=== PATIENT | male | born 2000 | race Caucasian/White ===

== ENCOUNTER 2021-09-01 04:56 | Emergency (ER) | payer MEDICAID, SELFPAY ==
[2021-09-01 04:59] VITALS: BP 125/90; PULSE 86; RESP 18; TEMP 36.7; O2SAT 97; BMI 30.3
--- NOTE | 2021-09-01 05:22 | ED.DENTAL ---
HPI - Dental/Oral General Chief complaint: Dental/Oral Stated complaint: dental pain Time Seen by Provider: 09/01/21 05:22 Source: patient Mode of arrival: ambulatory Limitations: no limitations History of Present Illness MD Complaint: tooth pain Teeth map: 1. Impacted right lower 3rd molar no cavity seen no significant gum swelling no signs of infection Related Data Previous Rx's Medication Instructions Recorded tramadol 50 mg tablet 50 mg PO Q6H PRN #20 tab 09/01/21 Allergies Allergy/AdvReac Type Severity Reaction Status Date / Time No Known Allergies Allergy Verified 09/01/21 05:07 [No Known Allergies*] Review of Systems Review of Systems: Yes all other systems are reviewed and are negative [facility] Social History Social History Alcohol intake: never Patient Tobacco Use Status: Never used Tobacco Use of substances other than those prescribed or required for medical reasons: No Advance Directives: No Advance Directives Information Provided: Yes Physical Exam Vital Signs: Vital Signs: Last Vital Signs Temp 98.1 F 09/01/21 04:59 Pulse 86 09/01/21 04:59 Resp 18 09/01/21 04:59 BP 125/90 H 09/01/21 04:59 Pulse Ox 97 09/01/21 04:59 Body Mass Index 30.3 HENMT: Teeth image: 1. Impacted 32 tooth With no cavity no gum swelling no signs of infection Discharge Plan Discharge Clinical Impression: Toothache Patient Disposition: Home, Self-Care Instructions: Toothache (ED) Additional Instructions: Your pain in the right lower molar secondary to impacted wisdom tooth as diagnosed by Dentist please follow-up with maxillofacial Surgeon as advised by your dentist pain medication as advised Prescriptions: New tramadol 50 mg tablet 50 mg PO Q6H PRN (Reason: pain) Qty: 20 RF: 0 Interventions: ED Discharge Assessment Last Done: 09/01/21 05:46 Discharge Date/Time: 09/01/21 05:40
== END 2021-09-01 05:40 | disposition home or self-care (01) ==
PROVIDERS: Emergency Provider Internal Medicine; PCP Family Medicine
DX: K08.89 Other specified disorders of teeth and supporting structures (principal); Z79.899 Other long term (current) drug therapy
CPT/HCPCS: 99283; 99284

== ENCOUNTER 2023-06-06 11:57 | Outpatient (REF) | payer MEDICAID, SELFPAY ==
[2023-06-06 13:39] LABS: MANUAL DIFF FLAG NO
[2023-06-06 13:54] LABS: Basophils Percent Auto 0.4 % (0-2); Eosinophils Absolute Auto 0.2 X10*3/uL (0.0-0.4); Eosinophils Percent Auto 2.3 % (0-4); Hematocrit 48.1 % (42.0-52.0); Hemoglobin 16.5 g/dl (14.0-18.0); Imm Gran Abs Auto 0.03 X10*3/uL (0.00-0.03); Imm Gran Pct Auto 0.4 % (0.0-0.4); Lymphocytes Absolute Auto 1.5 X10*3/uL (1.2-4.9); Lymphocytes Percent Auto 20.7 % (20-40); Mean Corpuscular HGB Conc 34.3 g/dl (31.0-36.0); Mean Corpuscular Hemoglobin 30.6 pg (27.0-33.0); Mean Corpuscular Volume 89.1 fL (80.0-98.0); Mean Platelet Volume 9.9 fL (9.4-12.4); Monocytes Absolute Auto 0.5 X10*3/uL (0.1-1.2); Monocytes Percent Auto 6.2 % (2-11); Neutrophils Absolute Auto 5.1 x10*3/uL (2.0-8.3); Platelet Count 266 X10*3/uL (160-400); White Blood Count 7.3 X10*3/uL (4.8-10.8)
[2023-06-06 14:02] LABS: Estimated Average Glucose 91 mg/dL; Hemoglobin A1c % 4.8 % (<6.0)
[2023-06-06 14:28] LABS: Alanine Aminotransferase 86 U/L (0-40); Alkaline Phosphatase 90 U/L (39-117); Anion Gap 13 (12-20); Aspartate Amino Transferase 38 U/L (5-37); Bilirubin Direct 0.1 mg/dL (0.0-0.5); Bilirubin Total 0.5 mg/dL (0.0-1.0); Blood Urea Nitrogen 14 mg/dL (9-16); Calcium 10.3 mg/dL (8.4-10.2); Carbon Dioxide 25 mmol/L (22-29); Chloride 105 mmol/L (96-108); Cholesterol 224 mg/dL (<200); Estimated Glomerular Filt Rate > 60; Glucose Random 92 mg/dL (60-115); HDL Cholesterol 39 mg/dL (>40); LDL Cholesterol Calculated 149 mg/dL (<100); Sodium 139 mmol/L (135-145); Total Protein 8.2 g/dL (6.5-8.0); Triglycerides 182 mg/dL (<150)
[2023-06-06 14:47] LABS: HCG Quantitative < 2 mIU/mL; TSH reflex Free T4 6.31 uIU/mL (0.32-4.0)
[2023-06-06 15:34] LABS: Free T4 (Free Thyroxine) 0.88 ng/dL (0.71-1.85)
[2023-06-06 17:53] LABS: CT PCR NOT DETECTED (Not Detect.); NG PCR NOT DETECTED (Not Detect.)
[2023-06-07 08:10] LABS: HIV AB/AG Nonreactive (Nonreactive); HIV Num 1 0.05 S/CO (0.00-0.99)
[2023-06-08 10:53] LABS: RPR Rapid Plasma Reagin NON-REACTIVE (NON-REACTIVE)
[2023-06-10 19:59] LABS: VITAMIN D (1,25 OH) D3 48 pg/mL; Vit D (1,25-Dihydroxy) Total 48 pg/mL (18-72); Vitamin D (1,25 OH) D2 <8 pg/mL
== END 2023-06-06 11:58 | disposition home or self-care (01) ==
LOC: HO.HHCL 11:57
PROVIDERS: Visit Provider Family Medicine
DX: R74.01 Elevation of levels of liver transaminase levels (principal); E78.5 Hyperlipidemia, unspecified; E88.81 Metabolic syndrome and other insulin resistance; F64.9 Gender identity disorder, unspecified; Z30.09 Encounter for other general counseling and advice on contraception; Z20.2 Contact with and (suspected) exposure to infections with a predominantly sexual mode of transmission
CPT/HCPCS: 0353U; 80048; 80061; 80076; 82652; 83036; 84439; 84443; 84702; 85025; 86592; 87389

== ENCOUNTER 2023-08-03 13:23 | Outpatient (REF) | payer MEDICAID, SELFPAY ==
[2023-08-03 15:59] LABS: MANUAL DIFF FLAG NO
[2023-08-03 16:18] LABS: Basophils Percent Auto 0.2 % (0-2); Eosinophils Absolute Auto 0.2 X10*3/uL (0.0-0.4); Hematocrit 46.1 % (42.0-52.0); Hemoglobin 16.1 g/dl (14.0-18.0); Imm Gran Abs Auto 0.03 X10*3/uL (0.00-0.03); Imm Gran Pct Auto 0.3 % (0.0-0.4); Lymphocytes Absolute Auto 1.8 X10*3/uL (1.2-4.9); Lymphocytes Percent Auto 21.2 % (20-40); Mean Corpuscular HGB Conc 34.9 g/dl (31.0-36.0); Mean Corpuscular Hemoglobin 30.1 pg (27.0-33.0); Mean Corpuscular Volume 86.2 fL (80.0-98.0); Mean Platelet Volume 9.7 fL (9.4-12.4); Monocytes Absolute Auto 0.6 X10*3/uL (0.1-1.2); Monocytes Percent Auto 6.6 % (2-11); Neutrophils Percent Auto 69.7 % (45-73); Platelet Count 320 X10*3/uL (160-400); Red Blood Count 5.35 X10*6/uL (4.60-5.80); Red Cell Distribution Width 12.1 % (11.0-16.0); White Blood Count 8.7 X10*3/uL (4.8-10.8)
[2023-08-03 16:21] LABS: Alanine Aminotransferase 81 U/L (0-40); Albumin Level 4.8 g/dL (3.5-5.0); Alkaline Phosphatase 91 U/L (39-117); Anion Gap 15 (12-20); Aspartate Amino Transferase 37 U/L (5-37); Bilirubin Total 0.5 mg/dL (0.0-1.0); Blood Urea Nitrogen 16 mg/dL (9-16); Calcium 10.4 mg/dL (8.4-10.2); Carbon Dioxide 24 mmol/L (22-29); Chloride 104 mmol/L (96-108); Estimated Glomerular Filt Rate > 60; Glucose Random 90 mg/dL (60-115); Potassium 3.5 mmol/L (3.3-5.1); Sodium 139 mmol/L (135-145); Total Protein 8.1 g/dL (6.5-8.0)
== END 2023-08-03 13:24 | disposition home or self-care (01) ==
LOC: HO.HHCL 13:23
PROVIDERS: Visit Provider Registered Nurse
DX: R39.9 Unspecified symptoms and signs involving the genitourinary system (principal); R74.8 Abnormal levels of other serum enzymes
CPT/HCPCS: 36415; 80053; 85025; 87086

== ENCOUNTER 2023-08-16 14:36 | Outpatient (AMB) | payer MEDICAID, SELFPAY ==
--- NOTE | 2023-08-16 14:58 | A.OFFVIS_ITS ---
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 Pt reports loud snoring, gasping arousals with palpitation. Pt also having noncturia, non refreshing sleep and daytime sleepiness. He gained about 50 lb over the last couple of years and his symptoms has been progressed. Sleep questionnaire: Have you ever been diagnosed with a sleep disorder? No. Have you ever had a sleep study in the past? No. Have you ever been treated for a sleep disorder? No. Do you take medications for a sleep disorder? hydroxyzine 25 mg as needed. Do you snore? Yes, loudly. Do you wake up gasping at night? Yes. Do you have episodes of apneas? No. If yes, are they witnessed? No. Do you have episodes of nocturnal chest pain or dyspnea? Yes. Do you have difficulty initiating sleep? Yes. Do you have difficulty maintaining sleep? Yes. Do you wake up tired? Yes. Do you have headaches upon awakening? Yes, sometimes. Do you wake up with dry mouth or throat? No. Do you have GERD? Yes. Do you have nocturia? Yes. Do you have nocturnal leg cramps? No. Do you have symptoms of restless legs? No. Do you act out your dreams? Yes, sometimes, he screams. Sleep hygiene questionnaire: What is your usual sleep routine? Usual bedtime is at 11 pm to 12 am; Usual wake up time is at 6-7 am. Do you take naps? Yes, almost everyday, 4-6 hrs. Is your sleep environment cool, dark, and quiet? Yes. Do you exercise? Yes, sometimes. walking for 30 min. Do you take caffeine or other stimulants? No. Do you use electronics in bed? Yes. What is your work schedule? N/A. Hypersomnolence questionnaire: Do you have daytime tiredness or fatigue? Yes. Do you easily fall asleep when inactive? Yes. Have you ever had episodes of sudden weakness? No. Have you ever had episodes of sudden weakness associated with strong emotions? No. PFSH Social History (Updated 08/16/23 @ 15:04 by Kitty Buckley) Alcohol intake: never Patient Tobacco Use Status: Never used Tobacco Review of Systems Const All systems reviewed & are unremarkable except as noted in HPI and below ENT Reports Normal hearing present Neuro Reports Normal hearing present Physical Exam Vital Signs: Last Vital Signs Pulse 104 H 08/16/23 14:59 BP 130/66 08/16/23 14:59 Pulse Ox 99 08/16/23 14:59 Oxygen Delivery Method Room Air 08/16/23 14:59 BMI result Body Mass Index 35.1 Const General: cooperative Nutritional Appearance: obese Orientation/consciousness: patient oriented x3 HEENT Throat: Yes other (mallampati grade 4) Neck Neck: Yes full ROM and Yes supple Resp Effort & Inspection: normal respiratory effort and able to speak in complete sentences Neuro General: patient oriented x3 and gait normal Cranial nerves: Yes Bilaterally intact EOM present, Yes Normal facial strength present, Yes Midline tongue present, Yes Symmetric palate elevation present, Yes Normal hearing present, Yes Ability to bilaterally rotate head present and Yes Ability to bilaterally elevate shoulders present Cognition (Neuro): normal cognition Gait exam (Neuro): Normal gait present Motor exam (neuro): 5/5 motor strength present throughout, Pronator motor funct ion not present and no tremor noted Psych Appearance: grossly normal Mental Status: mental status grossly normal Speech and movement: Normal speech and movement present Affect: normal affect Attitude: cooperative Assessment & Plan Assessment & Plan (1) Loud snoring: Code(s): R06.83 - Snoring (2) Excessive daytime sleepiness: Code(s): G47.19 - Other hypersomnia (3) Obese: Code(s): E66.9 - Obesity, unspecified Plan Pt is advised to undergo home sleep study to assess for sleep apnea. Will f/u with pt after study to discuss results and appropriate treatment options. Pt to call with any worsening concerns or questions. Coding Level of Care Code New Pt Level 3 (58000) Diagnoses Loud snoring R06.83 Excessive daytime sleepiness G47.19 Obese E66.9
[2023-08-16 14:59] VITALS: BP 130/66; PULSE 104; O2SAT 99; BMI 35.1
== END 2023-08-16 15:25 | disposition home or self-care (01) ==
PROVIDERS: PCP Family Medicine; Visit Provider Nurse Practitioner Family
DX: R06.83 Snoring (principal); G47.19 Other hypersomnia; E66.9 Obesity, unspecified
CPT/HCPCS: 99203

== ENCOUNTER → 2023-08-16 14:36 | Outpatient (BNVA) | payer MEDICAID, SELFPAY | PROVIDERS: PCP Family Medicine; Visit Provider Nurse Practitioner Family | DX: G47.19 Other hypersomnia (principal); R06.83 Snoring; E66.9 Obesity, unspecified; Z68.35 Body mass index [BMI] 35.0-35.9, adult | CPT/HCPCS: 99212 ==

== ENCOUNTER 2023-10-24 16:11 | Outpatient (REF) | payer MEDICAID, SELFPAY ==
[2023-10-25 04:28] LABS: ~HepC Num1 0.27 S/CO (0.00-0.79); ~Hepatitis C Antibody Nonreactive (Nonreactive)
== END 2023-10-24 16:12 | disposition home or self-care (01) ==
LOC: HO.HHCL 16:11
PROVIDERS: Visit Provider Family Medicine
DX: F64.9 Gender identity disorder, unspecified (principal); Z11.59 Encounter for screening for other viral diseases
CPT/HCPCS: 36415; 84403; 86803

== ENCOUNTER → 2023-10-31 08:32 | Outpatient (REF) | payer MEDICAID, SELFPAY | LOC: HO.SL 08:32 | PROVIDERS: PCP Family Medicine; Visit Provider Nurse Practitioner Family | DX: G47.33 Obstructive sleep apnea (adult) (pediatric) (principal); E66.9 Obesity, unspecified; G47.19 Other hypersomnia; R06.83 Snoring | CPT/HCPCS: 95806; 95811 ==

== ENCOUNTER → 2023-10-31 08:49 | Outpatient (BNV) | payer MEDICAID, SELFPAY | PROVIDERS: PCP Family Medicine; Visit Provider Psychiatry & Neurology Neurology | DX: G47.33 Obstructive sleep apnea (adult) (pediatric) (principal) | CPT/HCPCS: 95806 ==

== ENCOUNTER 2023-11-02 17:06 | Outpatient (REF) | payer MEDICAID, SELFPAY ==
[2023-11-10 19:14] LABS: HPV mRNA E6/E7 rflx Not Detected (Not Detected)
== END 2023-11-02 17:07 | disposition home or self-care (01) ==
LOC: HO.HHCLNP 17:06
PROVIDERS: Visit Provider Family Medicine
DX: Z12.4 Encounter for screening for malignant neoplasm of cervix (principal); Z11.51 Encounter for screening for human papillomavirus (HPV)
CPT/HCPCS: 87624; 88142

== ENCOUNTER → 2023-11-28 20:30 | Outpatient (REF) | payer MEDICAID, SELFPAY | LOC: HO.SL 20:30 | PROVIDERS: PCP Family Medicine; Visit Provider Nurse Practitioner Family | DX: Z13.89 Encounter for screening for other disorder (principal) ==

== ENCOUNTER → 2023-11-28 22:56 | Outpatient (BNV) | payer MEDICAID, SELFPAY | PROVIDERS: PCP Family Medicine; Visit Provider Psychiatry & Neurology Neurology | DX: G47.33 Obstructive sleep apnea (adult) (pediatric) (principal) | CPT/HCPCS: 95811 ==

== ENCOUNTER 2023-12-10 14:36 | Outpatient (AMB) | payer MEDICAID, SELFPAY ==
--- NOTE | 2023-12-10 14:41 | MHC.OFFVIS ---
Intake Vital Signs 12/10/23 14:48 Height 4 ft 10 in Weight 177 lb 8 oz BMI 37.1 BP 132/70 Blood Pressure Location Lt brachial Position Sitting Pulse 77 Pulse Source Pulse Oximeter Pulse Oximetry (%) 100 Oxygen Delivery Method Room Air Intake Visit Reasons: 4 mnts f/u for SONU - CONF w/address Intake Note: Patient presents for 4 month f/u. Allergies No Known Allergies [No Known Allergies*] Allergy (Verified 12/10/23 14:44) HPI HPI Comments History of Present Illness Details 23 y/o male patient presents for follow up of sleep study. The home sleep study result was significant for a severe degree of sleep apnea. The AHI was 28/hr and oxygen david was 71%. The duration of O2 sat below 88% for 12 min. Pt underwent CPAP titration study and the result is pending. Pt states that he slept well during the titration study. PFSH Family History (Updated 12/10/23 @ 14:47 by Barbara Roca CMA) Mother Hypertension Social History Household Members: Family Alcohol intake: never Patient Tobacco Use Status: Never used Tobacco Review of Systems Const All systems reviewed & are unremarkable except as noted in HPI and below ENT Reports Normal hearing present Neuro Reports Normal hearing present Physical Exam Vital Signs: Last Vital Signs Pulse 77 12/10/23 14:48 BP 132/70 12/10/23 14:48 Pulse Ox 100 12/10/23 14:48 Oxygen Delivery Method Room Air 12/10/23 14:48 BMI result Body Mass Index 37.1 Const General: cooperative Nutritional Appearance: obese Orientation/consciousness: patient oriented x3 HEENT Throat: Yes other (mallampati grade 4) Neck Neck: Yes full ROM and Yes supple Resp Effort & Inspection: normal respiratory effort and able to speak in complete sentences Neuro General: patient oriented x3 and gait normal Cranial nerves: Yes Bilaterally intact EOM present, Yes Normal facial strength present, Yes Midline tongue present, Yes Symmetric palate elevation present, Yes Normal hearing present, Yes Ability to bilaterally rotate head present and Yes Ability to bilaterally elevate shoulders present Cognition (Neuro): normal cognition Gait exam (Neuro): Normal gait present Motor exam (neuro): 5/5 motor strength present throughout, Pronator motor function not present and no tremor noted Psych Appearance: grossly normal Mental Status: mental status grossly normal Speech and movement: Normal speech and movement present Affect: normal affect Attitude: cooperative Assessment & Plan Assessment & Plan (1) Sleep apnea: Comment: Severe degree of sleep apnea. The AHI was 28/hr, oxygen david was 71% Code(s): G47.30 - Sleep apnea, unspecified Plan Will order CPAP when the titration study result available. Advised patient to use CPAP nightly and more than 4 hrs when he get his CPAP. Continue to practice good sleep hygiene, and wt reduction advised. Coding Level of Care Code Est Pt Level 3 (43994) Diagnoses Sleep apnea G47.30
[2023-12-10 14:48] VITALS: BP 132/70; PULSE 77; O2SAT 100; BMI 37.1
== END 2023-12-10 15:00 | disposition home or self-care (01) ==
PROVIDERS: PCP Family Medicine; Visit Provider Nurse Practitioner Family
DX: G47.30 Sleep apnea, unspecified (principal)
CPT/HCPCS: 99213

== ENCOUNTER → 2023-12-10 14:36 | Outpatient (BNVA) | payer MEDICAID, SELFPAY | PROVIDERS: PCP Family Medicine; Visit Provider Nurse Practitioner Family | DX: G47.30 Sleep apnea, unspecified (principal) | CPT/HCPCS: 99212 ==

== ENCOUNTER 2024-04-08 13:57 | Outpatient (AMB) | payer MEDICAID, SELFPAY ==
[2024-04-08 14:16] VITALS: BMI 37.2
--- NOTE | 2024-04-08 14:16 | A.OFFVIS_ITS ---
Vital Signs 04/08/24 14:16 Height 4 ft 10 in Weight 178 lb BMI 37.2 Intake Visit Reasons: 4 mo f/u-lvm Intake Note: Patient presents for 4 month follow up. Patient wants to discuss usage of machine. Allergies No Known Allergies [No Known Allergies*] Allergy (Verified 04/08/24 14:30) Medication List - Last Reconciled 04/08/24 by GINNY Wesley hydroxyzine HCl 25 mg PO BEDTIME sertraline (Zoloft) 25 mg PO DAILY testosterone mg transdermal tramadol 50 mg PO Q6H PRN HPI Comments Details: 23-yr-old male presents for f/u visit. Pt denies any significant interval medical changes. Since last visist, pt underwent in-lab PSG PAP titration study- showed best response of severe SONU to CPAP set to [id number]. Pt was started on CPAP 10 cmH2O. He reports he is using his CPAP machine. However, he is struggling w/ insomnia so has difficulty sleeping > 4 hours per night. He does have hydroxyzine 25mg prn- which does not always help. He has trouble initiating sleep, and some difficulty maintaining sleep. Can still fall asleep during the day. PAP compliance report does show fragmented use during the night. Compliance Report Usage 03/09/2024 - 04/07/2024 Usage days 28/30 days (93%) Usage days >= 4 hours 14 days (47%) Usage days < 4 hours 14 days (47%) AirSense 10 AutoSet Serial number [id number] Mode CPAP Set pressure 10 cmH2O EPR Fulltime EPR level 2 Residual AHI: 4.9/hr States he has always not slept well Usual bedtime varies- 11pm-1am Usual wake-up time- 9am No caffeine use. No alcohol use. Walks on a treadmill 30-60 minutes at times. Uses phone in bed- relaxing. Does have restless at rest- whole body restlessness when he is falling asleep. Occasional creepy crawling sensation. No usual leg cramps. Denies h/o anemia. TSH H (05/2023), h/o + NATHAN Endorses bilateral knee pain PFSH Family History Mother Hypertension Social History Household Members: Family Alcohol intake: never Patient Tobacco Use Status: Never used Tobacco Physical Exam Vital Signs: BMI result Body Mass Index 37.2 Const General: cooperative and no acute distress Orientation/consciousness: patient oriented x3 Resp Effort & Inspection: normal respiratory effort and able to speak in complete sentences Neuro General: patient oriented x3 Cranial nerves: Yes CN's II-XII intact bilaterally Cognition (Neuro): normal cognition Psych Appearance: grossly normal Mental Status: mental status grossly normal Speech and movement: Normal speech and movement present Affect: normal affect Attitude: cooperative Assessment & Plan Assessment & Plan (1) Sleep apnea: Comment: Severe degree of sleep apnea. The AHI was 28/hr, oxygen david was 71% Code(s): G47.30 - Sleep apnea, unspecified Category: Medical (2) Obese: Code(s): E66.9 - Obesity, unspecified Category: Medical (3) Fatigue: Code(s): R53.83 - Other fatigue Category: Medical (4) Paresthesia: Code(s): R20.2 - Paresthesia of skin Category: Medical (5) Elevated TSH: Code(s): R79.89 - Other specified abnormal findings of blood chemistry Category: Medical (6) Bilateral knee pain: Code(s): M25.561 - Pain in right knee; M25.562 - Pain in left knee Category: Medical (7) Positive NATHAN (antinuclear antibody): Code(s): R76.8 - Other specified abnormal immunological findings in serum Category: Medical Plan Discussed strategies to optimize sleep hygiene, in hopes this increases pt's ability to increase CPAP 10 cmH2O nightly > 4 hrs. Will check labs for common etiologies of RLS s/s, including f/u h/o elevated TSH and positive NATHAN- as these may be interfering w/ sleep quality. Reviewed Inspire work-up, procedure, MOA, indications and contraindications- pt will consider. Orders: Orders TSH reflex Free T4 Today E66.9 - Obesity, unspecified, G47.30 - Sleep apnea, unspecified, M25.561 - Pain in right knee, M25.562 - Pain in left knee, R20.2 - Paresthesia of skin, R53.83 - Other fatigue, R76.8 - Other specified abnormal immunological findings in serum, R79.89 - Other specified abnormal findings of blood chemistry Triiodothyronine T3 Free Today E66.9 - Obesity, unspecified, G47.30 - Sleep apnea, unspecified, M25.561 - Pain in right knee, M25.562 - Pain in left knee, R20.2 - Paresthesia of skin, R53.83 - Other fatigue, R76.8 - Other specified abnormal immunological findings in serum, R79.89 - Other specified abnormal findings of blood chemistry NATHAN Reflex Titer and Pattern Today E66.9 - Obesity, unspecified, G47.30 - Sleep apnea, unspecified, M25.561 - Pain in right knee, M25.562 - Pain in left knee, R20.2 - Paresthesia of skin, R53.83 - Other fatigue, R76.8 - Other specified abnormal immunological findings in serum, R79.89 - Other specified abnormal findings of blood chemistry Ferritin Today E66.9 - Obesity, unspecified, G47.30 - Sleep apnea, unspecified, M25.561 - Pain in right knee, M25.562 - Pain in left knee, R20.2 - Paresthesia of skin, R53.83 - Other fatigue, R76.8 - Other specified abnormal immunological findings in serum, R79.89 - Other specified abnormal findings of blood chemistry IRON PROFILE Today E66.9 - Obesity, unspecified, G47.30 - Sleep apnea, un specified, M25.561 - Pain in right knee, M25.562 - Pain in left knee, R20.2 - Paresthesia of skin, R53.83 - Other fatigue, R76.8 - Other specified abnormal immunological findings in serum, R79.89 - Other specified abnormal findings of blood chemistry Complete Blood Count Auto Diff Today E66.9 - Obesity, unspecified, G47.30 - Sleep apnea, unspecified, M25.561 - Pain in right knee, M25.562 - Pain in left knee, R20.2 - Paresthesia of skin, R53.83 - Other fatigue, R76.8 - Other specified abnormal immunological findings in serum, R79.89 - Other specified abnormal findings of blood chemistry Comprehensive Met. Panel Today E66.9 - Obesity, unspecified, G47.30 - Sleep apnea, unspecified, M25.561 - Pain in right knee, M25.562 - Pain in left knee, R20.2 - Paresthesia of skin, R53.83 - Other fatigue, R76.8 - Other specified abnormal immunological findings in serum, R79.89 - Other specified abnormal findings of blood chemistry Rheumatoid Factor Today E66.9 - Obesity, unspecified, G47.30 - Sleep apnea, unspecified, M25.561 - Pain in right knee, M25.562 - Pain in left knee, R20.2 - Paresthesia of skin, R53.83 - Other fatigue, R76.8 - Other specified abnormal immunological findings in serum, R79.89 - Other specified abnormal findings of blood chemistry Vitamin B12 and Folate Today E66.9 - Obesity, unspecified, G47.30 - Sleep apnea, unspecified, M25.561 - Pain in right knee, M25.562 - Pain in left knee, R20.2 - Paresthesia of skin, R53.83 - Other fatigue, R76.8 - Other specified abnormal immunological findings in serum, R79.89 - Other specified abnormal findings of blood chemistry Vitamin D 25-OH (D2 and D3) Today E66.9 - Obesity, unspecified, G47.30 - Sleep apnea, unspecified, M25.561 - Pain in right knee, M25.562 - Pain in left knee, R20.2 - Paresthesia of skin, R53.83 - Other fatigue, R76.8 - Other specified abnormal immunological findings in serum, R79.89 - Other specified abnormal findings of blood chemistry Coding Level of Care Code Est Pt Level 4 (65685) Diagnoses Sleep apnea G47.30 Obese E66.9 Fatigue R53.83 Paresthesia R20.2 Elevated TSH R79.89 Bilateral knee pain M25.561; M25.562 Positive NATHAN (antinuclear antibody) R76.8
== END 2024-04-08 15:15 | disposition home or self-care (01) ==
PROVIDERS: PCP Family Medicine; Visit Provider Nurse Practitioner Family
DX: G47.30 Sleep apnea, unspecified (principal); E66.9 Obesity, unspecified; R53.83 Other fatigue; R20.2 Paresthesia of skin; R79.89 Other specified abnormal findings of blood chemistry; M25.561 Pain in right knee; M25.562 Pain in left knee; R76.8 Other specified abnormal immunological findings in serum
CPT/HCPCS: 99214

== ENCOUNTER → 2024-04-08 13:57 | Outpatient (BNVA) | payer MEDICAID, SELFPAY | PROVIDERS: PCP Family Medicine; Visit Provider Nurse Practitioner Family | DX: G47.30 Sleep apnea, unspecified (principal); E66.9 Obesity, unspecified; R53.83 Other fatigue; R20.2 Paresthesia of skin; R79.89 Other specified abnormal findings of blood chemistry; R76.8 Other specified abnormal immunological findings in serum; M25.561 Pain in right knee; M25.562 Pain in left knee; Z68.37 Body mass index [BMI] 37.0-37.9, adult | CPT/HCPCS: 99212 ==

== ENCOUNTER 2024-04-08 15:19 | Outpatient (REF) | payer MEDICAID, SELFPAY ==
[2024-04-08 18:11] LABS: MANUAL DIFF FLAG NO
[2024-04-08 18:29] LABS: Rheumatoid Factor < 13.0 IU/mL (<15.0)
[2024-04-08 18:30] LABS: Basophils Percent Auto 0.5 % (0-2); Eosinophils Absolute Auto 0.2 X10*3/uL (0.0-0.4); Hematocrit 47.3 % (37.0-47.0); Hemoglobin 16.2 g/dl (12.0-16.0); Imm Gran Abs Auto 0.02 X10*3/uL (0.00-0.03); Imm Gran Pct Auto 0.3 % (0.0-0.4); Lymphocytes Absolute Auto 1.2 X10*3/uL (1.2-4.9); Lymphocytes Percent Auto 19.6 % (20-40); Mean Corpuscular HGB Conc 34.2 g/dl (31.0-35.0); Mean Corpuscular Hemoglobin 30.6 pg (27.0-33.0); Mean Corpuscular Volume 89.4 fL (80.0-98.0); Mean Platelet Volume 9.8 fL (9.4-12.3); Monocytes Absolute Auto 0.5 X10*3/uL (0.1-1.2); Monocytes Percent Auto 7.2 % (2-11); Neutrophils Absolute Auto 4.3 x10*3/uL (2.0-8.3); Neutrophils Percent Auto 69.4 % (45-73); Platelet Count 294 X10*3/uL (160-400); Red Blood Count 5.29 X10*6/uL (4.20-5.50); Red Cell Distribution Width 12.4 % (11.0-16.0); White Blood Count 6.2 X10*3/uL (4.8-10.8)
[2024-04-08 18:31] LABS: Alanine Aminotransferase 172 U/L (0-31); Albumin Level 5.1 g/dL (3.5-5.0); Alkaline Phosphatase 93 U/L (39-117); Anion Gap 14 (12-20); Aspartate Amino Transferase 92 U/L (5-31); Bilirubin Total 0.6 mg/dL (0.0-1.0); Blood Urea Nitrogen 13 mg/dL (9-16); Carbon Dioxide 26 mmol/L (22-29); Chloride 105 mmol/L (96-108); Estimated Glomerular Filt Rate > 60; Glucose Random 86 mg/dL (60-115); Iron 115 mcg/dL (30-160); Percent Iron Saturation 41 % (15-50); Potassium 4.5 mmol/L (3.3-5.1); Sodium 140 mmol/L (135-145); Total Iron Binding Capacity 281 mcg/dL (228-428); Total Protein 8.3 g/dL (6.5-8.0); Unsaturated Iron Binding 166 ug/dL
[2024-04-08 18:49] LABS: Ferritin 499 ng/mL (10-122); TSH reflex Free T4 4.42 uIU/mL (0.32-4.0)
[2024-04-08 19:02] LABS: Folate 8.5 ng/mL (> or = 4.0); Vitamin B12 429 pg/mL (200-900)
[2024-04-09 05:53] LABS: Triiodothyronine T3 Free 3.6 pg/mL (2.3-4.2)
[2024-04-12 11:58] LABS: Vitamin D 25-OH, D2 <4 ng/mL; Vitamin D 25-OH, D3 13 ng/mL; Vitamin D 25-OH, Total 13 ng/mL (30-100)
[2024-04-18 15:28] LABS: Anti Nuclear Antibody Screen POSITIVE (NEGATIVE)
== END 2024-04-08 15:20 | disposition home or self-care (01) ==
LOC: HO.HKASLDS 15:19
PROVIDERS: PCP Family Medicine; Visit Provider Nurse Practitioner Family
DX: E66.9 Obesity, unspecified (principal); R53.83 Other fatigue; R20.2 Paresthesia of skin; R79.89 Other specified abnormal findings of blood chemistry; G47.30 Sleep apnea, unspecified; M25.561 Pain in right knee; M25.562 Pain in left knee; R76.8 Other specified abnormal immunological findings in serum
CPT/HCPCS: 36415; 80053; 82306; 82607; 82728; 82746; 83540; 84439; 84443; 84481; 85025; 86038; 86039; 86431; 99212

== ENCOUNTER 2024-04-24 08:21 | Outpatient (REF) | payer MEDICAID, SELFPAY ==
--- NOTE | ~2024-04-24 | US_ITS ---
EXAMINATION: US ABDOMEN COMPLETE CLINICAL INFORMATION: Transaminitis. COMPARISON: CT abdomen and pelvis 05/19/2018. X-ray KUB 02/28/2017. TECHNIQUE: Real-time imaging of the abdominal viscera. FINDINGS: PANCREAS: Visualized portions of the pancreas are unremarkable however portions are obscured by bowel gas limiting evaluation. ABDOMINAL AORTA: The proximal, mid, and distal segments are nonaneurysmal in caliber. INFERIOR VENA CAVA: Visualized portions are normal. LIVER: The liver is normal in size. The liver contour is normal. Markedly increased hepatic echogenicity which can be seen in the setting of hepatic steatosis in the presence of focal fatty sparing. No definite focal lesion is seen, but evaluation is limited due to poor sound beam penetration through the coarse echogenic liver parenchyma. There is no intrahepatic biliary duct dilatation seen. GALLBLADDER: Negative sonographic Bingham sign. The gallbladder is physiologically distended. Multiple mobile gallstones are present. No evidence of gallbladder wall thickening or pericholecystic fluid. COMMON BILE DUCT: Normal in caliber measuring 0.4 cm in diameter. There is a question of a possible 4 mm echogenic stone within the lumen of the common bile duct versus technical artifact, if any clinical concern for choledocholithiasis. MRCP could be obtained. RIGHT KIDNEY: Echogenic foci without twinkle artifact or shadowing may reflect vascular reflectors. No definite nephrolithiasis. No hydronephrosis. No renal calculi or focal parenchymal lesions. The kidney measures 10.2 cm in maximum dimension. LEFT KIDNEY: Echogenic focus without twinkle artifact or shadowing may reflect a vascular reflector. No definite nephrolithiasis. No hydronephrosis. No renal calculi or focal parenchymal lesions. The kidney measures 10.3 cm in maximum dimension. SPLEEN: Normal. The spleen measures 11.2 cm in maximum dimension. FREE FLUID: None. US/US abdomen complete IMPRESSION: 1. Cholelithiasis without evidence of acute cholecystitis. 2. There is a question of a possible 4 mm echogenic stone within the lumen of the common bile duct versus technical artifact, if any clinical concern for choledocholithiasis. MRCP could be obtained. There is no associated intra or extrahepatic biliary duct dilatation. 3. Markedly increased hepatic echogenicity which can be seen in the setting of hepatic steatosis in the presence of focal fatty sparing.
== END 2024-04-24 08:22 | disposition home or self-care (01) ==
LOC: HO.US 08:21
PROVIDERS: PCP Family Medicine; Visit Provider Family Medicine
DX: R74.01 Elevation of levels of liver transaminase levels (principal)
CPT/HCPCS: 76700

== ENCOUNTER 2024-04-25 10:30 | Outpatient (REF) | payer MEDICAID, SELFPAY ==
[2024-04-25 20:42] LABS: Alanine Aminotransferase 141 U/L (0-31); Albumin Level 4.7 g/dL (3.5-5.0); Alkaline Phosphatase 78 U/L (39-117); Aspartate Amino Transferase 63 U/L (5-31); Bilirubin Direct 0.1 mg/dL (0.0-0.5); Bilirubin Total 0.4 mg/dL (0.0-1.0); Cholesterol 184 mg/dL (<200); Ferritin 361 ng/mL (10-122); HDL Cholesterol 27 mg/dL (>40); Iron 79 mcg/dL (30-160); LDL Cholesterol Calculated 122 mg/dL (<100); Percent Iron Saturation 33 % (15-50); TSH reflex Free T4 2.83 uIU/mL (0.32-4.0); Total Iron Binding Capacity 240 mcg/dL (228-428); Total Protein 7.3 g/dL (6.5-8.0); Triglycerides 177 mg/dL (<150); Unsaturated Iron Binding 161 ug/dL
[2024-04-26 04:02] LABS: HBS Num1 5.57 mIU/mL (0-7.99); HBc Num1 0.12 S/CO (0.00-0.79); HBsAGNum1 0.55 S/CO (0.00-0.99); Hepatitis A Antibody IgM 0.17 Index (0-0.79); Hepatitis B Core Antibody Nonreactive (Nonreactive); Hepatitis B Surface Antigen Negative (Negative); ~HepC Num1 0.21 S/CO (0.00-0.79); ~Hepatitis A Antibody IgM Nonreactive (Nonreactive); ~Hepatitis B Surface Antibody NONREACTIVE (Nonreactive); ~Hepatitis C Antibody Nonreactive (Nonreactive)
[2024-04-28 10:23] LABS: Ceruloplasmin 29 mg/dL (14-48)
[2024-04-29 12:47] LABS: Alpha Fetoprotein 4.4 ng/mL
[2024-04-29 15:59] LABS: Mitochondrial Antibodies NEGATIVE (NEGATIVE)
[2024-05-02 10:12] LABS: Testosterone, Total 420 ng/dL (2-45)
[2024-05-05 02:58] LABS: Smooth Muscle Antibody <20 U (<20)
== END 2024-04-25 10:31 | disposition home or self-care (01) ==
LOC: HO.HMGCLDS 10:30
PROVIDERS: Visit Provider Family Medicine
DX: F64.9 Gender identity disorder, unspecified (principal); R79.89 Other specified abnormal findings of blood chemistry; R74.01 Elevation of levels of liver transaminase levels; E78.5 Hyperlipidemia, unspecified
CPT/HCPCS: 36415; 80061; 80076; 82105; 82390; 82728; 83540; 84403; 84443; 86015; 86381; 86704; 86706; 86709; 86803; 87340

== ENCOUNTER 2024-05-29 11:58 | Outpatient (REF) | payer MEDICAID, SELFPAY ==
[2024-05-29 13:49] LABS: Alanine Aminotransferase 118 U/L (0-31); Albumin Level 4.8 g/dL (3.5-5.0); Alkaline Phosphatase 88 U/L (39-117); Aspartate Amino Transferase 51 U/L (5-31); Bilirubin Direct 0.2 mg/dL (0.0-0.5); Bilirubin Total 0.7 mg/dL (0.0-1.0); Cholesterol 201 mg/dL (<200); HDL Cholesterol 30 mg/dL (>40); LDL Cholesterol Calculated 112 mg/dL (<100); Total Protein 7.7 g/dL (6.5-8.0); Triglycerides 295 mg/dL (<150)
[2024-05-29 14:03] LABS: ~HepC Num1 0.18 S/CO (0.00-0.79); ~Hepatitis C Antibody Nonreactive (Nonreactive)
[2024-05-29 16:30] LABS: CT PCR NOT DETECTED (Not Detect.); NG PCR NOT DETECTED (Not Detect.)
[2024-06-03 13:13] LABS: Testosterone, Total 239 ng/dL (2-45)
== END 2024-05-29 11:59 | disposition home or self-care (01) ==
LOC: HO.HHCL 11:58
PROVIDERS: Visit Provider Family Medicine
DX: R74.01 Elevation of levels of liver transaminase levels (principal); E78.5 Hyperlipidemia, unspecified; F64.9 Gender identity disorder, unspecified; Z11.3 Encounter for screening for infections with a predominantly sexual mode of transmission; Z11.59 Encounter for screening for other viral diseases
CPT/HCPCS: 36415; 80061; 80076; 84403; 86803; 87491; 87591

== ENCOUNTER 2024-10-13 11:52 | Outpatient (REF) | payer MEDICAID, SELFPAY ==
[2024-10-13 13:30] LABS: Hematocrit 46.4 % (37.0-47.0); Hemoglobin 15.9 g/dl (12.0-16.0); Mean Corpuscular HGB Conc 34.3 g/dl (31.0-35.0); Mean Corpuscular Hemoglobin 30.5 pg (27.0-33.0); Mean Corpuscular Volume 88.9 fL (80.0-98.0); Mean Platelet Volume 9.7 fL (9.4-12.3); Platelet Count 266 X10*3/uL (160-400); Red Blood Count 5.22 X10*6/uL (4.20-5.50); Red Cell Distribution Width 12.4 % (11.0-16.0); White Blood Count 6.3 X10*3/uL (4.8-10.8)
[2024-10-13 14:03] LABS: Alanine Aminotransferase 40 U/L (0-31); Albumin Level 4.6 g/dL (3.5-5.0); Alkaline Phosphatase 86 U/L (39-117); Aspartate Amino Transferase 26 U/L (5-31); Bilirubin Direct 0.3 mg/dL (0.0-0.5); Bilirubin Total 0.8 mg/dL (0.0-1.0); Cholesterol 171 mg/dL (<200); HDL Cholesterol 30 mg/dL (>40); Iron 100 mcg/dL (30-160); LDL Cholesterol Calculated 114 mg/dL (<100); Percent Iron Saturation 40 % (15-50); Total Iron Binding Capacity 250 mcg/dL (228-428); Total Protein 7.5 g/dL (6.5-8.0); Triglycerides 138 mg/dL (<150); Unsaturated Iron Binding 150 ug/dL
[2024-10-13 14:09] LABS: Ferritin 202 ng/mL (10-122)
== END 2024-10-13 11:53 | disposition home or self-care (01) ==
LOC: HO.HHCL 11:52
PROVIDERS: Visit Provider Family Medicine
DX: R74.01 Elevation of levels of liver transaminase levels (principal); F64.9 Gender identity disorder, unspecified; E78.5 Hyperlipidemia, unspecified
CPT/HCPCS: 36415; 80061; 80076; 82728; 83540; 85027

== ENCOUNTER 2024-11-04 10:56 | Outpatient (AMB) | payer MEDICAID, SELFPAY ==
[2024-11-04 10:59] VITALS: BP 134/90; PULSE 80; O2SAT 99; BMI 27.7
--- NOTE | 2024-11-04 10:59 | A.OFFVIS_ITS ---
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 Labs done via [facility]. Denies any GI concerns at this time. Administrative Aide Required: No Accompanied by: Self / Same As Patient Allergies No Known Allergies [No Known Allergies*] Allergy (Verified 11/04/24 10:59) HPI HPI Transaminitis - R/S from : Details: 24 years old male with past medical history of sleep apnea, obesity, transaminitis is here today for initial consultation. Patient was sent by his PCP. Back in May of 2024 patient had elevated liver enzymes. Patient started exercising and eating better and lost over 40 lb. When he was diagnosed with transaminitis he reports that he was 176 lb. Today he is 132 lb. Patient had repeated blood work and his liver enzymes have improved. Normal AST and minimally elevated ALT. Patient also had high cholesterol, now normal. PCP send patient for blood work and ultrasound. Mildly elevated ferritin, negative for autoimmune hepatitis and PBC. Ultrasound showed increased echogenicity of the liver. Patient denies any GI concerning symptoms. [facility] Medical History (Updated 11/04/24 @ 11:17 by Josi Bojorquez [facility]) Transaminitis Surgical History (Updated 11/04/24 @ 11:09 by DEISY Blackwell) History of esophagogastroduodenoscopy (EGD) (~2015) Family History (Updated 11/04/24 @ 11:08 by DEISY Blackwell) Mother Hypertension Paternal Grandfather Colon cancer Social History (Updated 11/04/24 @ 11:09 by DEISY Blackwell) Household Members: Family Alcohol intake: never Patient Tobacco Use Status: Never used Tobacco Review of Systems Const Denies weight gain and Denies weight loss ENT Reports no additional complaints, Denies dysphagia and Denies odynophagia Card Reports no additional complaints Resp Reports no additional complaints GI Denies abdominal pain, Denies belching, Denies melena, Denies bloating, Denies change in bowel habits, Denies dysphagia, Denies excessive flatus, Denies dyspepsia, Denies heartburn, Denies diarrhea, Denies loose stools, Denies nausea, Denies odynophagia and Denies vomiting Reports no additional complaints Musc Reports no additional complaints Neuro Reports no additional complaints Psych Reports no additional complaints Endo Reports no additional complaints Physical Exam Vital Signs: Last Vital Signs Pulse 80 11/04/24 10:59 BP 134/90 H 11/04/24 10:59 Pulse Ox 99 11/04/24 10:59 Oxygen Delivery Method Room Air 11/04/24 10:59 BMI result Body Mass Index 27.7 Const General: healthy appearing, no acute distress and well developed Nutritional Appearance: well nourished Orientation/consciousness: patient oriented x3 Resp Effort & Inspection: normal respiratory effort, able to speak in complete sentences, no tracheal deviation and symmetric chest movement Auscultation: clear to auscultation bilaterally Cardio Rate: regular rate GI Inspection: Yes normal to inspection and No distended Palpation (GI): Soft to palpation, not firm, nontender and No hepatosplenomegaly present Auscultation: normal bowel sounds General: Yes no CVA tenderness Back/Spine/Pelvis Back: no CVA tenderness Skin General skin exam: elasticity normal, turgor normal and dry skin Neuro General: patient oriented x3 Psych Appearance: grossly normal Mental Status: mental status grossly normal Results Reviewed Results Reviewed: Laboratory Tests 04/25/24 05/29/24 10/13/24 10:40 12:00 11:54 Direct Bilirubin 0.2 0.3 AST 51 H 26 ALT 118 H 40 H Alkaline Phosphatase 88 86 Triglycerides 295 H 138 Cholesterol 201 H 171 LDL Cholesterol, Calc 112 H 114 H Anti-Mitochondrial Ab NEGATIVE Anti-Smooth Muscle Ab <20 Hepatitis A IgM Ab Nonreactive Hep Bs Antigen Negative Hep Bs Antibody NONREACTIVE Hep B Core Total Ab Nonreactive Hepatitis C Ab (EIA) Nonreactive ABDOMINAL ULTRASOUND IMPRESSION: 1. Cholelithiasis without evidence of acute cholecystitis. 2. There is a question of a possible 4 mm echogenic stone within the lumen of the common bile duct versus technical artifact, if any clinical concern for choledocholithiasis. MRCP could be obtained. There is no associated intra or extrahepatic biliary duct dilatation. 3. Markedly increased hepatic echogenicity which can be seen in the setting of hepatic steatosis in the presence of focal fatty sparing. Assessment & Plan Assessment & Plan (1) Transaminitis: Code(s): R74.01 - Elevation of levels of liver transaminase levels Category: Medical (2) Nonalcoholic fatty liver: Code(s): K76.0 - Fatty (change of) liver, not elsewhere classified Plan Patient will continue low-fat, low-salt, low carb and high-protein diet. Continue to exercise. Most likely transaminitis related to fatty liver. Will check ultrasound with elastography to stage it. Will repeat liver panel, iron profile, ferritin and lipid panel before his next appointment. Patient will be seen in 4-6 months, sooner on as needed basis. Patient currently has no GI symptoms. Patient reports that his mom is diabetic and he is trying to eat healthier. He is agreeable to this plan and verbalizes understanding of instructions. He was given the opportunity to ask questions and all questions answered. Thank you for allowing me to participate in his care Orders: Orders IRON PROFILE Today D64.9 - Anemia, unspecified Liver Panel Today R74.01 - Elevation of levels of liver transaminase levels Ferritin Today R74.8 - Abnormal levels of other serum enzymes Liver Fibrosis Pnl Today K76.0 - Fatty (change of) liver, not elsewhere classified US abdomen norman w elastography Today K76.0 - Fatty (change of) liver, not elsewhere classified Lipid Panel Today I25.10 - Atherosclerotic heart disease of [place] coronary artery without angina pectoris Coding Level of Care Code New Pt Level 3 (32528) Diagnoses Transaminitis R74.01 Nonalcoholic fatty liver K76.0 Time Spent (min) 40 Comment 30 minutes spent with patient and additional 10 minutes spent reviewing his records
== END 2024-11-04 11:52 | disposition home or self-care (01) ==
PROVIDERS: PCP Family Medicine; Visit Provider Nurse Practitioner Family
DX: R74.01 Elevation of levels of liver transaminase levels (principal); K76.0 Fatty (change of) liver, not elsewhere classified
CPT/HCPCS: 99203

== ENCOUNTER → 2024-11-04 10:56 | Outpatient (BNVA) | payer MEDICAID, SELFPAY | PROVIDERS: PCP Family Medicine; Visit Provider Nurse Practitioner Family | DX: R74.01 Elevation of levels of liver transaminase levels (principal); K76.0 Fatty (change of) liver, not elsewhere classified; D64.9 Anemia, unspecified; I25.10 Atherosclerotic heart disease of native coronary artery without angina pectoris | CPT/HCPCS: 99212 ==

== ENCOUNTER 2024-12-03 09:36 | Outpatient (REF) | payer MEDICAID, SELFPAY ==
--- NOTE | ~2024-12-03 | US_ITS ---
EXAMINATION: US ABDOMEN LIMITED WITH LIVER ELASTOGRAPHY HISTORY: K76.0 - Fatty (change of) liver, not elsewhere classified TECHNIQUE: Real-time grayscale ultrasound imaging of the right upper quadrant was performed and images were reviewed. COMPARISON: Comparison is made with the prior examination dated 04/24/2024. FINDINGS: Liver: The right lobe of the liver measures 12.4 cm in size. The left lobe of the liver measures 11.3 cm in size. The liver demonstrates mildly increased echotexture, consistent with steatosis. No focal mass or intrahepatic biliary ductal dilatation is identified. There is normal hepatopedal flow in the portal vein. Ultrasound elastography of the liver was performed with 10 separate measurements of the liver parenchyma with the patient in the supine position. Measurements were obtained approximately 2 cm below Mario's capsule and perpendicular to the capsule. Images are of satisfactory quality. The median shear wave velocity is 1.84 m/s. The interquartile range/median (IQR/median) is 0.19. Gallbladder and biliary tree: There is cholelithiasis. There is no wall thickening or pericholecystic fluid. There is no sonographic Bingham sign. The common bile duct is normal in caliber measuring 4 mm. Right Kidney: The right kidney measures 9.7 cm in length. The right kidney is unremarkable, without evidence of masses, hydronephrosis, or calculi. Pancreas: Pancreas is not well visualized. Abdominal aorta and inferior vena cava: The visualized portions of the abdominal aorta and inferior vena cava are normal in caliber. There is no free fluid in the right upper quadrant. US/US abdomen norman w elastography IMPRESSION: Mild hepatic steatosis. Cholelithiasis without evidence of acute cholecystitis. The median shear wave velocity is 1.84 m/s, corresponding to a median liver stiffness of 10.35 kPa. The IQR/median value is 0.19. This is indicative of a poor quality data set, and the estimated liver stiffness may be unreliable. Findings are indicative of a high elastography value suggestive of advanced chronic liver disease. REFERENCE: Society of Radiologists in Ultrasound Liver Stiffness Thresholds (2019): LIVER STIFFNESS THRESHOLDS: *Shear wave velocity less than 1.3 m/s (Liver Stiffness equal or less than 5 kPa): High probability of being normal. *Shear wave velocity less than 1.7 m/s (Liver Stiffness less than 9 kPa): In the absence of other known clinical signs, rules out compensated advanced chronic liver disease. *Shear wave velocity between 1.7-2.1 m/s (Liver Stiffness 9-13 kPa): Suggestive of compensated advanced chronic liver disease but need further test for confirmation. *Shear wave velocity between 2.1-2.4 m/s (Liver Stiffness 13-17 kPa): Rules in compensated advanced chronic liver disease. *Shear wave velocity greater than 2.4 m/s (Liver Stiffness over 17 kPa): Suggestive of clinically significant portal hypertension. QUALITY OF DATA SET: *IQR/Median value equal or less than 0.15 implies a quality data set. *IQR/Median value over 0.15 implies a poor quality data set. SIGNIFICANT CHANGE FROM PRIOR EXAM: Significant change if liver stiffness measurement is 10% or greater from prior exam. OTHER CONSIDERATIONS: The stage of liver fibrosis may be overestimated in the setting of acute hepatitis, liver inflammation, elevated liver function tests, hepatic vascular congestion, obstructive cholestasis, non-fasting state, and infiltrative diseases such as amyloidosis and lymphoma. In some patients with NAFLD, the liver stiffness thresholds for compensated advanced chronic liver disease may be lower. In causes other than viral hepatitis and NAFLD, liver stiffness thresholds are not well established. Electronically signed by: Pradip Lewis MD 12/03/2024 10:29 AM [facility]
--- OUTSIDE RECORDS SUMMARY | 2024-12-03 10:59 | XMS_ITS | Encounter Summary ---
Author Organization [employer] Address [address] 7 [place] [address] Care Team Providers Care Machine Applicator Cementer Name Role Phone Petra Rico MD Primary Care Provider + [phone] Brianne Ivory PharmD Unavailable Tamera Cummings OD Unavailable [phone] Dana Angel Unavailable [phone] Josi Bojorquez Unavailable Encounter Details Date Type Department Care Team (Late st Contact Info) Description 12/03/2024 Orders Only [facility] External Provider, [facility] Social History Tobacco Use Types Packs/Day Years Used Date Smoking Tobacco: Never Passive Smoke Exposure: Never Smokeless Tobacco: Never Alcohol Use Standard Drinks/Week Comments Never 0 (1 standard drink = 0.6 oz pur e alcohol) Alcohol Answer Date Recorded Frequency of Alcohol Consumption Not on file 10/24/2023 Average Number of Drinks Not on file 024 Frequency of Binge Drinking Not on file 10/08 Score 0 10/24/2023 Depression Answer Date Recorded Patient Health Questionnaire-9 Score 0 10/24/2023 Patient Health Questionnaire-9 Score 0 10/24/2023 Last PHQ-9: Questionnaire Data Not on file 0 10/24/2023 Housing Stability Answer Date Recorded What is your housing situation today? I have alfreda white 10/24/[address] you li ve. Do you have problems with any of the following? None of the above 10/24/2023 Food Insecurity Answer Date Recorded Within the past 12 months, y ou worried that your food would run out before you got money to buy more: Never True 07/23/2023 Within the past 12 months,th e food you bought just didn't last and you didn't have enough money to get more: Never True Transportation Answer Date Recorded In the past 12 months, has l ack of transportation kept you from medical appts, meetings, work or from getting things needed for daily living? Yes, it has kept me from medical appointments or getting medications. 10/24/2023 Utilities Answer Date Recorded In the past 12 months, has t he [employer], gas, oil or water [employer] threatened to shut off services in your home? No 07/23/2023 Depression Answer Date Recorded Patient Health Questionnaire-2 Score 0 10/24/2023 Internet Access Answer Date Recorded Internet Access Q1 Yes 10/02/2024 Internet Access Q2 Not on file 10/02/2024 Comments Unknown Sex and Gender Information Value Date Recorded Sex Assigned at Female 08/07/2022 10:15 AM EDT Legal Sex Male 10:15 AM EDT Gender Identity Transgender Male 06/05/2023 7:07 PM EDT Sexual Orientation Choose not to disclose 2021 10:15 AM EDT documented as of this encounter Plan of Treatment Not on file documented as of this encounter Goals Goal Patient Goal Type Associated Problems Recent Progress Patient-Stated? Author Blood Pressure < 140/90 Blood Pressure 148/94( 025 11:25 AM EST) No Brianne Katz, PharmD documented as of this encounter Procedures Procedure Name Priority Date/Time Associated Diagnosis Comments US ABDOMEN ROCKWELL W ELASTOGRAPHY Routine 12/03/2024 10:04 AM EST documented in this encounter Results * US ABDOMEN ROCKWELL W ELASTOGRAPHY (12/03/2024 10:04 AM EST) Anatomical Region Laterality Modality Abdomen Ultrasound 12/03/2024 10:0 4 AM EST Narrative 12/03/2024 10:32 AM EST ? [place] [facility] ?[address] ?[place] [address] ? Ultrasound Report ? Signed ? Patient: Kuhn,Ahsan J ?MR#: [id number] ?? [id number] ? : 2000 ?Acct:[id number] ? Age/Sex: 24 / F ?ADM Date: 12/03/24 ? Loc: HO.US ? Attending Dr: Josi RODRIGUEZ ? Ordering Physician: Josi Bojorquez ?? Date of Service: 12/03/24 ?? Procedure(s): US abdomen rockwell w elastography ?? Accession Number(s): [id number] ? cc: Petra Rico MD; Josi Bojorquez ? EXAMINATION: ??US ABDOMEN LIMITED WITH LIVER ELASTOGRAPHY ? HISTORY: K76.0 - Fatty (change of) liver, not elsewhere classified ? TECHNIQUE: Real-time grayscale ultrasound imaging of the right upper ?? quadrant was performed and images were reviewed. ? COMPARISON: Comparison is made with the prior examination dated ?? 04/24/2024. ? FINDINGS: ?? Liver: ?? The right lobe of the liver measures 12.4 cm in size. The left ?? lobe of the liver measures 11.3 cm in size. The liver demonstrates ?? mildly increased echotexture, consistent with steatosis. ??No focal mass ?? or intrahepatic biliary ductal dilatation is identified. ??There is ?? normal hepatopedal flow in the portal vein. ? Ultrasound elastography of the liver was performed with 10 separate ?? measurements of the liver parenchyma with the patient in the supine ?? position. ??Measurements were obtained approximately 2 cm below ?? Mario's capsule and perpendicular to the capsule. ??Images are of ?? satisfactory quality. ? The median shear wave velocity is 1.84 m/s. ?? The interquartile range/median (IQR/median) is 0.19. ? Gallbladder and biliary tree: There is cholelithiasis. There is no wall ?? thickening or pericholecystic fluid. ??There is no sonographic Bingham ?? sign. ??The common bile duct is normal in caliber measuring 4 mm. ? Right Kidney: ??The right kidney measures 9.7 cm in length. ??The right ?? kidney is unremarkable, without evidence of masses, hydronephrosis, or ?? calculi. ? Pancreas: Pancreas is not well visualized. ? Abdominal aorta and inferior vena cava: The visualized portions of the ?? abdominal aorta and inferior vena cava are normal in caliber. ? There is no free fluid in the right upper quadrant. ? US/US abdomen rockwell w elastography ?? IMPRESSION: ? Mild hepatic steatosis. Cholelithiasis without evidence of acute ?? cholecystitis. ? The median shear wave velocity is 1.84 m/s, corresponding to a median ?? liver stiffness of 10.35 kPa. ??The IQR/median value is 0.19. ??This is ?? indicative of a poor quality data set, and the estimated liver ?? stiffness may be unreliable. ?? Findings are indicative of a high elastography value suggestive of ?? advanced chronic liver disease. ? REFERENCE: ?? Society of Radiologists in Ultrasound Liver Stiffness Thresholds (2019): ? LIVER STIFFNESS THRESHOLDS: ?? *Shear wave velocity less than 1.3 m/s (Liver Stiffness equal or less ?? than 5 kPa): ??High probability of being normal. ?? *Shear wave velocity less than 1.7 m/s (Liver Stiffness less than 9 ?? kPa): ??In the absence of other known clinical signs, rules out ?? compensated advanced chronic liver disease. ?? *Shear wave velocity between 1.7-2.1 m/s (Liver Stiffness 9-13 kPa): ? Suggestive of compensated advanced chronic liver disease but need ?? further test for confirmation. ?? *Shear wave velocity between 2.1-2.4 m/s (Liver Stiffness 13-17 kPa): ? Rules in compensated advanced chronic liver disease. ?? *Shear wave velocity ??greater than 2.4 m/s (Liver Stiffness over 17 ?? kPa): ??Suggestive of clinically significant portal hypertension. ? QUALITY OF DATA SET: ?? *IQR/Median value equal or less than 0.15 implies a quality data set. ?? *IQR/Median value over 0.15 implies a poor quality data set. ? SIGNIFICANT CHANGE FROM PRIOR EXAM: ?? Significant change if liver stiffness measurement is 10% or greater ?? from prior exam. ? OTHER CONSIDERATIONS: ?? The stage of liver fibrosis may be overestimated in the setting of ?? acute hepatitis, liver inflammation, elevated liver function tests, ?? hepatic vascular congestion, obstructive cholestasis, non-fasting ?? state, and infiltrative diseases such as amyloidosis and lymphoma. ??In ?? some patients with NAFLD, the liver stiffness thresholds for ?? compensated advanced chronic liver disease may be lower. ??In causes ?? other than viral hepatitis and NAFLD, liver stiffness thresholds are ?? not well established. ? Electronically signed by: ??Pradip Lewis MD ??12/03/2024 10:29 AM EST ?? RP ? Dictated By: ?Pradip Lewis MD ? Signed By: ?<Electronically signed by Pradip Lewis MD in OV> ?12/03/24 1029 ? DD/ 1004 ? TD/TT: 12/03/24 1015 ? Production Or Plant Engineer: ? Procedure Note Donmatthieuter, Image - 12/03/2024 [place] [id number] Ultrasound Report Signed Patient: Ahsan Kuhn JMR#: [id number] : 2000Acct:[id number] Age/Sex: M Date: 12/03/24 Loc: HO.US Attending Dr: Josi RODRIGUEZ Ordering Physician: Josi Bojorquez Date of Service: 12/03/24 Procedure(s): US abdomen rockwell w elastography Accession Number(s): [id number] cc: Petra Rico MD; Josi Bojorquez EXAMINATION: US ABDOMEN LIMITED WITH LIVER ELASTOGRAPHY HISTORY: K76.0 - Fatty (change of) liver, not elsewhere classified TECHNIQUE: Real-time grayscale ultrasound imaging of the right upper quadrant was performed and images were reviewed. COMPARISON: Comparison is made with the prior examination dated 04/24/2024. FINDINGS: Liver: The right lobe of the liver measures 12.4 cm in size. The left lobe of the liver measures 11.3 cm in size. The liver demonstrates mildly increased echotexture, consistent with steatosis. No focal mass or intrahepatic biliary ductal dilatation is identified. There is normal hepatopedal flow in the portal vein. Ultrasound elastography of the liver was performed with 10 separate measurements of the liver parenchyma with the patient in the supine position. Measurements were obtained approximately 2 cm below Mario's capsule and perpendicular to the capsule. Images are of satisfactory quality. The median shear wave velocity is 1.84 m/s. The interquartile range/median (IQR/median) is 0.19. Gallbladder and biliary tree: There is cholelithiasis. There is no wall thickening or pericholecystic fluid. There is no sonographic Bingham sign. The common bile duct is normal in caliber measuring 4 mm. Right Kidney: The right kidney measures 9.7 cm in length. The right kidney is unremarkable, without evidence of masses, hydronephrosis, or calculi. Pancreas: Pancreas is not well visualized. Abdominal aorta and inferior vena cava: The visualized portions of the abdominal aorta and inferior vena cava are normal in caliber. There is no free fluid in the right upper quadrant. US/US abdomen rockwell w elastography IMPRESSION: Mild hepatic steatosis. Cholelithiasis without evidence of acute cholecystitis. The median shear wave velocity is 1.84 m/s, corresponding to a median liver stiffness of 10.35 kPa. The IQR/median value is 0.19. This is indicative of a poor quality data set, and the estimated liver stiffness may be unreliable. Findings are indicative of a high elastography value suggestive of advanced chronic liver disease. REFERENCE: Society of Radiologists in Ultrasound Liver Stiffness Thresholds (2020): LIVER STIFFNESS THRESHOLDS: *Shear wave velocity less than 1.3 m/s (Liver Stiffness equal or less than 5 kPa): High probability of being normal. *Shear wave velocity less than 1.7 m/s (Liver Stiffness less than 9 kPa): In the absence of other known clinical signs, rules out compensated advanced chronic liver disease. *Shear wave velocity between 1.7-2.1 m/s (Liver Stiffness 9-13 kPa): Suggestive of compensated advanced chronic liver disease but need further test for confirmation. *Shear wave velocity between 2.1-2.4 m/s (Liver Stiffness 13-17 kPa): Rules in compensated advanced chronic liver disease. *Shear wave velocity greater than 2.4 m/s (Liver Stiffness over 17 kPa): Suggestive of clinically significant portal hypertension. QUALITY OF DATA SET: *IQR/Median value equal or less than 0.15 implies a quality data set. *IQR/Median value over 0.15 implies a poor quality data set. SIGNIFICANT CHANGE FROM PRIOR EXAM: Significant change if liver stiffness measurement is 10% or greater from prior exam. OTHER CONSIDERATIONS: The stage of liver fibrosis may be overestimated in the setting of acute hepatitis, liver inflammation, elevated liver function tests, hepatic vascular congestion, obstructive cholestasis, non-fasting state, and infiltrative diseases such as amyloidosis and lymphoma. In some patients with NAFLD, the liver stiffness thresholds for compensated advanced chronic liver disease may be lower. In causes other than viral hepatitis and NAFLD, liver stiffness thresholds are not well established. Electronically signed by: Pradip Lewis MD 12/03/2024 10:29 AM EST RP Dictated By: Pradip Lewis MD Signed By: <Electronically signed by Pradip Lewis MD in OV> 12/03/24 1029 DD/ 1004 TD/TT: 12/03/24 1015 Production Or Plant Engineer: [facility] External Provider IMG US PROCEDURES Final Result documented in this encounter Visit Diagnoses Not on filedocumented in this encounter Additional Health Concerns Assessment Noted Time PHQ-9 Depression Total Score: 0 10/24/19 24 3:14 PM EST documented as of this encounter Care Teams Machine Applicator Cementer Relationship Specialty Start Date End Date Petra Rico MD [address] [place] [address] PCP - General Family Medicine 08/12/15 Brianne Ivory PharmD [address] [place] [address] Pharmacist Internal Medicine 08/13/23 Tamera Cummings OD [address] [place] [phone] Optometry 09/30/24 Dana Angel [address]rd [place] [address] Sleep Medicine 10/13/24 Josi Bojorquez [address]rd [place] [address] Gastroenterology 11/04/24 documented as of this encounter
--- OUTSIDE RECORDS SUMMARY | 2024-12-03 10:59 | XMS_ITS | Encounter Summary ---
Author Organization [employer] Address [address] [place] [address] 7 [place] [address] Care Team Providers Care Dog Groomer Name Role Phone Petra Rico MD Primary Care Provider [phone] Brianne Ivory PharmD Unavailable Tamera Cummings OD Unavailable Dana Angel Unavailable RenoJosi Unavailable Reason for Visit * Reason Comments Med Refill Encounter Details Date Type Department Care Team (Late st Contact Info) Description 08/07/2024 Refill [facility] MEDICINE [address] [place], [place] [phone] Petra Rico MD [address] [place], [place] [phone] Mixed anxiety and depressive disorder Social History Tobacco Use Types Packs/Day Years [...] the past 12 months, has t he electric, gas, oil or water company threatened to shut off services in your home? No 07/23/2023 Depression Answer Date Recorded Patient Health Questionnaire-2 Score 0 10/24/2023 Comments Unknown Sex and Gender Information Value [...] Katz, PharmD documented as of this encounter Visit Diagnoses Diagnosis Mixed anxiety and depressive disorder Dysthymic disorder documented in this encounter Additional Health Concerns Assessment Noted Time PHQ-9 Depression Total Score: 0 10/24/19 24 3:14 PM EST documented as of this encounter Care Teams Dog Groomer Relationship Specialty Start Date End Date Petra Rico MD [address] [place] [phone] PCP - General Family Medicine 08/12/15 Brianne Ivory, PharmD [address] [place] [address] Pharmacist Internal Medicine 08/13/23 Tamera Cummings OD [address] [place] [phone] Optometry 09/30/[address] Dana Angel [address] [place] [phone] Sleep Medicine 10/13/24 Josi Bojorquez [address] [address] Gastroenterology 11/04/24 documented as of this encounter
--- OUTSIDE RECORDS SUMMARY | 2024-12-03 10:59 | XMS_ITS | Encounter Summary ---
Author Organization [employer] Address [address] [facility] 7 [place] [address] Care Team Providers Care Drywall Finishing Foreman Name Role Phone Petra Rico MD Primary Care Provider [phone] Brianne Ivory PharmD Unavailable EmilianoTamera fairchild OD Unavailable [phone] Dana Angel Unavailable RenoJosi gooden Unavailable Encounter Details Date Type Department Care Team (Late st Contact Info) Description 11/01/2023 Telephone [facility] MEDICINE [address] [place], [place] [phone] Petra Rico MD [address] [place], [place] [phone] Social History Tobacco Use Types Packs/Day Years [...] your housing situation today? I have alfreda sing 10/24/[address] you li [...] AM EDT documented as of this encounter Miscellaneous Notes * Telephone Encounter - Macarena De Santiago LPN - 11/01/2023 11:38 AM EST Critical result line received at this time. Patient test not completed as lab never received order. Please update PCP and send new order and update Patient please. documented in this encounter Plan of Treatment Not on file documented as of this encounter Goals Goal Patient Goal Type Associated Problems Recent Progress Patient-Stated? Author Blood Pressure < 140/90 Blood Pressure 148/94( 025 11:25 AM EST) No Brianne Katz, PharmD documented as of this encounter Visit Diagnoses Not on filedocumented in this encounter Additional Health Concerns Assessment Noted Time PHQ-9 Depression Total Score: 0 10/24/19 24 3:14 PM EST documented as of this encounter Care Teams Drywall Finishing Foreman Relationship Specialty Start Date End Date Petra Rico MD [address] [place] [address] PCP - General Family Medicine 08/12/15 Brianne Ivory PharmD [address] [place] [address] Pharmacist Internal Medicine 08/13/23 Tamera Cummings OD [address] [place] [phone] Optometry 09/30/24 Dana Angel [address] [place] [address] Sleep Medicine 10/13/24 Josi Bojorquez [address] [place] [phone] Gastroenterology 11/04/24 documented as of this encounter
--- OUTSIDE RECORDS SUMMARY | 2024-12-03 10:59 | XMS_ITS | Encounter Summary ---
Author Organization [employer] Address [address] [place] [address] [address] [place] [address] Care Team Providers Care Mold Loft Worker Name Role Phone Petra Rico MD Primary Care Provider [phone]- [phone] Brianne Ivory PharmD Unavailable Tamera Cummings OD Unavailable [phone] Dana Angel Unavailable RenoJosi Unavailable Reason for Visit * Reason Onset Date Comments Med Refill 10/29/2024 Encounter Details Date Type Department Care Team (Late st Contact Info) Description 10/29/2024 Refill [facility] MEDICINE 230 [place], [place] [phone] Petra Rico MD 230 [place], [place] [phone] Gender dysphoria Social History Tobacco Use Types Packs/Day Years [...] as of this encounter Visit Diagnoses Diagnosis Gender dysphoria documented in this encounter Additional Health Concerns Assessment Noted Time PHQ-9 Depression Total Score: 0 10/24/19 24 3:14 PM EST documented as of this encounter Care Teams Mold Loft Worker Relationship Specialty Start Date End Date Petra Rico MD [address] [place] [address] PCP - General Family Medicine 08/12/15 Brianne Ivory, Balaji [address] [place] [address] Pharmacist Internal Medicine 08/13/23 Tamera Cummings OD [address] [place] [address] Optometry 09/30/24 Dana Angel [address] [place] [address] Sleep Medicine 10/13/24 Josi Bojorquez [address] [place] [phone] Gastroenterology 11/04/24 documented as of this encounter
--- OUTSIDE RECORDS SUMMARY | 2024-12-03 10:59 | XMS_ITS | Encounter Summary ---
Author Organization [employer] Address [address] [facility] 7t [place] [address] Care Team Providers Care Flare Worker Name Role Phone Petra Rico MD Primary Care Provider [phone]- [phone] Brianne Ivory PharmD Unavailable [phone] Tamera Cummings OD Unavailable [phone] Dana Angel Unavailable RenoJosi gooden Unavailable Encounter Details Date Type Department Care Team (Late st Contact Info) Description 04/23/2024 Orders Only [facility] 230 [place], [place] [phone] Petra Rico MD 230 [place], [place] [phone] Social History Tobacco Use Types Packs/Day Years [...] 148/94( 025 11:25 AM EST) No Brianne Katz PharmD documented as of this encounter Visit Diagnoses Not on filedocumented in this encounter Additional Health Concerns Assessment Noted Time PHQ-9 Depression Total Score: 0 10/24/19 24 3:14 PM EST documented as of this encounter Care Teams Flare Worker Relationship Specialty Start Date End Date Petra Rico MD 230 [place] [address] PCP - General Family Medicine 08/12/15 Brianne Ivory, PharmD 230 [place] [address] Pharmacist Internal Medicine 08/13/23 Tamera Cummings OD [address] [place] [address] Optometry 09/30/24 Dana Angel [address] [place] [address] Sleep Medicine 10/13/24 Josi Bojorquez [address] [place] [address] Gastroenterology 11/04/24 documented as of this encounter
--- OUTSIDE RECORDS SUMMARY | 2024-12-03 10:59 | XMS_ITS | Encounter Summary ---
Author Organization [employer] Address [address] [place] [address] 7 [place] [address] Care Team Providers Care Sign Painter Name Role Phone Petra Rico MD Primary Care Provider Brianne Ivory PharmD Unavailable Tamera Cummings OD Unavailable [phone] Dana Angel Unavailable RenoJosi Unavailable Reason for Visit * Reason Comments Med Refill Encounter Details Date Type Department Care Team (Late st Contact Info) Description 11/10/2024 Refill [facility] MED[facility]INE 230 [place], [place] [phone] Petra Rico MD 230 [place], [place] [phone] Gender dysphoria Social History Tobacco Use Types [...] Pressure 148/94( 025 11:25 AM EST) No Larrys-Brianne Carter, PharmD documented as of this encounter Visit Diagnoses Diagnosis Gender dysphoria documented in this encounter Additional Health Concerns Assessment Noted Time PHQ-9 Depression Total Score: 0 10/24/19 24 3:14 PM EST documented as of this encounter Care Teams Sign Painter Relationship Specialty Start Date End Date Petra Rico MD [address] [place] [address] PCP - General Family Medicine 08/12/15 Brianne Ivory, Balaji 230 [place] [address] Pharmacist Internal Medicine 08/13/23 Tamera Cummings OD [address] [place] [address] Optometry 09/30/24 Dana Angel [address] [place] [address] Sleep Medicine 10/13/24 Josi Bojorquez [address] [place] [address] Gastroenterology 11/04/24 documented as of this encounter
--- OUTSIDE RECORDS SUMMARY | 2024-12-03 10:59 | XMS_ITS | Encounter Summary ---
Author Organization [employer] Address [address] [facility] 7 [place] [address] Care Team Providers Care Commercial Loan Underwriter Name Role Phone Petra Rico MD Primary Care Provider [phone]- [phone] Brianne Ivory PharmD Unavailable [phone] Tamera Cummings OD Unavailable Dana Angel Unavailable Josi Bojorquez Unavailable Encounter Details Date Type Department Care Team (Late st Contact Info) Description 09/17/2024 Orders Only [facility] MEDICINE 230 [place], [place] [phone] Petra Rico MD 230 [place], [place] [phone] Social History Tobacco Use Types Packs/Day Years [...] documented as of this encounter Care Teams Commercial Loan Underwriter Relationship Specialty Start Date End Date Petra Rico MD 230 [place] [address] PCP - General Family Medicine 08/12/15 Brianne Ivory PharmD 230 [place] [address] Pharmacist Internal Medicine 08/13/23 Tamera Cummings OD [address] [place] [address] Optometry 09/30/24 Dana Angel [address] [place] [address] Sleep Medicine 10/13/24 Josi Bojorquez [address] [place] [address] Gastroenterology 11/04/24 documented as of this encounter
--- OUTSIDE RECORDS SUMMARY | 2024-12-03 10:59 | XMS_ITS | Encounter Summary ---
Author Organization [employer] Address [address] [place] [address] [address] [address] Care Team Providers Care Dairy Products Maker Name Role Phone Petra Rico MD Primary Care Provider [phone]- [phone] Brianne Ivory PharmD Unavailable [phone] EmilianoTamera fairchild OD Unavailable [phone] Dana Angel Unavailable RenoJosi Unavailable Encounter Details Date Type Department Care Team (Late st Contact Info) Description 06/05/2023 Abstract [facility] MEDICINE 230 [place], [place] [phone] Petra Rico MD 230 [place], [place] [phone] Social History Tobacco Use Types Packs/Day Years Used Date Smoking Tobacco: Never Passive Smoke Exposure: Never Smokeless Tobacco: Never Depression Answer Date Recorded Patient Health Questionnaire-9 Score 0 06/06/2023 Depression Answer Date Recorded Patient Health Questionnaire-2 Score 0 06/06/2023 Comments Unknown Sex and Gender Information Value Date Recorded Sex Assigned at Female 08/07/2022 10:15 AM EDT Legal Sex Male 10:15 AM EDT Gender Identity Transgender Male 06/05/2023 7:07 PM EDT Sexual Orientation Choose not to disclose 2021 10:15 AM EDT documented as of this encounter Plan of Treatment Not on file documented as of this encounter Visit Diagnoses Not on filedocumented in this encounter Care Teams Dairy Products Maker Relationship Specialty Start Date End Date Petra Rico MD 230 [place] [address] PCP - General Family Medicine 08/12/15 Brianne Ivory PharmD 230 [place] [address] Pharmacist Internal Medicine 08/13/23 Tamera Cummings OD [address] [place] [address] Optometry 09/30/24 Dana Angel [address] [facility] [address] [facility] [address] [place] [address] Sleep Medicine 10/13/24 Josi Bojorquez [address] [place] [phone] Gastroenterology 11/04/24 documented as of this encounter
--- OUTSIDE RECORDS SUMMARY | 2024-12-03 10:59 | XMS_ITS | Encounter Summary ---
Author Organization [employer] Address [address] [place] [address] [place] [address] Care Team Providers Care Telephone Services Sales Representative Name Role Phone Petra Rico MD Primary Care Provider [phone]- [phone] Brianne Ivory PharmD Unavailable EmilianoTamera fairchild OD Unavailable Dana Angel Unavailable RenoMichaela Unavailable Encounter Details Date Type Department Care Team (Late st Contact Info) Description 10/19/2022 Telephone [facility] MEDICINE 230 [place], [place] [phone] Petra Rico MD [address] [place] [address] [phone] Social History Tobacco Use Types Packs/Day Years Used Date Smoking Tobacco: Never Assessed Comments Unknown Sex and Gender Information Value Date Recorded Sex Assigned at Female 08/07/2022 10:15 AM EDT Legal Sex Male 10:15 AM EDT Gender Identity Transgender Male 06/05/2023 7:07 PM EDT Sexual Orientation Choose not to disclose 2021 10:15 AM EDT documented as of this encounter Plan of Treatment Not on file documented as of this encounter Visit Diagnoses Diagnosis Gender dysphoria- Primary documented in this encounter Care Teams Telephone Services Sales Representative Relationship Specialty Start Date End Date Petra Rico MD [address] [place] [address] [phone] PCP - General Family Medicine 08/12/15 Brianne Ivory, Balaji [address] [place] [phone] Pharmacist Internal Medicine 08/13/23 Tamera Cummings OD [address] [place] [address] Optometry 09/30/24 Dana Angel [address] [place] [address] Sleep Medicine 10/13/24 Josi Bojorquez [address] [place] [address] Gastroenterology 11/04/24 documented as of this encounter
--- OUTSIDE RECORDS SUMMARY | 2024-12-03 10:59 | XMS_ITS | Clinical Summary ---
Author Organization [employer] Address [address] [place] [address] [address] [place] [address] Care Team Providers Care Community Resource Consultant Name Role Phone Petra Rico MD Primary Care Provider [phone] Brianne Ivory PharmD Unavailable [phone] Tamera Cummings OD Unavailable Dana Angel Unavailable [phone] RenoJosi Unavailable Allergies No known active allergies Medications Alcohol Swabs (B-D SINGLE USE SWABS REGULAR) padsIndicatio ns:Gender dysphoria USE BEFORE INJECTION 100 each 11 024 Active hydrOXYzine pamoate (Vistaril) 25 MG capsuleIndica tions:Mixed anxiety and depressive disorder TAKE 1 CAPSULE BY MOUTH AT BEDTIME NEEDED FOR INSOMNIA 30 capsule 2 024 Active hydrOXYzine HCl (Atarax) 25 MG tabletIndicat ions:Mixed anxiety and depressive disorder TAKE ONE TABLET BY MOUTH daily 90 tablet 1 024 Active naproxen (Naprosyn) 500 MG tabletIndicat ions:Pain TAKE 1 TABLET BY MOUTH TWICE A DAY 60 tablet 024 Active B-D HYPODERMIC NEEDLE 22GX1 22G X 1 miscIndicatio ns:Gender dysphoria USE FOR TESTOSTERONE INJECTION 10 each 5 024 Active sertraline (Zoloft) 25 MG tabletIndicat ions:Mixed anxiety and depressive disorder Take 1 tablet (25 mg) by mouth Once per day. 30 tablet 3 024 2024 Active Semaglutide-W eight Management (Wegovy) 0.25 MG/0.5ML solution auto-injector Indications:O besity (BMI 30.0-34.9) Inject 0.25 mg subcutaneously once a week for weeks 1-4 2 mL 3 024 Active fish oil-omega-3 fatty acids 1000 MG capsuleIndica tions:Dyslipi demia Take 2 capsules (2 g) by mouth 2 times daily. 180 capsule 3 Active Syringe, Disposable, (BD Plastipak Syringe) 3 ML miscIndicatio ns:Gender dysphoria USE EVERY 2 WEEKS 24 each 1 Active testosterone cypionate (Depo-Testost erone) 200 MG/ML injectionIndi cations:Gende r dysphoria INJECT 0.5ML INTRAMUSCULARLY EVERY 2 WEEKS, SINGLE USE VIAL 2 mL Active BD Hypodermic Needle 16G X 1 miscIndicatio ns:Gender dysphoria USE TO DRAW UP MEDICINE 20 each 1 Active Needle, Disp, (BD Hypodermic Needle) 16G X 1 miscIndicatio ns:Gender dysphoria use to DRAW UP medicine 20 each 1 024 2024 Discontinued Active Problems Patient Care Coordination No te Formatting of this note migh t be different from the original. Enrolled in [facility] HTN clinic with Brianne Ivory PharmD Problem Noted Date Diagnosed Date Obesity (BMI 30.0-34.9) 05/29/2024 Overview (10/13/2024): Baseline weight 168 05/2024 Weight 137 at home 10/13/24 Assessment & Plan (07/24/2024 11:21 AM EDT): -given BMI >30kg/m2 with one or more weight related comorbidities (SONU, transaminitis, hypertension) pt is a candidate for glucagon-like peptide-1s (GLP-1) to assist with weight loss -to be used in combination with reduced calorie diet and increased physical activity -Start Wegovy (semaglutide) Start 0.25mg subcutaneously qweek 1-4 weeks, increase to 0.5mg 05/29/24 subcutaneously qweek -for weeks 5-8, increase to 1mg subcutaneously qweek for weeks 9-1, Increase to 1.7 mg subcutaneously q week weeks 13-16, increase tp 2.4mg subcutaneously q week I-f dose is not tolerated consider delaying dose increase for 4 weeks. Treatment doses considered to be 1.7 or 2.4 mg correction. -follow up 6 weeks -07/24/24 has not started Ozempic, just got approved. Pt denies wanting to continue Ozempic. He wants to try dietary changes. -Pt denies eating any added-sugar regularly. Discussed and recommended to stay away ad reading labels to assess for sugar intake. Assessment & Plan (05/29/2024 11:37 AM EDT): -given BMI >30kg/m2 with one or more weight related comorbidities (SONU, transaminitis, hypertension) pt is a candidate for glucagon-like peptide-1s (GLP-1) to assist with weight loss -to be used in combination with reduced calorie diet and increased physical activity -Start Wegovy (semaglutide) Start 0.25mg subcutaneously qweek 1-4 weeks, increase to 0.5mg 05/29/24 subcutaneously qweek -for weeks 5-8, increase to 1mg subcutaneously qweek for weeks 9-1, Increase to 1.7 mg subcutaneously q week weeks 13-16, increase tp 2.4mg subcutaneously q week I-f dose is not tolerated consider delaying dose increase for 4 weeks. Treatment doses considered to be 1.7 or 2.4 mg correction. -follow up 6 weeks SONU (obstructive sleep apnea) 12/11/2023 Overview (12/11/2023): -Followed at [facility] with Candida Burns CNP . Seen 12/10/23 and CPAP will be ordered by them when the titration study result available. -Advised patient to use CPAP nightly and more than 4 hrs when he get his CPAP. -Continue to practice good sleep hygiene, and wt reduction advised. Primary hypertension 06/06/2023 Overview (05/29/2024): -controlled off meds Assessment & Plan (05/29/2024 11:22 AM EDT): -controlled off meds Assessment & Plan (04/28/2024 9:43 AM EDT): -continue amlodipine 2.5mg started 06/06/2023 Assessment & Plan (10/24/2023 2:10 PM EST): Amlodipine 2.5mg started 06/06/2023. Assessment & Plan (07/13/2023 6:23 AM EDT): BP recehcked 157/93, pt is off Amlodipine due to SE. Referred for SONU eliezer has apt in 08/2023 Pt not checking BP at home, and states he gets anxious at doctor apts. -Advised pt to bring home BP readings. If elevated at home will need to start new BP med. -Pt has apt scheduled for next week w med management at pharmacy. -Advise to f up w PCP in 6 wk. Assessment & Plan (06/06/2023 11:46 AM EDT): Amlodipine 2.5mg started 06/06/2023. Family planning 06/06/2023 Overview (09/30/2024): -referred to [facility] 05/29/24 Assessment & Plan (05/29/2024 11:45 AM EDT): -given BMI >30kg/m2 with one or more weight related comorbidities (SONU, transaminitis, hypertension) pt is a candidate for glucagon-like peptide-1s (GLP-1) to assist with weight loss -to be used in combination with reduced calorie diet and increased physical activity -Start Wegovy (semaglutide) Start 0.25mg subcutaneously qweek 1-4 weeks, increase to 0.5mg 05/29/24 subcutaneously qweek -for weeks 5-8, increase to 1mg subcutaneously qweek for weeks 9-1, Increase to 1.7 mg subcutaneously q week weeks 13-16, increase tp 2.4mg subcutaneously q week I-f dose is not tolerated consider delaying dose increase for 4 weeks. Treatment doses considered to be 1.7 or 2.4 mg correction. -follow up 6 weeks Assessment & Plan (10/24/2023 2:10 PM EST): We discussed the risk of getting on testosterone. Condoms given Desires tubal ligation Does not want a hysterectomy or oophorectomy Referral placed 06/06/2023. Assessment & Plan (06/06/2023 11:46 AM EDT): We discussed the risk of getting on testosterone. Condoms given Desires tubal ligation Does not want a hysterectomy or oophorectomy Referral placed 06/06/2023. Transaminitis 06/04/2023 Overview (11/04/2024): Lab Results Component Value Date TOTALBILIRUB 0.8 10/13/2024 AST 26 10/13/2024 ALT 40 (H) 10/13/2024 ALT 42 (H) 08/17/2022 ALP 86 10/13/2024 HEPCAB Nonreactive 05/29/2024 HEPAIGM Nonreactive 04/25/2024 HEPBSURFAB NONREACTIVE 04/25/2024 HEPBCOREAB Nonreactive 04/25/2024 HEPBSURFACAG Negative 04/25/2024 ANASCRE POSITIVE (A) 04/08/2024 ANATITER 1:80 (A) 04/08/2024 MITOCHAB NEGATIVE 04/25/2024 SMAB <20 04/25/2024 CERULOPLASMI 29 04/25/2024 FERRITIN 202 (H) 10/13/2024 AFP 4.4 04/25/2024 Labs done with neurology 04/08/24 AST 92, ALT 172, plt 294, rheumatoid factor < 13, ferritin 499 Hx NATHAN positive. Differential includes metabolic dysfunction-associated steatotic liver disease, auto immune hepatitis given elevated NATHAN in past, hematochromatosis given elevated ferritin, drug induced given testosterone, vs other. -US/US abdomen complete 05/08/24 IMPRESSION: cholelithiasis without evidence of acute cholecystitis. There is a question of a possible 4 mm echogenic stone within the lumen of the common bile duct versus technical artifact, if any clinical concern for choledocholithiasis. MRCP could be obtained. There is no associated intra or extrahepatic biliary duct dilatation. Markedly increased hepatic echogenicity which can be seen in the setting of hepatic steatosis in the presence of focal fatty sparing. -Seen by Dr. Bojorquez 11/04/24 Patient will continue low-fat, low-salt, low carb and high-protein diet. Continue to exercise. Most likely transaminitis related to fatty liver. Will check ultrasound with elastography to stage it. Will repeat liver panel, iron profile, ferritin and lipid panel before his next appointment. Patient will be seen in 4-6 months, sooner on as needed basis. Assessment & Plan (10/13/2024 11:59 AM EST): Lab Results Component Value Date AST 51 (H) 05/29/2024 ALT 118 (H) 05/29/2024 ALT 42 (H) 08/17/2022 ALP 88 05/29/2024 DIRECTBILIRU 0.2 05/29/2024 Lab Results Component Value Date TOTALBILIRUB 0.7 05/29/2024 AST 51 (H) 05/29/2024 ALT 118 (H) 05/29/2024 ALT 42 (H) 08/17/2022 ALP 88 05/29/2024 HEPCAB Nonreactive 05/29/2024 HEPAIGM Nonreactive 04/25/2024 HEPBSURFAB NONREACTIVE 04/25/2024 HEPBCOREAB Nonreactive 04/25/2024 HEPBSURFACAG Negative 04/25/2024 ANASCRE POSITIVE (A) 04/08/2024 ANATITER 1:80 (A) 04/08/2024 MITOCHAB NEGATIVE 04/25/2024 SMAB <20 04/25/2024 CERULOPLASMI 29 04/25/2024 FERRITIN 361 (H) 04/25/2024 AFP 4.4 04/25/2024 Labs done with neurology 04/08/24 AST 92, ALT 172, plt 294, rheumatoid factor < 13, ferritin 499 Hx NATHAN positive. Differential includes metabolic dysfunction-associated steatotic liver disease, auto immune hepatitis given elevated NATHAN in past, hematochromatosis given elevated ferritin, drug induced given testosterone, vs other. -US/US abdomen complete 05/08/24 IMPRESSION: cholelithiasis without evidence of acute cholecystitis. There is a question of a possible 4 mm echogenic stone within the lumen of the common bile duct versus technical artifact, if any clinical concern for choledocholithiasis. MRCP could be obtained. There is no associated intra or extrahepatic biliary duct dilatation. Markedly increased hepatic echogenicity which can be seen in the setting of hepatic steatosis in the presence of focal fatty sparing. -referral to GI done 04/28/24 -has appt. with GI 08/2024 -reordered labs for f/u end of October 2024 - Ordered Lipid Panel, Standard 10/13/24 - Ordered Hepatic Function Panel 10/13/24 - Ordered Ferritin 10/13/24 - Ordered Iron And Total Iron Binding Capacity 10/13/24 Assessment & Plan (07/24/2024 11:24 AM EDT): Lab Results Component Value Date AST 51 (H) 05/29/2024 ALT 118 (H) 05/29/2024 ALT 42 (H) 08/17/2022 ALP 88 05/29/2024 DIRECTBILIRU 0.2 05/29/2024 Lab Results Component Value Date TOTALBILIRUB 0.7 05/29/2024 AST 51 (H) 05/29/2024 ALT 118 (H) 05/29/2024 ALT 42 (H) 08/17/2022 ALP 88 05/29/2024 HEPCAB Nonreactive 05/29/2024 HEPAIGM Nonreactive 04/25/2024 HEPBSURFAB NONREACTIVE 04/25/2024 HEPBCOREAB Nonreactive 04/25/2024 HEPBSURFACAG Negative 04/25/2024 ANASCRE POSITIVE (A) 04/08/2024 ANATITER 1:80 (A) 04/08/2024 MITOCHAB NEGATIVE 04/25/2024 SMAB <20 04/25/2024 CERULOPLASMI 29 04/25/2024 FERRITIN 361 (H) 04/25/2024 AFP 4.4 04/25/2024 Labs done with neurology 04/08/24 AST 92, ALT 172, plt 294, rheumatoid factor < 13, ferritin 499 Hx NATHAN positive. Differential includes metabolic dysfunction-associated steatotic liver disease, auto immune hepatitis given elevated NATHAN in past, hematochromatosis given elevated ferritin, drug induced given testosterone, vs other. -US/US abdomen complete 05/08/24 IMPRESSION: cholelithiasis without evidence of acute cholecystitis. There is a question of a possible 4 mm echogenic stone within the lumen of the common bile duct versus technical artifact, if any clinical concern for choledocholithiasis. MRCP could be obtained. There is no associated intra or extrahepatic biliary duct dilatation. Markedly increased hepatic echogenicity which can be seen in the setting of hepatic steatosis in the presence of focal fatty sparing. -referral to GI done 04/28/24 -has appt. with GI 08/2024 -reordered labs for f/u end of October 2024 Assessment & Plan (05/29/2024 9:13 AM EDT): Lab Results Component Value Date AST 63 (H) 04/25/2024 ALT 141 (H) 04/25/2024 ALT 42 (H) 08/17/2022 ALP 78 04/25/2024 DIRECTBILIRU 0.1 04/25/2024 Lab Results Component Value Date TOTALBILIRUB 0.4 04/25/2024 AST 63 (H) 04/25/2024 ALT 141 (H) 04/25/2024 ALT 42 (H) 08/17/2022 ALP 78 04/25/2024 HEPCAB Nonreactive 04/25/2024 HEPAIGM Nonreactive 04/25/2024 HEPBSURFAB NONREACTIVE 04/25/2024 HEPBCOREAB Nonreactive 04/25/2024 HEPBSURFACAG Negative 04/25/2024 ANASCRE POSITIVE (A) 04/08/2024 ANATITER 1:80 (A) 04/08/2024 MITOCHAB NEGATIVE 04/25/2024 SMAB <20 04/25/2024 CERULOPLASMI 29 04/25/2024 FERRITIN 361 (H) 04/25/2024 AFP 4.4 04/25/2024 Labs done with neurology 04/08/24 AST 92, ALT 172, plt 294, rheumatoid factor < 13, ferritin 499 Hx NATHAN positive. Differential includes metabolic dysfunction-associated steatotic liver disease, auto immune hepatitis given elevated NATHAN in past, hematochromatosis given elevated ferritin, drug induced given testosterone, vs other. -US/US abdomen complete 05/08/24 IMPRESSION: cholelithiasis without evidence of acute cholecystitis. There is a question of a possible 4 mm echogenic stone within the lumen of the common bile duct versus technical artifact, if any clinical concern for choledocholithiasis. MRCP could be obtained. There is no associated intra or extrahepatic biliary duct dilatation. Markedly increased hepatic echogenicity which can be seen in the setting of hepatic steatosis in the presence of focal fatty sparing. -referral to GI done 04/28/24 Assessment & Plan (04/28/2024 9:44 AM EDT): Lab Results Component Value Date AST 63 (H) 04/25/2024 ALT 141 (H) 04/25/2024 ALT 42 (H) 08/17/2022 ALP 78 04/25/2024 DIRECTBILIRU 0.1 04/25/2024 Labs done with neurology 04/08/24 AST 92, ALT 172, plt 294, rheumatoid factor < 13, ferritin 499 Hx NATHAN positive. Differential includes metabolic dysfunction-associated steatotic liver disease, auto immune hepatitis given elevated NATHAN in past, hematochromatosis given elevated ferritin, drug induced given testosterone, vs other. -US ordered 04/15/24 -referral to GI Assessment & Plan (10/24/2023 2:09 PM EST): AST and ALT were 45 and 23. ALT goal between 6 and 29. Will check hepatitis panel. Denies hepatic agents. Will try lifestyle modification. Will check in 3 months Assessment & Plan (06/04/2023 10:56 AM EDT): AST and ALT were 45 and 23. ALT goal between 6 and 29. Will check hepatitis panel. Denies hepatic agents. Will try lifestyle modification. Will check in 3 months Other specified health status 06/04/2023 Overview (05/29/2024): -next physical exam due after 10/24/2024 -eye care facilitated by [facility] in [place] -dental home is [facility] in [place]. -healthcare proxy paperwork filed 10/29/23 Assessment & Plan (04/25/2024 9:31 AM EDT): -next physical exam due after 10/24/2024 -eye care facilitated by [facility] in [place] -dental home is [facility] in [place]. -healthcare proxy paperwork given 10/24/2023 Assessment & Plan (10/24/2023 3:28 PM EST): -next physical exam due after 10/24/2024 -eye care facilitated by -dental home is -healthcare proxy paperwork given 10/24/2023 Assessment & Plan (06/04/2023 11:03 AM EDT): -next physical exam due after -eye care facilitated by -dental home is Dyslipidemia 10/19/2022 Overview (10/13/2024): Lab Results Component Value Date CHOL 201 (H) 05/29/2024 CHOL 184 04/25/2024 CHOL 224 (H) 06/06/2023 TRIG 295 (H) 05/29/2024 TRIG 177 (H) 04/25/2024 TRIG 182 (H) 06/06/2023 HDL 30 (L) 05/29/2024 HDL 27 (L) 04/25/2024 HDL 39 (L) 06/06/2023 LDLCHOLCAL 112 (H) 05/29/2024 LDLCHOLCAL 122 (H) 04/25/2024 LDLCHOLCAL 149 (H) 06/06/2023 -continue lifestyle modification -prescribed [place]-3 500 mg, discussed to continue 07/24/24 and take 2 tabs daily. -taking a vitamin called cholestrof -recommended fiber supplements 07/24/24 -reordered labs for f/u end of October 2024 Assessment & Plan (07/24/2024 11:24 AM EDT): Lab Results Component Value Date CHOL 201 (H) 05/29/2024 CHOL 184 04/25/2024 CHOL 224 (H) 06/06/2023 TRIG 295 (H) 05/29/2024 TRIG 177 (H) 04/25/2024 TRIG 182 (H) 06/06/2023 HDL 30 (L) 05/29/2024 HDL 27 (L) 04/25/2024 HDL 39 (L) 06/06/2023 LDLCHOLCAL 112 (H) 05/29/2024 LDLCHOLCAL 122 (H) 04/25/2024 LDLCHOLCAL 149 (H) 06/06/2023 -continue lifestyle modification -prescribed [place]-3 500 mg, discussed to continue 07/24/24 and take 2 tabs daily. -taking a vitamin called cholestrof -recommended fiber supplements 07/24/24 -reordered labs for f/u end of October 2024 Assessment & Plan (05/29/2024 9:13 AM EDT): Lab Results Component Value Date CHOL 184 04/25/2024 CHOL 224 (H) 06/06/2023 TRIG 177 (H) 04/25/2024 TRIG 182 (H) 06/06/2023 HDL 27 (L) 04/25/2024 HDL 39 (L) 06/06/2023 LDLCHOLCAL 122 (H) 04/25/2024 LDLCHOLCAL 149 (H) 06/06/2023 -continue lifestyle modification Assessment & Plan (04/28/2024 9:43 AM EDT): Lab Results Component Value Date CHOL 184 04/25/2024 CHOL 224 (H) 06/06/2023 TRIG 177 (H) 04/25/2024 TRIG 182 (H) 06/06/2023 HDL 27 (L) 04/25/2024 HDL 39 (L) 06/06/2023 LDLCHOLCAL 122 (H) 04/25/2024 LDLCHOLCAL 149 (H) 06/06/2023 -continue lifestyle modification Assessment & Plan (10/24/2023 2:09 PM EST): Lab Results Component Value Date CHOLESTEROL 207 (H) 06/21/2022 HDLCHOL 37 (L) 06/21/2022 TRIG 182 (H) 06/06/2023 LDLCHOL 143 (H) 06/21/2022 CHOLHDLRAT 5.6 (H) 06/21/2022 NONHDLCHOL 170 (H) 06/21/2022 -continue lifestyle modifications Assessment & Plan (06/04/2023 10:54 AM EDT): No results found for: CHOLESTEROL, LDLCHOL, TRIG, HDLCHOL, CHOLHDLRAT -continue lifestyle modifications Gender dysphoria 05/19/2022 Overview (10/13/2024): He reports he is now on 0.5ml q 2 weeks without bleeding or concerns. Gender affirming hormone therapy started 12/16/15 - Continue testosterone cypionate 0.5 IM q 2 weeks - estradiol on 10/26/20 was 59 pg/mL - s/p chest reconstruction surgery - No longer in therapy and declines referral - Pt is interested in the next step for genital surgery. Options discussed. Referral Dr. Lyric Rios in 2019 but put on hold due to Covid. Lab Results Component Value Date TESTTOTAL 239 (A) 05/29/2024 TESTTOTAL 420 (A) 04/25/2024 HGB 16.1 08/03/2023 HGB 16.9 (H) 01/13/2022 HCT 46.1 08/03/2023 -Goal testosterone levels 350-700ng/dl. - Ordered CBC 10/13/24 Assessment & Plan (10/13/2024 12:00 PM EST): He reports he is now on 0.5ml q 2 weeks without bleeding or concerns. Gender affirming hormone therapy started 12/16/15 - Continue testosterone cypionate 0.5 IM q 2 weeks - estradiol on 10/26/20 was 59 pg/mL - s/p chest reconstruction surgery - No longer in therapy and declines referral - Pt is interested in the next step for genital surgery. Options discussed. Referral Dr. Lyric Rios in 2019 but put on hold due to Covid. Lab Results Component Value Date TESTTOTAL 239 (A) 05/29/2024 TESTTOTAL 420 (A) 04/25/2024 HGB 16.1 08/03/2023 HGB 16.9 (H) 01/13/2022 HCT 46.1 08/03/2023 -Goal testosterone levels 350-700ng/dl. - Ordered CBC 10/13/24 Assessment & Plan (05/29/2024 11:09 AM EDT): He reports he is now on 0.5ml q 2 weeks without bleeding or concerns. Gender affirming hormone therapy started 12/16/15 - Continue testosterone cypionate 0.5 IM q 2 weeks - estradiol on 10/26/20 was 59 pg/mL - s/p chest reconstruction surgery - No longer in therapy and declines referral - Pt is interested in the next step for genital surgery. Options discussed. Referral Dr. Lyric Rios in 2019 but put on hold due to Covid. Lab Results Component Value Date TESTTOTAL 420 (A) 04/25/2024 HGB 16.1 08/03/2023 HGB 16.9 (H) 01/13/2022 HCT 46.1 08/03/2023 -Goal testosterone levels 350-700ng/dl. Assessment & Plan (04/25/2024 9:34 AM EDT): He reports he is now on 0.5ml q 2 weeks without bleeding or concerns. Gender affirming hormone therapy started 12/16/15 - Continue testosterone cypionate 0.5 IM q 2 weeks - Testosterone on 11/05/20 was 307 ng/dL ( goal 300 to 100 ng/dL) - estradiol on 10/26/20 was 59 pg/mL - Hgb was 16.8 on 10/26/2020, 47.7% hematocrit - s/p chest reconstruction surgery - No longer in therapy and declines referral - Pt is interested in the next step for genital surgery. Options discussed. Referral Dr. Lyric Rios in 2019 but put on hold due to Covid. FU in 6 months for Pap and 3 months for labs or prn earlier if needed Assessment & Plan (10/24/2023 2:09 PM EST): He reports he is now on 0.5ml q 2 weeks without bleeding or concerns. Gender affirming hormone therapy started 12/16/15 - Continue testosterone cypionate 0.5 IM q 2 weeks - Testosterone on 11/05/20 was 307 ng/dL ( goal 300 to 100 ng/dL) - estradiol on 10/26/20 was 59 pg/mL - Hgb was 16.8 on 10/26/2020, 47.7% hematocrit - s/p chest reconstruction surgery - No longer in therapy and declines referral - Pt is interested in the next step for genital surgery. Options discussed. Referral Dr. Lyric Rios in 2019 but put on hold due to Covid. FU in 6 months for Pap and 3 months for labs or prn earlier if needed Assessment & Plan (06/04/2023 10:54 AM EDT): He reports he is now on 0.5ml q 2 weeks without bleeding or concerns. Gender affirming hormone therapy started 12/16/15 - Continue testosterone cypionate 0.5 IM q 2 weeks - Testosterone on 11/05/20 was 307 ng/dL ( goal 300 to 100 ng/dL) - estradiol on 10/26/20 was 59 pg/mL - Hgb was 16.8 on 10/26/2020, 47.7% hematocrit - s/p chest reconstruction surgery - No longer in therapy and declines referral - Pt is interested in the next step for genital surgery. Options discussed. Referral Dr. Lyric Rios in 2019 but put on hold due to Covid. FU in 6 months for Pap and 3 months for labs or prn earlier if needed Male pattern alopecia 05/19/2022 Mixed anxiety and depressive disorder 05/19/2022 Overview (05/29/2024): No longer with therapist. He reports its well controlled and is on Cymbalta 20mg daily. He has pericarditis happened around the time he started Wellbutrin. It is not a known side effected but pt feels it may be connected. Avoid Wellbutrin. Assessment & Plan (05/29/2024 11:10 AM EDT): No longer with therapist. He reports its well controlled and is on Cymbalta 20mg daily. He has pericarditis happened around the time he started Wellbutrin. It is not a known side effected but pt feels it may be connected. Avoid Wellbutrin. Assessment & Plan (10/24/2023 2:09 PM EST): No longer with therapist. He reports its well controlled and is on Cymbalta 20mg daily. He has pericarditis happened around the time he started Wellbutrin. It is not a known side effected but pt feels it may be connected. So avoid Wellbutrin Assessment & Plan (06/04/2023 10:56 AM EDT): No longer with therapist. He reports its well controlled and is on Cymbalta 20mg daily. He has pericarditis happened around the time he started Wellbutrin. It is not a known side effected but pt feels it may be connected. So avoid Wellbutrin. Positive antinuclear antibody 05/19/2022 Overview (06/04/2023): hx pericarditis, workup was significant for NATHAN positive but the ultimate etiology was not found. His repeat NATHAN on 01/2019 was 1-160 positive but he never followed up with rheumatology. His highest was 100-640 in 11/2018. The rest of his inflammatory markers were unremarkable. His last rheumatology visit 09/2019 and recommended yearly screening or if pt becomes symptomatic. NATHAN on 10/26/20 was 1 to 160. Asymptomatic. Assessment & Plan (10/24/2023 2:09 PM EST): hx pericarditis, workup was significant for NATHAN positive but the ultimate etiology was not found. His repeat NATHAN on 01/2019 was 1-160 positive but he never followed up with rheumatology. His highest was 100-640 in 11/2018. The rest of his inflammatory markers were unremarkable. His last rheumatology visit 09/2019 and recommended yearly screening or if pt becomes symptomatic. NATHAN on 10/26/20 was 1 to 160. Asymptomatic. Assessment & Plan (06/04/2023 10:55 AM EDT): hx pericarditis, workup was significant for NATHAN positive but the ultimate etiology was not found. His repeat NATHAN on 01/2019 was 1-160 positive but he never followed up with rheumatology. His highest was 100-640 in 11/2018. The rest of his inflammatory markers were unremarkable. His last rheumatology visit 09/2019 and recommended yearly screening or if pt becomes symptomatic. NATHAN on 10/26/20 was 1 to 160. Asymptomatic. Seasonal allergies 05/19/2022 Hypertrophic scar of skin 10/15/2019 Resolved Problems Problem Noted Date Diagnosed Date Resolved Date Physical exam 10/24/2023 09/30/2024 Overview (10/24/2023): -Normal growth and development. -Anticipatory guidance discussed. -Preventative care / harm reduction discussed. Assessment & Plan (10/24/2023 3:29 PM EST): -Normal growth and development. -Anticipatory guidance discussed. -Preventative care / harm reduction discussed. Oral lesion 07/13/2023 10/24/2023 Assessment & Plan (07/13/2023 6:25 AM EDT): -labs 05/2023 noted HIV, RPR, CH/GN neg, LFTs elevated w ALT 86, AST 38 TSH 6.31, elevated lipids. Slight mucosal erosion in right side of cheek. No ulcers, no indurations. Seems to be most likely associated w recent cough drop use on that side of his cheek - now improving. -Advise to monitor and come back to [facility] if worsening or new lesion shows up. Elevated liver enzymes 05/19/202205/29 Encounters Date Type Department Care Team Description 12/03/2024 Orders Only [facility] External Provider, [facility] 11/10/2024 Refill [facility] [address] [place] [address] Petra Rico MD Gender dysphoria 10/29/2024 Refill [facility] [address] [place] [address] Petra Rico MD Gender dysphoria 10/29/2024 Refill [facility] [address] [place] [address] Evelia Kang NP Gender dysphoria 10/13/2024 11:15 AM EST Office Visit [facility] [address] [place] [address] Petra Rico MD Family planning (Primary Dx); Other specified health status; Dyslipidemia; Obesity (BMI 30.0-34.9); Dietary counseling; Exercise counseling; Overweight; Transaminitis; Gender dysphoria 10/13/2024 Travel 10/07/2024 Travel 10/03/[address] [address] Petra Rico MD Gender dysphoria 10/02/2024 Patient Outreach [address] [address] Petra Rico MD Pre-visit Planning ([facility] screening was completed on 10/24/2023) 09/17/2024 Orders Only [address] [address] Petra Rico MD 09/12/[address] [address] Bertha Cobian RN Med Refill ([place] notification) 09/08/[address] [address] Tyler Rico 09/08/[address] [address] Neris Pimentel [place] October Recall 09/08/[address] [address] Neris Pimentel [place] October Recall from Last 3 Months Immunizations Name Administration Dates Next Due DTaP 10/27/2005, 0,03/03/1999,01/06,1998 HPV, Quadrivalent 09/27/2011,07/14/2010,06/28/20 09 Hep A, ped/adol, 2 dose 01/08/2015,03/12/2013 Hep B, Adolescent or Pediatric 03/03/1999,1997,1998 Hib (HbOC) 12/15/1999, 9,01/06/1999,11/11 IPV 10/27/2005, 0,01/06/1999,11/11 Influenza Injectable Quadriv alant Preservative Free IIV4 MDCK 08/04/2022,08/25/2020 Influenza injectable quadriv alent IIV4 with preservative 07/01/2018,07/04/2017 Influenza injectable quadriv alent preservative free 08/17/2023,07/28/2021,06/29/2016,06/25 Influenza live intranasal qu adrivalent LIAV4 07/16/2014 MMR 10/27/2005,08/24/1999 Meningococcal MCV4P ACYW-135 10/18/2015,07/14/20 10 Moderna Covid-19 Vaccine 12+ 04/08/2021,03/11/20 21 Pneumococcal Conjugate PCV 7 07/05/2000 Tdap 06/06/2023,07/14/2010 Varicella 06/28/2009,08/24/1999 Family History Medical History Relation Name Comments prediabetes Father Hypertension Mother prediabetes Mother Relation Name Status Comments Father Mother Social History Tobacco Use Types Packs/Day Years Used Date Smoking Tobacco: Never Passive Smoke Exposure: Never Smokeless Tobacco: Never Tobacco Cessation:Counseling Given: Not Answered Alcohol Use Standard Drinks/Week Comments Never 0 [...] the past 12 months, has t he [employer], [employer], oil or water company threatened to shut [...] not to disclose 2021 10:15 AM EDT Last Filed Vital Signs Vital Sign Reading Time Taken Comments Blood Pressure 148/94 10/13/2024 11:25 AM EST Pulse 74 10/13/2024 11:25 AM EST Temperature 36.7 ??C (98 ??F) 10/13/2024 11:25 AM EST Respiratory Rate 19 10/13/2024 11:25 AM EST Oxygen Saturation 98% 10/13/2024 11:25 AM EST Inhaled Oxygen Concentration - - Weight 63 kg (139 lb) 10/13/2024 11:25 AM EST Height 149.9 cm (4' 11 ) 10/13/2024 11:25 AM EST Body Mass Index 28.07 10/13/2024 11:25 AM EST Plan of Treatment Health Maintenance Due Date Last Done Comments Alcohol/Substance Use Screening 2010 Depression Screening 10/24/2024 10/24/2023, 10/24/19 24 SDOH Screening 10/24/2024 10/24/2023 Family Planning (PISQ) 07/24/2025 07/24/2024 COVID-19 Vaccine ( season) 2025 08/18/2022, 10/17/2021, 04/08/2021, Additional history exists Postponed from 06/08/2024 (Patient Refused) Tobacco Screening 10/13/2025 10/13/2024 Pap Smear 11/02/2026 11/02/2023 Lipid Panel 10/13/2029 10/13/2024, 08/2 11/2023, 04/25/2024, Additional history exists DTaP/Tdap/Td Vaccines (8 - Td or Tdap) 06/06/2033 06/06/2023, 07/14/2010, 10/27/2005, Additional history exists Zoster Vaccines (1 of 2) 2048 RSV Patients and Patients Aged 60 years or older (1 - 1-dose 75+ series) 2073 Hepatitis B Vaccines Completed 03/03/1999, 1998, 1998 HIB Vaccines Completed 12/15/1999, 02/06, 01/06/1999, Additional history exists Pneumococcal Vaccine: Pediatrics (0 to 5 Years) and At-Risk Patients (6 to 49) Years) Aged Out 07/05/2000 No longer eligible based on patient's age to complete this topic IPV Vaccines Completed 10/27/2005, 06/2000, 01/06/1999, Additional history exists HPV Vaccines Completed 09/27/2011, 04/2010, 06/28/2009 Hepatitis A Vaccines Completed 01/08/2015, 03/12/20 13 Meningococcal Vaccine Completed 10/18/2015, 010 HIV Screening Completed 06/06/2023 Hepatitis C Screening Completed 05/29/2024 , 04/25/2024, 10/24/2023 Influenza Vaccine Completed 06/01/2024, , 08/04/2022, Additional history exists RSV under 20 months Aged Out No longe r eligible based on patient's age to complete this topic Rotavirus Vaccines Aged Out No longer eligible based on patient's age to complete this topic Goals Goal Patient Goal Type Associated Problems Recent Progress Patient-Stated? Author Blood Pressure < 140/90 Blood Pressure 148/94( 025 11:25 AM EST) No Brianne Katz PharmD Procedures Procedure Name Priority Date/Time Associated Diagnosis Comments US ABDOMEN ROCKWELL W ELASTOGRAPHY Routine 12/03/2024 10:04 AM EST CBC Routine 10/13/2024 11:54 AM EST Gender dysphoria IRON AND TOTAL IRON BINDING CAPACITY Routine 10/13/2024 11:54 AM EST Transaminitis FERRITIN Routine 10/13/2024 11:54 AM EST Transaminitis HEPATIC FUNCTION PANEL Routine 10/13/2024 11:54 AM EST Transaminitis LIPID PANEL, STANDARD Routine 10/13/2024 11:54 AM EST Dyslipidemia HEPATITIS C AB W/REFL TO HCV RNA, QN, PCR Routine 05/29/2024 12:00 PM EDT PAP SMEAR Routine 11/02/2023 11:41 AM EST HIV ANTIBODY/ANTIGEN ([place] DPH) Routine 06/06/2023 12:05 PM EDT from Last 3 Months or Most Recently Relevant to Health Maintenance Results * US ABDOMEN ROCKWELL W ELASTOGRAPHY (12/03/2024 10:04 AM EST) Anatomical Region Laterality Modality Abdomen Ultrasound 12/03/2024 10:0 4 AM EST Narrative 12/03/2024 10:32 AM EST ? [facility] ?[address] ?[place] [address] ? Ultrasound Report ? Signed ? Patient: Ahsan Kuhn ?MR#: [id number] ?? [id number] ? : 2000 ?Acct:[id number] ? Age/Sex: 24 / F ?ADM Date: 12/03/24 ? Loc: HO.US ? Attending Dr: Josi Bojorquez ELECTRONIC DEVICE REPAIRER-BC ? Ordering Physician: Josi Bojorquez ELECTRONIC DEVICE REPAIRER-BC ?? Date of Service: 12/03/24 ?? Procedure(s): US abdomen rockwell w elastography ?? Accession Number(s): [id number] ? cc: Petra Rico MD; Josi Bojorquez ELECTRONIC DEVICE REPAIRER-BC ? EXAMINATION: ??US ABDOMEN LIMITED WITH LIVER [...] DD/ 1004 ? TD/TT: 12/03/24 1015 ? Finger Buffs Assembler: ? Procedure Note Michael, [place] - 12/03/[address] [facility] [address] Ultrasound Report Signed Patient: Ahsan Kuhn JMR#: [id number] : 2000Acct:[id number] Age/Sex: 24 / FADM Date: 12/03/24 Loc: HO.US Attending Dr: Josi GROSS- Ordering Physician: Josi Bojorquez Date of Service: 12/03/24 Procedure(s): US abdomen rockwell w elastography Accession Number(s): [id number] cc: Petra Rico MD; Josi Bojorquez [facility] EXAMINATION: US ABDOMEN LIMITED WITH LIVER ELASTOGRAPHY [...] Pradip Lewis MD 12/03/2024 10:29 AM EST Dictated By: Pradip Lewis MD Signed By: <Electronically signed by Pradip Lewis MD in OV> 12/03/24 1029 DD/ 1004 TD/TT: 12/03/24 1015 Finger Buffs Assembler: us [facility] External Provider IMG US PROCEDURES Final Result * Iron And Total Iron Binding Capacity (10/13/2024 11:54 AM EST) Pathologist [facility] Iron 100 30 - 160 mcg/dL [facility] Total Iron Binding Capacity 250 228 - 428 mcg/dL [facility] Percent Iron Saturation 40 15 - 50 % [facility] Unsaturated Iron Binding 150 ug/dL [facility] Blood Venous blood specimen / Unknown 10/13/2024 11:54 AM EST 10/13/2024 1:25 PM EST Petra Rico MD LAB BLOOD ORDERABLES Final Result [facility] [address] [place] [phone] * CBC (10/13/2024 11:54 AM EST) [facility] White Blood Count 6.3 4.8 - 10.8 X10*3/uL [facility] Red Blood Count 5.22 4.20 - 5.50 X10*6/uL [facility] Hemoglobin 15.9 12.0 - 16.0 g/dl [facility] Hematocrit 46.4 37.0 - 47.0 % [facility] Mean Corpuscular Volume 88.9 80.0 - 98.0 fL [facility] Mean Corpuscular Hemoglobin 30.5 27.0 - 33.0 pg [facility] Mean Corpuscular HGB Conc 34.3 31.0 - 35.0 g/dl [facility] Red Cell Distribution Width 12.4 11.0 - 16.0 % [facility] Platelet Count 266 160 - 400 X10*3/uL [facility] Mean Platelet Volume 9.7 9.4 - 12.3 fL [facility] NRBC Pct Auto 0.0 0.0 - 0.2 /100WBC [facility] NRBC Abs Auto 0.000 0.0 - 0.012 X10*3/uL [facility] Blood Venous blood specimen / Unknown 10/13/2024 11:54 AM EST 10/13/2024 1:25 PM EST Petra Rico MD LAB BLOOD ORDERABLES Final Result Performing Organization Address [facility]/ZIP Co de Phone Number [facility] [address] [place] [phone] * (ABNORMAL) Ferritin (10/13/2024 11:54 AM EST) Ferritin 202(H) 10 - 122 ng/mL [facility] Blood Venous blood specimen / Unknown 10/13/2024 11:54 AM EST 10/13/2024 1:25 PM EST Petra Rico MD LAB BLOOD ORDERABLES Final Result Performing Organization Address [facility] de Phone Number [facility] [address] [place] [phone] * (ABNORMAL) Hepatic Function Panel (10/13/2024 11:54 AM EST) Bilirubin, Total 0.8 0.0 - 1.0 mg/dL [facility] Bilirubin, Direct 0.3 0.0 - 0.5 mg/dL [facility] Aspartate Amino Transferase 26 5 - 31 U/L [facility] Alanine Aminotransferase 40(H) 0 - 31 U/L [facility] Total Protein 7.5 6.5 - 8.0 g/dL [facility] Albumin Level 4.6 3.5 - 5.0 g/dL [facility] Alkaline Phosphatase 86 39 - 117 U/L [facility] Blood Venous blood specimen / Unknown 10/13/2024 11:54 AM EST 10/13/2024 1:25 PM EST Petra Rico MD LAB BLOOD ORDERABLES Final Result Performing Organization Address [facility] Co de Phone Number [facility] [address] [place] [address] [phone] * (ABNORMAL) Lipid Panel, Standard (10/13/2024 11:54 AM EST) Triglycerides 138 <150 mg/dL [facility] Comment:Desirable Triglyceri de: less than 150 mg/dLBorderline High Triglyceride 150-199 mg/dLHigh Triglyceride: 200-499 mg/dLVery High Triglyceride: greater than or equal to 5OO mg/dL Cholesterol 171 <200 mg/dL [facility] Comment:Desirable Cholestero l: less than 200 mg/dLBorderline High Cholesterol: 200-239 mg/dLHigh Cholesterol: greater than 239 mg/dL LDL Cholesterol Calculated 114(H) <100 mg/dL [facility] Comment:Desirable LDL: less than 100 mg/dLNear Optimal/Above Optimal LDL: 110- 129 mg/dLBorderline High LDL: 130-159 mg/dLHigh LDL: 160-189 mg/dLVery High LDL: greater than or equal to 190 mg/dL HDL Cholesterol 30(L) >40 mg/dL [facility] Comment:Desirable HDL: great er than 40 mg/dL Note: This HDL assay may give artificially low results in patients with liver disease. Blood Venous blood specimen / Unknown 10/13/2024 11:54 AM EST 10/13/2024 1:25 PM EST Petra Rico MD LAB BLOOD ORDERABLES Final Result Performing Organization Address [facility] Co de Phone Number [facility] [address] [place] [address] [phone] * Hepatitis C Antibody with Reflex to HCV, RNA, Quantitative, Real-Time PCR (05/29/2024 12:00 PM EDT) Hepatitis C Antibody Nonreactive Nonreactive [facility] Comment:Antibodies to HCV no t detected; does not exclude early acuteHCV infection. 05/29/2024 12:0 0 PM EDT 05/29/2024 1:25 PM EDT us Petra Rico MD LAB BLOOD ORDERABLES Final Result [facility] [address] [place] [phone] * Pap Smear (11/02/2023 11:41 AM EST) 11/02/2023 11:4 1 AM EST 11/06/2023 8:00 AM EST Narrative [facility] - 11/16/2023 3:18 PM EST ----- ------- Name: Ahsan Kuhn ? Age/Sex: 23/M ? : 2000 Unit#: [id number] ?? Attend Dr: Petra Rico MD ?Re11/02/23 ?Status: DEP REF ? Location: HO.HHCLNP ? Disch: ? ----- ------- SPEC : [id number] ? RECD: 11/06/23 ? STATUS: ??SOUT ? REQ NUM: [id number] ? AKANKSHA: 11/02/23 ? SUBM DR: Petra Rico MD ? ENTERED: ??11/06/23 ?SP TYPE: Pap Smr ?OTHR DR: ? ORDERED: ??Pap Smear ? Interpretation ?? Unsatisfactory. ?? Scant cellularity. ?HPV mRNA E6/E7: ?NOT DETECTED ? This assay detects E6/E7 viral messenger RNA (mRNA) from 14 high-risk HPV types (16, 18, ?? 31, 33, 35, 39, 45, 51, 52, 56, 58, 59, 66, 68) ?? HPV testing performed by [facility], [place], [place]. ??See reference laboratory ?? portion of the EMR for entire report. ?Clinical Information LMP: Pt on testosterone Previous PAP test: None Other history: Difficult to see os ? Material Received ?? ThinPrep-Cervical ----- ------- Signed (signature on file) CLAY Chavez ([facility]) 11/16/23 1518 ? ----- ------- ? END OF REPORT ? Petra Rico MD LAB CYTOLOGY ORDERABLES [facility]ly [facility], [facility] Result [facility] [address] [place] [phone] * HIV Ab/Ag ([facility]) (06/06/2023 12:05 PM EDT) [facility] HIV AB/AG Nonreactive Nonreactive [facility] Comment:HIV-1 p24 Ag and/or HIV-1/HIV-2 Ab not detected.A test result that is nonreactive does not exclude thepossibility of exposure to or infection with HIV-1 and/orHIV-2. Nonreactive results in this assay for individualswith prior exposure to HIV-1 and/or HIV-2 may be due toantigen and antibody levels that are below the limit ofdetection of this assay.The Ad[employer]niGazemetrix HIV Ag/Ab Combo assay result andsupplemental assay results should be interpreted inconjunction with the patient's clinical presentation,history and other laboratory results. If the results areinconsistent with clinical evidence, additional testing issuggested to confirm the result. 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 Advance Directives and Livin g Will 10/29/2023 Health Care Proxy Care Teams Community Resource Consultant Relationship Specialty Start Date End Date Petra Rico MD [address] [place] [address] PCP - General Family Medicine 08/12/15 Brianne Ivory, Balaji [address] [place] [address] Pharmacist Internal Medicine 08/13/23 Tamera Cummings OD [address] [place] [phone] Optometry 09/30/24 Dana Angel [address] [place] [address] [address] [place] [address] Sleep Medicine 10/13/24 Josi Bojorquez [address] [place] [address] [place] [phone] Gastroenterology 11/04/24
== END 2024-12-03 09:37 | disposition home or self-care (01) ==
LOC: HO.US 09:36
PROVIDERS: PCP Family Medicine; Visit Provider Nurse Practitioner Family
DX: K76.0 Fatty (change of) liver, not elsewhere classified (principal)
CPT/HCPCS: 76705; 76981

== ENCOUNTER → 2024-12-03 09:37 | Outpatient (BNV) | payer MEDICAID, SELFPAY | PROVIDERS: PCP Family Medicine; Visit Provider Radiology Diagnostic Radiology | DX: K76.0 Fatty (change of) liver, not elsewhere classified (principal) | CPT/HCPCS: 76705; 76981 ==

== ENCOUNTER 2025-02-26 11:24 | Outpatient (REF) | payer MEDICAID, SELFPAY ==
[2025-02-26 13:37] LABS: Alanine Aminotransferase 16 U/L (0-31); Albumin Level 5.1 g/dL (3.5-5.0); Aspartate Amino Transferase 25 U/L (5-31); Bilirubin Direct 0.2 mg/dL (0.0-0.5); Bilirubin Total 0.8 mg/dL (0.0-1.0); Cholesterol 162 mg/dL (<200); HDL Cholesterol 35 mg/dL (>40); Iron 110 mcg/dL (30-160); LDL Cholesterol Calculated 116 mg/dL (<100); Percent Iron Saturation 42 % (15-50); Total Iron Binding Capacity 259 mcg/dL (228-428); Total Protein 7.8 g/dL (6.5-8.0); Triglycerides 59 mg/dL (<150); Unsaturated Iron Binding 149 ug/dL
[2025-02-26 13:44] LABS: Alkaline Phosphatase 76 U/L (39-117)
[2025-02-26 13:48] LABS: Ferritin 167 ng/mL (10-122)
[2025-03-05 17:19] LABS: FIB-ALT 11 U/L (6-29); FIB-Alpha-2-Macroglobulin 118 mg/dL (106-279); FIB-Apolipoprotein A1 103 mg/dL (101-198); FIB-GGT 12 U/L (3-40); FIB-Haptoglobin 147 mg/dL (43-212); FIB-Total Bilirubin 0.7 mg/dL (0.2-1.2); Liver Fibrosis Score 0.05; Liver Fibrosis Stage F0; Nec Inflam Act Grade A0; Nec Inflam Act Score 0.02
== END 2025-02-26 11:25 | disposition home or self-care (01) ==
LOC: HO.HHCL 11:24
PROVIDERS: Visit Provider Nurse Practitioner Family
DX: R74.8 Abnormal levels of other serum enzymes (principal); I25.10 Atherosclerotic heart disease of native coronary artery without angina pectoris; K76.0 Fatty (change of) liver, not elsewhere classified; R74.01 Elevation of levels of liver transaminase levels; D64.9 Anemia, unspecified
CPT/HCPCS: 36415; 80061; 80076; 81596; 82728; 83540

== ENCOUNTER 2025-02-27 12:43 | Outpatient (AMB) | payer MEDICAID, SELFPAY ==
--- OUTSIDE RECORDS SUMMARY | 2025-02-27 12:46 | XMS_ITS | Encounter Summary ---
Author Organization [employer] Address [address] [place] [address] [address] [place] [address] Care Team Providers Care Clarifier Operator Name Role Phone Petra Rico MD Primary Care Provider [phone] Brianne Ivory PharmD Unavailable EmilianoTamera fairchild OD Unavailable Dana Angel Unavailable [phone] Josi Bojorquez Unavailable Encounter Details Date Type Department Care Team (Late st Contact Info) Description 09/17/2024 Orders Only [facility] [address] [place], [place] [phone] Petra Rico MD [address] [place], [place] [phone] Social History Tobacco Use Types Packs/Day Years [...] as of this encounter Plan of Treatment Upcoming Encounters Date Type Department Care Team (Late st Contact Info) Description 04/30/2025 9:30 AM EDT Office Visit [facility] [address] [place] [address] Petra Rico MD [address] [place] [address] documented as of this encounter Goals Goal [...] documented as of this encounter Care Teams Clarifier Operator Relationship Specialty Start Date End Date Petra Rico MD [address] [place] [address] PCP - General Family Medicine 08/12/15 Brianne Ivory, Balaji [address] [place] [address] Pharmacist Internal Medicine 08/13/23 Tamera Cummings OD [address] [place] [phone] Optometry 09/30/24 Dana Angel [address] [address] Sleep Medicine 10/13/24 Josi Bojorquez [address] [address] Gastroenterology 11/04/24 documented as of this encounter
--- NOTE | 2025-02-27 12:53 | A.OFFVIS_ITS ---
Vital Signs 02/27/25 13:00 Height 4 ft 10 in Weight 130 lb BMI 27.2 BP 126/94 H Blood Pressure Location Rt brachial Position Sitting Pulse 76 Pulse Source Pulse Oximeter Pulse Oximetry (%) 99 Oxygen Delivery Method Room Air Intake Visit Reasons: 4 mo Transaminitis Intake Note: ESTABLISHED PATIENT for mgmt of transaminitis. Labs + US done. CC; Pt denies any GI sx or concerns. Reviewing results of lab work and imaging. Credit Charge Authorizer Required: No Accompanied by: Self / Same As Patient Allergies No Known Allergies [No Known Allergies*] Allergy (Verified 02/27/25 12:54) HPI HPI 4 mo Transaminitis: Details: LAST VISIT Transaminitis Nonalcoholic fatty liver Plan Patient will continue low-fat, low-salt, low carb and high-protein diet. Continue to exercise. Most likely transaminitis related to fatty liver. Will check ultrasound with elastography to stage it. Will repeat liver panel, iron profile, ferritin and lipid panel before his next appointment. Patient will be seen in 4-6 months, sooner on as needed basis. Patient currently has no GI symptoms. Patient reports that his mom is diabetic and he is trying to eat healthier. He is agreeable to this plan and verbalizes understanding of instructions. He was given the opportunity to ask questions and all questions answered. ? Thank you for allowing me to participate in his care Orders Orders IRON PROFILE Today D64.9 Liver Panel Today R74.01 Ferritin Today R74.8 Liver Fibrosis Pnl Today K76.0 US abdomen norman w elastography Today K76.0 Lipid Panel Today I25.10 TODAY'S VISIT Patient is here today for follow-up. Patient reports that he changed his diet since last visit. His liver enzymes are normal. Liver fibrosis panel is not back yet. Ultrasound showed advanced chronic liver disease. Patient denies any GI concerning symptoms. Here today to discuss lab results and discuss plan [facility] Medical History Transaminitis Surgical History History of esophagogastroduodenoscopy (EGD) (~2016) Family History Mother Hypertension Paternal Grandfather Colon cancer Social History Household Members: Family Alcohol intake: never Patient Tobacco Use Status: Never used Tobacco Physical Exam Vital Signs: Last Vital Signs Pulse 76 02/27/25 13:00 BP 126/94 H 02/27/25 13:00 Pulse Ox 99 02/27/25 13:00 Oxygen Delivery Method Room Air 02/27/25 13:00 BMI result Body Mass Index 27.2 Results Reviewed Results Reviewed: Laboratory Tests 10/13/24 11:54 Total Bilirubin 0.8 Direct Bilirubin 0.3 AST 26 ALT 40 H Alkaline Phosphatase 86 Laboratory Tests 10/13/24 02/26/25 11:54 11:26 Ferritin 202 H 167 H Direct Bilirubin 0.2 AST 25 ALT 16 Alkaline Phosphatase 76 ABDOMINAL ULTRASOUND WITH ELASTOGRAPHY 12/03/2024 FINDINGS: Liver: The right lobe of the liver measures 12.4 cm in size. The left lobe of the liver measures 11.3 cm in size. The liver demonstrates mildly increased echotexture, consistent with steatosis. No focal mass or intrahepatic biliary ductal dilatation is identified. There is normal hepatopedal flow in the portal vein. Ultrasound elastography of the liver was performed with 10 separate measurements of the liver parenchyma with the patient in the supine position. Measurements were obtained approximately 2 cm below Mario's capsule and perpendicular to the capsule. Images are of satisfactory quality. The median shear wave velocity is 1.84 m/s. The interquartile range/median (IQR/median) is 0.19. Gallbladder and biliary tree: There is cholelithiasis. There is no wall thickening or pericholecystic fluid. There is no sonographic Bingham sign. The common bile duct is normal in caliber measuring 4 mm. Right Kidney: The right kidney measures 9.7 cm in length. The right kidney is unremarkable, without evidence of masses, hydronephrosis, or calculi. Pancreas: Pancreas is not well visualized. Abdominal aorta and inferior vena cava: The visualized portions of the abdominal aorta and inferior vena cava are normal in caliber. There is no free fluid in the right upper quadrant. US/US abdomen norman w elastography IMPRESSION: Mild hepatic steatosis. Cholelithiasis without evidence of acute cholecystitis. The median shear wave velocity is 1.84 m/s, corresponding to a median liver stiffness of 10.35 kPa. The IQR/median value is 0.19. This is indicative of a poor quality data set, and the estimated liver stiffness may be unreliable. Findings are indicative of a high elastography value suggestive of advanced chronic liver disease. Assessment & Plan Assessment & Plan (1) Transaminitis: Code(s): R74.01 - Elevation of levels of liver transaminase levels Category: Medical (2) Nonalcoholic fatty liver: Code(s): K76.0 - Fatty (change of) liver, not elsewhere classified Plan Patient will continue his diet. Liver enzymes normal. Ultrasound with high elastography showing possible advanced chronic liver disease will wait for liver fibrosis panel. Continue low-fat, low-salt, low carb and high protein diet. Patient was encouraged weight loss, increase exercise and activity. Patient will follow-up in 6 months. We will repeat ultrasound with elastography again. Patient is agreeable to current plan of care and verbalizes understanding of instructions. He was given the opportunity to ask questions and all questions answered. Thank you for allowing me to participate in his care Orders: Orders US abdomen norman w elastography 6 Months K76.0 - Fatty (change of) liver, not elsewhere classified Coding Level of Care Code Est Pt Level 3 (05544) Diagnoses Transaminitis R74.01 Nonalcoholic fatty liver K76.0 Time Spent (min) 25 Comment 15 minutes spent with patient and additional 10 minutes spent reviewing his records
[2025-02-27 13:00] VITALS: BP 126/94; PULSE 76; O2SAT 99; BMI 27.2
== END 2025-02-27 13:27 | disposition home or self-care (01) ==
LOC: HO.HGI 12:44
PROVIDERS: PCP Family Medicine; Visit Provider Nurse Practitioner Family
DX: R74.01 Elevation of levels of liver transaminase levels (principal); K76.0 Fatty (change of) liver, not elsewhere classified
CPT/HCPCS: 99213

== ENCOUNTER → 2025-02-27 12:43 | Outpatient (BNVA) | payer MEDICAID, SELFPAY | PROVIDERS: PCP Family Medicine; Visit Provider Nurse Practitioner Family | DX: R74.01 Elevation of levels of liver transaminase levels (principal); K76.0 Fatty (change of) liver, not elsewhere classified | CPT/HCPCS: 99212 ==

== ENCOUNTER 2025-04-01 13:05 | Outpatient (AMB) | payer MEDICAID, SELFPAY ==
--- NOTE | 2025-04-01 13:37 | A.OFFVIS_ITS ---
Vital Signs 04/01/25 13:38 Height 4 ft 10 in Weight 124 lb BMI 25.9 BP 120/74 Blood Pressure Location Rt brachial Position Sitting Pulse 70 Pulse Source Pulse Oximeter Pulse Oximetry (%) 98 Oxygen Delivery Method Room Air Intake Visit Reasons: Follow Up Global Cto Required: No Accompanied by: Self / Same As Patient Allergies No Known Allergies (No Known Allergies*) Allergy (Verified 04/01/25 13:38) Medication List - Last Reconciled 04/01/25 by GINNY Wesley alcohol swabs (Alcohol Prep Pads) pad topical DAILY needle (disp) 16 G (BD Specialty Use [place]) As directed syringe (disposable) As directed testosterone cypionate 100 mg IM Q2W HPI Comments Details: History of Present Illness The patient is a 24-year-old male presenting with a follow-up for obstructive sleep apnea management. He was diagnosed with severe obstructive sleep apnea in October 2023, evidenced by an apnea-hypopnea index (AHI) of 28 per hour and an oxygen saturation david of 71%, with SpO2 falling below 88% for 12 minutes during a polysomnography study. Initially, he was prescribed continuous positive airway pressure (CPAP) therapy at a setting of 10 cm H2O but experienced difficulties with tolerance and adherence, leading to inconsistent usage. however, since the last visit, patient has adjusted to using CPAP therapy and has adapted to using the device during the daytime for at least four hours when struggling to achieve nighttime sleep. His sleep difficulties are compounded by ruminating thoughts, as well as some impaired sleep hygiene practices such as scrolling on his phone to help him fall asleep at night. Additionally, he reports an interval diagnosis of nonalcoholic fatty liver disease and thus actively achieved a noteworthy weight loss from 174 pounds to 124 pounds, attributing success to exercise?specifically treadmill use three times weekly?and dietary modifications. He does note that he uses the treadmill often within a few hours of bedtime. He has a history of a positive antinuclear antibody test but has not maintained recent follow-up with rheumatology; he occasionally experiences joint pain, alth ough he denies any rashes or sensory disruptions like numbness. Social History - Exercise: Engages in regular exercise, using a treadmill at least three times a week. - Employment: Currently unemployed but actively seeking employment. Review of Systems - Neurological: Reports difficulty sleeping at night; uses CPAP during the day. - Psychological: Reports ruminating thoughts, contributing to sleep difficulties. - Musculoskeletal: Reports occasional joint pain. - Dermatological: Denies rashes. - Neurological: Denies numbness or tingling. CPAP compliance review: Does patient have sufficient PAP supplies? Yes Does patient clean PAP supplies on a regular basis? Yes Does the patient use distilled water in their PAP machine water reservoir? Yes PAP compliance report reviewed. AirSense 10 AutoSet Serial number [id number] Compliance report date range: Mar 02 2025 - March 31 2025 Overall usage: 100 percent Usage greater than 4 hours: 87 percent PAP setting: CPAP 10 cmH2O with EPR 2 Average usage on days used: 5 hours and 26 minutes Average mask leakage: 0.1 LPM Residual AHI: 1.2 per hour Results - Laboratory: Positive NATHAN test. vitamin-D deficiency PFSH Medical History Transaminitis Surgical History History of esophagogastroduodenoscopy (EGD) (~2015) Family History Mother Hypertension Paternal Grandfather Colon cancer Social History Household Members: Family Alcohol intake: never Patient Tobacco Use Status: Never used Tobacco Physical Exam Vital Signs: Last Vital Signs Pulse 70 04/01/25 13:38 BP 120/74 04/01/25 13:38 Pulse Ox 98 04/01/25 13:38 Oxygen Delivery Method Room Air 04/01/25 13:38 BMI result Body Mass Index 25.9 Const General: cooperative and no acute distress Orientation/consciousness: patient oriented x3 Resp Effort & Inspection: normal respiratory effort and able to speak in complete sentences Neuro General: patient oriented x3 Cranial nerves: Yes CN's II-XII intact bilaterally Cognition (Neuro): normal cognition Psych Appearance: grossly normal Mental Status: mental status grossly normal Speech and movement: Normal speech and movement present Affect: normal affect Attitude: cooperative Assessment & Plan Assessment & Plan (1) Sleep apnea: Comment: Severe degree of sleep apnea. The AHI was 28/hr, oxygen david was 71% Code(s): G47.30 - Sleep apnea, unspecified Category: Medical (2) Obese: Code(s): E66.9 - Obesity, unspecified Category: Medical (3) Fatigue: Code(s): R53.83 - Other fatigue Category: Medical (4) Vitamin D deficiency: Code(s): E55.9 - Vitamin D deficiency, unspecified Category: Medical Plan Discussion Notes During the visit, I underscored the critical importance of regular CPAP use to manage his obstructive sleep apnea. We addressed his concerns about CPAP supply maintenance, and I suggested the consideration of a repeat sleep study following his significant weight loss, which might alter his sleep apnea dynamics. I provided guidance on sleep hygiene strategies, advising against electronics before bed and evaluating earlier exercise routines, which may enhance sleep quality. We discussed his symptoms of ruminating thoughts at bedtime, emphasizing his current therapeutic engagement and exploring cognitive behavioral therapy for insomnia (CBTI) as an adjunctive approach. I recommended reassessment of his NATHAN and pertinent laboratory markers to monitor any ongoing autoimmune processes and determine if rheumatologic consultation should be pursued. Plan - Continue CPAP 10 cmH2O w/ EPR 2 nightly > 4 hours, as pt continues to have good clinical effect from use. * Clean CPAP machine and supplies routinely. * Change CPAP supplies routinely. * Use distilled water in CPAP water reservoir. * Pt to contact us or respiratory company with any questions or concerns. - Will order a follow-up home sleep study, due to his substantial weight loss, to reevaluate his obstructive sleep apnea status. - Information shared on sleep education resources including the sleep on plug podcast by Dr. Andres Khan, in the CBT I recovery coach sleep [place] offered through the [place]. - Reevaluate NATHAN levels and additional relevant laboratory tests to appraise autoimmune activity and ascertain the necessity of rheumatology follow-up. - Advised the patient to maintain his current exercise regimen, but adjust the timing to earlier in the day to foster improved sleep patterns. - Continue to use PAP nightly with a goal of greater than 4 hours nightly, as patient is experiencing good clinical effect from use. - Clean and change PAP supplies routinely, including filters, masks, tubing, and water reservoir. - Use distilled water in PAP water reservoir. Patient was informed and verbally consented to the use of an ambient scribe for clinic note documentation during this visit. Orders: Orders Vitamin D 25-OH (D2 and D3) Today E55.9 - Vitamin D deficiency, unspecified, R53.83 - Other fatigue, R74.01 - Elevation of levels of liver transaminase levels, R76.8 - Other specified abnormal immunological findings in serum Anti DNA DS Antibody Today E55.9 - Vitamin D deficiency, unspecified, R53.83 - Other fatigue, R74.01 - Elevation of levels of liver transaminase levels, R76.8 - Other specified abnormal immunological findings in serum Complement C3 Today E55.9 - Vitamin D deficiency, unspecified, R53.83 - Other fatigue, R74.01 - Elevation of levels of liver transaminase levels, R76.8 - Other specified abnormal immunological findings in serum Complement C4 Today E55.9 - Vitamin D deficiency, unspecified, R53.83 - Other fatigue, R74.01 - Elevation of levels of liver transaminase levels, R76.8 - Other specified abnormal immunological findings in serum NATHAN Reflex Titer and Pattern Today E55.9 - Vitamin D deficiency, unspecified, R53.83 - Other fatigue, R74.01 - Elevation of levels of liver transaminase levels, R76.8 - Other specified abnormal immunological findings in serum Erythrocyte Sedimentation Rate Today E55.9 - Vitamin D deficiency, unspecified, R53.83 - Other fatigue, R74.01 - Elevation of levels of liver transaminase levels, R76.8 - Other specified abnormal immunological findings in serum C Reactive Protein Today E55.9 - Vitamin D deficiency, unspecified, R53.83 - Other fatigue, R74.01 - Elevation of levels of liver transaminase levels, R76.8 - Other specified abnormal immunological findings in serum RT home sleep study Today G47.30 - Sleep apnea, unspecified, R63.4 - Abnormal weight loss Coding Level of Care Code Est Pt Level 4 (13267) Diagnoses Sleep apnea G47.30 Obese E66.9 Fatigue R53.83 Vitamin D deficiency E55.9
[2025-04-01 13:38] VITALS: BP 120/74; PULSE 70; O2SAT 98; BMI 25.9
--- OUTSIDE RECORDS SUMMARY | 2025-04-01 15:18 | XMS_ITS | Encounter Summary ---
Author Organization [employer] Address [address] [place] [address] [address] [place] [address] Care Team Providers Care Consulting Hr Professional Name Role Phone Petra Rico MD Primary Care Provider [phone] Brianne Ivory PharmD Unavailable [phone] EmilianoTamera fairchild OD Unavailable Dana Angel Unavailable [phone] RenoJosi gooden Unavailable Encounter Details Date Type Department Care Team (Late st Contact Info) Description 09/17/2024 Orders Only [facility] [address] [place], [place] [phone] Petra Rico MD [address] [place], [place] [phone] Social History Tobacco Use Types Packs/Day Years [...] Description 04/30/2025 9:30 AM EDT Office Visit [facility] [address] [place] [address] Petra Rico MD [address] [place] [address] documented as of this encounter Goals Goal [...] documented as of this encounter Care Teams Consulting Hr Professional Relationship Specialty Start Date End Date Petra Rico MD [address] [place] [address] PCP - General Family Medicine 08/12/15 Brianne Ivory, Balaji [address] [place] [address] Pharmacist Internal Medicine 08/13/23 Tamera Cummings OD [address] [place] [id number] Optometry 09/30/24 Dana Angel [address] [address] Sleep Medicine 10/13/24 Josi Bojorquez [address] [address] Gastroenterology 11/04/24 documented as of this encounter
== END 2025-04-01 14:24 | disposition home or self-care (01) ==
LOC: HO.HSMS 13:05
PROVIDERS: PCP Family Medicine; Visit Provider Nurse Practitioner Family
DX: G47.30 Sleep apnea, unspecified (principal); E66.9 Obesity, unspecified; R53.83 Other fatigue; E55.9 Vitamin D deficiency, unspecified
CPT/HCPCS: 99214

== ENCOUNTER → 2025-04-01 13:05 | Outpatient (BNVA) | payer MEDICAID, SELFPAY | PROVIDERS: PCP Family Medicine; Visit Provider Nurse Practitioner Family | DX: G47.33 Obstructive sleep apnea (adult) (pediatric) (principal); E66.9 Obesity, unspecified; R53.83 Other fatigue; E55.9 Vitamin D deficiency, unspecified | CPT/HCPCS: 99212 ==

== ENCOUNTER 2025-04-30 09:59 | Outpatient (REF) | payer MEDICAID, SELFPAY ==
--- OUTSIDE RECORDS SUMMARY | 2025-04-30 10:45 | XMS_ITS | Encounter Summary ---
Author Organization [employer] Address [address] [place] [address] [address] [place] [address] Care Team Providers Care Pension Manager Name Role Phone Petra Rico MD Primary Care Provider [phone] Brianne Ivory PharmD Unavailable EmilianoTamera fairchild OD Unavailable Dana Angel Unavailable RenoJosi gooden Unavailable Encounter Details Date Type Department Care Team (Late st Contact Info) Description 09/17/2024 Orders Only [facility] [address] [place], [place] [phone] Petra Rico MD [address] [place], [place] [phone] Social History Tobacco Use Types Packs/Day Years [...] Author Blood Pressure < 140/90 Blood Pressure 124/88( 025 9:36 AM EDT) No Brianne Katz PharmD documented as of this encounter Visit Diagnoses Not on filedocumented in this encounter Additional Health Concerns Assessment Noted Time PHQ-9 Depression Total Score: 0 10/24/19 24 3:14 PM EST documented as of this encounter Care Teams Pension Manager Relationship Specialty Start Date End Date Petra Rico MD [address] [place] [address] PCP - General Family Medicine 08/12/15 Brianne Ivory PharmD [address] [place] [address] Pharmacist Internal Medicine 08/13/23 Tamera Cummings OD [address] [place] [phone] Optometry 09/30/24 Dana Angel [address] [place] [address] Sleep Medicine 10/13/24 Josi Bojorquez [address] [place] [address] Gastroenterology 11/04/24 documented as of this encounter
--- OUTSIDE RECORDS SUMMARY | 2025-04-30 10:45 | XMS_ITS | Clinical Summary ---
Author Organization [facility] Address [address] [place] [address] [place] [phone] Phone Care Team Providers Care Armature Winder Helper Repair Name Role Phone Petra Rico MD Primary Care Provi ev Allergies No known active allergies Medications dicyclomine (BENTYL) 10 MG capsule 1 capsule Active cyproheptadine (PERIACTIN) 4 mg tablet 1 tablet Active psyllium (METAMUCIL, SUGAR,) 1.7 g Wafr 1 packet with 8 ounces of liquid as needed Active testosterone cypionate (DEPO-TESTOTERONE ) 200 mg/mL IM injection 1 ml Active sertraline (ZOLOFT) 20 mg/mL concentrated solution Active DULoxetine (CYMBALTA) 20 MG capsule Take 20 mg by mouth daily. Active oxyCODONE-acetami nophen (PERCOCET) 5-325 mg per tablet Take 1-2 tablets by mouth every 4 (four) hours as needed for pain (specific location in comments). Partial fill ok 16 tablet 1 Active Active Problems Problem Noted Date Diagnosed Date Hypertrophic scar of skin 10/15/2019 Family History Medical History Relation Comments Cancer Father Hypertension Mother Thyroid disease Mother Relation Status Comments Father Alive Mother Alive Social History Tobacco Use Types Packs/Day Years Used Date Smoking Tobacco: Former Cigarettes 0.5 0.5 0 04/2016 - 2016 Smokeless Tobacco: Never Alcohol Use Standard Drinks/Week Comments Not Currently 0 (1 standard drink = 0.6 oz pur e alcohol) no Education Answer Date Recorded Are you interested in more education? Not on enrique e 02/02/2023 Are you concerned about learning? Not on file 02/02/2023 No 02/02/2023 No 02/02/2023 Digital Access Answer Date Recorded No 03/02/2023 No 03/02/2023 No 03/02/2023 Reliable internet access at home? Not on file 03/02/2023 Device with a working camera? Not on file Sex and Gender Information Value Date Recorded Sex Assigned at Not on file Legal Sex Male 8:48 PM EDT Gender Identity Not on file Sexual Orientation Not on file Last Filed Vital Signs Vital Sign Reading Time Taken Comments Blood Pressure 112/66 10/15/2019 1:58 PM EST Pulse 90 10/15/2019 1:58 PM EST Temperature - - Respiratory Rate - - Oxygen Saturation - - Inhaled Oxygen Concentration - - Weight 71.8 kg (158 lb 6.4 oz) 10/15/2019 1:58 P M EST Height 145.4 cm (4' 9.25 ) 09/11/2016 10:[address] Body Mass Index 33.98 09/11/2016 10:45 AM EST Plan of Treatment Health Maintenance Due Date Last Done Comments Adult Td,Tdap Booster 1998 DEPRESSION SCREENING 2010 SMOKING Hx and SMOKELESS TOBACCO SCREENING 2011 HPV VACCINES (1 - Male 3-dos e series) 2013 HEPATITIS A VACCINES (2 of 2 - 2-dose series) 07/10/2015 01/08/2015 HEPATITIS C SCREENING 2016 HIV ONE-TIME SCREENING (18-6 5 YEARS) 2016 COVID-19 VACCINE (3 - 2023-2 5 season) 2024 04/08/2021, 03/11/2021 MENINGOCOCCAL VACCINES (ACWY) Completed 10/18/2015 HIB VACCINES Aged Out No longer eligi ble based on patient's age to complete this topic MENINGOCOCCAL VACCINES (B) Aged Out N o longer eligible based on patient's age to complete this topic PNEUMOCOCCAL VACCINES (0-49 years) Aged Out No longer eligible b ased on patient's age to complete this topic Medical Devices Not on file Insurance [facility] C[employer] [facility] C[address] [place] [place] [address] [employer] [facility] C3 [employer] [facility] [place] [id number] [facility] C3 ACO Care Teams Armature Winder Helper Repair Relationship Specialty Start Date End Date Green, Petra Del Cid MD [address] [place] [id number] PCP - General 07/26/17 Additional Source Comments The information contained in this document represents components of the legal health record. It is not the complete legal health record.[facility]
[2025-04-30 11:31] LABS: Hematocrit 45.3 % (37.0-47.0); Hemoglobin 15.6 g/dl (12.0-16.0); Mean Corpuscular HGB Conc 34.4 g/dl (31.0-35.0); Mean Corpuscular Hemoglobin 30.5 pg (27.0-33.0); Mean Corpuscular Volume 88.6 fL (80.0-98.0); NRBC Abs Auto 0.000 X10*3/uL (0.0-0.012); NRBC Pct Auto 0.0 /100WBC (0.0-0.2); Platelet Count 270 X10*3/uL (160-400); Red Blood Count 5.11 X10*6/uL (4.20-5.50); White Blood Count 7.7 X10*3/uL (4.8-10.8)
[2025-04-30 11:45] LABS: Hemoglobin A1C 116.6185 umol/L; Total Hemoglobin (HGBA1C) 4065.2071 umol/L
[2025-04-30 11:51] LABS: Alanine Aminotransferase 19 U/L (0-31); Albumin Level 5.1 g/dL (3.5-5.0); Alkaline Phosphatase 75 U/L (39-117); Anion Gap 12 (12-20); Aspartate Amino Transferase 16 U/L (5-31); Blood Urea Nitrogen 11 mg/dL (9-16); Calcium 9.7 mg/dL (8.4-10.2); Carbon Dioxide 29 mmol/L (22-29); Chloride 104 mmol/L (96-108); Cholesterol 145 mg/dL (<200); Estimated Glomerular Filt Rate > 60; HDL Cholesterol 32 mg/dL (>40); Potassium 3.9 mmol/L (3.3-5.1); Sodium 141 mmol/L (135-145); Total Protein 7.5 g/dL (6.5-8.0); Triglycerides 88 mg/dL (<150)
[2025-05-04 16:09] LABS: Vitamin D 25-OH, D2 <4 ng/mL; Vitamin D 25-OH, D3 30 ng/mL; Vitamin D 25-OH, Total 30 ng/mL (30-100)
[2025-05-06 20:23] LABS: Anti Nuclear Antibody Screen POSITIVE (NEGATIVE); Anti Nuclear Antibody Titer 1:80 titer
== END 2025-04-30 10:00 | disposition home or self-care (01) ==
LOC: HO.HHCL 09:59
PROVIDERS: Nurse Practitioner Family; PCP Family Medicine; Visit Provider Family Medicine
DX: Z01.84 Encounter for antibody response examination (principal); R76.8 Other specified abnormal immunological findings in serum; F64.9 Gender identity disorder, unspecified; E55.9 Vitamin D deficiency, unspecified; R74.01 Elevation of levels of liver transaminase levels; E78.5 Hyperlipidemia, unspecified; I10 Essential (primary) hypertension; R53.83 Other fatigue
CPT/HCPCS: 36415; 80048; 80061; 80076; 82306; 83036; 84403; 85027; 85652; 86038; 86039; 86140; 86160; 86225

== ENCOUNTER 2025-06-09 17:21 | Outpatient (REF) | payer MEDICAID, SELFPAY ==
--- OUTSIDE RECORDS SUMMARY | 2025-06-09 17:25 | XMS_ITS | Encounter Summary ---
Author Organization [facility] Address [address] [place] [address] [place] [phone] Phone Care Team Providers Care Legal Specialist Name Role Phone Petra Rico MD Primary Care [facility] Encounter Details Date Type Department Care Team (Late st Contact Info) Description 07/13/2021 Procedure Pass [place] Admitting Dept - Virtual Department [address] [place] [address] Social History Tobacco Use Types Packs/Day Years Used Date Smoking Tobacco: Former Cigarettes 0.5 0.5 0 04/2016 - 2016 Smokeless Tobacco: Never Alcohol Use Standard Drinks/Week Comments Not Currently 0 (1 standard drink = 0.6 oz pur e alcohol) no Sex and Gender Information Value Date Recorded Sex Assigned at Not on file Legal Sex Male 8:48 PM EDT Gender Identity Not on file Sexual Orientation Not on file documented as of this encounter Plan of Treatment Upcoming Encounters Date Type Department Care Team (Latest Contact Info) Description 06/16/2025 1:10 PM EDT Appointment [facility] [place], OB Ultrasound [address] [place] [address] Rose Damon MD [address] [facility], [address] [place] [phone] [email or web address] 07/10/2025 1:50 PM EDT Office Visit [facility] [address] [place] [address] Rose Damon MD [address] [place] [address] [email or web address] 07/23/2025 Procedure Pass [place] Admitting Dept - Virtual Department [address] [place] [address] 07/23/2025 7:30 AM EDT Hospital Encounter [place] Admitting Dept - Virtual Department [address] [place] [address] Rose Damon MD [address] [place] [address] [email or web address] 07/23/2025 7:30 AM EDT - 07/23/2025 9:47 AM EDT Surgery [place] Admitting Dept - Virtual Department [address] [place] [address] Rose Damon MD [address] [place] [address] [email or web address] LAPAROSCOPIC HYSTERECTOMY TOTAL WITH BILATERAL SALPINGECTOMY Scheduled Procedures Name Priority Associated Diagnoses Date/Ti me LAPAROSCOPIC HYSTERECTOMY TO RISHI WITH BILATERAL SALPINGECTOMY Gender dysphoria 07/23/2025 7:30 AM EDT documented as of this encounter Visit Diagnoses Not on filedocumented in this encounter Care Teams Legal Specialist Relationship Specialty Start Date End Date Petra Rico MD [address] [place] [phone] PCP - General 07/26/17 documented as of this encounter Additional Source Comments The information contained in this document represents components of the legal health record. It is not the complete legal health record.[facility]
--- OUTSIDE RECORDS SUMMARY | 2025-06-09 17:25 | XMS_ITS | Clinical Summary ---
Author Organization [facility] Address [address] [place] [phone] Phone Care Team Providers Care User Experience Analyst Name Role Phone Petra Rico MD Primary Care [facility] Allergies No known active allergies Medications testosterone cypionate (DEPO-TESTOTERON E) 200 mg/mL IM injection 1 ml Active syringe, disposable, 3 mL Syrg USE EVERY 2 WEEKS 04/01/20 25 Active EASY TOUCH HYPODERMIC NEEDLE 22 gauge x 1 Ndle USE DIRECTED TO INJECT testosteorne 04/29/20 25 Active cholecalciferol (VITAMIN D3) 50,000 unit capsule TAKE 1 CAPSULE ORALLY EVERY WEEK FOR 12 WEEKS 05/13/20 25 Active ALCOHOL PREP PADS PadM USE BEFORE INJECTION 04/01/20 25 Active empty container Misc 1 each by NOT APPLICABLE route daily as needed. 04/30/20 25 Active estradioL (ESTRACE) 0.01 % (0.1 mg/gram) vaginal creamIndications :Gender dysphoria,Vagini smus Place 1 g vaginally daily for 14 days, THEN 1 g 2 (two) times a week. 42.5 g 1 06/01/20 25 025 Active dicyclomine (BENTYL) 10 MG capsule 1 capsule 025 Discontin ued(No longer taking) cyproheptadine (PERIACTIN) 4 mg tablet 1 tablet 025 Discontin ued(No longer taking) psyllium (METAMUCIL, SUGAR,) 1.7 g Wafr 1 packet with 8 ounces of liquid as needed 08/25/2 025 Discontin ued(No longer taking) sertraline (ZOLOFT) 20 mg/mL concentrated solution Discontin ued(No longer taking) DULoxetine (CYMBALTA) 20 MG capsule Take 20 mg by mouth daily. Discontin ued(No longer taking) oxyCODONE-acetam inophen (PERCOCET) 5-325 mg per tablet Take 1-2 tablets by mouth every 4 (four) hours as needed for pain (specific location in comments). Partial fill ok 16 tablet 07/11/20 21 Discontin ued(No longer taking) Active Problems Problem Noted Date Diagnosed Date Hypertrophic scar of skin 10/15/2019 Encounters Date Type Department Care Team Description 06/01/2025 9:40 AM EDT Office Visit [facility] [address] [place] [address] [place] [address] Rose Damon MD Gender dysphoria (Primary Dx); Vaginismus 05/12/2025 [facility] [address] [place] [address] [place] [address] Petra Rico MD 05/01/2025 Transcribe Orders [facility] [address] [place] [address] Petra Rico MD Encounter for rehabilitation (Primary Dx) from Last 3 Months Family History Medical History Relation Comments Cancer Father Hypertension Mother Thyroid disease Mother Relation Status Comments Father Alive Mother Alive Social History Tobacco Use Types Packs/Day Years Used Date Smoking Tobacco: Former Cigarettes 0.5 0.5 0 04/2016 - 2016 Smokeless Tobacco: Never Tobacco Cessation:Counseling Given: Not Answered Alcohol Use Standard Drinks/Week Comments Not Currently 0 (1 standard drink = 0.6 oz pur e alcohol) no Education Answer Date Recorded Are you interested in more education? Not on enrique e 02/02/2023 Are you concerned about learning? Not on file 02/02/2023 No 02/02/2023 No 02/02/2023 Digital Access Answer Date Recorded No 03/02/2023 No 03/02/2023 Reliable internet access at home? Not on file 03/02/2023 Device with a working camera? Not on file Sex and Gender Information Value Date Recorded Sex Assigned at Not on file Legal Sex Male 8:48 PM EDT Gender Identity Not on file Sexual Orientation Not on file Last Filed Vital Signs Vital Sign Reading Time Taken Comments Blood Pressure 100/60 06/01/2025 9:29 AM EDT Pulse 90 10/15/2019 1:58 PM EST Temperature - - Respiratory Rate - - Oxygen Saturation - - Inhaled Oxygen Concentration - - Weight 56 kg (123 lb 6.4 oz) 06/01/2025 9:29 AM EDT Height 147.3 cm (4' 10 ) 06/01/2025 9:29 AM EDT Body Mass Index 25.79 06/01/2025 9:29 AM EDT Plan of Treatment Upcoming Encounters Date Type Department Care Team (Latest Contact Info) Description 06/16/2025 1:10 PM EDT Appointment [facility] [place], OB Ultrasound [address] [place] [phone] Rose Damon MD [address] [place] [address] [email or web address] 07/10/2025 1:50 PM EDT Office Visit [facility] [address] [place] [address] Rose Damon MD [address] [place] [address] [email or web address] 07/23/2025 Procedure Pass [place] Admitting Dept - Virtual Department [address] [place] [phone] 07/23/2025 7:30 AM EDT Hospital Encounter [place] Admitting Dept - Virtual Department [address] [place] [address] Rose Damon MD [address] [place] [address] [email or web address] 07/23/2025 7:30 AM EDT - 07/23/2025 9:47 AM EDT Surgery [place] Admitting Dept - Virtual Department [address] [place] [address] Rose Damon MD [address] [place] [address], [address] [place] [address] [email or web address] LAPAROSCOPIC HYSTERECTOMY TOTAL WITH BILATERAL SALPINGECTOMY Scheduled Procedures Name Priority Associated Diagnoses Date/Ti me LAPAROSCOPIC HYSTERECTOMY TO RISHI WITH BILATERAL SALPINGECTOMY Gender dysphoria 07/23/2025 7:30 AM EDT Health Maintenance Due Date Last Done Comments DEPRESSION SCREENING 2010 HEPATITIS C SCREENING 2016 HIV ONE-TIME SCREENING (18-65 YEARS) 2016 INFLUENZA VACCINE (#1) 2025 , 08/17/2023, 08/04/2022, Additional history exists SMOKING STATUS SCREENING (Every 5 Years) 06/01/2030 06/01/2025 Adult Td,Tdap Booster 06/06/2033 06/06/2023, 010 HIB VACCINES Completed 12/15/1999, 02/06, 01/06/1999, Additional history exists PNEUMOCOCCAL VACCINES (0-49 years) Aged Out 07/05/2000 No longer eligible based on patient's age to complete this topic HPV VACCINES Completed 09/27/2011, 04/2010, 06/28/2009 HEPATITIS A VACCINES Completed 01/08/2015, 03/12/20 13 MENINGOCOCCAL VACCINES (ACWY) Completed 10/18/2015, 07/14/2010 COVID-19 VACCINE Completed 12/10/2024, 08/2022, 10/17/2021, Additional history exists MENINGOCOCCAL VACCINES (B) Aged Out N o longer eligible based on patient's age to complete this topic Medical Devices Not on file Insurance [facility] [address] [place] [address] C3 ACO [facility] C3 ACO [facility] C3 ACO [facility] C3 ACO [facility] C3 ACO [facility] C3 ACO [facility] C3 ACO [facility] C3 ACO Care Teams User Experience Analyst Relationship Specialty Start Date End Date Trisha, Petra Del Cid MD [address] [place] [address] PCP - General 07/26/17 Additional Source Comments The information contained in this document represents components of the legal health record. It is not the complete legal health record.[facility]
[2025-06-09 19:28] LABS: Appearance Urine Clear; Glucose Urine UA Negative (Negative); PH 6.5 (5.0-9.0); Specific Gravity - Urine 1.020 (1.005-1.025); UMIC TRIGGER UACC YES
[2025-06-09 20:13] LABS: UACC Culture Trigger YES
== END 2025-06-09 17:22 | disposition home or self-care (01) ==
LOC: HO.HHCLNP 17:21
PROVIDERS: Visit Provider Internal Medicine
DX: R35.0 Frequency of micturition (principal)
CPT/HCPCS: 81001; 87086

== ENCOUNTER 2025-06-11 17:42 | Outpatient (REF) | payer MEDICAID, SELFPAY ==
--- OUTSIDE RECORDS SUMMARY | 2025-06-09 14:40 | XMS_ITS | Encounter Summary ---
Author Organization [employer] Address [address] [place] [address] 7 [place] [address] Care Team Providers Care Merchandiser Name Role Phone Petra Rico MD Primary Care Provider [phone] Brianne Ivory PharmD Unavailable [phone] Tamera Cummings OD Unavailable Dana Angel Unavailable Josi Bojorquez Unavailable Rose Damon Unavailable Reason for Visit * Reason Comments Urinary Frequency Encounter Details Date Type Department Care Team (Late st Contact Info) Description 06/09/2025 2:40 PM EDT Office Visit [facility] [address] [place], [place] [phone] Brian Garner MD [address] [place], [place] [phone] Frequent urination Social History Tobacco Use Types Packs/Day Years [...] Answer Date Recorded Patient Health Questionnaire-9 Score 8 04/30/2025 Patient Health Questionnaire-9 Score 8 04/30/2025 Last PHQ-9: Questionnaire Data Not on file 0 04/30/2025 Housing Stability Answer Date Recorded What is your housing situation today? I have alfreda white 04/30/[address] you li ve. Do you have problems with any of the following? None of the above 04/30/2025 Food Insecurity Answer Date Recorded Within the past 12 months, y ou worried that your food would run out before you got money to buy more: Never True 04/30/2025 Within the past 12 months,th e food you bought just didn't last and you didn't have enough money to get more: Never True Transportation Answer Date Recorded In the past 12 months, has l ack of transportation kept you from medical appts, meetings, work or from getting things needed for daily living? No 04/30/2025 Utilities Answer Date Recorded In the past 12 months, has t he electric, gas, oil or water company threatened to shut off services in your home? Yes 04/30/2025 Depression Answer Date Recorded Patient Health Questionnaire-2 Score 2 04/30/2025 Internet Access Answer Date Recorded Internet Access Q1 No 04/30/2025 Internet Access Q2 Not on file 04/30/2025 Comments Unknown Sex and Gender Information Value Date Recorded Sex Assigned at Female 08/07/2022 10:15 AM EDT Legal Sex Male 10:15 AM EDT Gender Identity Transgender Male 06/05/2023 7:07 PM EDT Sexual Orientation Choose not to disclose 2021 10:15 AM EDT documented as of this encounter Last Filed Vital Signs Vital Sign Reading Time Taken Comments Blood Pressure 127/87 06/09/2025 2:33 PM EDT Pulse 70 06/09/2025 2:33 PM EDT Temperature 36.9 C (98.4 F) 06/09/2025 2:33 PM EDT Respiratory Rate 17 06/09/2025 2:33 PM EDT Oxygen Saturation 97% 06/09/2025 2:33 PM EDT Inhaled Oxygen Concentration - - Weight 55.3 kg (122 lb) 06/09/2025 2:33 PM EDT Height - - Body Mass Index 24.64 05/07/2025 11:01 AM EDT documented in this encounter Progress Notes * Brian Tidwell MD - 06/09/2025 2:40 PM EDT SUBJECTIVE Ahsan Kuhn is a 24 y.o. adult who presents for Urinary Frequency. Ahsan Kuhn, 24 years Frequent Urination and Pelvic Bloating - Onset since Sunday, July 06, 2025 - Frequent urination, approximately every hour - Sensation of pelvic bloating - No burning or discomfort with urination - No discharge - Denies sexual activity - Mild nausea, possibly related to bloating - Denies back pain, fever, vomiting, or abdominal pain - History of occasional frequent urination after drinking small amounts of water, previously discussed with another doctor - Used low estrogen cream on July 06, 2025, with immediate onset of cramping; discontinued useafter symptom onset - No known allergies to medications Urinary Frequency This is a new problem. Associated symptoms include frequency. Abdominal Pain This is a new problem. Associated symptoms include frequency. Pertinent negatives include no fever or headaches. Review of Systems Constitutional: Negative for fever. HENT: Negative for sore throat. Respiratory: Negative for cough and shortness of breath. Cardiovascular: Negative for chest pain. Gastrointestinal: Positive for abdominal pain. Genitourinary: Positive for frequency. Neurological: Negative for headaches. Allergies[1] OBJECTIVE Vitals: 06/09/25 1433 BP: 127/87 BP Location: Left arm Patient Position: Sitting BP Cuff Size: Adult Pulse: 70 Resp: 17 Temp: 98.4 ??F (36.9 ??C) TempSrc: Temporal SpO2: 97% Weight: 122 lb (55.3 kg) Physical Exam Vitals reviewed. Constitutional: Appearance: Normal appearance. HENT: Head: Normocephalic and atraumatic. Right Ear: External ear normal. Left Ear: External ear normal. Nose: Nose normal. Mouth/Throat: Mouth: Mucous membranes are moist. Eyes: Conjunctiva/sclera: Conjunctivae normal. Cardiovascular: Rate and Rhythm: Normal rate and regular rhythm. Pulmonary: Effort: Pulmonary effort is normal. Breath sounds: Normal breath sounds. Abdominal: General: Abdomen is flat. Bowel sounds are normal. Palpations: Abdomen is soft. Tenderness: There is no abdominal tenderness. Skin: General: Skin is warm. Neurological: Mental Status: He is alert. Mental status is at baseline. Assessment/Plan Problem List Items Addressed This Visit Frequent urination Patient here with c/o urinary frequency ever since they were started on an estrogen vaginal cream by [employer]. Denies any dysuria, denies any discharge, denies any abdominal, pelvic or flank pain Exam is unremarkable U/A only Small Leuks Plan: Send Urine for Ucx, discussed with patient that if Positive will then treat. IN the meantime I recommended increase po fluids and cranberry juice. Instructed to call or let us know if they start to develop dysuria, abdominal pain, flank pain or any other symptoms. Pt agreeable with plan Relevant Orders Culture, Urine, Routine This note was drafted using Ambient (AI) technology. The patient/patient's guardian has been informed and has consented to the use of this technology: Yes Future Appointments Date Time Provider Department Center 07/24/2025 1:00 PM Tamera Cummings OD [facility] [1] No Known Allergies documented in this encounter Miscellaneous Notes * Assessment & Plan Note - Brian Tidwell MD - 06/09/2025 3:09 PM EDT Associated Problem(s): Frequent urination Patient here with c/o urinary frequency ever since they were started on an estrogen vaginal cream by [employer]. Denies any dysuria, denies any discharge, denies any abdominal, pelvic or flank pain Exam is unremarkable U/A only Small Leuks Plan: Send Urine for Ucx, discussed with patient that if Positive will then treat. IN the meantime I recommended increase po fluids and cranberry juice. Instructed to call or let us know if they start to develop dysuria, abdominal pain, flank pain or any other symptoms. Pt agreeable with plan * Assessment & Plan Note - Brian Tidwell MD - 06/09/2025 2:51 PM EDT Associated Problem(s): Acute cystitis without hematuria Patient here with c/o urinary frequency, discomfort and lower abdominal pain U/A positive for Leuks Plan: Send U?A for Ucx Empiric treatment for early UTI STI testing F/u if worsening or no improvement documented in this encounter Plan of Treatment Upcoming Encounters Date Type Department Care Team (Late st Contact Info) Description 07/24/2025 1:00 PM EDT Office Visit [facility] [address] [place] [address] Emiliano, Tamera, OD [address] [place] [address] documented as of this encounter Goals Goal Patient Goal Type Associated Problems Recent Progress Patient-Stated? Author Blood Pressure < 140/90 Blood Pressure 133/95( 025 3:46 PM EDT) No Brianne Katz, Balaji documented as of this encounter Procedures Procedure Name Priority Date/Time Associated Diagnosis Comments URINALYSIS, COMPLETE, WITH REFLEX TO CULTURE Routine 06/09/2025 3:12 PM EDT Frequent urination CULTURE, URINE, ROUTINE Routine 06/09/2025 3:12 PM EDT Frequent urination POCT URINALYSIS DIPSTICK Routine 06/09/2025 3:11 PM EDT Frequent urination documented in this encounter Results * (ABNORMAL) Urinalysis, Complete, with Reflex to Culture (06/09/2025 3:12 PM EDT) Color Urine Yellow [facility] Appearance Urine Clear [facility] PH 6.5 5.0 - 9.0 [facility] Glucose Urine UA Negative Negative mg/dL [facility] Urine Blood Negative Negative [facility] Specific [address] - Urine 1.020 1.005 - 1.025 [facility] Urine Protein Negative Neg-Trace mg/dL [facility] Urine Ketones Trace Negative mg/dL [facility] Nitrite Urine Negative Negative [facility] Leukocyte Esterase Urine Small (1+)(A) Negative [facility] RBC Urine 0-2 0 - 2 /HPF [facility] Urine WBC 0-5 0 - 5 /HPF [facility] Urine Squamous Epithelial Cell 0-2 0 - 2 /HPF [facility] CALCIUM OXALATE CRYSTAL, UR Present [facility] Urine Bacteria None Seen None Seen [facility] Hyaline Casts, Urine 0-2 0 - 2 /LPF [facility] Urine 06/09/2025 3:12 PM EDT 06/09/2025 5:28 PM EDT Narrative [facility] - 06/09/2025 8:13 PM EDT Urine, Clean Catch Brian Tidwell MD LAB URINE ORDERABLES Final Result Performing Organization Address [facility]/ZIP Co de Phone Number [facility] [address] [place] [phone] * Culture, Urine, Routine (06/09/2025 3:12 PM EDT) Urine Urine specimen obtained by clean catch procedure / Unknown 06/09/2025 3:12 PM EDT 06/09/2025 5:28 PM EDT Comment:UACC Narrative [facility] - 06/11/2025 11:23 AM EDT Urine Culture Report Result Urine Culture 10,000 to 50,000 cfu/ml Urine Culture Mixed bacterial abida characteristic of Urine Culture urogenital contamination. Specimen Source: Urine clean catch Brian Tidwell MD LAB MICROBIOLOGY - GE NERAL ORDERABLES Final Result Performing Organization Address [facility]/ZIP Co de Phone Number [facility] [address] [place] [address] [phone] * (ABNORMAL) POCT urinalysis dipstick manually resulted (06/09/2025 3:11 PM EDT) Color, UA Yellow Clarity, UA Clear Glucose, UA Negative Bilirubin, UA Few 15 Comment:Small Ketones, UA Positive Comment:15 mg/dL Spec Grav, UA 1.020 Blood, UA Negative Negative, None Detected pH, UA 7.0 Protein, UA Negative Urobilinogen, UA 0.2 Leukocytes, UA Few 15(A) Negative, Rare, Trace Comment:Small Nitrite, UA Negative Negative, None Detected Urine 06/09/2025 3:11 PM EDT Brian Tidwell MD POINT OF CARE TEST EN TER/EDIT ORDERABLES Final Result documented in this encounter Visit Diagnoses Diagnosis Frequent urination Urinary frequency documented in this encounter Additional Health Concerns Assessment Noted Time PHQ-9 Depression Total Score: 8 04/30/20 25 9:10 AM EDT documented as of this encounter Care Teams Merchandiser Relationship Specialty Start Date End Date Petra Rico MD [address] [place] [phone] PCP - General Family Medicine 08/12/15 Brianne Ivory, DagoD [address] [place] [phone] Pharmacist Internal Medicine 08/13/23 Tamera Cummings OD [address] [place] [address] Optometry 09/30/24 Dana Angel [address] [place] [address] Sleep Medicine 10/13/24 Josi Bojorquez [address] [place] [address] Gastroenterology 11/04/24 Rose Damon [facility] [address] [place] [phone] Gynecology 06/02/25 documented as of this encounter
--- OUTSIDE RECORDS SUMMARY | 2025-06-11 16:00 | XMS_ITS | Encounter Summary ---
Author Organization [employer] Address [address] [facility] 7[address] [place] [address] Care Team Providers Care Application Integration Specialist Name Role Phone Petra Rico MD Primary Care Provider [phone] Brianne Ivory PharmD Unavailable [phone] Tamera Cummings OD Unavailable [phone] Dana Angel Unavailable Josi Bojorquez Unavailable Rose Damon Unavailable Encounter Details Date Type Department Care Team (Late st Contact Info) Description 06/11/2025 4:00 PM EDT Office Visit [facility] [address], [place] [phone] Fátima Paredes DO [address] [place], [place] [phone] Acute UTI (Primary Dx); Acute constipation Social History Tobacco Use Types Packs/Day Years [...] Sign Reading Time Taken Comments Blood Pressure 133/95 06/11/2025 3:46 PM EDT Pulse 76 06/11/2025 3:46 PM EDT Temperature 36.9 C (98.5 F) 06/11/2025 3:46 PM EDT Respiratory Rate 18 06/11/2025 3:46 PM EDT Oxygen Saturation 98% 06/11/2025 3:46 PM EDT Inhaled Oxygen Concentration - - Weight 55.2 kg (121 lb 12.8 oz) 06/11/2025 3:46 PM EDT Height 147.3 cm (4' 10 ) 06/11/2025 3:46 PM EDT Body Mass Index 25.46 06/11/2025 3:46 PM EDT documented in this encounter Progress Notes * Fátima Paredes, DO - 06/11/2025 4:00 PM EDT SUBJECTIVE Ahsan Kuhn is a 24 y.o. adult who presents for Sick Visit. He presents to [place] today c/o lower abd pain and urinary frequency. He was seen 2 days ago in [place] by Dr Wadsworth c/o urinary frequency and pelvic bloating. Ucx was sent and pt was advised would treat with abx if Ux positive. He comes today c/o persistent sx. He feels a lot of pressure sensation when he urinates for the last week. He has urgency and frequency. He is voiding nml amt. No hematuria or burning with urination.No malodorous urine or incomplete emptying. He says that his sx started after trialing vaginal estradiol cream. He denies any vaginal itching or discharge. He is not sexually active. He has been feeling nausea and not able to eat today. No vomiting. No fevers. He is also feeling trapped gas that is hard to pass since last Sunday. He also feels a little bit constipated as well. He says that he has BM but with a lot of straining. 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 Negative for activity change, fever and unexpected weight change. Respiratory: Negative for cough and chest tightness. Cardiovascular: Negative for chest pain and palpitations. Gastrointestinal: Positive for constipation and nausea. Negative for abdominal pain, diarrhea and vomiting. Genitourinary: Positive for decreased urine volume, difficulty urinating, frequency and pelvic pain. Negative for dysuria, hematuria, menstrual problem, urgency, vaginal discharge and vaginal pain. Skin: Negative for rash. Neurological: Negative for dizziness, weakness and headaches. 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 Smoking Status Never BSA 1.5 m?? Physical Exam Constitutional: General: He is not in acute distress. Appearance: Normal appearance. Cardiovascular: Rate and Rhythm: Normal rate and regular rhythm. Heart sounds: Normal heart sounds. No murmur heard. Pulmonary: Effort: Pulmonary effort is normal. Breath sounds: Normal breath sounds. No wheezing or rhonchi. Abdominal: General: Bowel sounds are normal. Palpations: Abdomen is soft. There is no mass. Tenderness: There is abdominal tenderness in the suprapubic area. There is no right CVA tenderness,left CVA tenderness, guarding or rebound. Neurological: General: No focal deficit present. Mental Status: He is alert and oriented to person, place, and time. Cranial Nerves: No cranial nerve deficit. Motor: No weakness. Gait: Gait normal. Psychiatric: Mood and Affect: Mood normal. Office Visit on 06/11/2025 Component Date Value Ref Range Status Color, UA 06/11/2025 Yellow Final Clarity, UA 06/11/2025 Clear Final Glucose, 06/11/2025 Negative Final Bilirubin, 06/11/2025 Negative Final Ketones, 06/11/2025 Positive Final trace Spec Grav, UA 06/11/2025 1.005 Final Blood, UA 06/11/2025 Negative Negative, None Detected Final pH, UA 06/11/2025 6.0 Final Protein, 06/11/2025 Negative Final Urobilinogen, UA 06/11/2025 0.2 Final Leukocytes, UA 06/11/2025 Negative Negative, Rare, Trace Final Nitrite, UA 06/11/2025 Negative Negative, None Detected Final Appearance, UA 06/11/2025 clear Final QC Media Lot # 06/11/2025 [id number] Final Lot# Expiration Date 06/11/2025 63,026 Final Preg Test, Ur 06/11/2025 Negative Negative, Indeterminate, None Detected, Invalid, Specimen unsatisfactory for evaluation, Weakly Positive, 2+ Final QC Media Lot # 06/11/2025 [id number] Final Lot# Expiration Date 06/11/2025 113,026 Final Assessment/Plan Diagnoses and all orders for this visit: Acute UTI -treat empirically with bactrim BID x 5 days -send Ucx for sensitivities -send urine GC/CT -advised contact [facility] if sx do not resolve Acute constipation -provided reassurance -start colace and fiber supplementation BID -trial miralax prn -advised contact [facility] if no improvement, he agrees with plans --Follow-up with PCP as scheduled or sooner prn-- Current Outpatient Medications: Alcohol Swabs (Alcohol Prep) 70 % pads, USE BEFORE INJECTION, Disp: 100 each, Rfl: 11 BD Hypodermic Needle 16G X 1 misc, USE TO DRAW UP MEDICINE, Disp: 20 each, Rfl: 1 BD Plastipak Syringe 3 ML misc, USE EVERY 2 WEEKS, Disp: 24 each, Rfl: 1 docusate sodium (Colace) 100 MG capsule, Take 1 capsule (100 mg) by mouth 2 times daily., Disp: 180capsule, Rfl: 3 fish oil-omega-3 fatty acids 1000 MG capsule, Take 2 capsules (2 g) by mouth 2 times daily., Disp: 180 capsule, Rfl: 3 naproxen (Naprosyn) 500 MG tablet, TAKE 1 TABLET BY MOUTH TWICE A DAY, Disp: 60 tablet, Rfl: 0 Needle, Disp, (Easy Touch Hypodermic Needle) 22G X 1 misc, USE DIRECTED TO INJECT testerone, Disp: 10 each, Rfl: 5 ondansetron (Zofran) 4 MG tablet, Take 1 tablet (4 mg) by mouth every 8 (eight) hours if needed fornausea or vomiting., Disp: 12 tablet, Rfl: 0 polycarbophil (Fibercon) 625 MG tablet, Take 1 tablet (625 mg) by mouth 2 times daily., Disp: 180 tablet, Rfl: 3 polyethylene glycol, PEG, 3350 (MiraLax) 17 GM/SCOOP powder, Take 17 g by mouth if needed each day (constipation)., Disp: 527 g, Rfl: 1 Sharps Container (Sharps Per Diem Physical Therapist) misc, 1 each if needed each day (for used needles). Dispose used sharps into container., Disp: 1 each, Rfl: 2 sulfamethoxazole-trimethoprim (Bactrim DS) 800-160 MG tablet, Take 1 tablet by mouth 2 times daily for 5 days., Disp: 10 tablet, Rfl: 0 testosterone cypionate (Depo-Testosterone) 200 MG/ML injection, INJECT 0.5ML INTRAMUSCULARLY EVERY 2 WEEKS, SINGLE USE VIAL, Disp: 4 mL, Rfl: 3 Scribe Attestation: Brock Finnegan, am serving as a scribe to document services personally performed by Fátima Tapia, based on the patient's response to questions by provider and provider's statements to me. 06/11/25 5:28 PM Physicians Attestation: Fátima Finnegan DO, have reviewed the information by the scribe, Brock Petersen, for accuracy and agree with its content. documented in this encounter Plan of Treatment Upcoming Encounters Date Type Department Care Team (Late st Contact Info) Description 07/24/2025 1:00 PM EDT Office Visit [facility] [address] [place] [address] Tamera Cummings, OD [address] [place] [address] Scheduled Orders Name Type Priority Associated Diagnoses Orde r Schedule Urinalysis, Complete, with Reflex to Culture Lab Routine Acute UTI Expected: 06/11/2025 (Approximate), Expires: 06/11/2026 Chlamydia/N. Gonorrhoeae, PCR, Urine Lab Routine Acute UTI Ordered: 06/11/2025 documented as of this encounter Goals Goal Patient Goal Type Associated Problems Recent Progress Patient-Stated? Author Blood Pressure < 140/90 Blood Pressure 133/95( 025 3:46 PM EDT) No Brianne Katz, DagoD documented as of this encounter Procedures Procedure Name Priority Date/Time Associated Diagnosis Comments POCT , URINE Routine 06/11/2025 4:02 PM EDT Acute UTI POCT URINALYSIS DIPSTICK Routine 06/11/2025 4:02 PM EDT Acute UTI documented in this encounter Results * POCT Urine (06/11/2025 4:02 PM EDT) Preg Test, Ur Negative Negative, Indeterminate, None Detected, Invalid, Specimen unsatisfactory for evaluation, Weakly Positive, 2+ QC Media Lot # [id number] Lot# Expiration Date 113,026 Urine 06/11/2025 4:02 PM EDT Fátima Reggie ABURTO POINT OF CARE TEST ENTER/KIARA T ORDERABLES Final Result * (ABNORMAL) POCT Urinalysis (06/11/2025 4:02 PM EDT) Color, UA Yellow Clarity, UA Clear Glucose, UA Negative Bilirubin, UA Negative Ketones, UA Positive Comment:trace Spec Grav, UA 1.005 Blood, UA Negative Negative, None Detected pH, UA 6.0 Protein, UA Negative Urobilinogen, UA 0.2 Leukocytes, UA Negative Negative, Rare, Trace Nitrite, UA Negative Negative, None Detected Appearance, UA clear QC Media Lot # [id number] Lot# Expiration Date 63,026 Urine 06/11/2025 4:02 PM EDT Fátima Paredes DO POINT OF CARE TEST ENTER/KIARA T ORDERABLES Final Result documented in this encounter Visit Diagnoses Diagnosis Acute UTI- Primary Urinary tract infection, site not specified Acute constipation Unspecified constipation documented in this encounter Additional Health Concerns Assessment Noted Time PHQ-9 Depression Total Score: 8 04/30/20 25 9:10 AM EDT documented as of this encounter Care Teams Application Integration Specialist Relationship Specialty Start Date End Date Petra Rico MD [address] [place] [address] PCP - General Family Medicine 08/12/15 Brianne Ivory PharmD [address] [place] [address] Pharmacist Internal Medicine 08/13/23 Tamera Cummings OD [address] [place] [address] Optometry 09/30/24 Dana Angel [address] [address] Sleep Medicine 10/13/24 Josi Bojorquez [address] [address] Gastroenterology 11/04/24 [facility] [address] [place] [address] Gynecology 06/02/25 documented as of this encounter
--- OUTSIDE RECORDS SUMMARY | 2025-06-11 17:46 | XMS_ITS | Clinical Summary ---
Author Organization [facility] Address [address] [place] [address] Phone Care Team Providers Care Cloth Tester Name Role Phone Petra Rico MD Primary Care Provi [facility] Allergies No known active allergies Medications [...] Description 06/01/2025 9:40 AM EDT Office Visit [facility] [address] [place] [address] [place] [address] Rose Damon MD Gender dysphoria (Primary Dx); Vaginismus 05/12/2025 Transcribe [facility] [address] [place] [address] [place] [address] Petra Rico MD 05/01/2025 Transcribe Orders [facility] [address] [place] [phone] Petra Rico MD Encounter for rehabilitation (Primary [...] EDT Appointment [facility] [place], OB Ultrasound [address] [place] [address] Rose Damon MD [address] [place] [address] [email or web address] 07/23/2025 Procedure Pass OR Admitting Dept - Virtual Department [address] [place] [address] 07/23/2025 7:30 AM EDT Hospital Encounter OR Admitting Dept - Virtual Department [address] [place] [address] Rose Damon MD [address] [place] [address] [email or web address] 07/23/2025 7:30 AM EDT - 07/23/2025 9:47 AM EDT Surgery OR Admitting Dept - Virtual Department [address] [place] [address] Rose Damon MD [address] [place] [address], [address] [address] @[email or web address] g LAPAROSCOPIC HYSTERECTOMY TOTAL WITH BILATERAL SALPINGECTOMY [...] Medical Devices Not on file Insurance [facility] C[employer] ACO [facility] A[facility] C[employer] ACO Care Teams Cloth Tester Relationship Specialty Start Date End Date Trisha, Petra Del Cid MD [address] [facility] [place] [address] PCP - General 07/26/17 Additional Source Comments The information contained in this document represents components of the legal health record. It is not the complete legal health record.[facility]
--- OUTSIDE RECORDS SUMMARY | 2025-06-11 17:46 | XMS_ITS | Encounter Summary ---
Author Organization [employer] Address [address] [place] [address] 7t [place] [address] Care Team Providers Care Silver Miner Name Role Phone Petra Rico MD Primary Care Provider [phone] Brianne Ivory PharmD Unavailable Tamera Cummings OD Unavailable Dana Angel Unavailable [phone] Josi Bojorquez Unavailable Rose Damon Unavailable Encounter Details Date Type Department Care Team (Late st Contact Info) Description 09/17/2024 Orders Only [facility] [address] [place], [place] [phone] Petra Rico MD [address] [place], [place] [phone] Social History Tobacco Use Types Packs/Day Years [...] Description 07/24/2025 1:00 PM EDT Office Visit [facility] [address] [place] [address] aTmera Cummings, OD [address] [place] [address] documented as of this encounter Goals Goal Patient Goal Type Associated Problems Recent Progress Patient-Stated? Author Blood Pressure < 140/90 Blood Pressure 133/95( 025 3:46 PM EDT) No Brianne Katz, PharmD documented as of this encounter Visit Diagnoses Not on filedocumented in this encounter Additional Health Concerns Assessment Noted Time PHQ-9 Depression Total Score: 0 10/24/19 24 3:14 PM EST documented as of this encounter Care Teams Silver Miner Relationship Specialty Start Date End Date Petra Rico MD [address] [place] [address] PCP - General Family Medicine 08/12/15 Brianne Ivory PharmD [address] [place] [address] Pharmacist Internal Medicine 08/13/23 Tamera Cummings OD [address] [place] [address] Optometry 09/30/24 Dana Angel [address] [address] Sleep Medicine 10/13/24 Josi Bojorquez [address] [address] Gastroenterology 11/04/24 [facility] [address] [place] [address] Gynecology 06/02/25 documented as of this encounter
--- OUTSIDE RECORDS SUMMARY | 2025-06-11 17:46 | XMS_ITS | Encounter Summary ---
Author Organization [employer] Address [address] [place] [address] 7 [place] [address] Care Team Providers Care Case Resource Manager Name Role Phone Petra Rico MD Primary Care Provider [phone] Brianne Ivory PharmD Unavailable Tamera Cummings OD Unavailable Dana Angel Unavailable RenoJosi gooden Unavailable Rose Damon Unavailable Encounter Details Date Type Department Care Team (Late st Contact Info) Description 04/30/2025 Results Follow-Up [facility] [address] [place] [address] Petra Rico MD [address] [place], [place] [phone] CBC, Hepatic Function Panel, Lipid Panel, Standard, Additional followed-up results: 3 Social History Tobacco Use Types Packs/Day Years [...] AM EDT documented as of this encounter Functional Status * Over the past 2 weeks, how often have you been bothered by any of the following problems? Question Answer Date of Assessment Author Patient Health Questionnaire-2 Score 2 04/08 9:10 AM EDT Maria Luz Tidwell MA * Little interest or pleasure in doing things Answer Date of Assessment Author Several days 04/30/2025 9:10 AM EDT Hussein Tidwell MA * Feeling down, depressed, or hopeless Answer Date of Assessment Author Several days 04/30/2025 9:10 AM EDT Hussein Tidwell MA * Trouble falling or staying asleep, or sleeping too much Answer Date of Assessment Author Several days 04/30/2025 9:10 AM Hussein Alejandro MA * Feeling tired or having little energy Answer Date of Assessment Author Several days 04/30/2025 9:10 AM Hussein Alejandro MA * Poor appetite or overeating Answer Date of Assessment Author Several days 04/30/2025 9:10 AM Hussein Alejandro MA * Feeling bad about yourself - or that you are a failure or have let yourself or your family down Answer Date of Assessment Author Several days 04/30/2025 9:10 AM Hussein Alejandro MA * Trouble concentrating on things, such as reading the newspaper or watching television Answer Date of Assessment Author Several days 04/30/2025 9:10 AM Hussein Alejandro MA * Moving or speaking so slowly that other people could have noticed? Or the opposite - being so fidgety or restless that you have been moving around a lot more than usual. Answer Date of Assessment Author Several days 04/30/2025 9:10 AM Hussein Alejandro MA * Thoughts that you would be better off or hurting yourself in some way Answer Date of Assessment Author Not at all 04/30/2025 9:10 AM Hussein Alejandro MA * Patient Health Questionnaire-9 Score Answer Date of Assessment Author 8 04/30/2025 9:10 AM Hussein Alejandro MA * How difficult have these problems made it for you to do your work, take care of things at home, or get along with other people? Answer Date of Assessment Author Not difficult at all 04/30/2025 9:10 AM EDT Maria Luz Constantino MA documented as of this encounter Plan of Treatment Upcoming Encounters Date Type Department Care Team (Late st Contact Info) Description 07/24/2025 1:00 PM EDT Office Visit [facility] [address] [place] [address] Tamera Cummings, OD [address] [place] [address] documented as of this encounter Goals Goal [...] documented as of this encounter Care Teams Case Resource Manager Relationship Specialty Start Date End Date Petra Rico MD [address] [place] [address] PCP - General Family Medicine 08/12/15 Brianne Ivory, PharmD [address] [place] [address] Pharmacist Internal Medicine 08/13/23 Tamera Cummings OD [address] [place] [address] Optometry 09/30/24 Dana Angel [address] [place] [address] Sleep Medicine 10/13/24 Josi Bojorquez [address] [place] [address] Gastroenterology 11/04/24 [facility] [address] [place] [address] Gynecology 06/02/25 documented as of this encounter
--- OUTSIDE RECORDS SUMMARY | 2025-06-11 17:46 | XMS_ITS | Encounter Summary ---
Author Organization [employer] Address [address] [place] [address] 7 [place] [address] Care Team Providers Care Coconut Candy Maker Name Role Phone Petra Rico MD Primary Care Provider [phone] Brianne Ivory PharmD Unavailable [phone] Tamera Cummings OD Unavailable Dana Angel Unavailable [phone] Josi Bojorquez Unavailable Rose Damon Unavailable Reason for Visit * Reason Onset Date Comments Med Refill 10/29/2024 Encounter Details Date Type Department Care Team (Late st Contact Info) Description 10/29/2024 Refill [facility] [address] [place], [place] [phone] Petra Rico MD [address] [place], [place] [phone] Gender dysphoria Social History Tobacco Use Types [...] Description 07/24/2025 1:00 PM EDT Office Visit [facility] [address] [place] [address] Tamera Cummings, OD [address] [place] [address] documented as of this encounter Goals Goal Patient Goal Type Associated Problems Recent Progress Patient-Stated? Author Blood Pressure < 140/90 Blood Pressure 133/95( 025 3:46 PM EDT) No Piers-Gambl e, Brianne, PharmD documented as of this encounter Visit Diagnoses Diagnosis Gender dysphoria documented in this encounter Additional Health Concerns Assessment Noted Time PHQ-9 Depression Total Score: 0 10/24/19 24 3:14 PM EST documented as of this encounter Care Teams Coconut Candy Maker Relationship Specialty Start Date End Date Petra Rico MD [address] [place] [address] PCP - General Family Medicine 08/12/15 Brianne Ivory, PharmD [address] [place] [address] Pharmacist Internal Medicine 08/13/23 Tamera uCmmings OD [address] [place] [address] Optometry 09/30/24 Dana Angel [address] [place] [address] Sleep Medicine 10/13/24 Josi Bojorquez [address] [place] [address] Gastroenterology 11/04/24 [facility] [address] [place] [address] Gynecology 06/02/25 documented as of this encounter
--- OUTSIDE RECORDS SUMMARY | 2025-06-11 17:46 | XMS_ITS | Encounter Summary ---
Author Organization [email or web address] Address [address] [facility] 7t [place] [address] Care Team Providers Care Business Intelligence Reporting Analyst Name Role Phone Petra Rico MD Primary Care Provider + [phone] Brianne Ivory PharmD Unavailable [phone] Tamera Cummings OD Unavailable [phone] Dana Angel Unavailable [phone] Josi Bojorquez Unavailable Rose Damon Unavailable Encounter Details Date Type Department Care Team (Latest Contact Info) Description 06/09/2025 Travel Social History Tobacco Use Types Packs/Day Years [...] Description 07/24/2025 1:00 PM EDT Office Visit [facility] [address] [place] [address] Emiliano, Tamera, OD [address] [place] [address] documented as of this encounter Goals Goal [...] documented as of this encounter Care Teams Business Intelligence Reporting Analyst Relationship Specialty Start Date End Date Petra Rico MD [address] [place] [address] PCP - General Family Medicine 08/12/15 Brianne Ivory, Balaji [address] [place] [address] Pharmacist Internal Medicine 08/13/23 Tamera Cummings OD [address] [place] [address] Optometry 09/30/24 Dana Angel [address] [address] Sleep Medicine 10/13/24 Josi Bojorquez [address] [address] Gastroenterology 11/04/24 [facility] [address] [place] [address] Gynecology 06/02/25 documented as of this encounter
--- OUTSIDE RECORDS SUMMARY | 2025-06-11 17:46 | XMS_ITS | Clinical Summary ---
Author Organization [employer] Address [address] [place] [address] [address] [place] [address] Care Team Providers Care Mass Spectrometry Manager Name Role Phone Petra Rico MD Primary Care Provider [phone] Brianne Ivory PharmD Unavailable [phone] Tamera Cummings OD Unavailable Dana Angel Unavailable Josi Bojorquez Unavailable Rose Damon Unavailable Allergies No known active allergies Medications naproxen (Naprosyn) 500 MG tabletIndicati ons:Pain TAKE 1 TABLET BY MOUTH TWICE A DAY 60 tablet 04/15/20 24 Active fish oil-omega-3 fatty acids 1000 MG capsuleIndicat ions:Dyslipide aparna Take 2 capsules (2 g) by mouth 2 times daily. 180 capsule 3 07/24/20 24 Active BD Hypodermic Needle 16G X 1 miscIndication s:Gender dysphoria USE TO DRAW UP MEDICINE 20 each 1 11/11/19 25 Active Alcohol Swabs (Alcohol Prep) 70 % padsIndication s:Gender dysphoria USE BEFORE INJECTION 100 each 11 04/01/20 25 Active BD Plastipak Syringe 3 ML miscIndication s:Gender dysphoria USE EVERY 2 WEEKS 24 each 1 04/01/20 25 Active Needle, Disp, (Easy Touch Hypodermic Needle) 22G X 1 miscIndication s:Gender dysphoria USE DIRECTED TO INJECT testerone 10 each 5 04/29/20 Active testosterone cypionate (Depo-Testoste paul) 200 MG/ML injectionIndic ations:Gender dysphoria INJECT 0.5ML INTRAMUSCULARLY EVERY 2 WEEKS, SINGLE USE VIAL 4 mL 04/30/20 Active Sharps Container (Sharps Rn Military) miscIndication s:Gender dysphoria 1 each if needed each day (for used needles). Dispose used sharps into container. 1 each 2 04/30/20 Active sulfamethoxazo le-trimethopri m (Bactrim DS) 800-160 MG tablet Take 1 tablet by mouth 2 times daily for 5 days. 10 tablet 06/11/20 25 025 Active docusate sodium (Colace) 100 MG capsule Take 1 capsule (100 mg) by mouth 2 times daily. 180 capsule 3 06/11/20 25 026 Active polycarbophil (Fibercon) 625 MG tablet Take 1 tablet (625 mg) by mouth 2 times daily. 180 tablet 3 06/11/20 25 026 Active polyethylene glycol, PEG, 3350 (MiraLax) 17 GM/SCOOP powder Take 17 g by mouth if needed each day (constipation). 527 g 1 06/11/20 Active ondansetron (Zofran) 4 MG tablet Take 1 tablet (4 mg) by mouth every 8 (eight) hours if needed for nausea or vomiting. 12 tablet 06/11/20 026 Active Active Problems Patient Care Coordination No te Formatting of this note migh t be different from the original. Enrolled in [facility] clinic with Brianne Ivory PharmD Problem Noted Date Diagnosed Date Acute cystitis without hematuria 06/09/2025 Assessment & Plan (06/09/2025 2:51 PM EDT): Patient here with c/o urinary frequency, discomfort and lower abdominal pain U/A positive for Leuks Plan: Send U?A for Ucx Empiric treatment for early UTI STI testing F/u if worsening or no improvement Frequent urination 06/09/2025 Assessment & Plan (06/09/2025 3:09 PM EDT): Patient here with c/o urinary frequency ever since they were started on an estrogen vaginal cream by [employer]. Denies any dysuria, denies any discharge, denies [...] any other symptoms. Pt agreeable with plan Obesity (BMI 30.0-34.9) 05/29/2024 Overview (10/13/2024): Baseline [...] considered to be 1.7 or 2.4 mg fdc. -follow up 6 weeks -07/24/24 has not [...] considered to be 1.7 or 2.4 mg fdc. -follow up 6 weeks SONU (obstructive sleep apnea) 12/11/2023 Overview (04/08/2025): -Followed at [facility] with Candida Burns CNP . Seen 12/10/23 and CPAP will be ordered by them when the titration study result available. -Advised patient to use CPAP nightly and more than 4 hrs when he get his CPAP. -Continue to practice good sleep hygiene, and wt reduction advised. -Note from Dana Angel MD revewed from 04/01/25 - Continue CPAP 10 cmH2O w/ EPR 2 nightly > 4 hours, as pt continues to have good clinical effect from use. Primary hypertension 06/06/2023 Overview (05/07/2025): -controlled off meds -normal BMP 04/30/25 Assessment & Plan (04/30/2025 10:42 AM EDT): -controlled off meds -ordered BMP 04/30/25 Orders: Basic Metabolic Panel; Future Assessment & Plan (05/29/2024 11:22 AM EDT): [...] Family planning 06/06/2023 Overview (09/30/2024): -referred to Administrative Representative 05/29/24 Assessment & Plan (05/29/2024 11:45 AM [...] considered to be 1.7 or 2.4 mg fdc. -follow up 6 weeks Assessment & Plan [...] oophorectomy Referral placed 06/06/2023. Transaminitis 06/04/2023 Overview (05/07/2025): Lab Results Component Value Date TOTALBILIRUB 0.7 04/30/2025 AST 16 04/30/2025 ALT 19 04/30/2025 ALT 42 (H) 08/17/2022 ALP 75 04/30/2025 HEPCAB Nonreactive 05/29/2024 HEPAIGM Nonreactive 04/25/2024 HEPBSURFAB NONREACTIVE 04/25/2024 HEPBCOREAB Nonreactive 04/25/2024 HEPBSURFACAG Negative 04/25/2024 ANASCRE POSITIVE (A) 04/30/2025 ANATITER 1:80 (A) 04/30/2025 MITOCHAB NEGATIVE 04/25/2024 SMAB <20 04/25/2024 CERULOPLASMI [...] 4-6 months, sooner on as needed basis. -US US/US 12/03/24 abdomen norman w elastography IMPRESSION: Mild hepatic steatosis. Cholelithiasis [...] value suggestive of advanced chronic liver disease. -Note from 03/03/[address] Bojorquez Patient will continue his diet. Liver enzymes normal. Ultrasound with high elastography showing possible advanced chronic liver disease will wait for liver fibrosis panel. Continue low-fat, low-salt, low carb and high protein diet. Patient was encouraged weight loss, increase exercise and activity. Patient will follow-up in 6 months. We will repeat ultrasound with elastography again. Patient is agreeable to current plan of care and verbalizes understanding of instructions. He was given the opportunity to ask questions and all questions answered. Assessment & Plan (10/13/2024 11:59 AM EST): [...] months Other specified health status 06/04/2023 Overview (04/30/2025): -next physical exam due after 10/13/25 -eye care facilitated by [facility] in [place] -dental home is [facility] in [place]. -healthcare proxy paperwork filed 10/29/23 Assessment & Plan (04/25/2024 9:31 AM EDT): -next physical exam due after 10/24/2024 -eye care facilitated by [facility] in [place] -dental home is [facility] in [place]. -healthcare proxy paperwork given 10/24/2023 Assessment & Plan (10/24/2023 3:28 PM EST): -next physical exam due after 10/24/2024 -eye care facilitated by -dental home is -healthcare proxy paperwork given 10/24/2023 Assessment & Plan (06/04/2023 11:03 AM EDT): -next physical exam due after -eye care facilitated by -dental home is Dyslipidemia 10/19/2022 Overview (05/07/2025): Lab Results Component Value Date CHOL 145 04/30/2025 CHOL 171 10/13/2024 CHOL 201 (H) 05/29/2024 TRIG 88 04/30/2025 TRIG 138 10/13/2024 TRIG 295 (H) 05/29/2024 HDL 32 (L) 04/30/2025 HDL 30 (L) 10/13/2024 HDL 30 (L) 05/29/2024 LDLCHOLCAL 96 04/30/2025 LDLCHOLCAL 114 (H) 10/13/2024 LDLCHOLCAL 112 (H) 05/29/2024 -continue lifestyle modification -prescribed [place]-3 500 mg, discussed to continue 07/24/24 and take 2 tabs daily. -taking a vitamin called cholestrof -recommended fiber supplements 07/24/24 -reordered labs for f/u end of October 2024, did not get labs done. -re-ordered 04/30/25 Assessment & Plan (04/30/2025 10:42 AM EDT): Lab Results Component Value Date CHOL 171 10/13/2024 CHOL 201 (H) 05/29/2024 CHOL 184 04/25/2024 TRIG 138 10/13/2024 TRIG 295 (H) 05/29/2024 TRIG 177 (H) 04/25/2024 HDL 30 (L) 10/13/2024 HDL 30 (L) 05/29/2024 HDL 27 (L) 04/25/2024 LDLCHOLCAL 114 (H) 10/13/2024 LDLCHOLCAL 112 (H) 05/29/2024 LDLCHOLCAL 122 (H) 04/25/2024 -continue lifestyle modification -prescribed [place]-3 500 mg, discussed to continue 07/24/24 and take 2 tabs daily. -taking a vitamin called cholestrof -recommended fiber supplements 07/24/24 -reordered labs for f/u end of October 2024, did not get labs done. -re-ordered 04/30/25 Orders: Hepatic Function Panel; Future Lipid Panel, Standard; Future Assessment & Plan (07/24/2024 11:24 AM EDT): Lab Results Component Value Date CHOL 201 (H) 05/29/2024 CHOL 184 04/25/2024 CHOL 224 (H) 06/06/2023 TRIG 295 (H) 05/29/2024 TRIG 177 (H) 04/25/2024 TRIG 182 (H) 06/06/2023 HDL 30 (L) 05/29/2024 HDL 27 (L) 04/25/2024 HDL 39 (L) 06/06/2023 LDLCHOLCAL 112 (H) 05/29/2024 LDLCHOLCAL 122 (H) 04/25/2024 LDLCHOLCAL 149 (H) 06/06/2023 -continue lifestyle modification -prescribed [place]-3 500 mg, discussed to continue 07/24/24 and [...] -continue lifestyle modifications Gender dysphoria 05/19/2022 Overview (06/02/2025): Ahsan meets DSM-5 criteria for gender dysphoria. They have expressed a persistent and well-documented experience of incongruence between their gender identity and assigned sex at . Ahsan has demonstrated capacity to make informed decisions regarding hormone therapy. He is are aware of the potential risks, benefits, and irreversible effects of treatment. Ahsan has no contraindications identified for initiating hormone therapy per the Endocrine Society 2017 Guidelines Endocrine Treatment of Gender-Dysphoric/Gender Incongruent Persons . -we reviewed fertility preservation options; patient declined egg banking -discussed impact on fertility as well as need for contraception if with a partner who is capable of producing sperm -taking testosterone since -continue testosterone cypionate 200mg/ml on 0.5ml q 2 weeks without bleeding or concerns. Gender affirming hormone therapy started 12/16/15 - Continue testosterone cypionate 0.5 IM q 2 weeks - s/p chest reconstruction surgery - No longer in therapy and declines referral Lab Results Component Value Date TESTTOTAL 222 (A) 04/30/2025 TESTTOTAL 239 (A) 05/29/2024 TESTTOTAL 420 (A) 04/25/2024 HGB 15.6 04/30/2025 HGB 16.9 (H) 01/13/2022 HCT 45.3 04/30/2025 -suggested goal testosterone levels 350-700ng/dl. -interested in hysterectomy, referred to [facility] 04/29/25, seen 05/2025 We reviewed the surgical procedure for TLH/bilateral salpingectomy and discussed the pros/cons for leaving one or both ovaries in situ. Discussed need for hormonal tx (either testosterone or estradiol) if bilateral oophorectomy is performed for cardiac/bone protection. Reviewed bilateral salpingectomy is risk reduction for ovarian cancer. We discussed that the surgery is commonly done as a day procedure (d/c home same day). We reviewed associated surgical risks. We discussed recovery and post-procedure activity restrictions. Recommend checking with insurance company re: coverage for procedure. All questions answered and case request submitted. He is planning on surgery in early 2025. estradioL (ESTRACE) 0.01 % (0.1 mg/gram) vaginal cream Recommend starting vaginal estradiol in preparation for both surgery and physical therapy. Medication instructions reviewed, no contraindication to concurrent use of both T and estradiol. Assessment & Plan (05/07/2025 11:36 AM EDT): Ahsan meets DSM-5 criteria for gender dysphoria. They have expressed a persistent and well-documented experience of incongruence between their gender identity and assigned sex at . Ahsan has demonstrated capacity to make informed decisions regarding hormone therapy. He is are aware of the potential risks, benefits, and irreversible effects of treatment. Ahsan has no contraindications identified for initiating hormone therapy per the Endocrine Society 2017 Guidelines Endocrine Treatment of Gender-Dysphoric/Gender Incongruent Persons . -we reviewed fertility preservation options; patient declined egg banking -discussed impact on fertility as well as need for contraception if with a partner who is capable of producing sperm -taking testosterone since -continue testosterone cypionate 200mg/ml on 0.5ml q 2 weeks without bleeding or concerns. Gender affirming hormone therapy started 12/16/15 - Continue testosterone cypionate 0.5 IM q 2 weeks - s/p chest reconstruction surgery - No longer in therapy and declines referral Lab Results Component Value Date TESTTOTAL 222 (A) 04/30/2025 TESTTOTAL 239 (A) 05/29/2024 TESTTOTAL 420 (A) 04/25/2024 HGB 15.6 04/30/2025 HGB 16.9 (H) 01/13/2022 HCT 45.3 04/30/2025 -suggested goal testosterone levels 350-700ng/dl. -interested in hysterectomy, referred to [facility] 04/29/25 Assessment & Plan (04/30/2025 10:42 AM EDT): Ahsan meets DSM-5 criteria for gender dysphoria. They have expressed a persistent and well-documented experience of incongruence between their gender identity and assigned sex at . Ahsan has has demonstrated capacity to make informed decisions regarding hormone therapy. He is are aware of the potential risks, benefits, and irreversible effects of treatment. Ahsan has no contraindications identified for initiating hormone therapy per the Endocrine Society 2017 Guidelines Endocrine Treatment of Gender-Dysphoric/Gender Incongruent Persons . -we reviewed fertility preservation options; patient declined egg banking -discussed impact on fertility as well as need for contraception if with a partner who is capable of producing sperm -taking testosterone since -continue testosterone cypionate 200mg/ml on 0.5ml q 2 weeks without bleeding or concerns. Gender affirming hormone therapy started 12/16/15 - Continue testosterone cypionate 0.5 IM q 2 weeks - s/p chest reconstruction surgery - No longer in therapy and declines referral Lab Results Component Value Date TESTTOTAL 239 (A) 05/29/2024 TESTTOTAL 420 (A) 04/25/2024 HGB 15.9 10/13/2024 HGB 16.9 (H) 01/13/2022 HCT 46.4 10/13/2024 -suggested goal testosterone levels 350-700ng/dl. -labs ordered 04/30/25 Reported pelvic floor weakness and pain with intercourse. -interested in hysterectomy, referred to [facility] 04/29/25 Orders: CBC; Future Testosterone, Total, males (Adult), IA; Future Hemoglobin A1c; Future testosterone cypionate (Depo-Testosterone) 200 MG/ML injection; INJECT 0.5ML INTRAMUSCULARLY EVERY 2 WEEKS, SINGLE USE VIAL Sharps Container (Sharps Rn Military) misc; 1 each if needed each day (for used needles). Dispose used sharps into container. Assessment & Plan (10/13/2024 12:00 PM EST): [...] genital surgery. Options discussed. Referral Dr. Lyric Riso in 2019 but put on hold due [...] -Advise to monitor and come back to [facility] if worsening or new lesion shows up. Elevated liver enzymes 05/19/202205/29 Encounters Date Type Department Care Team Description 06/11/2025 4:00 PM EDT Office Visit [facility] [address] [place] [id number] Fátima Paredes DO Acute UTI (Primary Dx); Acute constipation 06/11/2025 Travel 06/11/2025 Orders Only [facility] [address] [place] [phone] Petra Rico MD Dysuria (Primary Dx) 06/11/2025 Telephone [facility] [address] [place] [phone] Petra Rico MD 06/09/2025 2:40 PM EDT Office Visit [facility] [address] [phone] Brian Garner MD Frequent urination 06/09/2025 Travel 06/03/2025 Telephone [facility] [address] [place] [phone] Zulay Cornejo, KAREN 05/07/2025 11:15 AM EDT Office Visit [address] [phone] Petra Rico MD Gender dysphoria (Primary Dx); Phlegm in throat 05/07/2025 Travel 05/06/[address] [address] Petra Rico MD CHART PREP 05/04/2025 Travel 05/04/2025 Telephone [facility] [address] [place] [phone] Petra Rico MD ER Follow-up; Nurse Triage 04/30/2025 9:15 AM EDT Office Visit [facility] [address] [place] [phone] Petra Rico MD Dyslipidemia (Primary Dx); Primary hypertension; Gender dysphoria; Vaginismus; Overweight with body mass index (BMI) of 25 to 25.9 in adult; Dietary counseling; Exercise counseling; Vitamin D deficiency 04/30/2025 Results Follow-Up [facility] [address] [place] [phone] Petra Rico MD CBC, Hepatic Function Panel, Lipid Panel, Standard, Additional followed-up results: 3 04/30/2025 Orders Only GENERIC EXTERNAL DATA DEPARTMENT Provider, Generic External Data 04/30/2025 Travel 04/29/2025 Telephone [facility] [address] [place] [place] [phone] Beena Jimenes [place] 04/29/2025 Travel 04/28/2025 Refill [facility] [address] [place] [phone] Petra Rico MD Gender dysphoria 04/01/2025 Refill [facility] [address] [place] [phone] Petra Rico MD Gender dysphoria from Last 3 Months Immunizations Immunization Administration Dates Next Due DTaP 10/27/2005, 0,03/03/1999,01/06,1998 HPV, Quadrivalent 09/27/2011,07/14/2010,06/28/20 09 Hep A, ped/adol, 2 dose 01/08/2015,03/12/2013 Hep B, Adolescent or Pediatric 03/03/1999,1997,1998 Hib (HbOC) 12/15/1999, 9,01/06/1999,11/11 IPV 10/27/2005, 0,01/06/1999,11/11 Influenza Injectable Quadriv alant Preservative Free IIV4 MDCK 08/04/2022,08/25/2020 Influenza injectable quadriv alent IIV4 with preservative 07/01/2018,07/04/2017 Influenza injectable quadriv alent preservative free 08/17/2023,07/28/2021,06/29/2016,06/25 Influenza live intranasal qu adrivalent LIAV4 07/16/2014 Influenza, Injectable, MDCK, preservative free 06/01/2024 MMR 10/27/2005,08/24/1999 Meningococcal MCV4P ACYW-135 10/18/2015,07/14/20 10 [...] Mass Index 25.46 06/11/2025 3:46 PM EDT Plan of Treatment Upcoming Encounters Date Type Department Care Team (Late st Contact Info) Description 07/24/2025 1:00 PM EDT Office Visit [facility] [address] [place] [address] Emiliano, Tamera, OD [address] [facility] [place] [address] Health Maintenance Due Date Last Done Comments Influenza Vaccine (#1) 2025 4, 08/17/2023, 08/04/2022, Additional history exists Family Planning (PISQ) 07/24/2025 07/24/2024 Alcohol/Substance Use Screening 04/30/2026 04/30/2025 Depression Screening 04/30/2026 04/30/2025, 04/30/20 25 SDOH Screening 04/30/2026 04/30/2025 Disability Screening 05/07/2026 05/07/2025 Tobacco Screening 06/11/2026 06/11/2025 Pap Smear 11/02/2026 11/02/2023 Lipid Panel 04/30/2030 04/30/2025, 03/2025, 05/29/2024, Additional history exists DTaP/Tdap/Td Vaccines (8 - [...] Years) and At-Risk Patients (6 to 49) Years Aged Out 07/05/2000 No longer eligible based on patient's age to complete this topic IPV Vaccines Completed 10/27/2005, 06/2000, 01/06/1999, Additional history exists HPV Vaccines Completed 09/27/2011, 04/2010, 06/28/2009 Hepatitis A Vaccines Completed 01/08/2015, 03/12/20 13 Meningococcal Vaccine Completed 10/18/2015, 010 HIV Screening Completed 06/06/2023 Hepatitis C Screening Completed 05/29/2024 , 04/25/2024, 10/24/2023 COVID-19 Vaccine Completed 12/10/2024, 08/2022, 10/17/2021, Additional history exists Meningococcal B Vaccine Aged Out No l onger eligible based on patient's age to complete this topic RSV under 20 months Aged Out No longe r eligible based on patient's age to complete this topic Rotavirus Vaccines Aged Out No longer eligible based on patient's age to complete this topic Goals Goal Patient Goal Type Associated Problems Recent Progress Patient-Stated? Author Blood Pressure < 140/90 Blood Pressure 133/95( 025 3:46 PM EDT) Brianne Turk PharmD Procedures Procedure Name Priority Date/Time Associated Diagnosis Comments POCT , URINE Routine 06/11/2025 4:02 PM EDT Acute UTI POCT URINALYSIS DIPSTICK Routine 06/11/2025 4:02 PM EDT Acute UTI URINALYSIS, COMPLETE, WITH REFLEX TO CULTURE Routine 06/09/2025 3:12 PM EDT Frequent urination CULTURE, URINE, ROUTINE Routine 06/09/2025 3:12 PM EDT Frequent urination POCT URINALYSIS DIPSTICK Routine 06/09/2025 3:11 PM EDT Frequent urination NATHAN SCREEN, IFA, W/REFL TITER AND PATTERN Routine 04/30/2025 10:06 AM EDT VITAMIN D 25-OH (D2 AND D3) Routine 04/30/2025 10:06 AM EDT DNA (DS) ANTIBODY Routine 04/30/2025 10: 06 AM EDT COMPLEMENT COMPONENT C4C Routine 04/30/2025 10:06 AM EDT COMPLEMENT COMPONENT C3C Routine 04/30/2025 10:06 AM EDT SED RATE BY MODIFIED WESTERGREN Routine 04/30/2025 10:06 AM EDT C-REACTIVE PROTEIN Routine 04/30/2025 10 :06 AM EDT VITAMIN D,25-OH,TOTAL,IA Routine 04/30/2025 10:06 AM EDT Vitamin D deficiency BASIC METABOLIC PANEL Routine 04/30/2025 10:06 AM EDT Primary hypertension HEMOGLOBIN A1C Routine 04/30/2025 10:06 AM EDT Gender dysphoria LIPID PANEL, STANDARD Routine 04/30/2025 10:06 AM EDT Dyslipidemia HEPATIC FUNCTION PANEL Routine 04/30/2025 10:06 AM EDT Dyslipidemia TESTOSTERONE, TOTAL, MALES (ADULT), IA Routine 04/30/2025 10:06 AM EDT Gender dysphoria CBC Routine 04/30/2025 10:06 AM EDT Gender dysphoria HEPATITIS C AB W/REFL TO HCV RNA, QN, PCR Routine 05/29/2024 12:00 PM EDT PAP SMEAR Routine 11/02/2023 11:41 AM EST HIV ANTIBODY/ANTIGEN ([place] DPH) Routine 06/06/2023 12:05 PM EDT from Last 3 Months or Most Recently Relevant to Health Maintenance Results * POCT Urine (06/11/2025 4:02 PM EDT) Preg Test, Ur Negative Negative, Indeterminate, None Detected, Invalid, Specimen unsatisfactory for evaluation, Weakly Positive, 2+ QC Media Lot # [id number] Lot# Expiration Date [id number] Urine 06/11/2025 4:02 PM EDT Fátima Paredes DO POINT OF CARE TEST ENTER/KIARA T ORDERABLES Final Result * (ABNORMAL) POCT Urinalysis (06/11/2025 4:02 PM EDT) Only the most recent of2 resultswithin the time period is included. Color, UA Yellow Clarity, UA Clear Glucose, UA Negative Bilirubin, UA Negative Ketones, UA Positive Comment:trace Spec Grav, UA 1.005 Blood, UA Negative Negative, None Detected pH, UA 6.0 Protein, UA Negative Urobilinogen, UA 0.2 Leukocytes, UA Negative Negative, Rare, Trace Nitrite, UA Negative Negative, None Detected Appearance, UA clear QC Media Lot # [id number] Lot# Expiration Date [id number] Urine 06/11/2025 4:02 PM EDT Fátima Paredes DO POINT OF CARE TEST ENTER/KIARA T ORDERABLES Final Result * (ABNORMAL) Urinalysis, Complete, with Reflex to Culture (06/09/2025 3:12 PM EDT) Color Urine Yellow [facility] Appearance Urine Clear [facility] PH 6.5 5.0 - 9.0 [facility] Glucose Urine UA Negative Negative mg/dL [facility] Urine Blood Negative Negative [facility] Specific [place] - Urine 1.020 1.005 - 1.025 [facility] Urine Protein Negative Neg-Trace mg/dL [facility] Urine Ketones Trace Negative mg/dL [facility] Nitrite Urine Negative Negative [facility] Leukocyte Esterase Urine Small (1+)(A) Negative [facility] RBC Urine 0-2 0 - 2 /HPF [facility] Urine WBC 0-5 0 - 5 /HPF [facility] Urine Squamous Epithelial Cell 0-2 0 - 2 /HPF [facility] CALCIUM OXALATE CRYSTAL, UR Present [facility] Urine Bacteria None Seen None Seen [facility] Hyaline Casts, Urine 0-2 0 - 2 /LPF [facility] Urine 06/09/2025 3:12 PM EDT 06/09/2025 5:28 PM EDT Narrative [facility] - 06/09/2025 8:13 PM EDT Urine, Clean Catch Brian Tidwell MD LAB URINE ORDERABLES Final Result [facility] [address] [place] [address] [phone] * Culture, Urine, Routine (06/09/2025 3:12 PM EDT) Urine Urine specimen obtained by clean catch procedure / Unknown 06/09/2025 3:12 PM EDT 06/09/2025 5:28 PM EDT Comment:UACC Narrative [facility] - 06/11/2025 11:23 AM EDT Urine Culture Report Result Urine Culture 10,000 to 50,000 cfu/ml Urine Culture Mixed bacterial abida characteristic of Urine Culture urogenital contamination. Specimen Source: Urine clean catch Brian Tidwell MD LAB MICROBIOLOGY - [facility] ORDERABLES Final Result Performing Organization Address [facility] Co de Phone Number [facility] [address] [place] [address] [phone] * VITAMIN D 25-OH (D2 AND D3) (04/30/2025 10:06 AM EDT) Vitamin D, 25-OH, D2 <4 ng/mL [facility] Comment:This test was develo ped and its analytical performancecharacteristics have been determined by [place]. It hasnot been cleared or approved by the U.S. Food and DrugAdministration. This assay has been validated pursuantto the CLIA regulations and is used for clinicalpurposes.THIS TEST WAS PERFORMED AT:[facility] [place] [address]UHFGUJTJUANJOSE CORADO MD,PHD Vitamin D, 25-OH, D3 30 ng/mL [facility] Comment:This test was develo ped and its analytical performancecharacteristics have been determined by [place]. It hasnot been cleared or approved by the U.S. Food and DrugAdministration. This assay has been validated pursuantto the CLIA regulations and is used for clinicalpurposes. Vitamin D, 25-OH, Total 30 30 - 100 ng/mL [facility] Comment:Vitamin D, 25-Hydrox y reports concentrations of twocommon forms, 25-OHD2 and 25-OHD3. 25-OHD3 indicatesboth endogenous production and supplementation.25-OHD2 is an indicator of exogenous sources such asdiet or supplementation. Therapy is based onmeasurement of Total 25-OHD, with levels <20 ng/mLindicative of Vitamin D deficiency, while levelsbetween 20 ng/mL and 30 ng/mL suggest insufficiency.Optimal levels are > or = 30 ng/mL.For additional information, please refer tohttp://education.Cytox/faq/NNM642(This link is being provided for informational/educational purposes only.) 04/30/2025 10:0 6 AM EDT 04/30/2025 11:18 AM EDT us Generic External Data Provider LAB BLOOD ORDERAB LES Final Result [facility] [address] [place] [phone] * Vitamin D, 25-Hydroxy, Total, Immunoassay (04/30/2025 10:06 AM EDT) Vitamin D 25-OH Total 32.5 >30 ng/mL [facility] Comment: Health Based Reference Values*< 20 ng/mL Wronqfcre98-18 ng/mL Insufficient> 30 ng/mL Sufficient*Ashlee GREGORIO. N Engl J Med. 2007;357:266-280There is no well-established upper level of normal vitamin Dlevels. Some laboratories use 50 ng/mL as an upper limit ofnormal. However, toxicity is patient-dependent and may occurat any level. Careful correlation with the patient'spresentation is necessary and, if there is concern forvitamin D toxicity, treatment should be consideredirrespective of the serum level.Care must be taken in interpreting Vitamin D results fromdifferent laboratories and methodologies. Published datademonstrated that results from patients undergoinghemodialysis may show a negative bias when tested withvarious automated 25-OH vitamin D assays when compared toLC-MS/MS.When testing samples from patients whose predominant form ofVitamin D is Vitamin D2, such as patients receiving VitaminD2 supplementation, results that are subtherapeutic shouldbe confirmed with another method such as LC-MS/MS. Blood Venous blood specimen / Unknown 04/30/2025 10:06 AM EDT 04/30/2025 11:18 AM EDT Petra Rico MD LAB BLOOD ORDERABLES Final Result Performing Organization Address [facility]/ZIP Co de Phone Number [facility] [address] [place] [phone] * DNA (ds) Antibody (04/30/2025 10:06 AM EDT) Pathologist [facility] Anti DNA DS Antibody 1 IU/mL [facility] Comment:IU/mL Interpretation < or = 4 Negative 5-9 Indeterminate > or = 10 PositiveTHIS TEST WAS PERFORMED AT:[id number] [place] [id number] ROSSI MD 04/30/2025 10:0 6 AM EDT 04/30/2025 11:18 AM EDT Guzu External Data Provider LAB BLOOD ORDERAB LES Final Result Performing Organization Address [facility] Co de Phone Number [facility] [address] [place] [phone] * Sed Rate by Aleta Chowdhury (04/30/2025 10:06 AM EDT) Erythrocyte Sedimentation Rate 7 0 - 20 MM/HR [facility] Comment:Patients with polycy themia and many hemoglobin abnormalitiesmay have depressed sed rates whereas patients with anemiamay have elevated sed rates. 04/30/2025 10:0 6 AM EDT 04/30/2025 11:18 AM EDT Generic External Data Provider LAB BLOOD ORDERAB LES Final Result [facility] [address] [place] [address] [phone] * CBC (04/30/2025 10:06 AM EDT) Pathologist [facility] White Blood Count 7.7 4.8 - 10.8 X10*3/uL [facility] Red Blood Count 5.11 4.20 - 5.50 X10*6/uL [facility] Hemoglobin 15.6 12.0 - 16.0 g/dl [facility] Hematocrit 45.3 37.0 - 47.0 % [facility] Mean Corpuscular Volume 88.6 80.0 - 98.0 fL [facility] Mean Corpuscular Hemoglobin 30.5 27.0 - 33.0 pg [facility] Mean Corpuscular HGB Conc 34.4 31.0 - 35.0 g/dl [facility] Red Cell Distribution Width 11.9 11.0 - 16.0 % [facility] Platelet Count 270 160 - 400 X10*3/uL [facility] Mean Platelet Volume 9.5 9.4 - 12.3 fL [facility] NRBC Pct Auto 0.0 0.0 - 0.2 /100WBC [facility] NRBC Abs Auto 0.000 0.0 - 0.012 X10*3/uL [facility] Blood Venous blood specimen / Unknown 04/30/2025 10:06 AM EDT 04/30/2025 11:18 AM EDT us Petra Rico MD LAB BLOOD ORDERABLES Final Result Performing Organization Address City/[facility]/ZIP Co de Phone Number [facility] [address] [place] [address] [phone] * Complement Component C3c (04/30/2025 10:06 AM EDT) Pathologist [facility] Complement C3 161 83 - 193 mg/dL [facility] Comment:THIS TEST WAS PERFOR MED AT:[id number] [place] [id number] ROSSI MD 04/30/2025 10:0 6 AM EDT 04/30/2025 11:18 AM EDT us Generic External Data Provider LAB BLOOD ORDERAB LES Final Result Performing Organization Address City/[facility]/ZIP Co de Phone Number [facility] [address] [place] [phone] * Complement Component C4c (04/30/2025 10:06 AM EDT) Complement C4 23 15 - 57 mg/dL [facility] Comment:THIS TEST WAS PERFOR MED AT:[facility] [address] [id number] ROSSI MD 04/30/2025 10:0 6 AM EDT 04/30/2025 11:18 AM EDT us Generic External Data Provider LAB BLOOD ORDERAB LES Final Result Performing Organization Address [facility] Co de Phone Number [facility] [address] [place] [phone] * C-reactive Protein (04/30/2025 10:06 AM EDT) C Reactive Protein 0.17 < or = 0.50 mg/dL [facility] 04/30/2025 10:0 6 AM EDT 04/30/2025 11:18 AM EDT us Generic External Data Provider LAB BLOOD ORDERAB LES Final Result Performing Organization Address [facility] Co de Phone Number [facility] [address] [place] [phone] * (ABNORMAL) NATHAN Screen,IFA, with Reflex to Titer and Pattern (04/30/2025 10:06 AM EDT) Anti Nuclear Antibody Screen POSITIVE (A) NEGATIVE [facility] Comment:NATHAN IFA is a first l ine screen for detecting thepresence of up to approximately 150 autoantibodies invarious autoimmune diseases. A positive NATHAN IFA resultis suggestive of autoimmune disease and reflexes totiter and pattern. Further laboratory testing may beconsidered if clinically indicated.For additional information, please refer tohttp://education.Cytox/faq/JFC419(This link is being provided for informational/educational purposes only.) NATHAN Titer 1:80(A) titer [facility] Comment:A low level NATHAN tite r may be present in pre-clinicalautoimmune diseases and normal individuals. Reference Range <1:40 Negative 1:40-1:80 Low Antibody Level >1:80 Elevated Antibody Level NATHAN Pattern (A) [facility] Comment:Nuclear, Dense Fine Speckled Abnormal Flag: ADense fine speckled pattern is seen in normalindividuals and rarely associated with systemic lupuserythematosis (SLE), Sjogren's syndrome and systemicsclerosis.AC-2: Dense Fine SpeckledInternational Consensus on NATHAN Patterns(https://doi.org/10.1515/nxcd-2519-9733)THIS TEST WAS PERFORMED AT:[facility] [place] [id number] ROSSI MD NATHAN TITER 2 (REF LAB) [facility] NATHAN Pattern 2 [facility] NATHAN TITER 3 [facility] NATHAN PATTERN 3 [facility] 04/30/2025 10:0 6 AM EDT 04/30/2025 11:18 AM EDT us Generic External Data Provider LAB BLOOD ORDERAB LES Final Result [facility] [address] [place] [phone] [phone] * (ABNORMAL) Testosterone, Total, males (Adult), IA (04/30/2025 10:06 AM EDT) Testosterone, Total 222(A) 2 - 45 ng/dL [facility] Comment:For additional infor yin, please refer tohttp://education.Gravity R&D.ShopTutors/faq/HmaurZmskkjejvoieIHPYJLJWB326(This link is being provided for informational/educational purposes only.)This test was developed and its analytical performancecharacteristics have been determined by [place]. It hasnot been cleared or approved by the U.S. Food and DrugAdministration. This assay has been validated pursuantto the CLIA regulations and is used for clinicalpurposes.THIS TEST WAS PERFORMED AT:[facility] [place] [address]MXJULPIJUANJOSE CORADO MD,PHD Blood Venous blood specimen / Unknown 04/30/2025 10:06 AM EDT 04/30/2025 11:18 AM EDT Petra Rico MD LAB BLOOD ORDERABLES Final Result [facility] [address] [place] [phone] * Hemoglobin A1c (04/30/2025 10:06 AM EDT) Hemoglobin A1c 4.8 <6.0 % [facility] Comment:Hemoglobin A1C Refer ence Range Adults: 4.8 - 6.0 % Non diabetic: < 6.0 % Goal: < 7.0 %Additional Action Suggested: > 8.0 %Note: Hemoglobin A1c results are invalid for patients with abnormal amounts of HbF. Blood transfusions may impact the HbA1c concentration in the patient sample. Estimated Average Glucose 91 mg/dL [facility] Comment:eAG = Estimated ave rage glucose which is %A1C expressed asaverage glucose, using the formula of the I5X-TsovszuMwcomiy Glucose study (ADAG), Diabetes Care, Vol.31,#8,May. 2007 Blood Venous blood specimen / Unknown 04/30/2025 10:06 AM EDT 04/30/2025 11:18 AM EDT Petra Rico MD LAB BLOOD ORDERABLES Final Result Performing Organization Address [facility]/ZIP Co de Phone Number [facility] [address] [place] [phone] * (ABNORMAL) Hepatic Function Panel (04/30/2025 10:06 AM EDT) Bilirubin, Total 0.7 0.0 - 1.0 mg/dL [facility] Bilirubin, Direct 0.2 0.0 - 0.5 mg/dL [facility] Aspartate Amino Transferase 16 5 - 31 U/L [facility] Alanine Aminotransferase 19 0 - 31 U/L [facility] Total Protein 7.5 6.5 - 8.0 g/dL [facility] Albumin Level 5.1(H) 3.5 - 5.0 g/dL [facility] Alkaline Phosphatase 75 39 - 117 U/L [facility] Blood Venous blood specimen / Unknown 04/30/2025 10:06 AM EDT 04/30/2025 11:18 AM EDT Petra Rico MD LAB BLOOD ORDERABLES Final Result Performing Organization Address [facility] de Phone Number [facility] [address] [place] [phone] * (ABNORMAL) Lipid Panel, Standard (04/30/2025 10:06 AM EDT) Triglycerides 88 <150 mg/dL [facility] Comment:Desirable Triglyceri de: less than 150 mg/dLBorderline High Triglyceride 150-199 mg/dLHigh Triglyceride: 200-499 mg/dLVery High Triglyceride: greater than or equal to 5OO mg/dL Cholesterol 145 <200 mg/dL [facility] Comment:Desirable Cholestero l: less than 200 mg/dLBorderline High Cholesterol: 200-239 mg/dLHigh Cholesterol: greater than 239 mg/dL LDL Cholesterol Calculated 96 <100 mg/dL [facility] Comment:Desirable LDL: less than 100 mg/dLNear Optimal/Above Optimal LDL: 110- 129 mg/dLBorderline High LDL: 130-159 mg/dLHigh LDL: 160-189 mg/dLVery High LDL: greater than or equal to 190 mg/dL HDL Cholesterol 32(L) >40 mg/dL [facility] Comment:Desirable HDL: great er than 40 mg/dL Note: This HDL assay may give artificially low results in patients with liver disease. Blood Venous blood specimen / Unknown 04/30/2025 10:06 AM EDT 04/30/2025 11:18 AM EDT Petra Rico MD LAB BLOOD ORDERABLES Final Result [facility] [address] [place] [phone] * Basic Metabolic Panel (04/30/2025 10:06 AM EDT) Sodium 141 135 - 145 mmol/L [facility] Potassium 3.9 3.3 - 5.1 mmol/L [facility] Chloride 104 96 - 108 mmol/L [facility] Carbon Dioxide 29 22 - 29 mmol/L [facility] Anion Gap 12 12 - 20 [facility] Urea Nitrogen (BUN) 11 9 - 16 mg/dL [facility] Creatinine, Serum 0.81 0.5 - 1.4 mg/dL [facility] Estimated Glomerular Filt Rate >60 [facility] Comment:Chronic Kidney Disea se: Estimated GFR < 60 mL/min/1.74j3Tphrac Kidney Disease: Estimated GFR < 15 mL/min/1.73m2 Glucose 89 60 - 115 mg/dL [facility] Calcium 9.7 8.4 - 10.2 mg/dL [facility] Blood Venous blood specimen / Unknown 04/30/2025 10:06 AM EDT 04/30/2025 11:18 AM EDT Petra Rico MD LAB BLOOD ORDERABLES Final Result Performing Organization Address [facility] Co de Phone Number [facility] [address] [place] [address] [phone] * Hepatitis C Antibody with Reflex to HCV, RNA, Quantitative, Real-Time PCR (05/29/2024 12:00 PM EDT) Hepatitis C Antibody Nonreactive Nonreactive [facility] Comment:Antibodies to HCV no t detected; does not exclude early acuteHCV infection. 05/29/2024 12:0 0 PM EDT 05/29/2024 1:25 PM EDT Petra Rico MD LAB BLOOD ORDERABLES Final Result Performing Organization Address [facility] Co de Phone Number [facility] [address] [place] [phone] [phone] * Pap Smear (11/02/2023 11:41 AM EST) 11/02/2023 11:4 1 AM EST 11/06/2023 8:00 AM EST Narrative [facility] - 11/16/2023 3:18 PM EST ----- ------- Name: Ahsan Kuhn Age/Sex: 23/M : 2000 Unit#: [id number] Attend Dr: Petra Rico MD Re11/02/23 Status: DEP [facility] ----- ------- SPEC : [id number] RECD: 11/06/23 STATUS: LAWRENCE TAM NUM: [id number] AKANKSHA: 11/02/23-1141 [facility] DR: Petra Rico MD ENTERED: 11/06/23 SP TYPE: Pap Smr OTHR DR: ORDERED: Pap Smear Interpretation Unsatisfactory. Scant cellularity. HPV mRNA E6/E7: NOT DETECTED This assay detects E6/E7 viral messenger RNA (mRNA) from 14 high-risk HPV types (16, 18, 31, 33, 35, 39, 45, 51, 52, 56, 58, 59, 66, 68) HPV testing performed by [facility] [place], [place]. See reference laboratory portion of the EMR for entire report. Clinical Information LMP: Pt on testosterone Previous PAP test: None Other history: Difficult to see os Material Received ThinPrep-Cervical ----- ------- Signed (signature on file) CLAY Chavez (ASCP) 11/16/23 1518 ----- ------- END OF REPORT Petra Rico MD LAB CYTOLOGY ORDERABLES [facility] Result [facility] [address] [place] [phone] * HIV Ab/Ag ([facility]) (06/06/2023 12:05 PM EDT) HIV AB/AG Nonreactive Nonreactive [facility] Comment:HIV-1 p24 Ag and/or HIV-1/HIV-2 Ab not detected.A test result that is nonreactive does not exclude thepossibility of exposure to or infection with HIV-1 and/orHIV-2. Nonreactive results in this assay for individualswith prior exposure to HIV-1 and/or HIV-2 may be due toantigen and antibody levels that are below the limit ofdetection of this assay.The [employer] HIV Ag/Ab Combo assay result andsupplemental assay results should be interpreted inconjunction with the patient's clinical presentation,history and other laboratory results. If the results areinconsistent with clinical evidence, additional testing issuggested to confirm the result. 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 Expl anation Advance Directives and Livin g Will 10/29/2023 Health Care Proxy Care Teams Mass Spectrometry Manager Relationship Specialty Start Date End Date [place], MD Petra [address] [place] [address] PCP - General Family Medicine 08/12/15 Brianne Ivory, DagoD [address] [place] [address] Pharmacist Internal Medicine 08/13/23 Tamera Cummings OD [address] [place] [address] Optometry 09/30/24 Dana Angel [address] [address] Sleep Medicine 10/13/24 Josi Bojorquez [address] [address] Gastroenterology 11/04/24 [facility] [address] [place] [address] Gynecology 06/02/25
--- OUTSIDE RECORDS SUMMARY | 2025-06-11 17:46 | XMS_ITS | Encounter Summary ---
Author Organization [employer] Address [address] [place] [address] 7 [place] [address] Care Team Providers Care Bank Clerk Name Role Phone Petra Rico MD Primary Care Provider [phone] Brianne Ivory PharmD Unavailable [phone] Tamera Cummings OD Unavailable Dana nAgel Unavailable Josi Bojorquez Unavailable Rose Damon Unavailable Encounter Details Date Type Department Care Team (Late st Contact Info) Description 06/05/2023 Abstract [facility] MEDICINE [address] [place], [place] [phone] Petra Rico MD [address] [place], [place] [phone] Social History Tobacco Use Types Packs/Day Years [...] of Assessment Author Patient Health Questionnaire-2 Score 0 05/10 11:02 AM Maria Luz Alejandro [place] * Over the past 2 weeks, how often have you been bothered by any of the following problems? Question Answer Date of Assessment Author Little interest or pleasure in doing things Not at all 06/06/2023 11:02 AM Maria Luz Alejandro M A Feeling down, depressed, or hopeless Not at all 06/06/2023 11:02 AM Maria Luz Alejandro M A Trouble falling or staying asleep, or sleeping too much Not at all 06/06/2023 11:02 AM Maria Luz Alejandro MA Feeling tired or having edgar le energy Not at all 06/06/2023 11:02 AM Maria Luz Alejandro M A Poor appetite or overeating Not at all 06/06/2023 11 :02 AM Maria Luz Alejandro MA Feeling bad about yourself - or that you are a failure or have let yourself or your family down Not at all 06/06/2023 11:02 AM Maria Luz Lockwood [place] Trouble concentrating on thi ngs, such as reading the newspaper or watching television Not at all 06/06/2023 11:02 AM Maria Luz Alejandro M A Moving or speaking so slowly that other people could have noticed? Or the opposite - being so fidgety or restless that you have been moving around a lot more than usual. Not at all 06/06/2023 11:02 AM Maria Luz Alejandro M A Thoughts that you would be better off or hurting yourself in some way Not at all 06/06/2023 11:02 AM Maria Luz Alejandro MA Patient Health Questionnaire -9 Score 0 06/06/2023 11:02 AM Maria Luz Alejandro M A documented as of this encounter Plan of Treatment Upcoming Encounters Date Type Department Care Team (Late st Contact Info) Description 07/24/2025 1:00 PM EDT Office Visit [facility] OPTOMETRY [address] [place] [address] Tamera Cummings, OD [address] [place] [address] documented as of this encounter Visit Diagnoses Not on filedocumented in this encounter Care Teams Bank Clerk Relationship Specialty Start Date End Date Petra Rico MD [address] [place] [phone] PCP - General Family Medicine 08/12/15 Brianne Ivory, DagoD [address] [place] [phone] Pharmacist Internal Medicine 08/13/23 Tamera Cummings OD [address] [place] [address] Optometry 09/30/24 Dana Angel [address] [place] [address] Sleep Medicine 10/13/24 Josi Bojorquez [address] [place] [phone] Gastroenterology 11/04/24 [facility] [address] [place] [address] Gynecology 06/02/25 documented as of this encounter
--- OUTSIDE RECORDS SUMMARY | 2025-06-11 17:47 | XMS_ITS | Encounter Summary ---
Author Organization [facility] Address [address] [place] [phone] Phone Care Team Providers Care Glaze Wiper Name Role Phone Petra Rico MD Primary Care [facility] Encounter Details Date Type Department Care Team (Late st Contact Info) Description 07/13/2021 Procedure Pass OR Admitting Dept - Virtual Department [address] [place] [phone] Social History Tobacco Use Types Packs/Day Years [...] EDT Appointment [facility] [place], OB Ultrasound [address] [place] [address] Rose Damon MD [address] [facility], [address] [place] [address] [email or web address] 07/23/2025 Procedure Pass OR Admitting Dept - Virtual Department [address] [place] [address] 07/23/2025 7:30 AM EDT Hospital Encounter OR Admitting Dept - Virtual Department [address] [place] [phone] Rose Damon MD [address] [place] [address], [address] [address] [email or web address] 07/23/2025 7:30 AM EDT - 07/23/2025 9:47 AM EDT Surgery OR Admitting Dept - Virtual Department [address] [place] [address] Rose Damon MD [address] [place] [address], [address] [email or web address] LAPAROSCOPIC HYSTERECTOMY TOTAL WITH BILATERAL SALPINGECTOMY Scheduled Procedures Name Priority Associated Diagnoses Date/Ti me LAPAROSCOPIC HYSTERECTOMY TO RISHI WITH BILATERAL SALPINGECTOMY Gender dysphoria 07/23/2025 7:30 AM EDT documented as of this encounter Visit Diagnoses Not on filedocumented in this encounter Care Teams Glaze Wiper Relationship Specialty Start Date End Date Trisha, Petra Del Cid MD [address] [place] [phone] PCP - General 07/26/17 documented as of this encounter Additional Source Comments The information contained in this document represents components of the legal health record. It is not the complete legal health record.[facility]
--- OUTSIDE RECORDS SUMMARY | 2025-06-11 17:47 | XMS_ITS | Encounter Summary ---
Author Organization [employer] Address [address] [place] [address] 7 [place] [address] Care Team Providers Care Model Home Sales Greeter Name Role Phone Petra Rico MD Primary Care Provider [phone] Brianne Ivory PharmD Unavailable [phone] Tamera Cummings OD Unavailable Dana Angel Unavailable Josi Bojorquez Unavailable Rose Damon Unavailable Reason for Visit * Reason Comments Med Refill Encounter Details Date Type Department Care Team (Late st Contact Info) Description 08/07/2024 Refill [facility] MEDICINE [address] [place], [place] [phone] Petra Rico MD [address] [place], [place] [phone] Mixed anxiety and depressive disorder Social History [...] Description 07/24/2025 1:00 PM EDT Office Visit [facility] OPTOMETRY [address] [place] [address] Emiliano, Tamera, OD [address] [place] [address] documented as of this encounter Goals Goal [...] documented as of this encounter Care Teams Model Home Sales Greeter Relationship Specialty Start Date End Date Petra Rico MD [address] [place] [address] PCP - General Family Medicine 08/12/15 Brianne Ivory, Balaji [address] [place] [address] Pharmacist Internal Medicine 08/13/23 Tamera Cummings OD [address] [place] [address] Optometry 09/30/24 Dana Angel [address] [phone] Sleep Medicine 10/13/24 Josi Bojorquez [address] [address] Gastroenterology 11/04/24 [facility] [address] [place] [address] Gynecology 06/02/25 documented as of this encounter
--- OUTSIDE RECORDS SUMMARY | 2025-06-11 17:47 | XMS_ITS | Encounter Summary ---
Author Organization [employer] Address [address] [place] [address] 7t [place] [address] Care Team Providers Care Semiautomatic Stitcher Operator Name Role Phone Petra Rico MD Primary Care Provider [phone]- [phone] Brianne Ivory PharmD Unavailable [phone] Tamera Cummings OD Unavailable Dana Angel Unavailable Josi Bojorquez Unavailable Rose Damon Unavailable Encounter Details Date Type Department Care Team (Late st Contact Info) Description 06/11/2025 Telephone [facility] [address] [place], [place] [phone] Petra Rico MD 230 [place], [place] [phone] Social History Tobacco Use Types Packs/Day Years [...] encounter Miscellaneous Notes * Telephone Encounter - Katey Rossi RN - 06/11/2025 2:24 PM EDT Return call placed to the pt to inform that PCP placed an order for a urinalysis with reflex to culture. The pt was advised to present to the [facility] first floor to have the testing performed and that the order is in the pt chart. Pt stated understanding and had no further questions or concerns at thistime. * Telephone Encounter - Radha Cassidy RN - 06/11/2025 1:04 PM EDT Called pt. RE: incoming pt. Portal message. Pt. States that he is not on an antibiotic but, is still having, pain, pressure and frequent urination. Urinalysis showed on 06/09/25- Slight Leukocytes 1+ and Urine culture came back with 10,000-50,000 mixed bacterial abida suggesting contamination. Pt. States he does Not have a fever and does not have any concerns about STI. Pt. Is wondering next step? Should pt. Re-do Urine culture. Please advise. Will send this note to PCP to advise and green team nurses. Pt. Requesting call back today. documented in this encounter Plan of Treatment Upcoming Encounters Date Type Department Care Team (Late st Contact Info) Description 07/24/2025 1:00 PM EDT Office Visit [facility] [address] [place] [address] Tamera Cummings, OD 230 [place] [address] documented as of this encounter Goals Goal Patient Goal Type Associated Problems Recent Progress Patient-Stated? Author Blood Pressure < 140/90 Blood Pressure 133/95( 025 3:46 PM EDT) No Biranne Katz PharmD documented as of this encounter Visit Diagnoses Not on filedocumented in this encounter Additional Health Concerns Assessment Noted Time PHQ-9 Depression Total Score: 8 04/30/ 25 9:10 AM EDT documented as of this encounter Care Teams Semiautomatic Stitcher Operator Relationship Specialty Start Date End Date Petra Rioc MD 230 [place] [address] PCP - General Family Medicine 08/12/15 Brianne Ivory, DagoD [address] [place] [address] Pharmacist Internal Medicine 08/13/23 Tamera Cummings, OD [address] [place] [address] Optometry 09/30/24 Dana Angel [address] [address] Sleep Medicine 10/13/24 Josi Bojorquez [address] [facility] [address] [place] [address] Gastroenterology 11/04/24 Rose [facility] [address] [place] [address] Gynecology 06/02/25 documented as of this encounter
--- OUTSIDE RECORDS SUMMARY | 2025-06-11 17:47 | XMS_ITS | Encounter Summary ---
Author Organization [employer] Address [address] [facility] 7t [place] [address] Care Team Providers Care Shrimp Peeling Machine Operator Name Role Phone Petra Rico MD Primary Care Provider + [phone] Brianne Ivory PharmD Unavailable Tamera Cummings OD Unavailable [phone] Dana Angel Unavailable [phone] Josi Bojorquez Unavailable Rose Damon Unavailable Encounter Details Date Type Department Care Team (Latest Contact Info) Description 06/11/2025 Travel Social History Tobacco Use Types Packs/Day [...] Description 07/24/2025 1:00 PM EDT Office Visit [facility] [address] [place] [address] Emiliano, Tamera, OD 230 [place] [address] documented as of this encounter Goals Goal [...] documented as of this encounter Care Teams Shrimp Peeling Machine Operator Relationship Specialty Start Date End Date Petra Rico MD 230 [place] [address] PCP - General Family Medicine 08/12/15 Brianne Ivory, Balaji [address] [place] [phone] Pharmacist Internal Medicine 08/13/23 Tamera Cummings OD [address] [place] [address] Optometry 09/30/24 Dana Angel [address] [address] Sleep Medicine 10/13/24 Josi Bojorquez [address] [address] Gastroenterology 11/04/24 [facility] 22 [place] [address] Gynecology 06/02/25 documented as of this encounter
--- OUTSIDE RECORDS SUMMARY | 2025-06-11 17:47 | XMS_ITS | Encounter Summary ---
Author Organization [employer] Address [address] [facility] 7t [place] [address] Care Team Providers Care Civil Cad Designer Name Role Phone Petra Rico MD Primary Care Provider [phone]- [phone] Brianne Ivory PharmD Unavailable Tamera Cummings OD Unavailable [phone] Dana Angel Unavailable Josi Bojorquez Unavailable Rose Damon Unavailable Encounter Details Date Type Department Care Team (Late st Contact Info) Description 06/11/2025 Orders Only [facility] 230 [place], [place] [phone] Petra Rico MD 230 [place], [place] [phone] Dysuria (Primary Dx) Social History Tobacco Use Types Packs/Day Years [...] Description 07/24/2025 1:00 PM EDT Office Visit [facility] [address] [place] [address] Emiliano, Tamera, OD [address] [place] [address] Scheduled Orders Name Type Priority Associated Diagnoses Orde r Schedule Urinalysis, Complete, with Reflex to Culture Lab Routine Dysuria Expected: 06/11/2025 (Approximate), Expires: 06/11/2026 documented as of this encounter Goals Goal Patient Goal Type Associated Problems Recent Progress Patient-Stated? Author Blood Pressure < 140/90 Blood Pressure 133/95( 025 3:46 PM EDT) No Brianne Katz PharmD documented as of this encounter Visit Diagnoses Diagnosis Dysuria- Primary documented in this encounter Additional Health Concerns Assessment Noted Time PHQ-9 Depression Total Score: 8 04/30/20 25 9:10 AM EDT documented as of this encounter Care Teams Civil Cad Designer Relationship Specialty Start Date End Date Petra Rico MD [address] [place] [address] PCP - General Family Medicine 08/12/15 Brianne Ivory, DagoD [address] [place] [address] Pharmacist Internal Medicine 08/13/23 Tamera Cummings OD [address] [place] [address] Optometry 09/30/24 Dana Angel [address] [place] [address] Sleep Medicine 10/13/[address] [place] [address] Gastroenterology 11/04/24 [facility] [address] [place] [address] Gynecology 06/02/25 documented as of this encounter
--- OUTSIDE RECORDS SUMMARY | 2025-06-11 17:47 | XMS_ITS | Encounter Summary ---
Author Organization [employer] Address [address] [place] [address] 7 [place] [address] Care Team Providers Care Customer Service Supervisor Name Role Phone Petra Rico MD Primary Care Provider [phone]- [phone] Brianne Ivory PharmD Unavailable [phone] Tamera Cummings OD Unavailable Dana Angel Unavailable Josi Bojorquez Unavailable Rose Damon Unavailable Encounter Details Date Type Department Care Team (Late st Contact Info) Description 10/19/2022 Telephone [facility] 230 [place], [place] [phone] Petra Rico MD 230 [place], [place] [phone] Social History Tobacco Use Types Packs/Day Years [...] 1:00 PM EDT Office Visit [facility] [address] [place], [place] [phone] Tamera Cummings, OD 230 [place] [address] documented as of this encounter Visit Diagnoses Diagnosis Gender dysphoria- Primary documented in this encounter Care Teams Customer Service Supervisor Relationship Specialty Start Date End Date Petra Rico MD 230 [place] [address] PCP - General Family Medicine 08/12/15 Brianne Ivory, DagoD 230 [place] [address] Pharmacist Internal Medicine 08/13/23 Tamera Cummings, HILDA [address] [place] [address] Optometry 09/30/24 Dana Angel [address] [place] [address] Sleep Medicine 10/13/24 Josi Bojorquez [address] [place] [address] Gastroenterology 11/04/24 [facility] [address] [place] [address] Gynecology 06/02/25 documented as of this encounter
--- OUTSIDE RECORDS SUMMARY | 2025-06-11 17:47 | XMS_ITS | Encounter Summary ---
Author Organization [employer] Address [address] [facility] 7t [place] [address] Care Team Providers Care Labeling Machine Operator Name Role Phone Petra Rico MD Primary Care Provider [phone] Brianne Ivory PharmD Unavailable Tamera Cummings OD Unavailable Dana Angel Unavailable Josi Bojorquez Unavailable Rose Damon Unavailable Encounter Details Date Type Department Care Team (Late st Contact Info) Description 04/23/2024 Orders Only [facility] 230 [place], [place] [phone] Petra Rico MD 230 [place], [place] [phone] Social History Tobacco Use Types Packs/Day Years [...] Description 07/24/2025 1:00 PM EDT Office Visit [facility] [address] [place] [address] Emiliano, Tamera, OD [address] [place] [address] documented as of this encounter Goals Goal Patient Goal Type Associated Problems Recent Progress Patient-Stated? Author Blood Pressure < 140/90 Blood Pressure 133/95( 025 3:46 PM EDT) No Piers-Gambl eBrianne, PharmD documented as of this encounter Visit Diagnoses Not on filedocumented in this encounter Additional Health Concerns Assessment Noted Time PHQ-9 Depression Total Score: 0 10/24/19 24 3:14 PM EST documented as of this encounter Care Teams Labeling Machine Operator Relationship Specialty Start Date End Date Petra Rico MD 230 [place] [address] PCP - General Family Medicine 08/12/15 Brianne Ivory PharmD 230 [place] [address] Pharmacist Internal Medicine 08/13/23 Tamera Cummings OD [address] [place] [address] Optometry 09/30/24 Dana Angel [address] [place] [address] Sleep Medicine 10/13/24 Josi Bojoqruez [address] [place] [address] Gastroenterology 11/04/24 [facility] [address] [place] [address] Gynecology 06/02/25 documented as of this encounter
[2025-06-11 18:31] LABS: Appearance Urine Clear; Glucose Urine UA Negative (Negative); PH 7.0 (5.0-9.0); Specific Gravity - Urine <= 1.005 (1.005-1.025)
[2025-06-11 23:48] LABS: CT PCR Urine NOT DETECTED (Not Detect.); NG PCR Urine NOT DETECTED (Not Detect.)
== END 2025-06-11 17:43 | disposition home or self-care (01) ==
LOC: HO.HHCLNP 17:42
PROVIDERS: Visit Provider Family Medicine
DX: Z11.4 Encounter for screening for human immunodeficiency virus [HIV] (principal); Z11.8 Encounter for screening for other infectious and parasitic diseases; R35.0 Frequency of micturition; N39.0 Urinary tract infection, site not specified
CPT/HCPCS: 81001; 87491; 87591

== ENCOUNTER → 2025-06-22 12:34 | Outpatient (REF) | payer MEDICAID, SELFPAY ==
--- OUTSIDE RECORDS SUMMARY | 2025-06-22 17:15 | XMS_ITS | Encounter Summary ---
Author Organization [employer] Address [address] [place] [address] 7t [place] [address] Care Team Providers Care Putaway Driver Name Role Phone Petra Rico MD Primary Care Provider [phone]- [phone] Brianne Ivory PharmD Unavailable Tamera Cummings OD Unavailable Dana Angel Unavailable Josi Bojorquez Unavailable Rose Damon Unavailable Encounter Details Date Type Department Care Team (Late st Contact Info) Description 09/17/2024 Orders Only [facility] 230 [place], [place] [phone] Petra Rico MD 230 [place], [place] [phone] Social History Tobacco Use Types Packs/Day Years [...] Description 07/24/2025 1:00 PM EDT Office Visit [facility] [address] [place] [address] Tamera Cummings, OD [address] [place] [address] documented as of this encounter Goals Goal [...] documented as of this encounter Care Teams Putaway Driver Relationship Specialty Start Date End Date Petra Rico MD 230 [place] [address] PCP - General Family Medicine 08/12/15 Brianne Ivory PharmD 230 [place] [address] Pharmacist Internal Medicine 08/13/23 Tamera Cummings OD [address] [place] [address] Optometry 09/30/24 Dana Angel [address] [address] Sleep Medicine 10/13/24 Josi Bojorquez [address] [address] Gastroenterology 11/04/24 [facility] 22 [place] [address] Gynecology 06/02/25 documented as of this encounter
--- OUTSIDE RECORDS SUMMARY | 2025-06-22 17:15 | XMS_ITS | Encounter Summary ---
Author Organization [employer] Address [address] [place] [address] 7 [place] [address] Care Team Providers Care Graphic Art Designer Name Role Phone Petra Rico MD Primary Care Provider [phone]- [phone] Brianne Ivory PharmD Unavailable Tamera Cummings OD Unavailable [phone] Dana Angel Unavailable RenoJosi gooden Unavailable Rose Damon Unavailable Encounter Details Date Type Department Care Team (Late st Contact Info) Description 04/30/2025 Results Follow-Up [facility] 230 [place] [address] Petra Rico MD 230 [place], [place] [phone] CBC, Hepatic Function Panel, Lipid Panel, Standard, [...] Description 07/24/2025 1:00 PM EDT Office Visit [facility] [address] [place] [address] Tamera Cummings, OD [address] [place] [address] documented as of this encounter Goals Goal [...] documented as of this encounter Care Teams Graphic Art Designer Relationship Specialty Start Date End Date Petra Rico MD 230 [place] [address] PCP - General Family Medicine 08/12/15 Brianne Ivory, PharmD 230 [place] [address] Pharmacist Internal Medicine 08/13/23 Tamera Cummings OD [address] [place] [address] Optometry 09/30/24 Dana Angel [address] [place] [address] Sleep Medicine 10/13/24 Josi Bojorquez [address] [place] [address] Gastroenterology 11/04/24 [facility] [address] [place] [address] Gynecology 06/02/25 documented as of this encounter
--- OUTSIDE RECORDS SUMMARY | 2025-06-22 17:16 | XMS_ITS | Clinical Summary ---
Author Organization [employer] Address [address] [place] [address] [address] [place] [address] Care Team Providers Care Plasterer Apprentice Name Role Phone Petra Rico MD Primary Care Provider [phone] Brianne Ivory PharmD Unavailable [phone] Tamera [...] 4 mL 04/30/20 Active Sharps Container (Sharps Procedure Tech) miscIndication s:Gender dysphoria 1 each if needed each day (for used needles). Dispose used sharps into container. 1 each 2 04/30/20 Active docusate sodium (Colace) 100 MG capsule [...] each day (constipation). 527 g 1 06/11/20 25 026 Active ondansetron (Zofran) 4 MG tablet Take 1 tablet (4 mg) by mouth every 8 (eight) hours if needed for nausea or vomiting. 12 tablet 06/11/20 026 Active sulfamethoxazo le-trimethopri m (Bactrim DS) 800-160 MG tablet Take 1 tablet by mouth 2 times daily for 5 days. 10 tablet 06/11/20 25 025 Active Problems Patient Care Coordination No te Formatting of this note migh t be different from the original. Enrolled in [facility]N clinic with Brianne Ivory PharmD Problem [...] started on an estrogen vaginal cream by [employer]. Denies any dysuria, denies any discharge, denies [...] considered to be 1.7 or 2.4 mg care home. -follow up 6 weeks -07/24/24 has not [...] considered to be 1.7 or 2.4 mg care home. -follow up 6 weeks SONU (obstructive sleep apnea) 12/11/2023 Overview (04/08/2025): -Followed at [facility] with Candida Burns CNP . Seen 12/10/23 [...] Family planning 06/06/2023 Overview (09/30/2024): -referred to [employer] 05/29/24 Assessment & Plan (05/29/2024 11:45 AM [...] considered to be 1.7 or 2.4 mg care home. -follow up 6 weeks Assessment & Plan [...] due after 10/13/25 -eye care facilitated by [facility] in [place] -dental home is [facility] in [place]. -healthcare proxy paperwork filed 10/29/23 Assessment & Plan (04/25/2024 9:31 AM EDT): -next physical exam due after 10/24/2024 -eye care facilitated by [facility] in [place] -dental home is [facility] in [place]. -healthcare proxy paperwork given 10/24/2023 Assessment & [...] 112 (H) 05/29/2024 -continue lifestyle modification -prescribed [place]-3 500 mg, discussed to continue 07/24/24 and [...] 122 (H) 04/25/2024 -continue lifestyle modification -prescribed [place]-3 500 mg, discussed to continue 07/24/24 and [...] 149 (H) 06/06/2023 -continue lifestyle modification -prescribed [place]-3 500 mg, discussed to continue 07/24/24 and [...] levels 350-700ng/dl. -interested in hysterectomy, referred to [facility] 04/29/25, seen 05/2025 We reviewed the [...] 350-700ng/dl. -interested in hysterectomy, referred to [facility] 04/29/25 Assessment & Plan (04/30/2025 10:42 AM [...] with intercourse. -interested in hysterectomy, referred to [facility] 04/29/25 Orders: CBC; Future Testosterone, Total, males (Adult), [place]; Future Hemoglobin A1c; Future testosterone cypionate (Depo-Testosterone) 200 MG/ML injection; INJECT 0.5ML INTRAMUSCULARLY EVERY 2 WEEKS, SINGLE USE VIAL Sharps Container (Sharps Procedure Tech) misc; 1 each if needed each day [...] -Advise to monitor and come back to [facility] if worsening or new lesion shows up. Elevated liver enzymes 05/19/202205/29 Encounters Date Type Department Care Team Description 06/11/2025 4:00 PM EDT Office Visit [facility] [address] [place] [phone] Fátima Paredes DO Acute UTI (Primary Dx); Acute constipation 06/11/2025 Travel 06/11/2025 Orders Only [facility] [address] [place] [phone] Petra Rico MD Dysuria (Primary Dx) 06/11/2025 Telephone [facility] [address] [place] [phone] Petra Rico MD 06/09/2025 2:40 PM EDT Office Visit [facility] [address] [phone] Brian Garner MD Frequent urination 06/09/2025 Travel 06/03/2025 Telephone [facility] [address] [place] [phone] Zulay Cornejo, KAREN 05/07/2025 11:15 AM EDT Office Visit [address] [phone] Petra Rico MD Gender dysphoria (Primary Dx); Phlegm in throat 05/07/2025 Travel 05/06/[address] [address] Petra Rico MD CHART PREP 05/04/2025 Travel 05/04/2025 Telephone [facility] [address] [place] [phone] Petra Rico MD ER Follow-up; Nurse Triage 04/30/2025 9:15 AM EDT Office Visit [facility] [address] [place] [phone] Petra Rico MD Dyslipidemia (Primary Dx); Primary hypertension; Gender dysphoria; Vaginismus; Overweight with body mass index (BMI) of 25 to 25.9 in adult; Dietary counseling; Exercise counseling; Vitamin D deficiency 04/30/2025 Results Follow-Up [facility] [address] [place] [phone] Petra Rico MD CBC, Hepatic Function Panel, Lipid Panel, Standard, Additional followed-up results: 3 04/30/2025 Orders Only GENERIC EXTERNAL DATA DEPARTMENT Provider, Generic External Data 04/30/2025 Travel 04/29/2025 Telephone [facility] [address] [place] [phone] Benea Jimenes [place] 04/29/2025 Travel 04/28/2025 Refill [facility] [address] [place] [phone] Petra Rico MD Gender dysphoria 04/01/[address] [address] Petra Rico MD Gender dysphoria from Last [...] Description 07/24/2025 1:00 PM EDT Office Visit [facility] [address] [place] [address] Tamera Cummings, OD [address] [place] [address] Health Maintenance Due Date Last Done Comments [...] Routine 06/11/2025 4:02 PM EDT Acute UTI CHLAMYDIA/TRICHOMON /NEISSERIA GONORRHOEAE, PCR, URINE Routine 06/11/2025 3:50 PM EDT Acute UTI URINALYSIS, COMPLETE, WITH REFLEX TO CULTURE Routine 06/11/2025 3:50 PM EDT Acute UTI URINALYSIS, COMPLETE, WITH [...] Media Lot # [id number] Lot# Expiration Date 640,026 Urine 06/11/2025 4:02 PM EDT Fátima Paredes [...] Media Lot # [id number] Lot# Expiration Date Urine 06/11/2025 4:02 PM EDT Fátima Reggie ABURTO POINT OF CARE TEST ENTER/KIARA T ORDERABLES Final Result * Chlamydia/N. Gonorrhoeae, PCR, Urine (06/11/2025 3:50 PM EDT) CT PCR, Urine NOT DETECTED Not Detect. [facility] Comment:A not detected test result does not exclude the possibilityof infection because test results can be affected byimproper specimen collection, concurrent antibiotic therapy,or the number of organisms in the specimen which may bebelow the sensitivity of the test. As with many diagnostictests, results from the Xpert CT/NG assay should beinterpreted in conjunction with other laboratory andclinical data available to the clinician.The Xpert CT/NG assay should not be used for the evaluationof suspected sexual abuse or for other medico-legalindications. Additional testing is recommended in anycircumstance when false positive or false negative resultscould lead to adverse medical, social or psychologicalconsequences. NG PCR, Urine NOT DETECTED Not Detect. [facility] Comment:A not detected test result does not exclude the possibilityof infection because test results can be affected byimproper specimen collection, concurrent antibiotic therapy,or the number of organisms in the specimen which may bebelow the sensitivity of the test. As with many diagnostictests, results from the Xpert CT/NG assay should beinterpreted in conjunction with other laboratory andclinical data available to the clinician.The Xpert CT/NG assay should not be used for the evaluationof suspected sexual abuse or for other medico-legalindications. Additional testing is recommended in anycircumstance when false positive or false negative resultscould lead to adverse medical, social or psychologicalconsequences. Urine (Urine, Random) 06/11/2025 3:50 PM EDT 06/11/2025 5:44 PM EDT us Fátima Paredes DO LAB URINE ORDERABLES Final R esult [facility] [address] [place] [phone] * Urinalysis, Complete, with Reflex to Culture (06/11/2025 3:50 PM EDT) Only the most recent of2 resultswithin the time period is included. Color Urine Yellow [facility] Appearance Urine Clear [facility] PH 7.0 5.0 - 9.0 [facility] Glucose Urine UA Negative Negative mg/dL [facility] Urine Blood Negative Negative [facility] Specific [place] - Urine <=1.005 1.005 - 1.025 [facility] Urine Protein Negative Neg-Trace mg/dL [facility] Urine Ketones Trace Negative mg/dL [facility] Nitrite Urine Negative Negative [facility] Leukocyte Esterase Urine Negative Negative [facility] RBC Urine 0-2 0 - 2 /HPF [facility] Urine WBC 0-5 0 - 5 /HPF [facility] Urine Squamous Epithelial Cell 0-2 0 - 2 /HPF [facility] Urine Bacteria None Seen None Seen [facility] Hyaline Casts, Urine 0-2 0 - 2 /LPF [facility] Urine 06/11/2025 3:50 PM EDT 06/11/2025 5:44 PM EDT Narrative [facility] - 06/11/2025 6:35 PM EDT Urine, Clean Catch us Fátima Paredes DO LAB URINE ORDERABLES Final R esult Performing Organization Address [facility] Co de Phone Number [facility] [address] [place] [phone] * Culture, Urine, Routine (06/09/2025 3:12 PM EDT) Urine Urine specimen obtained by clean catch procedure / Unknown 06/09/2025 3:12 PM EDT 06/09/2025 5:28 PM EDT Comment:UACC Narrative [facility] - 06/11/2025 11:23 AM EDT Urine Culture Report Result Urine Culture 10,000 to 50,000 cfu/ml Urine Culture Mixed bacterial abida characteristic of Urine Culture urogenital contamination. Specimen Source: Urine clean catch Brian Tidwell MD LAB MICROBIOLOGY - GE NERAL ORDERABLES Final Result Performing Organization Address [facility] Co de Phone Number [facility] [address] [place] [phone] * VITAMIN D 25-OH (D2 AND D3) (04/30/2025 10:06 AM EDT) Vitamin D, 25-OH, D2 <4 ng/mL [facility] Comment:This test was develo ped and its analytical performancecharacteristics have been determined by [facility] [place], [place]. It hasnot been cleared or approved by the U.S. Food and DrugAdministration. This assay has been validated pursuantto the CLIA regulations and is used for clinicalpurposes.THIS TEST WAS PERFORMED AT:[facility] ([place] [place] [address]DUYGZHWJUANJOSE CORADO MD,PHD Vitamin D, 25-OH, D3 30 ng/mL [facility] Comment:This test was develo ped and its analytical performancecharacteristics have been determined by [facility] [place], [place]. It hasnot been cleared or approved by the U.S. Food and DrugAdministration. This assay has been validated pursuantto the CLIA regulations and is used for clinicalpurposes. Vitamin D, 25-OH, Total 30 30 - 100 ng/mL [facility] Comment:Vitamin D, 25-Hydrox y reports concentrations [...] = 30 ng/mL.For additional information, please refer tohttp://education.Moreix/faq/UAC608(This link is being provided for informational/educational purposes only.) 04/30/2025 10:0 6 AM EDT 04/30/2025 11:18 AM EDT us Generic External Data Provider LAB BLOOD ORDERAB LES Final Result [facility] [address] [place] [phone] * Vitamin D, 25-Hydroxy, Total, Immunoassay (04/30/2025 10:06 AM EDT) Vitamin D 25-OH Total 32.5 >30 ng/mL [facility] Comment: Health Based Reference Values*< 20 ng/mL Vcpnbyejw51-50 ng/mL Insufficient> 30 ng/mL Sufficient*Ashlee GREGORIO. N [...] BLOOD ORDERABLES Final Result Performing Organization Address [facility] Co de Phone Number [facility] [address] [place] [phone] * DNA (ds) Antibody (04/30/2025 10:06 AM EDT) Pathologist [facility] Anti DNA DS Antibody 1 IU/mL [facility] Comment:IU/mL Interpretation < or = 4 Negative 5-9 Indeterminate > or = 10 PositiveTHIS TEST WAS PERFORMED AT:[facility] ([place]) [address] [phone] ROSSI MD 04/30/2025 10:0 6 AM EDT 04/30/2025 11:18 AM EDT Generic External Data Provider LAB BLOOD ORDERAB LES Final Result Performing Organization Address [facility] Co de Phone Number [facility] [address] [place] [address] [phone] * Sed Rate by Aleta Chowdhury (04/30/2025 10:06 AM EDT) Erythrocyte Sedimentation Rate 7 0 - 20 MM/HR [facility] Comment:Patients with polycy themia and many hemoglobin abnormalitiesmay have depressed sed rates whereas patients with anemiamay have elevated sed rates. 04/30/2025 10:0 6 AM EDT 04/30/2025 11:18 AM EDT us Generic External Data Provider LAB BLOOD ORDERAB LES Final Result Performing Organization Address City/[facility]/ZIP Co de Phone Number [facility] [address] [place] [address] [phone] * CBC (04/30/2025 10:06 AM EDT) White Blood Count 7.7 4.8 - 10.8 X10*3/uL [facility] Red Blood Count 5.11 4.20 - 5.50 X10*6/uL [facility] Hemoglobin 15.6 12.0 - 16.0 g/dl [facility] Hematocrit 45.3 37.0 - 47.0 % [facility] Mean Corpuscular Volume 88.6 80.0 - 98.0 fL [facility] Mean Corpuscular Hemoglobin 30.5 27.0 - 33.0 pg [facility] Mean Corpuscular HGB Conc 34.4 31.0 - 35.0 g/dl [facility] Red Cell Distribution Width 11.9 11.0 - 16.0 % [facility] Platelet Count 270 160 - 400 X10*3/uL [facility] Mean Platelet Volume 9.5 9.4 - 12.3 fL [facility] NRBC Pct Auto 0.0 0.0 - 0.2 /100WBC [facility] NRBC Abs Auto 0.000 0.0 - 0.012 X10*3/uL [facility] Blood Venous blood specimen / Unknown 04/30/2025 10:06 AM EDT 04/30/2025 11:18 AM EDT us Petra Rico MD LAB BLOOD ORDERABLES Final Result Performing Organization Address [facility]/ZIP Co de Phone Number [facility] [address] [place] [address] [phone] * Complement Component C3c (04/30/2025 10:06 AM EDT) Complement C3 161 83 - 193 mg/dL [facility] Comment:THIS TEST WAS PERFOR MED AT:[facility] [place] [phone] ROSSI MD 04/30/2025 10:0 6 AM EDT 04/30/2025 11:18 AM EDT us Generic External Data Provider LAB BLOOD ORDERAB LES Final Result Performing Organization Address [facility]/ZIP Co de Phone Number [facility] [address] [place] [phone] * Complement Component C4c (04/30/2025 10:06 AM EDT) Complement C4 23 15 - 57 mg/dL [facility] Comment:THIS TEST WAS PERFOR MED AT:[facility] ([place]) [address] [phone] ROSSI MD 04/30/2025 10:0 6 AM EDT 04/30/2025 11:18 AM EDT us Generic External Data Provider LAB BLOOD ORDERAB LES Final Result Performing Organization Address [facility] Co de Phone Number [facility] [address] [place] [phone] * C-reactive Protein (04/30/2025 10:06 AM EDT) C Reactive Protein 0.17 < or = 0.50 mg/dL [facility] 04/30/2025 10:0 6 AM EDT 04/30/2025 11:18 AM EDT us Generic External Data Provider LAB BLOOD ORDERAB LES Final Result Performing Organization Address City/[facility]/ZIP Co de Phone Number [facility] [address] [place] [phone] * (ABNORMAL) NATHAN Screen,IFA, with Reflex to Titer and Pattern (04/30/2025 10:06 AM EDT) Anti Nuclear Antibody Screen POSITIVE (A) NEGATIVE [facility] Comment:NATHAN IFA is a first l ine screen for detecting thepresence of up to approximately 150 autoantibodies invarious autoimmune diseases. A positive NATHAN IFA resultis suggestive of autoimmune disease and reflexes totiter and pattern. Further laboratory testing may beconsidered if clinically indicated.For additional information, please refer tohttp://education.Moreix/faq/BJD584(This link is being provided for informational/educational purposes only.) NATHAN Titer 1:80(A) titer [facility] Comment:A low level NATHAN tite r may be present in pre-clinicalautoimmune diseases and normal individuals. Reference Range <1:40 Negative 1:40-1:80 Low Antibody Level >1:80 Elevated Antibody Level NATHAN Pattern (A) [facility] Comment:Nuclear, Dense Fine Speckled Abnormal Flag: ADense fine speckled pattern is seen in normalindividuals and rarely associated with systemic lupuserythematosis (SLE), Sjogren's syndrome and systemicsclerosis.AC-2: Dense Fine SpeckledInternational Consensus on NATHAN Patterns(https://doi.org/10.1515/czyn-5415-9172)THIS TEST WAS PERFORMED AT:[facility] [place] [phone] ROSSI MD NATHAN TITER 2 (REF LAB) [facility] NATHAN Pattern 2 [facility] NATHAN TITER 3 [facility] NATHAN PATTERN 3 [facility] 04/30/2025 10:0 6 AM EDT 04/30/2025 11:18 AM EDT us Generic External Data Provider LAB BLOOD ORDERAB LES Final Result [facility] [address] [place] [address] [phone] * (ABNORMAL) Testosterone, Total, males (Adult), [place] (04/30/2025 10:06 AM EDT) Testosterone, Total 222(A) 2 - 45 ng/dL [facility] Comment:For additional infor mation, please refer tohttp://education.Rock [employer]/faq/FwbsyHohfwakwecgmMSPYEKOIJ280(This link is being provided for informational/educational purposes only.)This test was developed and its analytical performancecharacteristics have been determined by [facility] [place], [place]. It hasnot been cleared or approved by the U.S. Food and DrugAdministration. This assay has been validated pursuantto the CLIA regulations and is used for clinicalpurposes.THIS TEST WAS PERFORMED AT:[facility] ([place])/[facility] [place] [address]LEXUVUGJUANJOSE CORADO MD,PHD Blood Venous blood specimen / Unknown 04/30/2025 10:06 AM EDT 04/30/2025 11:18 AM EDT Petra Rico MD LAB BLOOD ORDERABLES Final Result [facility] [address] [place] [phone] * Hemoglobin A1c (04/30/2025 10:06 AM EDT) Pathologist [facility] Hemoglobin A1c 4.8 <6.0 % [facility] Comment:Hemoglobin A1C Refer ence Range Adults: 4.8 - 6.0 % Non diabetic: < 6.0 % Goal: < 7.0 %Additional Action Suggested: > 8.0 %Note: Hemoglobin A1c results are invalid for patients with abnormal amounts of HbF. Blood transfusions may impact the HbA1c concentration in the patient sample. Estimated Average Glucose 91 mg/dL [facility] Comment:eAG = Estimated ave rage glucose which is %A1C expressed asaverage glucose, using the formula of the S6M-AymvwunRzhscil Glucose study (ADAG), Diabetes Care, Vol.31,#8,2007 Blood Venous blood specimen / Unknown 04/30/2025 10:06 AM EDT 04/30/2025 11:18 AM EDT Petra Rico MD LAB BLOOD ORDERABLES Final Result Performing Organization Address [facility] Co de Phone Number [facility] [address] [place] [phone] * (ABNORMAL) Hepatic Function Panel (04/30/2025 10:06 AM EDT) Bilirubin, Total 0.7 0.0 - 1.0 mg/dL [facility] Bilirubin, Direct 0.2 0.0 - 0.5 mg/dL [facility] Aspartate Amino Transferase 16 5 - 31 U/L [facility] Alanine Aminotransferase 19 0 - 31 U/L [facility] Total Protein 7.5 6.5 - 8.0 g/dL [facility] Albumin Level 5.1(H) 3.5 - 5.0 g/dL [facility] Alkaline Phosphatase 75 39 - 117 U/L [facility] Blood Venous blood specimen / Unknown 04/30/2025 10:06 AM EDT 04/30/2025 11:18 AM EDT Petra Rico MD LAB BLOOD ORDERABLES Final Result Performing Organization Address City/[facility]/ZIP Co de Phone Number [facility] [address] [place] [phone] * (ABNORMAL) Lipid Panel, Standard (04/30/2025 10:06 AM EDT) Triglycerides 88 <150 mg/dL [facility] Comment:Desirable Triglyceri de: less than 150 mg/dLBorderline High Triglyceride 150-199 mg/dLHigh Triglyceride: 200-499 mg/dLVery High Triglyceride: greater than or equal to 5OO mg/dL Cholesterol 145 <200 mg/dL [facility] Comment:Desirable Cholestero l: less than 200 mg/dLBorderline High Cholesterol: 200-239 mg/dLHigh Cholesterol: greater than 239 mg/dL LDL Cholesterol Calculated 96 <100 mg/dL [facility] Comment:Desirable LDL: less than 100 mg/dLNear Optimal/Above Optimal LDL: 110- 129 mg/dLBorderline High LDL: 130-159 mg/dLHigh LDL: 160-189 mg/dLVery High LDL: greater than or equal to 190 mg/dL HDL Cholesterol 32(L) >40 mg/dL [facility] Comment:Desirable HDL: great er than 40 mg/dL Note: This HDL assay may give artificially low results in patients with liver disease. Blood Venous blood specimen / Unknown 04/30/2025 10:06 AM EDT 04/30/2025 11:18 AM EDT us Petra Rico MD LAB BLOOD ORDERABLES Final Result [facility] [address] [place] [phone] * Basic Metabolic Panel (04/30/2025 10:06 AM EDT) Sodium 141 135 - 145 mmol/L [facility] Potassium 3.9 3.3 - 5.1 mmol/L [facility] Chloride 104 96 - 108 mmol/L [facility] Carbon Dioxide 29 22 - 29 mmol/L [facility] Anion Gap 12 12 - 20 [facility] Urea Nitrogen (BUN) 11 9 - 16 mg/dL [facility] Creatinine, Serum 0.81 0.5 - 1.4 mg/dL [facility] Estimated Glomerular Filt Rate >60 [facility] Comment:Chronic Kidney Disea se: Estimated GFR < 60 mL/min/1.29z0Ibgqqm Kidney Disease: Estimated GFR < 15 mL/min/1.73m2 Glucose 89 60 - 115 mg/dL [facility] Calcium 9.7 8.4 - 10.2 mg/dL [facility] Blood Venous blood specimen / Unknown 04/30/2025 10:06 AM EDT 04/30/2025 11:18 AM EDT Petra Rico MD LAB BLOOD ORDERABLES Final Result Performing Organization Address [facility] Co de Phone Number [facility] [address] [place] [phone] * Hepatitis C Antibody with Reflex to HCV, RNA, Quantitative, Real-Time PCR (05/29/2024 12:00 PM EDT) Hepatitis C Antibody Nonreactive Nonreactive [facility] Comment:Antibodies to HCV no t detected; does not exclude early acuteHCV infection. 05/29/2024 12:0 0 PM EDT 05/29/2024 1:25 PM EDT Petra Rico MD LAB BLOOD ORDERABLES Final Result Performing Organization Address [facility] de Phone Number [facility] [address] [place] [phone] * Pap Smear (11/02/2023 11:41 AM EST) 11/02/2023 11:4 1 AM EST 11/06/2023 8:00 AM EST Narrative [facility] - 11/16/2023 3:18 PM EST ----- ------- Name: Ahsan Kuhn Age/Sex: 23/M : 2000 Unit#: [id number] Attend Dr: Petra Rico MD Re11/02/23 Status: DEP [facility] ----- ------- SPEC : [id number] RECD: 11/06/23 STATUS: [facility] TAM NUM: [id number] AKANKSHA: 11/02/23-[address]: Petra Rico MD ENTERED: 11/06/23 SP TYPE: Pap Smr OTHR DR: ORDERED: Pap Smear Interpretation Unsatisfactory. Scant cellularity. HPV mRNA E6/E7: NOT DETECTED This assay detects E6/E7 viral messenger RNA (mRNA) from 14 high-risk HPV types (16, 18, 31, 33, 35, 39, 45, 51, 52, 56, 58, 59, 66, 68) HPV testing performed by [facility], [place], [place]. See reference laboratory portion of the EMR for entire report. Clinical Information LMP: Pt on testosterone Previous PAP test: None Other history: Difficult to see os Material Received ThinPrep-Cervical ----- ------- Signed (signature on file) CLAY Chavez ([facility]) 11/16/23 1518 ----- ------- END OF REPORT us Petra Rico MD LAB CYTOLOGY ORDERABLES Fi nal Result Performing Organization Address [facility]/ZIP Co de Phone Number [facility] [address] [place] [address] [phone] * HIV Ab/Ag ([facility]) (06/06/2023 12:05 PM EDT) HIV AB/AG Nonreactive Nonreactive [facility] Comment:HIV-1 p24 Ag and/or HIV-1/HIV-2 Ab not detected.A test result that is nonreactive does not exclude thepossibility of exposure to or infection with HIV-1 and/orHIV-2. Nonreactive results in this assay for individualswith prior exposure to HIV-1 and/or HIV-2 may be due toantigen and antibody levels that are below the limit ofdetection of this assay.The [facility] HIV Ag/Ab Combo assay result andsupplemental assay results should be interpreted inconjunction with the patient's clinical presentation,history and other laboratory results. If the results areinconsistent with clinical evidence, additional testing issuggested to confirm the result. 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 Advance Directives and Livin g Will 10/29/2023 Health Care Proxy Care Teams Plasterer Apprentice Relationship Specialty Start Date End Date Trisha, MD Petra [address] [place] [address] PCP - General Family Medicine 08/12/15 Brianne Ivory PharmD [address] [place] [address] Pharmacist Internal Medicine 08/13/23 Tamera Cummings OD [address] [place] [address] Optometry 09/30/[address] [place] [address] Sleep Medicine 10/13/24 Josi Bojorquez [address] [place] [address] Gastroenterology 11/04/24 [facility] [address] [place] [address] Gynecology 06/02/25
--- OUTSIDE RECORDS SUMMARY | 2025-06-22 17:16 | XMS_ITS | Encounter Summary ---
Author Organization [employer] Address [address] [place] [address] 7 [place] [address] Care Team Providers Care Poem Writer Name Role Phone Petra Rico MD Primary Care Provider [phone] Brianne Ivory PharmD Unavailable [phone] Tamera Cummings OD Unavailable Dana Angel Unavailable [phone] Josi Bojorquez Unavailable Rose Damon Unavailable Encounter Details Date Type Department Care Team (Late st Contact Info) Description 06/05/2023 Abstract [facility] MEDICINE [address] [place], [place] [phone] Petra Rico MD [address] [place], [place] [phone] Social History Tobacco Use Types Packs/Day Years [...] Description 07/24/2025 1:00 PM EDT Office Visit [facility] OPTOMETRY [address] [place] [address] Tamera Cummings, OD [address] [place] [address] documented as of this encounter Visit Diagnoses Not on filedocumented in this encounter Care Teams Poem Writer Relationship Specialty Start Date End Date Petra Rico MD [address] [place] [address] PCP - General Family Medicine 08/12/15 Brianne Ivory, DagoD [address] [place] [address] Pharmacist Internal Medicine 08/13/23 Tamera Cummings OD [address] [place] [address] Optometry 09/30/24 Dana Angel [address] [place] [address] Sleep Medicine 10/13/24 Josi Bojorquez [address] [place] [address] Gastroenterology 11/04/24 [facility] [address] [place] [address] Gynecology 06/02/25 documented as of this encounter
--- OUTSIDE RECORDS SUMMARY | 2025-06-22 17:16 | XMS_ITS | Encounter Summary ---
Author Organization [employer] Address [address] [place] [address] 7 [place] [address] Care Team Providers Care School Psychometrist Name Role Phone Petra Rico MD Primary Care Provider [phone]- [phone] Brianne Ivory PharmD Unavailable Tamera Cummings OD Unavailable Dana Angel Unavailable Josi Bojorquez Unavailable Rose [facility] Unavailable Encounter Details Date Type Department Care Team (Late st Contact Info) Description 10/19/2022 Telephone [facility] MEDICINE 230 [place], [place] [phone] Petra Rico MD [address] [place], [place] [phone] Social History Tobacco Use Types Packs/Day Years [...] Description 07/24/2025 1:00 PM EDT Office Visit [facility] OPTOMETRY [address] [place], [place] [phone] Tamera Cummings, OD [address] [place] [address] documented as of this encounter Visit Diagnoses Diagnosis Gender dysphoria- Primary documented in this encounter Care Teams School Psychometrist Relationship Specialty Start Date End Date Petra Rico MD [address] [place] [address] PCP - General Family Medicine 08/12/15 Brianne Ivory, DagoD [address] [place] [address] Pharmacist Internal Medicine 08/13/23 Tamera Cummings, HILDA [address] [place] [address] Optometry 09/30/24 Dana Angel [address] [place] [address] Sleep Medicine 10/13/24 Josi Bojorquez [address] [place] [address] Gastroenterology 11/04/24 [facility] [address] [place] [address] Gynecology 06/02/25 documented as of this encounter
--- OUTSIDE RECORDS SUMMARY | 2025-06-22 17:16 | XMS_ITS | Encounter Summary ---
Author Organization [facility] Address [address] [place] [address] Phone Care Team Providers Care Operational Trainer Name Role Phone Petra Rico MD Primary Care [facility] Encounter Details Date Type Department Care Team (Late st Contact Info) Description 07/13/2021 Procedure Pass OR Admitting Dept - Virtual Department [address] [place] [address] Social History Tobacco Use Types Packs/Day Years [...] Department Care Team (Latest Contact Info) Description 07/17/2025 11:20 AM EDT Appointment [facility] [place], OB Ultrasound [address] [place] [address] Rose Damon MD 22 [facility], [address] [place] [address] [email or web address] 07/23/2025 Procedure Pass OR Admitting Dept - Virtual Department [address] [place] [address] 07/23/2025 7:30 AM EDT Hospital Encounter OR Admitting Dept - Virtual Department [address] [place] [address] Rose Damon MD [address] [place] [address], [address] [address] [email or web address] 07/23/2025 7:30 AM EDT - 07/23/2025 9:47 AM EDT Surgery OR Admitting Dept - Virtual Department [address] [place] [address] Rose Damon MD [address] [place] [address], [address] [address] [email or web address] LAPAROSCOPIC HYSTERECTOMY TOTAL WITH BILATERAL SALPINGECTOMY Scheduled Procedures Name Priority Associated Diagnoses Date/Ti me LAPAROSCOPIC HYSTERECTOMY TO RISHI WITH BILATERAL SALPINGECTOMY Gender dysphoria 07/23/2025 7:30 AM EDT documented as of this encounter Visit Diagnoses Not on filedocumented in this encounter Care Teams Operational Trainer Relationship Specialty Start Date End Date Upson, Petra Del Cid MD [address] [place] [address] PCP - General 07/26/17 documented as of this encounter Additional Source Comments The information contained in this document represents components of the legal health record. It is not the complete legal health record.[facility]
--- OUTSIDE RECORDS SUMMARY | 2025-06-22 17:16 | XMS_ITS | Encounter Summary ---
Author Organization [employer] Address [address] [place] [address] 7 [place] [address] Care Team Providers Care Reinspector Name Role Phone Petra Rico MD Primary Care Provider [phone] Brianne Ivory PharmD Unavailable Tamera Cummings OD Unavailable Dana Angel Unavailable Josi Bojorquez Unavailable Rose Damon Unavailable Reason for Visit * Reason Onset Date Comments Med Refill 10/29/2024 Encounter Details Date Type Department Care Team (Late st Contact Info) Description 10/29/2024 Refill [facility]INE [address] [place], [place] [phone] Petra Rico MD [address] [place], [place] [phone] Gender dysphoria Social History Tobacco Use Types [...] Description 07/24/2025 1:00 PM EDT Office Visit [facility] OPTOMETRY [address] [place] [address] Tamera Cummings, OD [address] [place] [address] documented as of this encounter Goals Goal [...] documented as of this encounter Care Teams Reinspector Relationship Specialty Start Date End Date Petra Rico MD [address] [place] [address] PCP - General Family Medicine 08/12/15 Brianne Ivory, PharmD [address] [place] [address] Pharmacist Internal Medicine 08/13/23 Tamera Cummings OD [address] [place] [address] Optometry 09/30/24 Dana Angel [address] [place] [address] Sleep Medicine 10/13/24 Josi Bojorquez [address] [place] [address] Gastroenterology 11/04/24 [facility] [address] [place] [address] Gynecology 06/02/25 documented as of this encounter
--- OUTSIDE RECORDS SUMMARY | 2025-06-22 17:16 | XMS_ITS | Encounter Summary ---
Author Organization [employer] Address [address] [place] [address] 7 [place] [address] Care Team Providers Care Professor Of English Name Role Phone Petra Rico MD Primary Care Provider [phone] Brianne Ivory PharmD Unavailable Tamera Cummings OD Unavailable Dana Angel Unavailable [phone] Josi Bojorquez Unavailable Rose Damon Unavailable Reason for Visit * Reason Comments Med Refill Encounter Details Date Type Department Care Team (Late st Contact Info) Description 08/07/2024 Refill [facility] [address] [place], [place] [phone] Petra Rico MD 230 [place], [place] [phone] Mixed anxiety and depressive disorder Social History [...] PM EDT Office Visit [facility] OPTOMETRY [address] [place] [address] Emiliano, Tamera, OD [address] [place] [address] documented as of this encounter Goals Goal [...] documented as of this encounter Care Teams Professor Of English Relationship Specialty Start Date End Date Petra Rico MD 230 [place] [address] PCP - General Family Medicine 08/12/15 Brianne Ivory, Balaji [address] [place] [address] Pharmacist Internal Medicine 08/13/23 Tamera Cummings OD [address] [place] [address] Optometry 09/30/24 Dana Angel [address] [address] Sleep Medicine 10/13/24 Josi Bojorquez [address] [address] Gastroenterology 11/04/24 [facility] [address] [place] [address] Gynecology 06/02/25 documented as of this encounter
--- OUTSIDE RECORDS SUMMARY | 2025-06-22 17:16 | XMS_ITS | Clinical Summary ---
Author Organization [facility] Address [address] [place] [address] Phone Care Team Providers Care Recreational Facilities Motel Manager Name Role Phone Petra Rico MD Primary Care [facility] Allergies No known active allergies Medications [...] Description 06/01/2025 9:40 AM EDT Office Visit [facility]ery [address] [place] [address] [place] [address] Rose Damon MD Gender dysphoria (Primary Dx); Vaginismus 05/12/2025 [facility] [address] [place] [address] [place] [address] Petra Rico MD 05/01/2025 Transcribe Orders [facility] Rehabilitation Services [address] [place] [address] Petra Rico MD Encounter for rehabilitation (Primary [...] EDT Appointment [facility] [place], OB Ultrasound [address] [place] [address] Rose Damon MD [address] [place] [address] [email or web address] 07/23/2025 Procedure Pass OR Admitting Dept - Virtual Department [address] [place] [address] 07/23/2025 7:30 AM EDT Hospital Encounter OR Admitting Dept - Virtual Department [address] [place] [address] Rose Damon MD [address] [place] [address] [email or web address] 07/23/2025 7:30 AM EDT - 07/23/2025 9:47 AM EDT Surgery OR Admitting Dept - Virtual Department [address] [place] [address] Rose Damon MD [address] [place] [address], [address] [address] [email or web address] LAPAROSCOPIC HYSTERECTOMY TOTAL WITH BILATERAL SALPINGECTOMY [...] topic Medical Devices Not on file Insurance [facility] C3 ACO [facility] C3 ACO [facility] C3 ACO [facility]3 [facility] C3 ACO [facility] C3 ACO Care Teams Recreational Facilities Motel Manager Relationship Specialty Start Date End Date Camden, Petra Del Cid MD 230 [place] [address] PCP - General 07/26/17 Additional Source Comments The information contained in this document represents components of the legal health record. It is not the complete legal health record.[facility]
--- OUTSIDE RECORDS SUMMARY | 2025-06-22 17:16 | XMS_ITS | Encounter Summary ---
Author Organization [employer] Address [address] [facility] 7t [place] [address] Care Team Providers Care Communications Department Chairperson Name Role Phone Petra Rico MD Primary Care Provider [phone] Brianne Ivory PharmD Unavailable Tamera Cummings OD Unavailable Dana Angel Unavailable Josi Bojorquez Unavailable Rose Damon Unavailable Encounter Details Date Type Department Care Team (Late st Contact Info) Description 04/23/2024 Orders Only [facility] [address] [place], [place] [phone] Petra Rico MD 230 [place], [place] [phone] Social History Tobacco Use Types Packs/Day Years [...] 07/24/2025 1:00 PM EDT Office Visit [facility] OPTOMETRY [address] [place] [address] Emiliano, Tamera, OD [address] [place] [address] documented as of this encounter Goals Goal [...] documented as of this encounter Care Teams Communications Department Chairperson Relationship Specialty Start Date End Date Petra Rico MD 230 [place] [address] PCP - General Family Medicine 08/12/15 Brianne Ivory PharmD 230 [place] [address] Pharmacist Internal Medicine 08/13/23 Tamera Cummings OD [address] [place] [address] Optometry 09/30/24 Dana Angel [address] [place] [address] Sleep Medicine 10/13/24 Josi Bojorquez [address] [place] [address] Gastroenterology 11/04/24 [facility] [address] [place] [address] Gynecology 06/02/25 documented as of this encounter
== END ==
LOC: HO.SL 12:34
PROVIDERS: PCP Family Medicine; Visit Provider Nurse Practitioner Family
DX: G47.30 Sleep apnea, unspecified (principal); R63.4 Abnormal weight loss; R06.83 Snoring
CPT/HCPCS: 95806

== ENCOUNTER → 2025-06-22 12:51 | Outpatient (BNV) | payer MEDICAID, SELFPAY | PROVIDERS: PCP Family Medicine; Visit Provider Psychiatry & Neurology Neurology | DX: R06.83 Snoring (principal) | CPT/HCPCS: 95806 ==

== ENCOUNTER 2025-07-29 11:46 | Outpatient (REF) | payer MEDICAID, SELFPAY ==
[2025-07-29 13:09] LABS: MANUAL DIFF FLAG NO
[2025-07-29 13:18] LABS: Hematocrit 45.1 % (37.0-47.0); Hemoglobin 16.0 g/dl (12.0-16.0); Mean Corpuscular HGB Conc 35.5 g/dl (31.0-35.0); Mean Corpuscular Hemoglobin 30.8 pg (27.0-33.0); Mean Corpuscular Volume 86.9 fL (80.0-98.0); Platelet Count 249 X10*3/uL (160-400); Red Blood Count 5.19 X10*6/uL (4.20-5.50); White Blood Count 7.2 X10*3/uL (4.8-10.8)
[2025-07-29 13:19] LABS: Imm Gran Abs Auto 0.01 X10*3/uL (0.00-0.03); Imm Gran Pct Auto 0.1 % (0.0-0.4); Lymphocytes Absolute Auto 1.4 X10*3/uL (1.2-4.9); NRBC Abs Auto 0.000 X10*3/uL (0.0-0.012); NRBC Pct Auto 0.0 /100WBC (0.0-0.2)
[2025-07-29 13:58] LABS: Alanine Aminotransferase 18 U/L (0-31); Albumin Level 5.3 g/dL (3.5-5.0); Alkaline Phosphatase 73 U/L (39-117); Anion Gap 11 (12-20); Aspartate Amino Transferase 19 U/L (5-31); Blood Urea Nitrogen 10 mg/dL (9-16); Calcium 9.9 mg/dL (8.4-10.2); Carbon Dioxide 28 mmol/L (22-29); Chloride 106 mmol/L (96-108); Estimated Glomerular Filt Rate > 60; Lipase 12 U/L (8-78); Potassium 3.8 mmol/L (3.3-5.1); Sodium 141 mmol/L (135-145); Total Protein 7.9 g/dL (6.5-8.0)
--- OUTSIDE RECORDS SUMMARY | 2025-07-29 16:29 | XMS_ITS | Encounter Summary ---
Author Organization [facility] Address [address] [place] [address] Phone Care Team Providers Care Wood Carving Machine Operator Name Role Phone Petra Rico MD Primary Care [facility] Encounter Details Date Type Department Care Team (Late st Contact Info) Description 07/23/2025 Procedure Pass OR Admitting Dept - Virtual Department 30 [place] [address] Social History Tobacco Use Types Packs/Day Years [...] on filedocumented in this encounter Care Teams Wood Carving Machine Operator Relationship Specialty Start Date End Date Petra Rico MD [address] [place] [address] [phone] PCP - General 07/26/17 documented as of this encounter Additional Source Comments The information contained in this document represents components of the legal health record. It is not the complete legal health record.[facility]
--- OUTSIDE RECORDS SUMMARY | 2025-07-29 16:29 | XMS_ITS | Encounter Summary ---
Author Organization [facility] Address [address] [facility] [address] [place] [address] Phone Care Team Providers Care Hair Sample Matcher Name Role Phone Trisha, Petra Del Cid MD Primary Care [facility] Reason for Visit * Auth/Cert (Routine) Specialty Diagnoses / Procedures Referred By Contac t Referred To Contact Diagnoses Gender dysphoria Gender dysphoria [F64.9] Procedures LAPAROSCOPIC HYSTERECTOMY TOTAL WITH BILATERAL SALPINGECTOMY Referral ID Status Reason Start Date Expiration Date Visits Re quested Visits Authorized [id number] 1 1 Encounter Details Date Type Department Care Team (Late st Contact Info) Description 07/23/2025 Hospital Encounter OR Admitting Dept - Virtual Department 30 [place] [address] Rose Damon MD 22 [facility] 102 [place] [address] [email or web address] Social History Tobacco Use Types Packs/Day Years [...] on filedocumented in this encounter Care Teams Hair Sample Matcher Relationship Specialty Start Date End Date Trigg, Petra Del Cid MD [address] [place] [address] PCP - General 07/26/17 documented as of this encounter Additional Source Comments The information contained in this document represents components of the legal health record. It is not the complete legal health record.[facility]
--- OUTSIDE RECORDS SUMMARY | 2025-07-29 16:29 | XMS_ITS | Encounter Summary ---
Author Organization [facility] Address [address] [facility] [address] [place] [address] Phone Care Team Providers Care Case Management Rn Name Role Phone Petra Rico MD Primary Care [facility] Encounter Details Date Type Department Care Team (Late st Contact Info) Description 07/13/2021 Procedure Pass OR Admitting Dept - Virtual Department 30 [place] [address] Social History Tobacco Use Types Packs/Day Years [...] on filedocumented in this encounter Care Teams Case Management Rn Relationship Specialty Start Date End Date Petra Rico MD 230 [place] [address] PCP - General 07/26/17 documented as of this encounter Additional Source Comments The information contained in this document represents components of the legal health record. It is not the complete legal health record.[facility]
--- OUTSIDE RECORDS SUMMARY | 2025-07-29 16:29 | XMS_ITS | Clinical Summary ---
Author Organization [facility] Address [address] [place] [address] Phone Care Team Providers Care Care Services Manager Name Role Phone Petra Rico MD Primary Care Provi ev Allergies No known active allergies Medications testosterone cypionate (DEPO-TESTOTERO NE) 200 mg/mL IM injection 1 ml Active syringe, disposable, 3 mL Syrg USE EVERY 2 WEEKS 5 Active EASY TOUCH HYPODERMIC NEEDLE 22 gauge x 1 Ndle USE DIRECTED TO INJECT testosteorne 5 Active cholecalciferol (VITAMIN D3) 50,000 unit capsule TAKE 1 CAPSULE ORALLY EVERY WEEK FOR 12 WEEKS 5 Active ALCOHOL PREP PADS PadM USE BEFORE INJECTION 5 Active empty container Misc 1 each by NOT APPLICABLE route daily as needed. 5 Active estradioL (ESTRACE) 0.01 % (0.1 mg/gram) vaginal creamIndication s:Gender dysphoria,Vagin ismus Place 1 g vaginally daily for 14 days, THEN 1 g 2 (two) times a week. 42.5 g 1 5 09/13/20 25 Active Active Problems Problem Noted Date Diagnosed Date Hypertrophic scar of skin 10/15/2019 Encounters Date Type Department Care Team Description 07/23/2025 Procedure Pass OR Admitting Dept - Virtual Department [address] [place] [address] 07/23/2025 Hospital Encounter OR Admitting Dept - Virtual Department 30 [place] [address] Rose Damon MD 07/09/2025 Telephone [facility] General Surgical Care [address] [place] [address] Rose Damon MD reschedule surgery 06/01/2025 9:40 AM EDT Office Visit [facility] Midw[facility]ery [address] [place] [address] Rose Damon MD Gender dysphoria (Primary Dx); Vaginismus 05/12/2025 Transcribe Orders [facility] [address] [place] [address] Petra Rico MD 05/01/2025 Transcribe Orders [facility] Rehabilitation Services [address] [place] [address] Petra Rico MD Encounter for rehabilitation (Primary [...] 06/01/2025 9:29 AM EDT Plan of Treatment Health Maintenance Due Date Last Done Comments DEPRESSION SCREENING 2010 HEPATITIS C SCREENING 2016 HIV ONE-TIME SCREENING (18-65 YEARS) 2016 INFLUENZA VACCINE (#1) 2025 , 08/17/2023, 08/04/2022, Additional history exists COVID-19 VACCINE ( season) 2025 12/10/2024, 08/18/2022, 10/17/2021, Additional history exists SMOKING STATUS SCREENING (Every 5 Years) 06/01/2030 06/01/2025 Adult Td,Tdap Booster 06/06/2033 06/06/2023, 010 HIB VACCINES Completed 12/15/1999, 02/06, 01/06/1999, Additional history exists PNEUMOCOCCAL VACCINES (0-49 years) Aged Out 07/05/2000 No longer eligible based on patient's age to complete this topic HPV VACCINES Completed 09/27/2011, 04/2010, 06/28/2009 HEPATITIS A VACCINES Completed 01/08/2015, 03/12/20 13 MENINGOCOCCAL VACCINES (ACWY) Completed 10/18/2015, 07/14/2010 MENINGOCOCCAL VACCINES (B) Aged Out N o longer eligible based on patient's age to complete this topic Medical Devices Not on file Insurance [facility] C3 ACO [facility] C3 ACO [facility] C3 ACO [facility] C3 A[facility] C3 ACO [facility] C3 ACO Care Teams Care Services Manager Relationship Specialty Start Date End Date Haskell, Petra Del Cid MD [address] [place] [address] [place] [address] PCP - General 07/26/17 Additional Source Comments The information contained in this document represents components of the legal health record. It is not the complete legal health record.[facility]
[2025-07-30 04:17] LABS: HBS Num1 8.34 mIU/mL (0-7.99); HBc Num1 0.09 S/CO (0.00-0.79); HBsAGNum1 0.52 S/CO (0.00-0.99); Hepatitis B Surface Antigen Negative (Negative); ~HepC Num1 0.10 S/CO (0.00-0.79); ~Hepatitis C Antibody Nonreactive (Nonreactive)
[2025-07-30 05:03] LABS: HBS Num2 8.95 mIU/mL (0-7.99); HBS Num3 9.14 mIU/mL (0-7.99); ~Hepatitis B Surface Antibody GRAYZONE (Nonreactive)
== END 2025-07-29 11:47 | disposition home or self-care (01) ==
LOC: HO.HHCL 11:46
PROVIDERS: PCP Family Medicine; Visit Provider Emergency Medicine
DX: Z11.59 Encounter for screening for other viral diseases (principal); R10.9 Unspecified abdominal pain
CPT/HCPCS: 36415; 80053; 83690; 85025; 86704; 86706; 86803; 87340

== ENCOUNTER 2025-08-05 13:28 | Outpatient (REF) | payer MEDICAID, SELFPAY ==
--- OUTSIDE RECORDS SUMMARY | 2025-08-05 17:19 | XMS_ITS | Encounter Summary ---
Author Organization [employer] Address [address] [place] [address] 7t [place] [address] Care Team Providers Care Pet Supplies Salesperson Name Role Phone Petra Rico MD Primary Care Provider [phone] Brianne Ivory PharmD Unavailable [phone] Tamera Cummings OD Unavailable [phone] Dana Angel Unavailable Josi Bojorquez Unavailable Rose Damon Unavailable Encounter Details Date Type Department Care Team (Late st Contact Info) Description 09/17/2024 Orders Only [facility] MEDICINE 230 [place], [place] [phone] Petra Rico MD 230 [place], [place] [phone] Social History Tobacco Use Types Packs/Day Years [...] Author Blood Pressure < 140/90 Blood Pressure 139/94( 025 11:14 AM EDT) No Brianne Katz, PharmD documented as of this encounter Visit Diagnoses Not on filedocumented in this encounter Additional Health Concerns Assessment Noted Time PHQ-9 Depression Total Score: 0 10/24/19 24 3:14 PM EST documented as of this encounter Care Teams Pet Supplies Salesperson Relationship Specialty Start Date End Date Petra Rico MD [address] [place] [address] PCP - General Family Medicine 08/12/15 Brianne Ivory, PharmD [address] [place] [address] Pharmacist Internal Medicine 08/13/23 Tamera Cummings OD [address] [place] [address] Optometry 09/30/24 Dana Angel [address] [address] Sleep Medicine 10/13/24 Josi Bojorquez [address] [address] Gastroenterology 11/04/24 [facility] 22 [place] [address] Gynecology 06/02/25 documented as of this encounter
--- OUTSIDE RECORDS SUMMARY | 2025-08-05 17:19 | XMS_ITS | Encounter Summary ---
Author Organization [facility] Address [address] [facility] [address] [place] [address] Phone Care Team Providers Care Psychiatric Orderly Name Role Phone Trisha, Petra Del Cid MD Primary Care [facility]vi [facility] Reason for Visit * Auth/Cert (Routine) Specialty Diagnoses / Procedures Referred By Contac t Referred To Contact Diagnoses Gender dysphoria Gender dysphoria [F64.9] Procedures LAPAROSCOPIC HYSTERECTOMY TOTAL WITH BILATERAL SALPINGECTOMY Referral ID Status Reason Start Date Expiration Date Visits Re quested Visits Authorized [id number] 1 1 Encounter Details Date Type Department Care Team (Late st Contact Info) Description 07/23/2025 Hospital Encounter OR Admitting Dept - Virtual Department 30 [place] [address] Rose Damon MD 22 [facility] [address] [place] [address] [email or web address] Social History Tobacco Use Types Packs/Day Years [...] on filedocumented in this encounter Care Teams Psychiatric Orderly Relationship Specialty Start Date End Date [place], Petra Del Cid MD [address] [place] [address] PCP - General 07/26/17 documented as of this encounter Additional Source Comments The information contained in this document represents components of the legal health record. It is not the complete legal health record.[facility]
--- OUTSIDE RECORDS SUMMARY | 2025-08-05 17:19 | XMS_ITS | Encounter Summary ---
Author Organization [facility] Address [address] [place] [phone] Phone Care Team Providers Care Sales Representative Womens Health Name Role Phone Petra Rico MD Primary Care [facility] Encounter Details Date Type Department Care Team (Late st Contact Info) Description 07/23/2025 Procedure Pass OR Admitting Dept - Virtual Department 30 [place] [address] Social History Tobacco Use Types Packs/Day Years [...] on filedocumented in this encounter Care Teams Sales Representative Womens Health Relationship Specialty Start Date End Date Petra Rico MD [address] [place] [address] [phone] PCP - General 07/26/17 documented as of this encounter Additional Source Comments The information contained in this document represents components of the legal health record. It is not the complete legal health record.[facility]
--- OUTSIDE RECORDS SUMMARY | 2025-08-05 17:19 | XMS_ITS | Encounter Summary ---
Author Organization [employer] Address [address] [place] [address] 7t [place] [address] Care Team Providers Care Gold Miner Blasting Name Role Phone Petra Rico MD Primary Care Provider [phone]- [phone] Brianne Ivory PharmD Unavailable Tamera Cummings OD Unavailable Dana Angel Unavailable Josi Bojorquez Unavailable Rose Damon Unavailable Reason for Visit * Reason Onset Date Comments Results 08/04/2025 Care Coordination 08/04/2025 Encounter Details Date Type Department Care Team (Latest Contact Info) Description 08/04/2025 Results Follow-Up [facility] [address] [place] [address] [phone] Nathan Mercado MD [address] [place], [place] [phone] CBC auto differential, Comprehensive Metabolic Panel, Lipase, Additional followed-up results: 4 Social History Tobacco Use Types Packs/Day Years [...] encounter Miscellaneous Notes * Telephone Encounter - Chaya Avalos RN - 08/04/2025 9:12 AM EDT TC placed to patient [phone] regarding below message. RN informed patient of is lab results that his labs are normal/negative. Patient informed this RN that he has an appointment with general surgery in September. Denies any pain at this time. RN advised patient if his symptoms worsen at any time to go to the ED for further evaluation. Patient verbalized understanding. PT to F/U PRN. ----- Message from Nathan Mercado MD sent at 08/04/2025 9:07 AM EDT ----- Please let Ahsan know that his lab test results were essentially negative. He was referred to general surgery at the walk-in center visit, and was advised to go to the ED if his pain worsened or persisted. Aneta Cummings ----- Message ----- From: Interface, Lab Results In Sent: 07/29/2025 1:19 PM EDT To: Nathan Mercado MD documented in this encounter Plan of Treatment Not on file documented as of this encounter Goals Goal Patient Goal Type Associated Problems Recent Progress Patient-Stated? Author Blood Pressure < 140/90 Blood Pressure 139/94( 025 11:14 AM EDT) No Brianne Katz PharmD documented as of this encounter Visit Diagnoses Not on filedocumented in this encounter Additional Health Concerns Assessment Noted Time PHQ-9 Depression Total Score: 8 04/30/20 25 9:10 AM EDT documented as of this encounter Care Teams Gold Miner Blasting Relationship Specialty Start Date End Date Petra Rico MD [address] [place] [address] PCP - General Family Medicine 08/12/15 Brianne Ivory, PharmD [address] [place] [address] Pharmacist Internal Medicine 08/13/23 Tamera Cummings OD [address] [place] [address] Optometry 09/30/24 Dana Angel [address] [place] [address] 3[address] [place] [address] Sleep Medicine 10/13/24 Josi Bojorquez [address] [place] [address] Drive 3rd [place] [address] Gastroenterology 11/04/24 Rose Damon [facility] [address] [place] [address] Gynecology 06/02/25 documented as of this encounter
--- OUTSIDE RECORDS SUMMARY | 2025-08-05 17:20 | XMS_ITS | Encounter Summary ---
Author Organization [employer] Address [address] [place] [address] 7 [place] [address] Care Team Providers Care Valet Cashier Name Role Phone Petra Rico MD Primary Care Provider [phone]- [phone] Brianne Ivory PharmD Unavailable Tamera Cummings OD Unavailable Dana Agnel Unavailable Josi Bojorquez Unavailable Rose Damon Unavailable Encounter Details Date Type Department Care Team (Late st Contact Info) Description 06/05/2023 Abstract [facility] 230 [place], [place] [phone] Petra Rico MD 230 [place], [place] [phone] Social History Tobacco Use Types Packs/Day Years [...] on filedocumented in this encounter Care Teams Valet Cashier Relationship Specialty Start Date End Date Petra Rico MD [address] [place] [address] PCP - General Family Medicine 08/12/15 Brianne Ivory PharmD [address] [place] [address] Pharmacist Internal Medicine 08/13/23 Tamera Cummings OD [address] [place] [address] Optometry 09/30/24 Dana Angel [address] [address] Sleep Medicine 10/13/24 Josi Bojorquez [address] [address] Gastroenterology 11/04/24 Rose [facility] 22 [place] [address] Gynecology 06/02/25 documented as of this encounter
--- OUTSIDE RECORDS SUMMARY | 2025-08-05 17:20 | XMS_ITS | Encounter Summary ---
Author Organization [employer] Address [address] [place] [address] 7 [place] [address] Care Team Providers Care Brick And Tile Making Machine Operator Name Role Phone Petra Rico MD Primary Care Provider [phone]- [phone] Brianne Ivory PharmD Unavailable Tamera Cummings OD Unavailable [phone] Dana Angel Unavailable [phone] Josi Bojorquez Unavailable Rose Damon Unavailable Reason for Visit * Reason Onset Date Comments Med Refill 10/29/2024 Encounter Details Date Type Department Care Team (Late st Contact Info) Description 10/29/2024 Refill [facility] 230 [place], [place] [phone] Petra Rico MD 230 [place], [place] [phone] Gender dysphoria Social History Tobacco Use Types [...] documented as of this encounter Care Teams Brick And Tile Making Machine Operator Relationship Specialty Start Date End Date Petra Rico MD 230 [place] [address] PCP - General Family Medicine 08/12/15 Brianne Ivory PharmD 230 [place] [address] Pharmacist Internal Medicine 08/13/23 Tamera Cummings OD [address] [place] [address] Optometry 09/30/24 Dana Angel [address] [place] [address] Sleep Medicine 10/13/24 Josi Bojorquez [address] [place] [address] Gastroenterology 11/04/24 Rose [facility] 22 [place] [address] Gynecology 06/02/25 documented as of this encounter
--- OUTSIDE RECORDS SUMMARY | 2025-08-05 17:20 | XMS_ITS | Encounter Summary ---
Author Organization [employer] Address [address] [place] [address] 7 [place] [address] Care Team Providers Care Alcohol Law Enforcement Agent Name Role Phone Petra Rico MD Primary Care Provider [phone]- [phone] Brianne Ivory PharmD Unavailable Tamera Cummings OD Unavailable Dana Angel Unavailable Josi Bojorquez Unavailable Rose Damon Unavailable Reason for Visit * Reason Comments Med Refill Encounter Details Date Type Department Care Team (Late st Contact Info) Description 08/07/2024 Refill [facility] 230 [place], [place] [phone] Petra Rico MD 230 [place], [place] [phone] Mixed anxiety and depressive disorder Social History [...] Pressure 139/94( 025 11:14 AM EDT) No Piers-G[place]l Brianne montelongo, PharmD documented as of this encounter Visit Diagnoses Diagnosis Mixed anxiety and depressive disorder Dysthymic disorder documented in this encounter Additional Health Concerns Assessment Noted Time PHQ-9 Depression Total Score: 0 10/24/19 24 3:14 PM EST documented as of this encounter Care Teams Alcohol Law Enforcement Agent Relationship Specialty Start Date End Date Petra Rico MD [address] [place] [address] PCP - General Family Medicine 08/12/15 Brianne Ivory PharmD 230 [place] [address] Pharmacist Internal Medicine 08/13/23 Tamera Cummings OD [address] [place] [address] Optometry 09/30/24 Dana Angel [address] [address] Sleep Medicine 10/13/24 Josi Bojorquez [address] [address] Gastroenterology 11/04/24 Rose [facility] [address] [place] [address] Gynecology 06/02/25 documented as of this encounter
--- OUTSIDE RECORDS SUMMARY | 2025-08-05 17:20 | XMS_ITS | Clinical Summary ---
Author Organization [facility] Address [address] [place] [address] Phone Care Team Providers Care Privacy Compliance Manager Name Role Phone Petra Rioc MD Primary Care Provi ev Allergies No [...] Pass OR Admitting Dept - Virtual Department [address] [place] [address] 07/23/2025 Hospital Encounter OR Admitting Dept - Virtual Department 30 [place] [address] Rose Damon MD 07/09/2025 Telephone [facility] General Surgical Care [address] [place] [address] Rose Damon MD reschedule surgery 06/01/2025 9:40 AM EDT Office Visit [facility] [address] [place] [address] Rose Damon MD Gender dysphoria (Primary Dx); Vaginismus 05/12/2025 Transcribe Orders [facility] [address] [place] [address] Petra Rico MD from Last 3 Months Family History Medical [...] topic Medical Devices Not on file Insurance [facility] [employer] [facility] [employer] [facility] [employer] Care Teams Privacy Compliance Manager Relationship Specialty Start Date End Date [place], Petra Del Cid MD 230 [facility] [place] [address] PCP - General 07/26/17 Additional Source Comments The information contained in this document represents components of the legal health record. It is not the complete legal health record.[facility]
--- OUTSIDE RECORDS SUMMARY | 2025-08-05 17:20 | XMS_ITS | Encounter Summary ---
Author Organization [employer] Address [address] [facility] 7t [place] [address] Care Team Providers Care Research Test Engine Operator Name Role Phone Petra Rico MD Primary Care Provider [phone] Brianne Ivory PharmD Unavailable Tamera Cummings OD Unavailable Dana Angel Unavailable Josi Bojorquez Unavailable Rose Damon Unavailable Encounter Details Date Type Department Care Team (Late st Contact Info) Description 04/23/2024 Orders Only [facility] 230 [place], [place] [phone] Petra Rico MD 230 [place], [place] [phone] Social History Tobacco Use Types Packs/Day Years [...] documented as of this encounter Care Teams Research Test Engine Operator Relationship Specialty Start Date End Date Petra Rico MD 230 [place] [address] PCP - General Family Medicine 08/12/15 Brianne Ivory, PharmD 230 [place] [address] Pharmacist Internal Medicine 08/13/23 Tamera Cummings OD [address] [place] [address] Optometry 09/30/24 Dana Angel [address] [address] Sleep Medicine 10/13/24 Josi Bojorquez [address] [address] Gastroenterology 11/04/24 Rose Dam[facility] [address] [place] [address] Gynecology 06/02/25 documented as of this encounter
--- OUTSIDE RECORDS SUMMARY | 2025-08-05 17:20 | XMS_ITS | Encounter Summary ---
Author Organization [facility] Address [address] [facility] [address] [place] [address] Phone Care Team Providers Care Windmill Technician Name Role Phone Petra Rico MD Primary Care Provi [facility] Encounter Details Date Type Department Care Team (Late st Contact Info) Description 07/13/2021 Procedure Pass OR Admitting Dept - Virtual Department 30 [place] [address] Social History Tobacco Use Types Packs/Day Years [...] on filedocumented in this encounter Care Teams Windmill Technician Relationship Specialty Start Date End Date Petra Rico MD 230 [place] [address] PCP - General 07/26/17 documented as of this encounter Additional Source Comments The information contained in this document represents components of the legal health record. It is not the complete legal health record.[facility]
--- OUTSIDE RECORDS SUMMARY | 2025-08-05 17:20 | XMS_ITS | Encounter Summary ---
Author Organization [employer] Address [address] [place] [address] [place] [address] Care Team Providers Care Oil And Gas Well Treatment Operator Name Role Phone Petra Rico MD Primary Care Provider [phone]- [phone] Brianne Ivory PharmD Unavailable [phone] Tamera Cummings OD Unavailable [phone] Dana Angel Unavailable [phone] [place] Unavailable Rose Damon Unavailable Encounter Details Date Type Department Care Team (Late st Contact Info) Description 10/19/2022 Telephone [facility] 230 [place] [address] Petra Rico MD 230 [place], [place] [phone] Social History Tobacco Use Types Packs/Day Years [...] Primary documented in this encounter Care Teams Oil And Gas Well Treatment Operator Relationship Specialty Start Date End Date Petra Rico MD 230 [place] [address] PCP - General Family Medicine 08/12/15 Brianne Ivory PharmD 230 [place] [address] Pharmacist Internal Medicine 08/13/23 Tamera Cummings OD [address] [place] [address] Optometry 09/30/24 Dana Angel [address] [address] Sleep Medicine 10/13/24 Josi Bojorquez [address] [address] Gastroenterology 11/04/24 Rose [facility] 22 [place] [address] Gynecology 06/02/25 documented as of this encounter
--- OUTSIDE RECORDS SUMMARY | 2025-08-05 17:20 | XMS_ITS | Clinical Summary ---
Author Organization [employer] Address [address] [place] [address] [address] [place] [address] Care Team Providers Care Rubber Press Tender Name Role Phone Petra Rico MD Primary Care Provider [phone] Brianne Ivory PharmD Unavailable [phone] Tamera [...] 2 WEEKS, SINGLE USE VIAL 4 mL 3 04/30/20 Active [employer] ([employer] Counselor) miscIndication s:Gender dysphoria 1 each if needed each day (for used needles). Dispose used sharps into container. 1 each 2 04/30/20 Active docusate sodium (Colace) 100 MG capsule Take 1 capsule (100 mg) by mouth 2 times daily. 180 capsule 3 06/11/20 25 Active polycarbophil (Fibercon) 625 MG tablet Take 1 tablet (625 mg) by mouth 2 times daily. 180 tablet 3 06/11/20 25 Active polyethylene glycol, PEG, 3350 (MiraLax) 17 GM/SCOOP powder Take 17 g by mouth if needed each day (constipation). 527 g 1 06/11/20 25 Active ondansetron (Zofran) 4 MG tablet Take 1 tablet (4 mg) by mouth every 8 (eight) hours if needed for nausea or vomiting. 12 tablet 06/11/20 Active meclizine (Antivert) 25 MG tablet Take 1 tablet (25 mg) by mouth if needed in the morning, at noon, and at bedtime for nausea. 30 tablet 07/29/20 25 Active Active Problems Patient Care Coordination No te Formatting of this note migh t be different from the original. Enrolled in [facility] HTN clinic with Brianne Ivory PharmD Problem [...] started on an estrogen vaginal cream by [employer]. Denies any dysuria, denies any discharge, denies [...] considered to be 1.7 or 2.4 mg long-term. -follow up 6 weeks -07/24/24 has not [...] considered to be 1.7 or 2.4 mg long-term. -follow up 6 weeks SONU (obstructive sleep apnea) 12/11/2023 Overview (04/08/2025): -Followed at [facility] with Candida Burns CNP . Seen 12/10/23 and CPAP will be ordered by them when the titration study result available. -Advised patient to use CPAP nightly and more than 4 hrs when he get his CPAP. -Continue to practice good sleep hygiene, and wt reduction advised. -Note from Daan Angel MD revewed from 04/01/25 - Continue [...] Family planning 06/06/2023 Overview (09/30/2024): -referred to Software Development Intern 05/29/24 Assessment & Plan (05/29/2024 11:45 AM [...] considered to be 1.7 or 2.4 mg long-term. -follow up 6 weeks Assessment & Plan [...] due after 10/13/25 -eye care facilitated by [facility] in [place] -dental home is [facility] in [place]. -healthcare proxy paperwork filed 10/29/23 Assessment & Plan (04/25/2024 9:31 AM EDT): -next physical exam due after 10/24/2024 -eye care facilitated by [facility] in [place] -dental home is [facility] in [place]. -healthcare proxy paperwork given 10/24/2023 Assessment & [...] 112 (H) 05/29/2024 -continue lifestyle modification -prescribed Taberg-3 500 mg, discussed to continue 07/24/24 and [...] 122 (H) 04/25/2024 -continue lifestyle modification -prescribed Taberg-3 500 mg, discussed to continue 07/24/24 and [...] 149 (H) 06/06/2023 -continue lifestyle modification -prescribed Taberg-3 500 mg, discussed to continue 07/24/24 and [...] levels 350-700ng/dl. -interested in hysterectomy, referred to [facility] 04/29/25, seen 05/2025 We reviewed the [...] 350-700ng/dl. -interested in hysterectomy, referred to [facility] 04/29/25 Assessment & Plan (04/30/2025 10:42 [...] with intercourse. -interested in hysterectomy, referred to [facility] 04/29/25 Orders: CBC; Future Testosterone, Total, males (Adult), IA; Future Hemoglobin A1c; Future testosterone cypionate (Depo-Testosterone) 200 MG/ML injection; INJECT 0.5ML INTRAMUSCULARLY EVERY 2 WEEKS, SINGLE USE VIAL [employer] ([employer] Counselor) misc; 1 each if needed each day [...] to monitor and come back to [facility] if worsening or new lesion shows up. Elevated liver enzymes 05/19/202205/29 Encounters Date Type Department Care Team Description 08/04/2025 Results Follow-Up [facility] [address] [place] [phone] Nathan Mercado MD CBC auto differential, Comprehensive Metabolic Panel, Lipase, Additional followed-up results: 4 07/29/2025 10:40 AM EDT Office Visit [facility] [address] [place] [phone] Nathan Mercado MD Abdominal pain, unspecified abdominal location (Primary Dx); Primary hypertension 07/29/2025 Travel 07/24/2025 1:00 PM EDT Office Visit [facility] [address] [place] [address] Emiliano, Tamera, OD Retinal hole of both eyes (Primary Dx); History of repair of retinal defect by laser photocoagulation; Snail-track retinal degeneration of left eye; White without pressure of peripheral retina of both eyes; Elevated IOP, bilateral; Myopia of both eyes 07/24/2025 Travel 07/22/2025 Travel 06/11/2025 4:00 PM EDT Office Visit [facility] [address] [place] [phone] Fátima Paredes DO Acute UTI (Primary Dx); Acute constipation 06/11/2025 Travel 06/11/2025 Orders Only [facility] [address] [place] [phone] Petra Rico MD Dysuria (Primary Dx) 06/11/2025 Telephone [facility] [address] [place] [address] Petra Rico MD 06/09/2025 2:40 PM EDT Office Visit [facility] [address] [place] [phone] Brian Garner MD Frequent urination 06/09/2025 Travel 06/03/2025 Telephone [facility] [address] [place] [phone] Zulay Cornejo RN 05/07/2025 11:15 AM EDT Office Visit [facility] [address] [place] [phone] Petra Rico MD Gender dysphoria (Primary Dx); Phlegm in throat 05/07/2025 Travel 05/06/2025 Telephone [facility] [address] [place] [address] Petra Rico MD CHART PREP from Last 3 Months Immunizations Immunization Administration Dates Next Due DTaP 10/27/2005, 0,03/03/1999,01/06,1998 HPV, Quadrivalent 09/27/2011,07/14/2010,06/28/20 09 Hep A, ped/adol, 2 dose 01/08/2015,03/12/2013 Hep B, Adolescent or Pediatric 03/03/1999,1997,1998 Hib (HbOC) 12/15/1999,199 9,01/06/1999,11/11 IPV 10/27/2005,200 0,01/06/1999,11/11 Influenza Injectable Quadriv alant Preservative Free [...] Sign Reading Time Taken Comments Blood Pressure 139/94 07/29/2025 11:14 AM EDT Pulse 89 07/29/2025 9:56 AM EDT Temperature 36.9 C (98.5 F) 07/29/2025 9:56 AM EDT Respiratory Rate 18 07/29/2025 9:56 AM EDT Oxygen Saturation 100% 07/29/2025 9:56 AM EDT Inhaled Oxygen Concentration - - Weight 53.6 kg (118 lb 3.2 oz) 07/29/2025 9:56 A M EDT Height 149.9 cm (4' 11 ) 07/29/2025 9:56 AM EDT Body Mass Index 23.87 07/29/2025 9:56 AM EDT Plan of Treatment Health Maintenance Due Date Last Done Comments Family Planning (PISQ) 2013 Influenza Vaccine (#1) 2025 , 08/17/2023, 08/04/2022, Additional history exists Alcohol/Substance Use Screening 04/30/2026 04/30/2025 Depression Screening 04/30/2026 04/30/2025, 04/30/20 SDOH Screening 04/30/2026 04/30/2025 Disability Screening 05/07/2026 05/07/2025 Tobacco Screening 07/29/2026 07/29/2025 Pap Smear 11/02/2026 11/02/2023 Lipid Panel 04/30/2030 [...] Completed 10/18/2015, 010 HIV Screening Completed 06/06/2023 COVID-19 Vaccine Completed 12/10/2024, 08/2022, 10/17/2021, Additional history exists Hepatitis C Screening Completed 07/29/2025 , 05/29/2024, 04/25/2024, Additional history exists Meningococcal B Vaccine Aged [...] 11:14 AM EDT) No Brianne Katz PharmD Procedures Procedure Name Priority Date/Time Associated Diagnosis Comments CBC WITH AUTO DIFFERENTIAL Routine 07/29/2025 11:53 AM EDT Abdominal pain, unspecified abdominal location HEPATITIS B SURFACE ANTIGEN, EIA Routine 07/29/2025 11:52 AM EDT Abdominal pain, unspecified abdominal location HEPATITIS C AB W/REFL TO HCV RNA, QN, PCR Routine 07/29/2025 11:52 AM EDT Abdominal pain, unspecified abdominal location HEPATITIS B SURFACE ANTIBODY, QUALITATIVE Routine 07/29/2025 11:52 AM EDT Abdominal pain, unspecified abdominal location HEPATITIS B CORE AB TOTAL Routine 07/29/2025 11:52 AM EDT Abdominal pain, unspecified abdominal location LIPASE Routine 07/29/2025 11:52 AM EDT Abdominal pain, unspecified abdominal location COMPREHENSIVE METABOLIC PANEL Routine 07/29/2025 11:52 AM EDT Abdominal pain, unspecified abdominal location POCT , URINE Routine 06/11/2025 4:02 PM EDT Acute UTI POCT URINALYSIS DIPSTICK Routine 06/11/2025 4:02 PM EDT Acute UTI CHLAMYDIA/TRICHOMONAS/ NEISSERIA GONORRHOEAE, PCR, URINE Routine 06/11/2025 3:50 PM EDT Acute UTI URINALYSIS, COMPLETE, WITH REFLEX TO CULTURE Routine 06/11/2025 3:50 PM EDT Acute UTI URINALYSIS, COMPLETE, WITH REFLEX TO CULTURE Routine 06/09/2025 3:12 PM EDT Frequent urination CULTURE, URINE, ROUTINE Routine 06/09/2025 3:12 PM EDT Frequent urination POCT URINALYSIS DIPSTICK Routine 06/09/2025 3:11 PM EDT Frequent urination LIPID PANEL, STANDARD Routine 04/30/2025 10:06 AM EDT Dyslipidemia PAP SMEAR Routine 11/02/2023 11:41 AM EST HIV ANTIBODY/ANTIGEN ([place] DPH) Routine 06/06/2023 12:05 PM EDT from Last 3 Months or Most Recently Relevant to Health Maintenance Results * (ABNORMAL) CBC auto differential (07/29/2025 11:53 AM EDT) White Blood Count 7.2 4.8 - 10.8 X10*3/uL [facility] Red Blood Count 5.19 4.20 - 5.50 X10*6/uL [facility] Hemoglobin 16.0 12.0 - 16.0 g/dl [facility] Hematocrit 45.1 37.0 - 47.0 % [facility] Mean Corpuscular Volume 86.9 80.0 - 98.0 fL [facility] Mean Corpuscular Hemoglobin 30.8 27.0 - 33.0 pg [facility] Mean Corpuscular HGB Conc 35.5(H) 31.0 - 35.0 g/dl [facility] Red Cell Distribution Width 11.4 11.0 - 16.0 % [facility] Platelet Count 249 160 - 400 X10*3/uL [facility] Mean Platelet Volume 9.6 9.4 - 12.3 fL [facility] Neutrophils Percent Auto 74.0(H) 45 - 73 % [facility] Imm Gran Pct Auto 0.1 0.0 - 0.4 % [facility] Lymphocytes Percent Auto 19.3(L) 20 - 40 % [facility] Monocytes Percent Auto 5.6 2 - 11 % [facility] Eosinophils Percent Auto 0.6 0 - 4 % [facility] Basophils Percent Auto 0.4 0 - 2 % [facility] NRBC Pct Auto 0.0 0.0 - 0.2 /100WBC [facility] Neutrophils Absolute Auto 5.3 2.0 - 8.3 x10*3/uL [facility] Imm Gran Abs Auto 0.01 0.00 - 0.03 X10*3/uL [facility] Lymphocytes Absolute Auto 1.4 1.2 - 4.9 X10*3/uL [facility] Monocytes Absolute Auto 0.4 0.1 - 1.2 X10*3/uL [facility] Eosinophils Absolute Auto 0.0 0.0 - 0.4 X10*3/uL [facility] Basophils Absolute Auto 0.0 0.0 - 0.2 X10*3/uL [facility] NRBC Abs Auto 0.000 0.0 - 0.012 X10*3/uL [facility] Blood Venous blood specimen / Unknown 07/29/2025 11:53 AM EDT 07/29/2025 1:04 PM EDT us Nathan Mercado MD LAB BLOOD ORDERABLES Final Resul t Performing Organization Address City/[facility] Co de Phone Number [facility] [address] [place] [phone] * Hepatitis C Antibody with Reflex to HCV, RNA, Quantitative, Real-Time PCR (07/29/2025 11:52 AM EDT) Hepatitis C Antibody Nonreactive Nonreactive [facility] Comment:Antibodies to HCV no t detected; does not exclude early acuteHCV infection. Blood Venous blood specimen / Unknown 07/29/2025 11:52 AM EDT 07/29/2025 1:04 PM EDT us Nathan Mercado MD LAB BLOOD ORDERABLES Final Resul t Performing Organization Address [facility] Co de Phone Number [facility] [address] [place] [address] [phone] * Hepatitis B surface antigen, EIA (07/29/2025 11:52 AM EDT) Hepatitis B Surface Ag Negative Negative [facility] Blood Venous blood specimen / Unknown 07/29/2025 11:52 AM EDT 07/29/2025 1:04 PM EDT us Nathan Mercado MD LAB BLOOD ORDERABLES Final Resul t Performing Organization Address [facility] Co de Phone Number [facility] [address] [place] [phone] * Hepatitis B Core Antibody, Total (07/29/2025 11:52 AM EDT) Hepatitis B Core Antibody Nonreactive Nonreactive [facility] Blood Venous blood specimen / Unknown 07/29/2025 11:52 AM EDT 07/29/2025 1:04 PM EDT us Nathan Mercado MD LAB BLOOD ORDERABLES Final Resul t Performing Organization Address [facility] Co de Phone Number [facility] [address] [place] [address] [phone] * Hepatitis B Surface Antibody, Qualitative (07/29/2025 11:52 AM EDT) ~Hepatitis B Surface Antibody GRAYZONE Nonreactive [facility] Comment:GRAYZONE: 8.00 mIU/m L TO 11.99 mIU/mLTHE IMMUNE STATUS OF THE INDIVIDUAL SHOULD BE FURTHERASSESSED BY CONSIDERING OTHER FACTORS, SUCH CLINICALSTATUS, FOLLOW-UP TESTING, ASSOCIATED RISK FACTORS, AND THEUSE OF ADDITIONAL DIAGNOSTIC INFORMATION. Blood Venous blood specimen / Unknown 07/29/2025 11:52 AM EDT 07/29/2025 1:04 PM EDT us Nathan Mercado MD LAB BLOOD ORDERABLES Final Resul t Performing Organization Address [facility] Co de Phone Number [facility] [address] [place] [address] [phone] * Lipase (07/29/2025 11:52 AM EDT) Lipase 12 8 - 78 U/L [facility] Blood Venous blood specimen / Unknown 07/29/2025 11:52 AM EDT 07/29/2025 1:04 PM EDT us Nathan Mercado MD LAB BLOOD ORDERABLES Final Resul t Performing Organization Address [facility] Co de Phone Number [facility] [address] [place] [address] [phone] * (ABNORMAL) Comprehensive Metabolic Panel (07/29/2025 11:52 AM EDT) Pathologist [facility] [place] Sodium 141 135 - 145 mmol/L [facility] Potassium 3.8 3.3 - 5.1 mmol/L [facility] Chloride 106 96 - 108 mmol/L [facility] Carbon Dioxide 28 22 - 29 mmol/L [facility] Anion Gap 11(L) 12 - 20 [facility] Urea Nitrogen (BUN) 10 9 - 16 mg/dL [facility] Creatinine, Serum 0.84 0.5 - 1.4 mg/dL [facility] Estimated Glomerular Filt Rate >60 [facility] Comment:Chronic Kidney Disea se: Estimated GFR < 60 mL/min/1.88m4Kdpzyr Kidney Disease: Estimated GFR < 15 mL/min/1.73m2 Glucose 86 60 - 115 mg/dL [facility] Calcium 9.9 8.4 - 10.2 mg/dL [facility] Bilirubin, Total 0.9 0.0 - 1.0 mg/dL [facility] Aspartate Amino Transferase 19 5 - 31 U/L [facility] Alanine Aminotransferase 18 0 - 31 U/L [facility] Total Protein 7.9 6.5 - 8.0 g/dL [facility] Albumin Level 5.3(H) 3.5 - 5.0 g/dL [facility] Alkaline Phosphatase 73 39 - 117 U/L [facility] Blood Venous blood specimen / Unknown 07/29/2025 11:52 AM EDT 07/29/2025 1:04 PM EDT us Nathan Mercado MD LAB BLOOD ORDERABLES Final Resul t [facility] [address] [place] [phone] [phone] * POCT Urine (06/11/2025 4:02 PM EDT) Pathologist [facility] [place] Preg Test, Ur Negative Negative, Indeterminate, None Detected, Invalid, Specimen unsatisfactory for evaluation, Weakly Positive, 2+ QC Media Lot # [id number] Lot# Expiration Date [id number] Urine 06/11/2025 4:02 PM EDT Fátima Paredes [...] CT PCR, Urine NOT DETECTED Not Detect. [facility] Comment:A not detected test result [...] NG PCR, Urine NOT DETECTED Not Detect. [facility] Comment:A not detected test result [...] DO LAB URINE ORDERABLES Final R esult [facility] [address] [place] [address] [phone] * Urinalysis, Complete, with Reflex to Culture (06/11/2025 3:50 PM EDT) Only the most recent of2 resultswithin the time period is included. Color Urine Yellow [facility] Appearance Urine Clear [facility] PH 7.0 5.0 - 9.0 [facility] Glucose Urine UA Negative Negative mg/dL [facility] Urine Blood Negative Negative [facility] Specific Paia - Urine <=1.005 1.005 - 1.025 [facility] Urine Protein Negative Neg-Trace mg/dL [facility] Urine Ketones Trace Negative mg/dL [facility] Nitrite Urine Negative Negative [facility] Leukocyte Esterase Urine Negative Negative [facility] RBC Urine 0-2 0 - 2 /HPF [facility] Urine WBC 0-5 0 - 5 /HPF [facility] Urine Squamous Epithelial Cell 0-2 0 - 2 /HPF [facility] Urine Bacteria None Seen None Seen [facility] Hyaline Casts, Urine 0-2 0 - 2 /LPF [facility] Urine 06/11/2025 3:50 PM EDT 06/11/2025 5:44 PM EDT Narrative [facility] - 06/11/2025 6:35 PM EDT Urine, Clean Catch us Fátima Paredes DO LAB URINE ORDERABLES Final R esult Performing Organization Address [facility]/ZIP Co de Phone Number [facility] [address] [place] [address] [phone] * Culture, Urine, Routine (06/09/2025 3:12 PM EDT) Urine Urine specimen obtained by clean catch procedure / Unknown 06/09/2025 3:12 PM EDT 06/09/2025 5:28 PM EDT Comment:UACC Narrative [facility] - 06/11/2025 11:23 AM EDT Urine Culture Report Result Urine Culture 10,000 to 50,000 cfu/ml Urine Culture Mixed bacterial abida characteristic of Urine Culture urogenital contamination. Specimen Source: Urine clean catch us Brian Tidwell MD LAB MICROBIOLOGY - GE NERAL ORDERABLES Final Result Performing Organization Address [facility] Co de Phone Number [facility] [address] [place] [address] [phone] * (ABNORMAL) Lipid Panel, Standard (04/30/2025 10:06 AM EDT) Triglycerides 88 <150 mg/dL [facility] Comment:Desirable Triglyceri de: less than 150 mg/dLBorderline High Triglyceride 150-199 mg/dLHigh Triglyceride: 200-499 mg/dLVery High Triglyceride: greater than or equal to 5OO mg/dL Cholesterol 145 <200 mg/dL [facility] Comment:Desirable Cholestero l: less than 200 mg/dLBorderline High Cholesterol: 200-239 mg/dLHigh Cholesterol: greater than 239 mg/dL LDL Cholesterol Calculated 96 <100 mg/dL [facility] Comment:Desirable LDL: less than 100 mg/dLNear Optimal/Above Optimal LDL: 110- 129 mg/dLBorderline High LDL: 130-159 mg/dLHigh LDL: 160-189 mg/dLVery High LDL: greater than or equal to 190 mg/dL HDL Cholesterol 32(L) >40 mg/dL [facility] Comment:Desirable HDL: great er than 40 mg/dL Note: This HDL assay may give artificially low results in patients with liver disease. Blood Venous blood specimen / Unknown 04/30/2025 10:06 AM EDT 04/30/2025 11:18 AM EDT Petra Rico MD LAB BLOOD ORDERABLES Final Result Performing Organization Address City/State/[facility] Co de Phone Number [facility] [address] [place] [address] [phone] * Pap Smear (11/02/2023 11:41 AM EST) 11/02/2023 11:4 1 AM EST 11/06/2023 8:00 AM EST Narrative [facility] - 11/16/2023 3:18 PM EST ----- ------- Name: Ahsan Kuhn Age/Sex: 23/M : 2000 Unit#: [id number] Attend Dr: Petra Rico MD Re11/02/23 Status: DEP REF Location: [id number].HHCLNP Disch: ----- ------- SPEC : [id number] RECD: 11/06/23 STATUS: LAWRENCE TAM NUM: [id number] AKANKSHA: 11/02/23-[address]: Petra Rico MD ENTERED: 11/06/23 SP TYPE: Pap Smr OTHR DR: ORDERED: Pap Smear Interpretation Unsatisfactory. Scant cellularity. HPV mRNA E6/E7: NOT DETECTED This assay detects E6/E7 viral messenger RNA (mRNA) from 14 high-risk HPV types (16, 18, 31, 33, 35, 39, 45, 51, 52, 56, 58, 59, 66, 68) HPV testing performed by [facility], [place], [place]. See reference laboratory portion of the EMR for entire report. Clinical Information LMP: Pt on testosterone Previous PAP test: None Other history: Difficult to see os Material Received ThinPrep-Cervical ----- ------- Signed (signature on file) CLAY Chavez (ASC) 11/16/23 1518 ----- ------- END OF REPORT Petra Rico MD LAB CYTOLOGY ORDERABLES Fi nal Result [facility] [address] [place] [phone] * HIV Ab/Ag (TRAE HEART) (06/06/2023 12:05 PM EDT) HIV AB/AG Nonreactive Nonreactive [facility] Comment:HIV-1 p24 Ag and/or HIV-1/HIV-2 Ab not detected.A test result that is nonreactive does not exclude thepossibility of exposure to or infection with HIV-1 and/orHIV-2. Nonreactive results in this assay for individualswith prior exposure to HIV-1 and/or HIV-2 may be due toantigen and antibody levels that are below the limit ofdetection of this assay.The [employer] HIV Ag/Ab Combo assay result andsupplemental assay results should be interpreted inconjunction with the patient's clinical presentation,history and other laboratory results. If the results areinconsistent with clinical evidence, additional testing issuggested to confirm the result. 06/06/2023 12:0 5 PM EDT 06/06/2023 1:35 PM EDT us Petra Rico MD LAB BLOOD ORDERABLES Final Result [facility] [address] [place] [phone] from Last 3 Months or Most Recently Relevant to Health Maintenance [facility] C3 Advance Directives Documents on File Type Date Recorded Patient Supervisor Stitching Department Expl anation Advance Directives and Livin g Will 10/29/2023 Health Care Proxy Care Teams Rubber Press Tender Relationship Specialty Start Date End Date Moffat, MD Petra [address] [place] [address] PCP - General Family Medicine 08/12/15 Brinane Ivory PharmD [address] [place] [address] Pharmacist Internal Medicine 08/13/23 Tamera Cummings OD [address] [place] [phone] Optometry 09/30/24 Dana Angel [address] [phone] Sleep Medicine 10/13/24 Josi Bojorquez [address] [phone] Gastroenterology 11/04/24 [facility] [address] [place] [address] Gynecology 06/02/25
== END 2025-08-05 13:29 | disposition home or self-care (01) ==
LOC: HO.HHCLNP 13:28
PROVIDERS: Visit Provider Emergency Medicine
DX: R10.9 Unspecified abdominal pain (principal)
CPT/HCPCS: 87338

== ENCOUNTER 2025-08-28 08:36 | Outpatient (REF) | payer MEDICAID, SELFPAY ==
--- NOTE | ~2025-08-28 | US_ITS ---
EXAMINATION: US ABDOMEN LIMITED WITH LIVER ELASTOGRAPHY CLINICAL INFORMATION: Fatty liver COMPARISON: Ultrasound 12/03/2024 TECHNIQUE: Real-time imaging of the abdominal viscera. Noninvasive ultrasound liver fibrosis assessment is performed using Adan ElastPQ point quantification shear wave elastography (pSWE) with a 5 MHz transducer. Multiple elastography samples are obtained. FINDINGS: PANCREAS: The visualized pancreatic head and body are normal in appearance. The remainder of the pancreas is obscured from visualization by the overlying bowel gas. LIVER: The liver demonstrates normal size, contour. Mild increased parenchymal echotexture.. No focal lesion or intrahepatic biliary duct dilatation. The right lobe measures 12 cm in length. The left lobe measures 7.1 cm in length. Trace free fluid adjacent to the left lobe. Subtle nonspecific hypoechogenicity adjacent to the gallbladder capsule.. Shear wave elastography provides a median stiffness of 1.49 m/s (reference: normal median stiffness is 0.81 - 1.22 m/s). The IQR/median stiffness to assess sampling precision is 0.16 (reference: optimal IQR/median stiffness is under 0.3). GALLBLADDER: Shadowing gallstones measuring 1.7 cm and 0.9 cm. No gallbladder wall thickening or pericholecystic fluid. COMMON BILE DUCT: Normal in caliber measuring 0.2 cm in diameter. RIGHT KIDNEY: No hydronephrosis. No renal calculi or focal parenchymal lesions. The kidney measures 9.6 cm in maximum dimension. US/US abdomen norman w elastography IMPRESSION: 1. Mild hepatic steatosis. 2. Cholelithiasis without evidence of acute cholecystitis. 3. Elastography: Median stiffness measures 1.49 m/s. (Previously measuring 1.84). *Liver Stiffness less than 1.7 m/s: In the absence of other known clinical signs, rules out compensated advanced chronic liver disease. REFERENCE: Society of Radiologists in Ultrasound Liver Stiffness Thresholds (2020): LIVER STIFFNESS THRESHOLDS: *Liver Stiffness equal or less than 1.3 m/s: High probability of being normal. *Liver Stiffness less than 1.7 m/s: In the absence of other known clinical signs, rules out compensated advanced chronic liver disease. *Liver Stiffness 1.7-2.1 m/s: Suggestive of compensated advanced chronic liver disease but need further test for confirmation. *Liver Stiffness over 2.1 m/s: Rules in compensated advanced chronic liver disease. *Liver Stiffness over 2.4 m/s: Suggestive of clinically significant portal hypertension. QUALITY OF DATA SET: *IQR/Median value equal or less than 0.15 implies a quality data set. *IQR/Median value over 0.15 implies a poor quality data set. SIGNIFICANT CHANGE FROM PRIOR EXAM: Significant change if liver stiffness measurement is 10% or greater from prior exam. OTHER CONSIDERATIONS: The stage of liver fibrosis may be overestimated in the setting of acute hepatitis, liver inflammation, elevated liver function tests, hepatic vascular congestion, obstructive cholestasis, non-fasting state, and infiltrative diseases such as amyloidosis and lymphoma. In some patients with NAFLD, the liver stiffness thresholds for compensated advanced chronic liver disease may be lower. In causes other than viral hepatitis and NAFLD, liver stiffness thresholds are not well established. Electronically signed by: Eleno Nguyen MD 08/28/2025 04:01 PM [facility]
--- OUTSIDE RECORDS SUMMARY | 2025-08-28 08:38 | XMS_ITS | Encounter Summary ---
Author Organization [facility] Address [address] [place] [address] Phone Care Team Providers Care Aircraft Assembler Name Role Phone Petra Rico MD Primary Care [facility] Encounter Details Date Type Department Care Team (Late st Contact Info) Description 07/23/2025 Procedure Pass OR Admitting Dept - Virtual Department [address] [place] [address] Social History Tobacco Use Types Packs/Day Years [...] Care Team (Late st Contact Info) Description 09/15/2025 4:30 PM EST Office Visit [facility] [address] [place] [address] Rose Damon MD [address] [place] [address], [address] [place] [address] [email or web address] documented as of this encounter Visit Diagnoses Not on filedocumented in this encounter Care Teams Aircraft Assembler Relationship Specialty Start Date End Date Trisha, Petra Del Cid MD [address] [place] [address] PCP - General 07/26/17 documented as of this encounter Additional Source Comments The information contained in this document represents components of the legal health record. It is not the complete legal health record.[facility]
--- OUTSIDE RECORDS SUMMARY | 2025-08-28 08:40 | XMS_ITS | Encounter Summary ---
Author Organization [facility] Address [address] [facility] [address] [place] [address] Phone Care Team Providers Care Judge Name Role Phone Petra Rico MD Primary Care [facility] Encounter Details Date Type Department Care Team (Late st Contact Info) Description 07/13/2021 Procedure Pass OR Admitting Dept - Virtual Department [address] [place] [address] Social History Tobacco Use Types Packs/Day Years [...] Encounters Date Type Department Care Team (Late Contact Info) Description 09/15/2025 4:30 PM EST Office Visit [facility] [address] [place] [address] [place] [address] Rose Damon MD [address] [facility], [address] [place] [address] [email or web address] documented as of this encounter Visit Diagnoses Not on filedocumented in this encounter Care Teams Judge Relationship Specialty Start Date End Date Petra Rico MD [address] [place] [address] PCP - General 07/26/17 documented as of this encounter Additional Source Comments The information contained in this document represents components of the legal health record. It is not the complete legal health record.[facility]
== END 2025-08-28 08:37 | disposition home or self-care (01) ==
LOC: HO.US 08:36
PROVIDERS: PCP Family Medicine; Visit Provider Nurse Practitioner Family
DX: K76.0 Fatty (change of) liver, not elsewhere classified (principal)
CPT/HCPCS: 76705; 76981

== ENCOUNTER → 2025-08-28 08:38 | Outpatient (BNV) | payer MEDICAID, SELFPAY | PROVIDERS: PCP Family Medicine; Visit Provider Radiology Diagnostic Ultrasound | DX: K76.0 Fatty (change of) liver, not elsewhere classified (principal); K80.20 Calculus of gallbladder without cholecystitis without obstruction | CPT/HCPCS: 76705 ==

== ENCOUNTER 2025-08-31 13:02 | Outpatient (AMB) | payer MEDICAID, SELFPAY ==
--- OUTSIDE RECORDS SUMMARY | 2025-08-28 09:15 | XMS_ITS | Encounter Summary ---
Author Organization [email or web address] Address [address] [place] [address] Care Team Providers Care Health And Wellness Instructor Name Role Phone Trisha, Petra VALENCIA Primary Care Provider [phone] Brianne Ivory PharmD Unavailable Tamera Cummings OD Unavailable Dana Angel Unavailable [phone] Josi Bojorquez Unavailable Rose Damon Unavailable Encounter Details Date Type Department Care Team (Late st Contact Info) Description 08/28/2025 9:15 AM EST Office Visit [facility] OPTOMETRY [address] [place] [address] Tamera Cummings, OD [address] [place] [address] Myopia of both eyes (Primary Dx) Social History Tobacco Use Types [...] AM EDT documented as of this encounter Progress Notes * Tamera Cummings OD - 08/28/2025 9:15 AM EST MH glasses were dispensed. documented in this encounter Plan of Treatment Not on file documented as of this encounter Goals Goal Patient Goal Type Associated Problems Recent Progress Patient-Stated? Author Blood Pressure < 140/90 Blood Pressure 150/80( 025 11:21 AM EST) No Brianne Katz, PharmD documented as of this encounter Visit Diagnoses Diagnosis Myopia of both eyes- Primary documented in this encounter Additional Health Concerns Assessment Noted Time PHQ-9 Depression Total Score: 8 04/30/20 25 9:10 AM EDT documented as of this encounter Care Teams Health And Wellness Instructor Relationship Specialty Start Date End Date Petra Rico MD [address] [place] [address] PCP - General Family Medicine 08/12/15 Brianne Ivory PharmD [address] [place] [address] Pharmacist Internal Medicine 08/13/23 Tamera Cummings OD [address] [place] [address] Optometry 09/30/24 Dana Angel [address] [place] [address] Sleep Medicine 10/13/24 Josi Bojorquez [address] [place] [address] Gastroenterology 11/04/24 [facility] [address] [place] [address] Gynecology 06/02/25 documented as of this encounter
--- NOTE | 2025-08-31 13:23 | MHC.OFFVIS ---
Vital Signs 08/31/25 13:27 Height 4 ft 10 in Weight 108 lb BMI 22.6 BP 134/86 Blood Pressure Location Rt brachial Position Sitting Pulse 86 Pulse Source Pulse Oximeter Pulse Oximetry (%) 100 Oxygen Delivery Method Room Air Intake Visit Reasons: 6m Intake Note: Est pt for mgmt of transaminitis. CC: C.O. Nausea w/o vomiting, generalized abd pain, GERD. Pt had previously completed a trial of esomeprazole; however, he had stopped taking the medication out of concern for long term care pharmacist kidney damage as a result of taking the medication. Pt has upcoming appt with gen surg for gallbladder concerns. Cable Repairer Required: No Accompanied by: Self / Same As Patient Allergies No Known Allergies (No Known Allergies*) Allergy (Verified 08/31/25 13:27) HPI HPI 6m: Details: LAST VISIT Transaminitis Nonalcoholic fatty liver Plan Patient will continue his diet. Liver enzymes normal. Ultrasound with high elastography showing possible advanced chronic liver disease will wait for liver fibrosis panel. Continue low-fat, low-salt, low carb and high protein diet. Patient was encouraged weight loss, increase exercise and activity. Patient will follow-up in 6 months. We will repeat ultrasound with elastography again. Patient is agreeable to current plan of care and verbalizes understanding of instructions. He was given the opportunity to ask questions and all questions answered. ? Thank you for allowing me to participate in his care Orders US abdomen norman w elastography 6 Months K76.0 TODAY'S VISIT Patient is here today for follow-up. Patient reports that 1 week ago he was at [facility] and was told that he has cholelithiasis pretty extensive and was sent to be seen by General surgery for possible cholecystectomy. Patient reports to me that has mid abdominal pain usually in the morning or ports the end of the day. Denies having any right upper quadrant pain postprandially. Patient has appointment with General surgery at [facility] and also with our [place] neurosurgeon next week. Patient denies any nausea or vomiting. Ultrasound with elastography done last month and showed improved elastography. Patient reports that he has been doing well otherwise. Denies any dyspepsia, dysphagia or odynophagia. Reports that he is moving his bowels, however he occasionally will feel like she is constipated she does not feel like he empties his bowels completely. He does report feeling gassy at times. Not sure what causes him bloating. [facility] Medical History Transaminitis Surgical History History of esophagogastroduodenoscopy (EGD) (~2015) Family History Mother Hypertension Paternal Grandfather Colon cancer Social History Household Members: Family Alcohol intake: never Patient Tobacco Use Status: Never used Tobacco Review of Systems Const Denies weight gain and Denies weight loss ENT Reports no additional complaints, Denies dysphagia and Denies odynophagia Card Reports no additional complaints Resp Reports no additional complaints GI Denies abdominal pain, Denies belching, Denies melena, Denies bloating, Denies change in bowel habits, Denies dysphagia, Denies excessive flatus, Denies dyspepsia, Denies heartburn, Denies diarrhea, Denies loose stools, Denies nausea, Denies odynophagia and Denies vomiting Musc Reports no additional complaints Neuro Reports no additional complaints Psych Reports no additional complaints Endo Reports no additional complaints Physical Exam Vital Signs: Last Vital Signs Pulse 86 08/31/25 13:27 BP 134/86 08/31/25 13:27 Pulse Ox 100 08/31/25 13:27 Oxygen Delivery Method Room Air 08/31/25 13:27 BMI result Body Mass Index 22.6 Const General: healthy appearing, no acute distress and well developed Nutritional Appearance: well nourished Orientation/consciousness: patient oriented x3 Resp Effort & Inspection: normal respiratory effort, able to speak in complete sentences, no tracheal deviation and symmetric chest movement Auscultation: clear to auscultation bilaterally Cardio Rate: regular rate GI Inspection: Yes normal to inspection and No distended Palpation (GI): Soft to palpation, not firm, nontender and No hepatosplenomegaly present Auscultation: normal bowel sounds General: Yes no CVA tenderness Back/Spine/Pelvis Back: no CVA tenderness Skin General skin exam: elasticity normal, turgor normal and dry skin Neuro General: patient oriented x3 Psych Appearance: grossly normal Mental Status: mental status grossly normal Results Reviewed Results Reviewed: ABDOMINAL ULTRASOUND WITH ELASTOGRAPHY 08/28/2025 IMPRESSION: 1. Mild hepatic steatosis. 2. Cholelithiasis without evidence of acute cholecystitis. 3. Elastography: Median stiffness measures 1.49 m/s. (Previously measuring 1.84). *Liver Stiffness less than 1.7 m/s: In the absence of other known clinical signs, rules out compensated advanced chronic liver disease. Assessment & Plan Assessment & Plan (1) Weight loss: Code(s): R63.4 - Abnormal weight loss Category: Medical (2) Transaminitis: Code(s): R74.01 - Elevation of levels of liver transaminase levels Category: Medical (3) Nonalcoholic fatty liver: Code(s): K76.0 - Fatty (change of) liver, not elsewhere classified (4) Cholelithiasis: Code(s): K80.20 - Calculus of gallbladder without cholecystitis without obstruction Qualifiers: Cholelithiasis location: gallbladder Cholecystitis presence: without cholecystitis Biliary obstruction: without biliary obstruction Qualified Code(s): K80.20 - Calculus of gallbladder without cholecystitis without obstruction Plan Will check lipase, transglutaminase. Will check fecal calprotectin. Patient will be sent for a HIDA scan. Discussed with patient avoiding dietary triggers and late night snacking. Staying upright for minimum 3 hours after meals discussed with patient. Patient was encouraged to follow with general surgeon here at [facility] and couple weeks. Patient will follow-up in our office in 3 months. He will call us if he will have any worsening GI symptoms. He is agreeable to current plan of care and verbalizes understanding of instructions. He was given the opportunity to ask questions and all questions answered. Thank you for allowing me to participate in his care Orders: Orders Transglutaminase IgA 08/31/25 R10.9 - Unspecified abdominal pain NM hepatobiliary w pharm 08/31/25 R10.11 - Right upper quadrant pain Lipase 08/31/25 R10.9 - Unspecified abdominal pain Calprotectin, Fecal 09/02/25 R19.8 - Other specified symptoms and signs involving the digestive system and abdomen, R63.4 - Abnormal weight loss Coding Level of Care Code Est Pt Level 4 (85860) Diagnoses Weight loss R63.4 Transaminitis R74.01 Nonalcoholic fatty liver K76.0 Calculus of gallbladder without cholecystitis without obstruction K80.20 Cholelithiasis location: gallbladder Cholecystitis presence: without cholecystitis Biliary obstruction: without biliary obstruction Time Spent (min) 40 Comment 25 minutes spent with patient and additional 15 minutes spent reviewing his records
[2025-08-31 13:27] VITALS: BP 134/86; PULSE 86; O2SAT 100; BMI 22.6
--- OUTSIDE RECORDS SUMMARY | 2025-08-31 17:35 | XMS_ITS | Encounter Summary ---
Author Organization [employer] Address [address] [place] [address] 7t [place] [address] Care Team Providers Care Field Research Assistant Name Role Phone Petra Rico MD Primary Care Provider [phone]- [phone] Brianne Ivory PharmD Unavailable Tamera Cummings OD Unavailable Dana Angel Unavailable Josi Bojorquez Unavailable Rose Damon Unavailable Encounter Details Date Type Department Care Team (Late st Contact Info) Description 06/05/2023 Abstract [facility] MEDICINE [address] [place], [place] [phone] Petra Rico MD [address] [place], [place] [phone] Social History Tobacco Use Types Packs/Day Years [...] on filedocumented in this encounter Care Teams Field Research Assistant Relationship Specialty Start Date End Date Petra Rico MD [address] [place] [address] PCP - General Family Medicine 08/12/15 Brianne Ivory PharmD [address] [place] [address] Pharmacist Internal Medicine 08/13/23 Tamera Cummings OD [address] [place] [address] Optometry 09/30/24 Dana Angel [address] [address] Sleep Medicine 10/13/24 Josi Bojorquez [address] [address] Gastroenterology 11/04/24 [facility] [address] [place] [address] Gynecology 06/02/25 documented as of this encounter
--- OUTSIDE RECORDS SUMMARY | 2025-08-31 17:35 | XMS_ITS | Encounter Summary ---
Author Organization [employer] Address [address] [place] [address] Care Team Providers Care Roller Inspector Name Role Phone Petra Rico MD Primary Care Provider [phone]- [phone] Brianne Ivory PharmD Unavailable Tamera Cummings OD Unavailable Dana Angel Unavailable Josi Bojorquez Unavailable Rose Damon Unavailable Encounter Details Date Type Department Care Team (Late st Contact Info) Description 09/17/2024 Orders Only [facility] MEDICINE [address] [place], [place] [phone] Petra Rico MD [address] [place], [place] [phone] Social History Tobacco Use Types Packs/Day Years [...] documented as of this encounter Care Teams Roller Inspector Relationship Specialty Start Date End Date Petra Rico MD [address] [place] [address] PCP - General Family Medicine 08/12/15 Brianne Ivory, PharmD [address] [place] [address] Pharmacist Internal Medicine 08/13/23 Tamera Cummings OD [address] [place] [address] Optometry 09/30/24 Dana Angel [address] [address] Sleep Medicine 10/13/24 Josi Bojorquez [address] [address] Gastroenterology 11/04/24 [facility] [address] [place] [address] Gynecology 06/02/25 documented as of this encounter
--- OUTSIDE RECORDS SUMMARY | 2025-08-31 17:35 | XMS_ITS | Encounter Summary ---
Author Organization [facility] Address [address] [place] [address] Phone Care Team Providers Care Fitter Type Bar And Segment Name Role Phone Petra Rico MD Primary Care [facility] Encounter Details Date Type Department Care Team (Late st Contact Info) Description 07/13/2021 Procedure Pass OR Admitting Dept - Virtual Department [address] [place] [address] Social History Tobacco Use Types Packs/Day Years [...] Office Visit [facility] [address] [place] [address] [place] [address] Rose Damon MD [address] [facility] [address], [address] [place] [address] [email or web address] documented as of this encounter Visit Diagnoses Not on filedocumented in this encounter Care Teams Fitter Type Bar And Segment Relationship Specialty Start Date End Date Petra Rico MD [address] [place] [address] PCP - General 07/26/17 documented as of this encounter Additional Source Comments The information contained in this document represents components of the legal health record. It is not the complete legal health record.[facility]
--- OUTSIDE RECORDS SUMMARY | 2025-08-31 17:35 | XMS_ITS | Clinical Summary ---
Author Organization [facility] Address [address] [place] [address] [place] [address] Phone Care Team Providers Care Manager Payment Name Role Phone Petra Rico MD Primary [...] OR Admitting Dept - Virtual Department [address] [place] [address] 07/09/2025 Telephone [facility] General Surgical Care [address] [place] [address] Rose Damon MD Surgery Scheduling 06/01/2025 9:40 AM EDT Office Visit [facility] [address] [place] [address] [place] [address] Rose Damon MD Gender dysphoria (Primary Dx); Vaginismus from Last 3 Months Family History Medical [...] 09/15/2025 4:30 PM EST Office Visit [facility] [address] [place] [address] [place] [address] Rose Damon MD [address] [place] [address], [address] [place] [address] [email or web address] Health Maintenance Due Date Last Done Comments [...] on patient's age to complete this topic HEPATITIS A VACCINES Completed 01/08/2015, 03/12/20 13 MENINGOCOCCAL VACCINES (ACWY) Completed 10/18/2015, 07/14/2010 MENINGOCOCCAL VACCINES (B) Aged Out N o longer eligible based on patient's age to complete this topic Medical Devices Not on file Insurance [facility] [place] [address] [facility] C3 ACO [facility] C3 ACO [facility] C3 ACO [facility] C3 ACO [facility] C3 ACO [facility] C3 ACO [facility] C3 ACO [facility] C3 ACO Care Teams Manager Payment Relationship Specialty Start Date End Date Trisha, Petra Del Cid MD [address] [place] [address] PCP - General 07/26/17 Additional Source Comments The information contained in this document represents components of the legal health record. It is not the complete legal health record.[facility]
--- OUTSIDE RECORDS SUMMARY | 2025-08-31 17:35 | XMS_ITS | Encounter Summary ---
Author Organization [employer] Address [address] [place] [address] 7t [place] [address] Care Team Providers Care Regulatory Attorney Name Role Phone Petra Rico MD Primary Care Provider [phone] Brianne Ivory PharmD Unavailable EmilianoTamera fairchild OD Unavailable Dana Angel Unavailable [phone] Josi Bojorquez Unavailable Rose Damon Unavailable Encounter Details Date Type Department Care Team (Late st Contact Info) Description 10/19/2022 Telephone [facility] [address] [place], [place] [phone] Petra Rico MD [address] [place] [address] [phone] Social History Tobacco Use Types Packs/Day Years [...] Primary documented in this encounter Care Teams Regulatory Attorney Relationship Specialty Start Date End Date Petra Rico MD [address] [place] [address] [phone] PCP - General Family Medicine 08/12/15 Brianne Ivory PharmD [address] [place] [address] Pharmacist Internal Medicine 08/13/23 Tamera Cummings OD [address] [place] [address] Optometry 09/30/24 Dana Angel [address] [address] Sleep Medicine 10/13/24 Josi Bojorquez [address] [address] Gastroenterology 11/04/24 [facility] [address] [place] [address] Gynecology 06/02/25 documented as of this encounter
--- OUTSIDE RECORDS SUMMARY | 2025-08-31 17:35 | XMS_ITS | Encounter Summary ---
Author Organization [employer] Address [address] [facility] 7t [place] [address] Care Team Providers Care Securities Teller Name Role Phone Petra Rico MD Primary Care Provider +- [phone] Brianne Ivory PharmD Unavailable Tamera Cummings OD Unavailable Dana Angel Unavailable Josi Bojorquez Unavailable Rose Damon Unavailable Reason for Visit * Reason Onset Date Comments Feburary Recalls 08/28/2025 Encounter Details Date Type Department Care Team (Late st Contact Info) Description 08/28/2025 Telephone [facility] 230 [place], [place] [phone] Petra Rico MD 230 [place], [place] [phone] Feburary Recalls Social History Tobacco Use Types Packs/Day Years [...] encounter Miscellaneous Notes * Telephone Encounter - Maria Luz Tidwell [place] - 08/28/2025 2:51 PM EST ..The patient needs to call to make the appointment.I will sent a reminder letter. Visit type: Physical Appointment notes: Physical Month due: November With:Dr. Rico documented in this encounter Plan of Treatment [...] documented as of this encounter Care Teams Securities Teller Relationship Specialty Start Date End Date Petra Rico MD 230 [place] [address] PCP - General Family Medicine 08/12/15 Brianne Ivory PharmD 230 [place] [address] Pharmacist Internal Medicine 08/13/23 Tamera Cummings OD [address] [place] [address] Optometry 09/30/24 Dana Angel [address] [place] [address] Sleep Medicine 10/13/24 Josi Bojorquez [address] [place] [address] Gastroenterology 11/04/24 [facility] [address] [place] [address] Gynecology 06/02/25 documented as of this encounter
--- OUTSIDE RECORDS SUMMARY | 2025-08-31 17:35 | XMS_ITS | Encounter Summary ---
Author Organization [employer] Address [address] [facility] 7t [place] [address] Care Team Providers Care Power Truck Driver Name Role Phone Petra Rico MD Primary Care Provider +- [phone] Brianne Ivory PharmD Unavailable Tamera Cummings OD Unavailable [phone] Dana Angel Unavailable [phone] Josi Bojorquez Unavailable Rose Damon Unavailable Reason for Visit * Reason Onset Date Comments Med Refill 10/29/2024 Encounter Details Date Type Department Care Team (Late st Contact Info) Description 10/29/2024 Refill [facility] 230 [place], [place] [phone] Petra Rico MD 230 [place], [place] [phone] Gender dysphoria Social History Tobacco Use Types [...] documented as of this encounter Care Teams Power Truck Driver Relationship Specialty Start Date End Date Petra Rico MD [address] [place] [address] PCP - General Family Medicine 08/12/15 Brianne Ivory, Balaji 230 [place] [address] Pharmacist Internal Medicine 08/13/23 Tamera Cummings OD [address] [place] [address] Optometry 09/30/24 Dana Angel [address] [address] Sleep Medicine 10/13/24 Josi Bojorquez [address] [address] Gastroenterology 11/04/24 [facility] [address] [place] [address] Gynecology 06/02/25 documented as of this encounter
--- OUTSIDE RECORDS SUMMARY | 2025-08-31 17:35 | XMS_ITS | Encounter Summary ---
Author Organization [employer] Address [address] [facility] [address] 7t [place] [address] Care Team Providers Care Child Care Cook Name Role Phone Petra Rico MD Primary Care Provider +- [phone] Brianne Ivory PharmD Unavailable Tamera Cummings OD Unavailable Dana Angel Unavailable Josi Bojorquez Unavailable Rose Damon Unavailable Encounter Details Date Type Department Care Team (Late st Contact Info) Description 04/23/2024 Orders Only [facility] 230 [place], [place] [phone] Petra Rico MD 230 [place], [place] [phone] Social History Tobacco Use Types Packs/Day Years [...] documented as of this encounter Care Teams Child Care Cook Relationship Specialty Start Date End Date Petra Rico MD 230 [place] [address] PCP - General Family Medicine 08/12/15 Brianne Ivory, PharmD 230 [place] [address] Pharmacist Internal Medicine 08/13/23 Tamera Cummings OD [address] [place] [address] Optometry 09/30/24 Dana Angel [address] [address] Sleep Medicine 10/13/24 Josi Bojorquez [address] [address] Gastroenterology 11/04/24 [facility] 22 [place] [address] Gynecology 06/02/25 documented as of this encounter
--- OUTSIDE RECORDS SUMMARY | 2025-08-31 17:35 | XMS_ITS | Encounter Summary ---
Author Organization [employer] Address [address] [facility] [address] 7t [place] [address] Care Team Providers Care Senior Business Objects Developer Name Role Phone Petra Rico MD Primary Care Provider +- [phone] Brianne Ivory PharmD Unavailable [phone] Tamera Cummings OD Unavailable [phone] Dana Angel Unavailable [phone] Josi Bojorquez Unavailable Rose Damon Unavailable Encounter Details Date Type Department Care Team (Late st Contact Info) Description 08/31/2025 Orders Only GENERIC EXTERNAL DATA DEPARTMENT Provider, Generic External Data Social History Tobacco Use Types Packs/Day Years [...] Procedure Name Priority Date/Time Associated Diagnosis Comments LIPASE Routine 08/31/2025 2:42 PM EST documented in this encounter Results * Lipase (08/31/2025 2:42 PM EST) Lipase 14 8 - 78 U/L [facility] 08/31/2025 2:42 PM EST 08/31/2025 2:42 PM EST us Generic External Data Provider LAB BLOOD ORDERAB LES Final Result [facility] [address] [place] [phone] documented in this encounter Visit Diagnoses Not on filedocumented in this encounter Additional Health Concerns Assessment Noted Time PHQ-9 Depression Total Score: 8 04/30/20 25 9:10 AM EDT documented as of this encounter Care Teams Senior Business Objects Developer Relationship Specialty Start Date End Date Petra Rico MD 230 [place] [address] PCP - General Family Medicine 08/12/15 Brianne Ivory, DagoD [address] [place] [address] Pharmacist Internal Medicine 08/13/23 Tamera Cummings OD [address] [place] [address] Optometry 09/30/24 Dana Angel [address] [place] [address] Sleep Medicine 10/13/24 Josi Bojorquez [address] [place] [address] Gastroenterology 11/04/24 [facility] [address] [place] [address] Gynecology 06/02/25 documented as of this encounter
--- OUTSIDE RECORDS SUMMARY | 2025-08-31 17:35 | XMS_ITS | Encounter Summary ---
Author Organization [employer] Address [address] [facility] [address] 7t [place] [address] Care Team Providers Care Horticultural Specialty Grower Inside Name Role Phone Petra Rico MD Primary Care Provider +- [phone] Brianne Ivory PharmD Unavailable Tamera Cummings OD Unavailable [phone] Dana Angel Unavailable Josi Bojorquez Unavailable Rose Damon Unavailable Reason for Visit * Reason Comments Med Refill Encounter Details Date Type Department Care Team (Late st Contact Info) Description 08/07/2024 Refill [facility] 230 [place], [place] [phone] Petra Rico MD 230 [place], [place] [phone] Mixed anxiety and depressive disorder Social History [...] documented as of this encounter Care Teams Horticultural Specialty Grower Inside Relationship Specialty Start Date End Date Petra Rico MD [address] [place] [address] PCP - General Family Medicine 08/12/15 Brianne Ivory DagoD 230 [place] [address] Pharmacist Internal Medicine 08/13/23 Tamera Cummings OD [address] [place] [address] Optometry 09/30/24 Dana Angel [address] [address] Sleep Medicine 10/13/24 Josi Bojorquez [address] [place] [address] Gastroenterology 11/04/24 [facility] [address] [place] [address] Gynecology 06/02/25 documented as of this encounter
--- OUTSIDE RECORDS SUMMARY | 2025-08-31 17:35 | XMS_ITS | Encounter Summary ---
Author Organization [facility] Address [address] [place] [phone] Phone Care Team Providers Care Barge Master Name Role Phone Petra Rico MD Primary Care [facility] Encounter Details Date Type Department Care Team (Late st Contact Info) Description 07/23/2025 Procedure Pass OR Admitting Dept - Virtual Department 30 [place] [address] Social History Tobacco Use Types Packs/Day Years [...] Visit [facility] [address] [place] [address] Rose Damon MD [address] [place] [address], [address] [place] [address] [email or web address] documented as of this encounter Visit Diagnoses Not on filedocumented in this encounter Care Teams Barge Master Relationship Specialty Start Date End Date Trisha, Petra Del Cid MD [address] [place] [address] PCP - General 07/26/17 documented as of this encounter Additional Source Comments The information contained in this document represents components of the legal health record. It is not the complete legal health record.[facility]
--- OUTSIDE RECORDS SUMMARY | 2025-08-31 17:35 | XMS_ITS | Encounter Summary ---
Author Organization [employer] Address [address] [facility] [address] 7t [place] [address] Care Team Providers Care Coordinating Producer Name Role Phone Peak, Petra VALENCIA Primary Care Provider +- [phone] Brianne Ivory PharmD Unavailable [phone] Tamera Cummings OD Unavailable [phone] Dana Angel Unavailable [phone] Josi Bojorquez Unavailable Rose Damon Unavailable Encounter Details Date Type Department Care Team (Late st Contact Info) Description 08/28/2025 Orders Only [facility] External Provider, [facility] Transaminitis (Primary Dx) Social History Tobacco Use Types [...] 025 11:21 AM EST) No Brianne Katz, DagoD documented as of this encounter Procedures Procedure Name Priority Date/Time Associated Diagnosis Comments US ABDOMEN ROCKWELL W ELASTOGRAPHY Routine 08/28/2025 8:50 AM EST documented in this encounter Results * US ABDOMEN ROCKWELL W ELASTOGRAPHY (08/28/2025 8:50 AM EST) Anatomical Region Laterality Modality Abdomen Ultrasound 08/28/2025 8:50 AM EST Narrative 08/28/2025 4:04 PM EST [address] [address] Ultrasound Report Signed Patient: Ahsan Kuhn MR#: [id number] : 2000 Acct:[id number] Age/Sex: 25 / M ADM Date: 08/28/25 Loc: HO.US Attending Dr: Josi RODRIGUEZ Ordering Physician: Josi Bojorquez Date of Service: 08/28/25 Procedure(s): US abdomen rockwell w elastography Accession Number(s): [id number] cc: Petra Rico MD; Josi Bojorquez Reason for Exam: K76.0 - Fatty (change of) liver, not elsewhere classified EXAMINATION: US ABDOMEN LIMITED WITH LIVER ELASTOGRAPHY CLINICAL INFORMATION: Fatty liver COMPARISON: Ultrasound 12/03/2024 TECHNIQUE: Real-time imaging of the abdominal viscera. Noninvasive ultrasound liver fibrosis assessment is performed using [employer] ElastPQ point quantification shear wave elastography (pSWE) with a 5 MHz transducer. Multiple elastography samples are obtained. FINDINGS: PANCREAS: The visualized pancreatic head and body are normal in appearance. The remainder of the pancreas is obscured from visualization by the overlying bowel gas. LIVER: The liver demonstrates normal size, contour. Mild increased parenchymal echotexture.. No focal lesion or intrahepatic biliary duct dilatation. The right lobe measures 12 cm in length. The left lobe measures 7.1 cm in length. Trace free fluid adjacent to the left lobe. Subtle nonspecific hypoechogenicity adjacent to the gallbladder capsule.. Shear wave elastography provides a median stiffness of 1.49 m/s (reference: normal median stiffness is 0.81 - 1.22 m/s). The IQR/median stiffness to assess sampling precision is 0.16 (reference: optimal IQR/median stiffness is under 0.3). GALLBLADDER: Shadowing gallstones measuring 1.7 cm and 0.9 cm. No gallbladder wall thickening or pericholecystic fluid. COMMON BILE DUCT: Normal in caliber measuring 0.2 cm in diameter. RIGHT KIDNEY: No hydronephrosis. No renal calculi or focal parenchymal lesions. The kidney measures 9.6 cm in maximum dimension. US/US abdomen rockwell w elastography IMPRESSION: 1. Mild hepatic steatosis. 2. Cholelithiasis without evidence of acute cholecystitis. 3. Elastography: Median stiffness measures 1.49 m/s. (Previously measuring 1.84). *Liver Stiffness less than 1.7 m/s: In the absence of other known clinical signs, rules out compensated advanced chronic liver disease. REFERENCE: Society of Radiologists in Ultrasound Liver Stiffness Thresholds (2020): LIVER STIFFNESS THRESHOLDS: *Liver Stiffness equal or less than 1.3 m/s: High probability of being normal. *Liver Stiffness less than 1.7 m/s: In the absence of other known clinical signs, rules out compensated advanced chronic liver disease. *Liver Stiffness 1.7-2.1 m/s: Suggestive of compensated advanced chronic liver disease but need further test for confirmation. *Liver Stiffness over 2.1 m/s: Rules in compensated advanced chronic liver disease. *Liver Stiffness over 2.4 m/s: Suggestive of clinically significant portal hypertension. QUALITY [...] are not well established. Electronically signed by: Eleno Nguyen MD 08/28/2025 04:01 PM [facility] [place]ict[place] By: Eleno Nguyen MD Signed By: <Electronically signed by Eleno Nguyen MD in OV> 08/28/25 1601 DD/ 0850 TD/TT: 08/28/25 0901 Bulk Intake Worker: SHANAE Procedure Note Donotuseinterpreter, Image - 08/28/[address] [address] Ultrasound Report Signed Patient: Ahsan Kuhn JMR#: [id number] : 2000Acct:[id number] Age/Sex: 25 / MADM Date: 08/28/25 Loc: HO.US Attending Dr: Josi Bojorquez [facility] Ordering Physician: Josi Bojorquez [facility] Date of Service: 08/28/25 Procedure(s): US abdomen rockwell w elastography Accession Number(s): [id number] cc: Petra Rico MD; Josi Bojorquez [facility] Reason for Exam: K76.0 - Fatty (change of) liver, not elsewhereclassified EXAMINATION: US ABDOMEN LIMITED WITH LIVER ELASTOGRAPHY CLINICAL INFORMATION: Fatty liver COMPARISON: Ultrasound 12/03/2024 TECHNIQUE: Real-time imaging of the abdominal viscera. Noninvasive ultrasound liver fibrosis assessment is performed using [employer] ElastPQ point quantification shear wave elastography (pSWE) with a 5 MHz transducer. Multiple elastography samples are obtained. FINDINGS: PANCREAS: The visualized pancreatic head and body are normal in appearance. The remainder of the pancreas is obscured from visualization by the overlying bowel gas. LIVER: The liver demonstrates normal size, contour. Mild increased parenchymal echotexture.. No focal lesion or intrahepatic biliary duct dilatation. The right lobe measures 12 cm in length. The left lobe measures 7.1 cm in length. Trace free fluid adjacent to the left lobe. Subtle nonspecific hypoechogenicity adjacent to the gallbladder capsule.. Shear wave elastography provides a median stiffness of 1.49 m/s (reference: normal median stiffness is 0.81 - 1.22 m/s). The IQR/median stiffness to assess sampling precision is 0.16 (reference: optimal IQR/median stiffness is under 0.3). GALLBLADDER: Shadowing gallstones measuring 1.7 cm and 0.9 cm. No gallbladder wall thickening or pericholecystic fluid. COMMON BILE DUCT: Normal in caliber measuring 0.2 cm in diameter. RIGHT KIDNEY: No hydronephrosis. No renal calculi or focal parenchymal lesions. The kidney measures 9.6 cm in maximum dimension. US/US abdomen rockwell w elastography IMPRESSION: 1. Mild hepatic steatosis. 2. Cholelithiasis without evidence of acute cholecystitis. 3. Elastography: Median stiffness measures 1.49 m/s. (Previously measuring 1.84). *Liver Stiffness less than 1.7 m/s: In the absence of other known clinical signs, rules out compensated advanced chronic liver disease. REFERENCE: Society of Radiologists in Ultrasound Liver Stiffness Thresholds (2020): LIVER STIFFNESS THRESHOLDS: *Liver Stiffness equal or less than 1.3 m/s: High probability of being normal. *Liver Stiffness less than 1.7 m/s: In the absence of other known clinical signs, rules out compensated advanced chronic liver disease. *Liver Stiffness 1.7-2.1 m/s: Suggestive of compensated advanced chronic liver disease but need further test for confirmation. *Liver Stiffness over 2.1 m/s: Rules in compensated advanced chronic liver disease. *Liver Stiffness over 2.4 m/s: Suggestive of clinically significant portal hypertension. QUALITY [...] are not well established. Electronically signed by: Eleno Nguyen MD 08/28/2025 04:01 PM [facility] [place]ict[place] By: Eleno Nguyen MD Signed By: <Electronically signed by Eleno Nguyen MD in OV> 08/28/25 1601 DD/ 0850 TD/TT: 08/28/25 0901 Bulk Intake Worker: SHANAE [facility] External Provider IMG US PROCEDURES Final Result documented in this encounter Visit Diagnoses Diagnosis Transaminitis- Primary Nonspecific elevation of levels of transaminase or lactic acid dehydrogenase (LDH) documented in this encounter Additional Health Concerns Assessment Noted Time PHQ-9 Depression Total Score: 8 04/30/20 25 9:10 AM EDT documented as of this encounter Care Teams Coordinating Producer Relationship Specialty Start Date End Date Petra Rico MD [address] [place] [address] PCP - General Family Medicine 08/12/15 Brianne Ivory, Balaji [address] [place] [address] Pharmacist Internal Medicine 08/13/23 Tamera Cummings OD [address] [place] [address] Optometry 09/30/24 Dana Angel [address] [address] Sleep Medicine 10/13/24 Josi Bojorquez [address] [address] Gastroenterology 11/04/24 [facility] [address] [place] [address] Gynecology 06/02/25 documented as of this encounter
--- OUTSIDE RECORDS SUMMARY | 2025-08-31 17:35 | XMS_ITS | Clinical Summary ---
Author Organization [employer] Address [address] [facility] [address] [place] [address] Care Team Providers Care Dumbwaiter Operator Name Role Phone Petra Rico MD Primary Care Provider [phone]- [phone] Brianne Ivory PharmD Unavailable Tamera Cummings OD Unavailable Dana Angel Unavailable Josi Bojorquez Unavailable Rose Damon Unavailable Allergies No known active allergies Medications naproxen (Naprosyn) 500 MG tabletIndicat ions:Pain TAKE 1 TABLET BY MOUTH TWICE A DAY 60 tablet 024 Active fish oil-omega-3 fatty acids 1000 MG capsuleIndica tions:Dyslipi demia Take 2 capsules (2 g) by mouth 2 times daily. 180 capsule 3 024 Active BD Hypodermic Needle 16G X 1 miscIndicatio ns:Gender dysphoria USE TO DRAW UP MEDICINE 20 each 1 025 Active Alcohol Swabs (Alcohol Prep) 70 % padsIndicatio ns:Gender dysphoria USE BEFORE INJECTION 100 each 11 025 Active BD Plastipak Syringe 3 ML miscIndicatio ns:Gender dysphoria USE EVERY 2 WEEKS 24 each 025 Active Needle, Disp, (Easy Touch Hypodermic Needle) 22G X 1 miscIndicatio ns:Gender dysphoria USE DIRECTED TO INJECT testerone 10 each 5 025 Active testosterone cypionate (Depo-Testost erone) 200 MG/ML injectionIndi cations:Gende r dysphoria INJECT 0.5ML INTRAMUSCULARLY EVERY 2 WEEKS, SINGLE USE VIAL 4 mL 3 Active Sharps Container (Sharps Bass Singer) miscIndicatio ns:Gender dysphoria 1 each if needed each day (for used needles). Dispose used sharps into container. 1 each 2 Active docusate sodium (Colace) 100 MG capsule Take 1 capsule (100 mg) by mouth 2 times daily. 180 capsule 3 025 2025 Active polycarbophil (Fibercon) 625 MG tablet Take 1 tablet (625 mg) by mouth 2 times daily. 180 tablet 3 025 2025 Active polyethylene glycol, PEG, 3350 (MiraLax) 17 GM/SCOOP powder Take 17 g by mouth if needed each day (constipation). 527 g 1 2025 Active meclizine (Antivert) 25 MG tablet Take 1 tablet (25 mg) by mouth if needed in the morning, at noon, and at bedtime for nausea. 30 tablet 025 2025 Active cholecalcifer ol (Vitamin D-3) 1.25 MG (91235 UT) capsule TAKE 1 CAPSULE ORALLY EVERY WEEK FOR 12 WEEKS Active Estradiol 0.01 % cream Insert into the vagina. 025 2024 Active ondansetron (Zofran) 4 MG tablet Take 1 tablet (4 mg) by mouth every 8 (eight) hours if needed for nausea or vomiting. 20 tablet 025 2025 Active ondansetron (Zofran) 4 MG tablet Take 1 tablet (4 mg) by mouth every 8 (eight) hours if needed for nausea or vomiting. 12 tablet 2024 Discontinued(R eorder (will not trigger notification to Pharmacy)) Active Problems Patient Care Coordination No te Formatting of this note migh t be different from the original. Enrolled in [facility] HTN clinic with Brianne Ivory PharmD Problem Noted Date Diagnosed Date Generalized abdominal pain 08/25/2025 Overview (08/25/2025): Seen in ER for acute abdominal pain 08/24/25. US shows gallstones but no acute cholecystitis. Acute cystitis without hematuria 06/09/2025 Assessment & [...] started on an estrogen vaginal cream by [employer]. Denies any dysuria, denies any discharge, denies [...] increase to 1mg subcutaneously qweek for weeks 9-, Increase to 1.7 mg subcutaneously q week weeks 13-16, increase tp 2.4mg subcutaneously q week I-f dose is not tolerated consider delaying dose increase for 4 weeks. Treatment doses considered to be 1.7 or 2.4 mg halfway. -follow up 6 weeks -07/24/24 has not [...] considered to be 1.7 or 2.4 mg halfway. -follow up 6 weeks SONU (obstructive sleep apnea) 12/11/2023 Overview (04/08/2025): -Followed at [facility] with Candida Burns CNP . Seen [...] Overview (05/07/2025): -controlled off meds -normal BMP 7/24/25 Assessment & Plan (04/30/2025 10:42 AM EDT): [...] Family planning 06/06/2023 Overview (09/30/2024): -referred to [facility] 05/29/24 Assessment & Plan (05/29/2024 11:45 [...] considered to be 1.7 or 2.4 mg halfway. -follow up 6 weeks Assessment & Plan [...] oophorectomy Referral placed 06/06/2023. Transaminitis 06/04/2023 Overview (08/31/2025): Lab Results Component Value Date TOTALBILIRUB 0.7 [...] as needed basis. -US US/US 12/03/24 abdomen rockwell w elastography IMPRESSION: Mild hepatic [...] to ask questions and all questions answered. -US 08/28/25 US/US abdomen rockwell w elastography IMPRESSION: 1. Mild hepatic steatosis. 2. Cholelithiasis without evidence of acute cholecystitis. 3. Elastography: Median stiffness measures 1.49 m/s. (Previously measuring 1.84). *Liver Stiffness less than 1.7 m/s: In the absence of other known clinical signs, rules out compensated advanced chronic liver disease. Assessment & Plan (10/13/2024 11:59 AM EST): [...] October 2024 - Ordered Lipid Panel, Standard 01/06/25 - Ordered Hepatic Function Panel 10/13/24 - [...] due after 10/13/25 -eye care facilitated by [facility] in [place] -dental home is [facility] in [place]. -healthcare proxy paperwork filed 10/29/23 Assessment & Plan (04/25/2024 9:31 AM EDT): -next physical exam due after 10/24/2024 -eye care facilitated by [facility] in [place] -dental home is [facility] in [place]. -healthcare proxy paperwork given 10/24/2023 Assessment & Plan (10/24/2023 3:28 PM EST): -next physical exam due after 10/24/2024 -eye care facilitated by -[facility] home is -healthcare proxy paperwork given 10/24/2023 [...] 112 (H) 05/29/2024 -continue lifestyle modification -prescribed Vina-3 500 mg, discussed to continue 07/24/24 and [...] 122 (H) 04/25/2024 -continue lifestyle modification -prescribed Vina-3 500 mg, discussed to continue 07/24/24 and [...] 149 (H) 06/06/2023 -continue lifestyle modification -prescribed Vina-3 500 mg, discussed to continue 07/24/24 and [...] levels 350-700ng/dl. -interested in hysterectomy, referred to [facility] 04/29/25, seen 05/2025 We reviewed the [...] levels 350-700ng/dl. -interested in hysterectomy, referred to [facility] 04/29/25 Assessment & Plan (04/30/2025 10:42 [...] with intercourse. -interested in hysterectomy, referred to [facility] 04/29/25 Orders: CBC; Future Testosterone, Total, males (Adult), IA; Future Hemoglobin A1c; Future testosterone cypionate (Depo-Testosterone) 200 MG/ML injection; INJECT 0.5ML INTRAMUSCULARLY EVERY 2 WEEKS, SINGLE USE VIAL Sharps Container (Sharps Bass Singer) misc; 1 each if needed each day [...] earlier if needed Male pattern alopecia 05/19/2022 Recurrent major depressive disorder, in partial remission 05/19/2022 Overview (05/29/2024): No longer with therapist. [...] -Advise to monitor and come back to [facility] if worsening or new lesion shows up. Elevated liver enzymes 05/19/202205/29 Encounters Date Type Department Care Team Description 08/31/2025 Orders Only GENERIC EXTERNAL DATA DEPARTMENT Provider, Generic External Data 08/28/2025 9:15 AM EST Office Visit [facility] [address] [place] [address] Emiliano, Tamera, OD Myopia of both eyes (Primary Dx) 08/28/2025 Orders Only [facility] External Provider, [facility] Transaminitis (Primary Dx) 08/28/2025 Telephone [facility] [address] [place] [phone] Petra Rico MD Feburary Recalls 08/24/2025 11:00 AM EST Office Visit [facility] [address] [address] Nathan Mercado MD Upper abdominal pain (Primary Dx); Acute bilateral back pain, unspecified back location; Elevated blood pressure reading in office without diagnosis of hypertension 08/24/2025 Telephone [facility] [address] [address] Petra Rico MD Care Coordination 08/24/2025 Travel 08/04/2025 Results Follow-Up [facility] [address] [address] Nathan Mercado MD CBC auto differential, Comprehensive Metabolic Panel, Lipase, Additional followed-up results: 4 07/29/2025 10:40 AM EDT Office Visit [facility] [address] [address] Nathan Mercado MD Abdominal pain, unspecified abdominal location (Primary Dx); Primary hypertension 07/29/2025 Travel 07/24/2025 1:00 PM EDT Office Visit [facility] [address] [place] [address] Emiliano, Tamera, OD Retinal hole of both eyes (Primary Dx); History of repair of retinal defect by laser photocoagulation; Snail-track retinal degeneration of both eyes; Elevated IOP, bilateral; Myopia of both eyes 07/24/2025 Travel 07/22/2025 Travel 06/11/2025 4:00 PM EDT Office Visit [facility] [address] [address] Fátima Paredes DO Acute UTI (Primary Dx); Acute constipation 06/11/2025 Travel 06/11/2025 Orders Only [facility] [address] [address] Petra Rico MD Dysuria (Primary Dx) 06/11/2025 Telephone [facility] [address] [place] [address] Petra Rico MD 06/09/2025 2:40 PM EDT Office Visit [facility] [address] [place] [address] Brian Garner MD Frequent urination 06/09/2025 Travel 06/03/2025 Telephone [facility] [address] [place] [address] Zulay Cornejo, KAREN from Last 3 Months Immunizations Immunization Administration Dates Next Due DTaP 10/27/2005, 0,03/03/1999,01/06,1998 HPV, Quadrivalent 09/27/2011,07/14/2010,06/28/20 09 Hep A, ped/adol, 2 dose 01/08/2015,03/12/2013 Hep B, Adolescent or Pediatric 03/03/1999,1997,1998 Hib ([facility]) 12/15/1999, 9,01/06/1999,11/11 IPV 10/27/2005, 0,01/06/1999,11/11 Influenza Injectable [...] Sign Reading Time Taken Comments Blood Pressure 150/80 08/24/2025 11:21 AM EST Pulse 99 08/24/2025 11:21 AM EST Temperature 36.9 C (98.5 F) 08/24/2025 11:21 AM EST Respiratory Rate 20 08/24/2025 11:21 AM EST Oxygen Saturation 97% 08/24/2025 11:21 AM EST Inhaled Oxygen Concentration - - Weight 52 kg (114 lb 9.6 oz) 08/24/2025 11:21 AM EST Height 149.9 cm (4' 11 ) 08/24/2025 11:21 AM EST Body Mass Index 23.15 08/24/2025 11:21 AM EST Plan of Treatment Health Maintenance Due Date Last Done Comments Family Planning (PISQ) 2013 COVID-19 Vaccine ( season) 2025 12/10/2024, 08/18/2022, 10/17/2021, Additional history exists Influenza Vaccine (#1) 2025 , 08/17/2023, 08/04/2022, Additional history exists Alcohol/Substance Use Screening 04/30/2026 04/30/2025 Depression Screening 04/30/2026 04/30/2025, 04/30/20 25 SDOH Screening 04/30/2026 04/30/2025 Disability Screening 05/07/2026 05/07/2025 Tobacco Screening 08/24/2026 08/24/2025 Pap Smear 11/02/2026 11/02/2023 Lipid Panel 04/30/2030 [...] Screening Completed 06/06/2023 Hepatitis C Screening Completed 07/29/2025 , 05/29/2024, [...] 11:21 AM EST) No Brianne Katz PharmD Procedures Procedure Name Priority Date/Time Associated Diagnosis Comments LIPASE Routine 08/31/2025 2:42 PM EST US ABDOMEN ROCKWELL W ELASTOGRAPHY Routine 08/28/2025 8:50 AM EST HELICOBACTER PYLORI AG, EIA, STOOL Routine 08/05/2025 12:00 PM EDT Abdominal pain, unspecified abdominal location CBC WITH AUTO DIFFERENTIAL Routine 07/29/2025 11:53 [...] Recently Relevant to Health Maintenance Results * Lipase (08/31/2025 2:42 PM EST) Only the most recent of2 resultswithin the time period is included. Lipase 14 8 - 78 U/L [facility] 08/31/2025 2:42 PM EST 08/31/2025 2:42 PM EST us Generic External Data Provider LAB BLOOD ORDERAB LES Final Result Performing Organization Address City/State/[facility] Co de Phone Number [facility] [address] [place] [phone] * US ABDOMEN ROCKWELL W ELASTOGRAPHY (08/28/2025 8:50 AM EST) Anatomical Region Laterality Modality Abdomen Ultrasound 08/28/2025 8:50 AM EST Narrative 08/28/2025 4:04 PM EST [address] [address] Ultrasound Report Signed Patient: Ahsan Kuhn MR#: [id number] : 2000 Acct:[id number] Age/Sex: 25 / M ADM Date: 08/28/25 Loc: HO.US Attending Dr: Josi Bojorquez [facility]- Ordering Physician: Josi Bojorquez [employer] Date of Service: 08/28/25 Procedure(s): US abdomen rockwell w elastography Accession Number(s): [id number] cc: Petra Rico MD; Josi Bojorquez [facility] Reason for Exam: K76.0 - Fatty (change of) liver, not elsewhere classified EXAMINATION: US ABDOMEN LIMITED WITH LIVER ELASTOGRAPHY CLINICAL INFORMATION: Fatty liver COMPARISON: Ultrasound 12/03/2024 TECHNIQUE: Real-time imaging of the abdominal viscera. Noninvasive ultrasound liver fibrosis assessment is performed using Ryzing ElastPQ point quantification shear wave elastography (pSWE) [...] by: Eleno Nguyen MD 08/28/2025 04:01 PM EST Dictated By: Eleno Nguyen MD Signed By: <Electronically signed by Eleno Nguyen MD in OV> 08/28/25 1601 DD/ 0850 TD/TT: 08/28/25 0901 Pinion Sorter: SHANAE Procedure Note Donotuseinterpreter, Image - 08/28/2025 [place] [address] Ultrasound Report Signed Patient: Ahsan Kuhn JMR#: [id number] : 2000Acct:[id number] Age/Sex: 25 / MADM Date: 08/28/25 Loc: HO.US Attending Dr: Josi RODRIGUEZ Ordering Physician: Josi Bojorquez Date of Service: 08/28/25 Procedure(s): US abdomen rockwell w elastography Accession Number(s): [id number] cc: Petra Rico MD; Josi Bojorquez Reason [...] by: Eleno Nguyen MD 08/28/2025 04:[address] [facility] Dictated By: Eleno Nguyen MD Signed By: <Electronically signed by Eleno Nguyen MD in OV> 08/28/25 1601 DD/ 0850 TD/TT: 08/28/25 0901 Pinion Sorter: SHANAE [facility] External Provider IMG US PROCEDURES Final Result * Helicobacter pylori??Antigen, EIA, Stool (08/05/2025 12:00 PM EDT) H pylori Ag Stool SEE NOTE [facility] Comment:HELICOBACTER PYLORI AG, EIA, STOOL Micro Number: [id number] Test Status: Final Specimen Source: Stool Specimen Quality: Adequate H.pylori Ag: Not Detected Antimicrobials, proton pump inhibitors, and bismuth preparations inhibit H. pylori and ingestion up to two weeks prior to testing may cause false negative results. If clinically indicated the test should be repeated on a new specimen obtained two weeks after discontinuing treatment. Reference Range: Not DetectedTHIS TEST WAS PERFORMED AT:[employer] [place] [id number] ROSSI MD Stool Rectal contents / Unknown 08/05/2025 12:00 PM EDT 08/05/2025 1:28 PM EDT Nathan Mercado MD LAB BODY FLUIDS AND STOOLS ORDER OLIVER Final Result [facility] [address] [place] [address] [phone] * (ABNORMAL) CBC auto differential (07/29/2025 11:53 AM EDT) White Blood Count 7.2 4.8 - 10.8 X10*3/uL [facility] Red Blood Count 5.19 4.20 - 5.50 X10*6/uL [facility] Hemoglobin 16.0 12.0 - 16.0 g/dl [facility] Hematocrit 45.1 37.0 - 47.0 % [facility] Mean Corpuscular Volume 86.9 80.0 - 98.0 fL [facility] Mean Corpuscular Hemoglobin 30.8 27.0 - 33.0 pg [facility] Mean Corpuscular HGB Conc 35.5(H) 31.0 - 35.0 g/dl [facility] Red Cell Distribution Width 11.4 11.0 - 16.0 % [facility] Platelet Count 249 160 - 400 X10*3/uL [facility] Mean Platelet Volume 9.6 9.4 - 12.3 fL [facility] Neutrophils Percent Auto 74.0(H) 45 - 73 % [facility] Imm Gran Pct Auto 0.1 0.0 - 0.4 % [facility] Lymphocytes Percent Auto 19.3(L) 20 - 40 % [facility] Monocytes Percent Auto 5.6 2 - 11 % [facility] Eosinophils Percent Auto 0.6 0 - 4 % [facility] Basophils Percent Auto 0.4 0 - 2 % [facility] NRBC Pct Auto 0.0 0.0 - 0.2 /100WBC [facility] Neutrophils Absolute Auto 5.3 2.0 - 8.3 x10*3/uL [facility] Imm Gran Abs Auto 0.01 0.00 - 0.03 X10*3/uL [facility] Lymphocytes Absolute Auto 1.4 1.2 - 4.9 X10*3/uL [facility] Monocytes Absolute Auto 0.4 0.1 - 1.2 X10*3/uL [facility] Eosinophils Absolute Auto 0.0 0.0 - 0.4 X10*3/uL [facility] Basophils Absolute Auto 0.0 0.0 - 0.2 X10*3/uL [facility] NRBC Abs Auto 0.000 0.0 - 0.012 X10*3/uL [facility] Blood Venous blood specimen / Unknown 07/29/2025 11:53 AM EDT 07/29/2025 1:04 PM EDT us Nathan Mercado MD LAB BLOOD ORDERABLES Final Resul t Performing Organization Address [facility] Co de Phone Number [facility] [address] [place] [phone] * Hepatitis C Antibody with Reflex to HCV, RNA, Quantitative, Real-Time PCR (07/29/2025 11:52 AM EDT) Hepatitis C Antibody Nonreactive Nonreactive [facility] Comment:Antibodies to HCV no t detected; does not exclude early acuteHCV infection. Blood Venous blood specimen / Unknown 07/29/2025 11:52 AM EDT 07/29/2025 1:04 PM EDT us Nathan Mercado MD LAB BLOOD ORDERABLES Final Resul t Performing Organization Address [facility] Co de Phone Number [facility] [address] [place] [phone] * Hepatitis B surface antigen, EIA (07/29/2025 11:52 AM EDT) Hepatitis B Surface Ag Negative Negative [facility] Blood Venous blood specimen / Unknown 07/29/2025 11:52 AM EDT 07/29/2025 1:04 PM EDT us Nathan Mercado MD LAB BLOOD ORDERABLES Final Resul t Performing Organization Address [facility] de Phone Number [facility] [address] [place] [phone] * Hepatitis B Core Antibody, Total (07/29/2025 11:52 AM EDT) Hepatitis B Core Antibody Nonreactive Nonreactive [facility] Blood Venous blood specimen / Unknown 07/29/2025 11:52 AM EDT 07/29/2025 1:04 PM EDT us Nathan Mercado MD LAB BLOOD ORDERABLES Final Resul t Performing Organization Address [facility] de Phone Number [facility] [address] [place] [phone] * Hepatitis B Surface Antibody, Qualitative (07/29/2025 11:52 AM EDT) ~Hepatitis B Surface Antibody GRAYZONE Nonreactive [facility] Comment:GRAYZONE: 8.00 mIU/m L TO 11.99 mIU/mLTHE IMMUNE STATUS OF THE INDIVIDUAL SHOULD BE FURTHERASSESSED BY CONSIDERING OTHER FACTORS, SUCH CLINICALSTATUS, FOLLOW-UP TESTING, ASSOCIATED RISK FACTORS, AND THEUSE OF ADDITIONAL DIAGNOSTIC INFORMATION. Blood Venous blood specimen / Unknown 07/29/2025 11:52 AM EDT 07/29/2025 1:04 PM EDT us Nathan Mercado MD LAB BLOOD ORDERABLES Final Resul t Performing Organization Address [facility] de Phone Number [facility] [address] [place] [phone] * (ABNORMAL) Comprehensive Metabolic Panel (07/29/2025 11:52 AM EDT) Sodium 141 135 - 145 mmol/L [facility] Potassium 3.8 3.3 - 5.1 mmol/L [facility] Chloride 106 96 - 108 mmol/L [facility] Carbon Dioxide 28 22 - 29 mmol/L [facility] Anion Gap 11(L) 12 - 20 [facility] Urea Nitrogen (BUN) 10 9 - 16 mg/dL [facility] Creatinine, Serum 0.84 0.5 - 1.4 mg/dL [facility] Estimated Glomerular Filt Rate >60 [facility] Comment:Chronic Kidney Disea se: Estimated GFR < 60 mL/min/1.07u3Fotpnn Kidney Disease: Estimated GFR < 15 mL/min/1.73m2 Glucose 86 60 - 115 mg/dL [facility] Calcium 9.9 8.4 - 10.2 mg/dL [facility] Bilirubin, Total 0.9 0.0 - 1.0 mg/dL [facility] Aspartate Amino Transferase 19 5 - 31 U/L [facility] Alanine Aminotransferase 18 0 - 31 U/L [facility] Total Protein 7.9 6.5 - 8.0 g/dL [facility] Albumin Level 5.3(H) 3.5 - 5.0 g/dL [facility] Alkaline Phosphatase 73 39 - 117 U/L [facility] Blood Venous blood specimen / Unknown 07/29/2025 11:52 AM EDT 07/29/2025 1:04 PM EDT Nathan Mercado MD LAB BLOOD ORDERABLES Final Resul t [facility] [address] [place] [phone] * POCT Urine (06/11/2025 4:02 PM EDT) Preg Test, Ur Negative Negative, Indeterminate, None Detected, Invalid, Specimen unsatisfactory for evaluation, Weakly Positive, 2+ QC Media Lot # [id number] Lot# Expiration Date Urine 06/11/2025 4:02 PM EDT Fátima Paredes [...] Media Lot # [id number] Lot# Expiration Date 28879 Urine 06/11/2025 4:02 PM EDT Fátima Paredes DO POINT OF CARE TEST ENTER/KIARA T ORDERABLES Final Result * Chlamydia/N. Gonorrhoeae, PCR, Urine (06/11/2025 3:50 PM EDT) CT PCR, Urine NOT DETECTED Not Detect. [facility] Comment:A not detected test result does [...] NG PCR, Urine NOT DETECTED Not Detect. [facility] Comment:A not detected test result does [...] 3:50 PM EDT 06/11/2025 5:44 PM EDT Fátima Paredes DO LAB URINE ORDERABLES Final R esult [facility] [address] [place] [phone] [phone] * Urinalysis, Complete, with Reflex to Culture (06/11/2025 3:50 PM EDT) Only the most recent of2 resultswithin the time period is included. Color Urine Yellow [facility] Appearance Urine Clear [facility] PH 7.0 5.0 - 9.0 [facility] Glucose Urine UA Negative Negative mg/dL [facility] Urine Blood Negative Negative [facility] Specific [place] - Urine <=1.005 1.005 - 1.025 [facility] Urine Protein Negative Neg-Trace mg/dL [facility] Urine Ketones Trace Negative mg/dL [facility] Nitrite Urine Negative Negative [facility] Leukocyte Esterase Urine Negative Negative [facility] RBC Urine 0-2 0 - 2 /HPF [facility] Urine WBC 0-5 0 - 5 /HPF [facility] Urine Squamous Epithelial Cell 0-2 0 - 2 /HPF [facility] Urine Bacteria None Seen None Seen [facility] Hyaline Casts, Urine 0-2 0 - 2 /LPF [facility] Urine 06/11/2025 3:50 PM EDT 06/11/2025 5:44 PM EDT Narrative [facility] - 06/11/2025 6:35 PM EDT Urine, Clean Catch us Fátima Paredes DO LAB URINE ORDERABLES Final R esult Performing Organization Address City/[facility]/ZIP Co de Phone Number [facility] [address] [place] [phone] [phone] * Culture, Urine, Routine (06/09/2025 3:12 PM EDT) Urine Urine specimen obtained by clean catch procedure / Unknown 06/09/2025 3:12 PM EDT 06/09/2025 5:28 PM EDT Comment:UACC Narrative [facility] - 06/11/2025 11:23 AM EDT Urine Culture Report Result Urine Culture 10,000 to 50,000 cfu/ml Urine Culture Mixed bacterial abida characteristic of Urine Culture urogenital contamination. Specimen Source: Urine clean catch Brian Tidwell MD LAB MICROBIOLOGY - GE NERAL ORDERABLES Final Result Performing Organization Address [facility]/ZIP Co de Phone Number [facility] [address] [place] [address] [phone] * (ABNORMAL) Lipid Panel, Standard (04/30/2025 10:06 AM EDT) Triglycerides 88 <150 mg/dL [facility] Comment:Desirable Triglyceri de: less than 150 mg/dLBorderline High Triglyceride 150-199 mg/dLHigh Triglyceride: 200-499 mg/dLVery High Triglyceride: greater than or equal to 5OO mg/dL Cholesterol 145 <200 mg/dL [facility] Comment:Desirable Cholestero l: less than 200 mg/dLBorderline High Cholesterol: 200-239 mg/dLHigh Cholesterol: greater than 239 mg/dL LDL Cholesterol Calculated 96 <100 mg/dL [facility] Comment:Desirable LDL: less than 100 mg/dLNear Optimal/Above Optimal LDL: 110- 129 mg/dLBorderline High LDL: 130-159 mg/dLHigh LDL: 160-189 mg/dLVery High LDL: greater than or equal to 190 mg/dL HDL Cholesterol 32(L) >40 mg/dL [facility] Comment:Desirable HDL: great er than 40 mg/dL Note: This HDL assay may give artificially low results in patients with liver disease. Blood Venous blood specimen / Unknown 04/30/2025 10:06 AM EDT 04/30/2025 11:18 AM EDT us Petra Rico MD LAB BLOOD ORDERABLES Final Result Performing Organization Address [facility]/ZIP Co de Phone Number [facility] [address] [place] [address] [phone] * Pap Smear (11/02/2023 11:41 AM EST) 11/02/2023 11:4 1 AM EST 11/06/2023 8:00 AM EST Lexi [facility] - 11/16/2023 3:18 PM EST ----- ------- Name: BamAhsan Age/Sex: 23/M : 2000 Unit#: [id number] Attend Dr: Petra Rico MD Re11/02/23 Status: [facility] REF Location: HO.HHCLNP Disch: ----- ------- SPEC : [id number] RECD: 11/06/23 STATUS: LAWRENCE TAM NUM: [id number] AKANKSHA: 11/02/23-1141 [facility] DR: Petra Rico MD ENTERED: 11/06/23 SP TYPE: Pap Smr OT DR: ORDERED: Pap Smear Interpretation Unsatisfactory. Scant cellularity. HPV mRNA E6/E7: NOT DETECTED This assay detects E6/E7 viral messenger RNA (mRNA) from 14 high-risk HPV types (16, 18, 31, 33, 35, 39, 45, 51, 52, 56, 58, 59, 66, 68) HPV testing performed by [facility], [place], [place]. See reference laboratory portion of the EMR for entire report. Clinical Information LMP: Pt on testosterone Previous PAP test: None Other history: Difficult to see os Material Received ThinPrep-Cervical ----- ------- Signed (signature on file) CLAY Chavez (ASCP) 11/16/23 1518 ----- ------- END OF REPORT us Petra Rico MD LAB CYTOLOGY ORDERABLES Fi nal Result [facility] [address] [place] [phone] * HIV Ab/Ag ([facility]) (06/06/2023 12:05 PM EDT) Pathologist [facility] HIV AB/AG Nonreactive Nonreactive [facility] Comment:HIV-1 p24 Ag and/or HIV-1/HIV-2 Ab not detected.A test result that is nonreactive does not exclude thepossibility of exposure to or infection with HIV-1 and/orHIV-2. Nonreactive results in this assay for individualswith prior exposure to HIV-1 and/or HIV-2 may be due toantigen and antibody levels that are below the limit ofdetection of this assay.The [employer] HIV Ag/Ab Combo assay result andsupplemental assay results should be interpreted inconjunction with the patient's clinical presentation,history and other laboratory results. If the results areinconsistent with clinical evidence, additional testing issuggested to confirm the result. 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
== END 2025-08-31 13:57 | disposition home or self-care (01) ==
LOC: HO.HGI 13:02
PROVIDERS: PCP Family Medicine; Visit Provider Nurse Practitioner Family
DX: R63.4 Abnormal weight loss (principal); R74.01 Elevation of levels of liver transaminase levels; K76.0 Fatty (change of) liver, not elsewhere classified; K80.20 Calculus of gallbladder without cholecystitis without obstruction
CPT/HCPCS: 99214

== ENCOUNTER 2025-08-31 13:02 | Outpatient (REF) | payer MEDICAID, SELFPAY ==
[2025-08-31 16:26] LABS: Lipase 14 U/L (8-78)
== END 2025-08-31 13:03 | disposition home or self-care (01) ==
LOC: HO.LAB 13:02
PROVIDERS: PCP Family Medicine; Visit Provider Nurse Practitioner Family
DX: K80.20 Calculus of gallbladder without cholecystitis without obstruction (principal); K76.0 Fatty (change of) liver, not elsewhere classified; R63.4 Abnormal weight loss; R74.01 Elevation of levels of liver transaminase levels; R10.11 Right upper quadrant pain; R19.8 Other specified symptoms and signs involving the digestive system and abdomen
CPT/HCPCS: 36415; 83690; 86364; 99212

== ENCOUNTER 2025-09-02 12:55 | Outpatient (REF) | payer MEDICAID, SELFPAY ==
--- OUTSIDE RECORDS SUMMARY | 2025-08-28 09:15 | XMS_ITS | Encounter Summary ---
Author Organization [employer] Address [address] 7[address] [place] [address] Care Team Providers Care Delivery Supervisor Name Role Phone Trisha, Petra VALENCIA Primary Care Provider [phone] Brianne Ivory PharmD Unavailable Tamera Cummings OD Unavailable Dana Angel Unavailable [phone] Josi Bojorquez Unavailable Rose Damon Unavailable Encounter Details Date Type Department Care Team (Late st Contact Info) Description 08/28/2025 9:15 AM EST Office Visit [facility] OPTOMETRY [address] [place] [address] Tamera Cummings, OD [address] [place] [address] Myopia of both eyes (Primary Dx) Social [...] Care Team (Late st Contact Info) Description 11/09/2025 9:15 AM EST Office Visit [facility] MEDICINE [address] [place], [place] [phone] Petra Rico MD [address] [place] [address] documented as of this encounter Goals Goal Patient Goal Type Associated Problems Recent Progress Patient-Stated? Author Blood Pressure < 140/90 Blood Pressure 150/80( 025 11:21 AM EST) No Brianne Katz PharmD documented as of this encounter Visit Diagnoses Diagnosis Myopia of both eyes- Primary documented in this encounter Additional Health Concerns Assessment Noted Time PHQ-9 Depression Total Score: 8 04/30/20 25 9:10 AM EDT documented as of this encounter Care Teams Delivery Supervisor Relationship Specialty Start Date End Date Petra Rico MD [address] [place] [address] PCP - General Family Medicine 08/12/15 Brianne Ivory PharmD [address] [place] [address] Pharmacist Internal Medicine 08/13/23 Tamera Cummings OD [address] [place] [address] Optometry 09/30/24 Dana Angel [address] [place] [address] Sleep Medicine 10/13/24 Josi Bojorquez [address] [place] [address] Gastroenterology 11/04/24 [facility] [address] [place] [address] Gynecology 06/02/25 documented as of this encounter
--- OUTSIDE RECORDS SUMMARY | 2025-09-02 15:56 | XMS_ITS | Encounter Summary ---
Author Organization [facility] Address [address] [facility] [address] [place] [phone] Phone Care Team Providers Care Insurance Representative Name Role Phone Petra Rico MD Primary Care [facility] Encounter Details Date Type Department Care Team (Late st Contact Info) Description 07/13/2021 Procedure Pass OR Admitting Dept - Virtual Department [address] [place] [address] Social History Tobacco Use Types Packs/Day Years [...] Office Visit [facility] [address] [place] [address] [place] [address] Rose Damon MD [address] [facility], [address] [place] [address] [email or web address] documented as of this encounter Visit Diagnoses Not on filedocumented in this encounter Care Teams Insurance Representative Relationship Specialty Start Date End Date Petra Rico MD [address] [place] [address] PCP - General 07/26/17 documented as of this encounter Additional Source Comments The information contained in this document represents components of the legal health record. It is not the complete legal health record.[facility]
--- OUTSIDE RECORDS SUMMARY | 2025-09-02 15:56 | XMS_ITS | Encounter Summary ---
Author Organization [employer] Address [address] 7t [place] [address] Care Team Providers Care Unarmed Security Guard Name Role Phone Petra Rico MD Primary Care Provider +- [phone] Brianne Ivory PharmD Unavailable Tamera Cummings OD Unavailable Dana Angel Unavailable [phone] Josi Bojorquez Unavailable Rose Damon Unavailable Encounter Details Date Type Department Care Team (Late st Contact Info) Description 04/23/2024 Orders Only [facility] [address] [place], [place] [phone] Petra Rico MD 230 [place], [place] [phone] Social History Tobacco Use Types Packs/Day Years [...] Description 11/09/2025 9:15 AM EST Office Visit [facility] 230 [place] [address] Petra Rico MD 230 [place] [address] documented as of this encounter Goals Goal [...] documented as of this encounter Care Teams Unarmed Security Guard Relationship Specialty Start Date End Date Petra Rico MD 230 [place] [address] PCP - General Family Medicine 08/12/15 Brianne Iovry PharmD 230 [place] [address] Pharmacist Internal Medicine 08/13/23 Tamera Cummings OD [address] [place] [address] Optometry 09/30/24 Dana Angel [address] [place] [address] Sleep Medicine 10/13/24 Josi Bojorquez [address] [place] [address] Gastroenterology 11/04/24 [facility] [address] [place] [address] Gynecology 06/02/25 documented as of this encounter
--- OUTSIDE RECORDS SUMMARY | 2025-09-02 15:56 | XMS_ITS | Encounter Summary ---
Author Organization [employer] Address [address] [facility] 7t [place] [address] Care Team Providers Care Process Improvement Specialist Name Role Phone Petra Rico MD Primary Care Provider +- [phone] Brianne Ivory PharmD Unavailable Tamera Cummings OD Unavailable Dana Angel Unavailable Josi Bojorquez Unavailable Rose Damon Unavailable Reason for Visit * Reason Onset Date Comments Med Refill 10/29/2024 Encounter Details Date Type Department Care Team (Late st Contact Info) Description 10/29/2024 Refill [facility] [address] [place], [place] [phone] Petra Rico MD 230 [place], [place] [phone] Gender dysphoria Social History Tobacco Use Types [...] Description 11/09/2025 9:15 AM EST Office Visit [facility] [address] [place] [address] Petra Rico MD 230 [place] [address] documented as of this encounter Goals Goal [...] documented as of this encounter Care Teams Process Improvement Specialist Relationship Specialty Start Date End Date Petra Rico MD 230 [place] [address] PCP - General Family Medicine 08/12/15 Brianne Ivory, DagoD [address] [place] [address] Pharmacist Internal Medicine 08/13/23 Tamera Cummings OD [address] [place] [address] Optometry 09/30/24 Dana Angel [address] [place] [address] Sleep Medicine 10/13/24 Josi Bojorquez [address] [place] [address] Gastroenterology 11/04/24 [facility] [address] [place] [address] Gynecology 06/02/25 documented as of this encounter
--- OUTSIDE RECORDS SUMMARY | 2025-09-02 15:56 | XMS_ITS | Encounter Summary ---
Author Organization [employer] Address [address] [place] [address] 7t [place] [address] Care Team Providers Care Continuous Mining Machine Coal Miner Name Role Phone Petra Rico MD Primary Care Provider +1- [phone] Brianne Ivory PharmD Unavailable [phone] Tamera Cummings OD Unavailable Dana Angel Unavailable Josi Bojorquez Unavailable Rose [facility] Unavailable Encounter Details Date Type Department Care Team (Late st Contact Info) Description 06/05/2023 Abstract [facility] 230 [place], [place] [phone] Petra Rico MD [address] [place], [place] [phone] Social History Tobacco Use Types Packs/Day Years [...] Description 11/09/2025 9:15 AM EST Office Visit [facility] [address] [place] [address] [phone] Petra Rico MD [address] [place], [place] [phone] documented as of this encounter Visit Diagnoses Not on filedocumented in this encounter Care Teams Continuous Mining Machine Coal Miner Relationship Specialty Start Date End Date Petra Rico MD [address] [place] [address] PCP - General Family Medicine 08/12/15 Brianne Ivory, DagoD [address] [place] [address] Pharmacist Internal Medicine 08/13/23 Tamera Cummings OD [address] [place] [address] Optometry 09/30/24 Dana Angel [address] [place] [address] Sleep Medicine 10/13/24 Josi Bojorquez [address] [place] [address] Gastroenterology 11/04/24 [facility] [address] [place] [address] Gynecology 06/02/25 documented as of this encounter
--- OUTSIDE RECORDS SUMMARY | 2025-09-02 15:56 | XMS_ITS | Encounter Summary ---
Author Organization [employer] Address [address] 7t [place] [address] Care Team Providers Care Aviation Technician Aircraft Name Role Phone Petra Rico MD Primary Care Provider +- [phone] Brianne Ivory PharmD Unavailable [phone] Tamera Cummings OD Unavailable [phone] Dana Angel Unavailable [phone] Josi Bojorquez Unavailable Rose Damon Unavailable [...] Description 11/09/2025 9:15 AM EST Office Visit [facility] [address] [place] [address] Petra Rico MD 230 [place] [address] documented as of this encounter Goals Goal Patient Goal Type Associated Problems Recent Progress Patient-Stated? Author Blood Pressure < 140/90 Blood Pressure 150/80( 025 11:21 AM EST) No Brianne Katz, PharmD documented as of this encounter Procedures Procedure Name Priority Date/Time Associated Diagnosis Comments TISSUE TRANSGLUTAMINASE AB, IGA Routine 08/31/2025 2:42 PM EST LIPASE Routine 08/31/2025 2:42 PM EST documented in this encounter Results * Tissue Transglutaminase Antibody, IgA (08/31/2025 2:42 PM EST) Transglutaminase IgA <1.0 U/mL [facility] Comment:Value Interpretation ----- <15.0 Antibody not detected> or = 15.0 Antibody detectedTHIS TEST WAS PERFORMED AT:[facility] [place] [id number] ROSSI MD 08/31/2025 2:42 PM EST 08/31/2025 2:42 PM EST Generic External Data Provider LAB BLOOD ORDERAB LES Final Result Performing Organization Address [facility]/ZIP Co de Phone Number [facility] [address] [place] [phone] * Lipase (08/31/2025 2:42 PM EST) Lipase 14 8 - 78 U/L [facility] 08/31/2025 2:42 PM EST 08/31/2025 2:42 PM EST Generic External Data Provider LAB BLOOD ORDERAB LES Final Result Performing Organization Address [facility]/RUST de Phone Number [facility] [address] [place] [phone] documented in this encounter Visit Diagnoses Not on filedocumented in this encounter Additional Health Concerns Assessment Noted Time PHQ-9 Depression Total Score: 8 04/30/20 25 9:10 AM EDT documented as of this encounter Care Teams Aviation Technician Aircraft Relationship Specialty Start Date End Date Petra Rico MD 230 [place] [address] PCP - General Family Medicine 08/12/15 Brianne Ivory, Balaji 230 [place] [address] Pharmacist Internal Medicine 08/13/23 Tamera Cummings OD [address] [place] [address] Optometry 09/30/24 Dana Angel [address] [place] [address] Sleep Medicine 10/13/24 Josi Bojorquez [address] [place] [address] Gastroenterology 11/04/24 [facility] [address] [place] [address] Gynecology 06/02/25 documented as of this encounter
--- OUTSIDE RECORDS SUMMARY | 2025-09-02 15:56 | XMS_ITS | Encounter Summary ---
Author Organization [employer] Address [address] [facility] 7t [place] [address] Care Team Providers Care Harvesting Manager Name Role Phone Petra Rico MD Primary Care Provider [phone]- [phone] Brianne Ivory PharmD Unavailable [phone] EmilianoTamera fairchild OD Unavailable Dana Angel Unavailable [phone] Jsoi Bojorquez Unavailable Rose Damon Unavailable Encounter Details Date Type Department Care Team (Late st Contact Info) Description 10/19/2022 Telephone [facility] [address] [place] [address] [phone] Petra Rico MD [address] [place] [address] [phone] Social History Tobacco Use Types Packs/Day Years [...] Description 11/09/2025 9:15 AM EST Office Visit [facility] [address] [place] [address] [phone] Petra Rico MD [address] [place] [address] [place] [address] documented as of this encounter Visit Diagnoses Diagnosis Gender dysphoria- Primary documented in this encounter Care Teams Harvesting Manager Relationship Specialty Start Date End Date Petra Rico MD [address] [place] [address] PCP - General Family Medicine 08/12/15 Brianne Ivory, DagoD [address] [place] [address] Pharmacist Internal Medicine 08/13/23 Tamera Cummings OD [address] [place] [address] Optometry 09/30/24 Dana Angel [address] [place] [address] Sleep Medicine 10/13/24 Josi Bojorquez [address] [place] [address] Gastroenterology 11/04/24 [facility] [address] [place] [address] Gynecology 06/02/25 documented as of this encounter
--- OUTSIDE RECORDS SUMMARY | 2025-09-02 15:56 | XMS_ITS | Encounter Summary ---
Author Organization [employer] Address [address] [facility] 7t [place] [address] Care Team Providers Care Tassel Clipper Name Role Phone Petra Rico MD Primary Care Provider +- [phone] Brianne Ivory PharmD Unavailable [phone] Tamera Cummings OD Unavailable Dana Angel Unavailable Josi Bojorquez Unavailable Rose [facility]on Unavailable Reason for Visit * Reason Onset Date Comments Feburary Recalls 08/28/2025 Encounter Details Date Type Department Care Team (Late st Contact Info) Description 08/28/2025 Telephone [facility] 230 [place], [place] [phone] Petra Rico MD 230 [place], [place] [phone] Feburary Recalls Social History Tobacco Use Types [...] Upcoming Encounters Date Type Department Care Team ([facility] st Contact Info) Description 11/09/2025 9:15 AM EST Office Visit [facility] [address] [place] [address] Petra Rico MD 230 [place] [address] documented as of this encounter Goals Goal [...] documented as of this encounter Care Teams Tassel Clipper Relationship Specialty Start Date End Date Petra Rico MD [address] [place] [address] PCP - General Family Medicine 08/12/15 Brianne Ivory, PharmD [address] [place] [address] Pharmacist Internal Medicine 08/13/23 Tamera Cummings OD [address] [place] [address] Optometry 09/30/24 Dana Angel [address] [place] [address] Sleep Medicine 10/13/24 Josi Bojorquez [address] [place] [address] Gastroenterology 11/04/24 [facility] 22 [place] [address] Gynecology 06/02/25 documented as of this encounter
--- OUTSIDE RECORDS SUMMARY | 2025-09-02 15:56 | XMS_ITS | Encounter Summary ---
Author Organization [employer] Address [address] 7t [place] [address] Care Team Providers Care Advertising Sales Consultant Name Role Phone Petra Rico MD Primary Care Provider +- [phone] Brianne Ivory PharmD Unavailable Tamera Cummings OD Unavailable [phone] Dana Angel Unavailable Jois Bojorquez Unavailable Rose Damon Unavailable Reason for Visit * Reason Comments Med Refill Encounter Details Date Type Department Care Team (Late st Contact Info) Description 08/07/2024 Refill [facility] 230 [place], [place] [phone] Petra Rico MD 230 [place], [place] [phone] Mixed anxiety and depressive disorder Social History [...] Description 11/09/2025 9:15 AM EST Office Visit [facility] 230 [place] [address] Petra Rico MD 230 [place] [address] documented as of this encounter Goals Goal Patient Goal Type Associated Problems Recent Progress Patient-Stated? Author Blood Pressure < 140/90 Blood Pressure 150/80( 025 11:21 AM EST) No LarrysBrianne Ruiz, PharmD documented as of this encounter Visit Diagnoses Diagnosis Mixed anxiety and depressive disorder Dysthymic disorder documented in this encounter Additional Health Concerns Assessment Noted Time PHQ-9 Depression Total Score: 0 10/24/19 3:14 PM EST documented as of this encounter Care Teams Advertising Sales Consultant Relationship Specialty Start Date End Date Petra Rico MD 230 [place] [address] PCP - General Family Medicine 08/12/15 Brianne Ivory PharmD 230 [place] [address] Pharmacist Internal Medicine 08/13/23 Tamera Cummings OD [address] [place] [address] Optometry 09/30/24 Dana Angel [address] [place] [address] Sleep Medicine 10/13/24 Josi Bojorquez [address] [place] [address] Gastroenterology 11/04/24 [facility] [address] [place] [address] Gynecology 06/02/25 documented as of this encounter
--- OUTSIDE RECORDS SUMMARY | 2025-09-02 15:56 | XMS_ITS | Encounter Summary ---
Author Organization [facility] Address [address] [place] [phone] Phone Care Team Providers Care Court Bailiff Name Role Phone Petra Rico MD Primary Care [facility] Encounter Details Date Type Department Care Team (Late st Contact Info) Description 07/23/2025 Procedure Pass OR Admitting Dept - Virtual Department 30 [place] [address] Social History Tobacco Use Types Packs/Day Years [...] Visit [facility] [address] [place] [address] Rose Damon MD [address] [place] [address], [address] [place] [address] [email or web address] documented as of this encounter Visit Diagnoses Not on filedocumented in this encounter Care Teams Court Bailiff Relationship Specialty Start Date End Date Trisha, Petra Del Cid MD [address] [place] [address] PCP - General 07/26/17 documented as of this encounter Additional Source Comments The information contained in this document represents components of the legal health record. It is not the complete legal health record.[facility]
--- OUTSIDE RECORDS SUMMARY | 2025-09-02 15:56 | XMS_ITS | Clinical Summary ---
Author Organization [facility] Address [address] [place] [phone] Phone Care Team Providers Care Construction Producer Name Role Phone Petra Rico MD Primary [...] OR Admitting Dept - Virtual Department 30 [place] [address] 07/09/[address] [facility] General Surgical Care [address] [place] [address] Rose Damon MD Surgery Scheduling from Last 3 Months Family History Medical [...] Office Visit [facility] [address] [place] [address] [place] [address] Rose Damon MD [address] [facility], [address] [place] [address] Health Maintenance Due Date Last Done Comments DEPRESSION SCREENING 2010 HEPATITIS C SCREENING 2016 HIV ONE-TIME SCREENING (18-65 YEARS) 2016 INFLUENZA VACCINE (#1) 2025 , 08/17/2023, 08/04/2022, Additional history exists COVID-19 VACCINE (2024- season) 2025 12/10/2024, 08/18/2022, 10/17/2021, Additional history [...] topic Medical Devices Not on file Insurance [facility] [place] [id number] [facility] C3 ACO [facility] [address] [place] [address] [address] C3 ACO [facility] C3 ACO [facility] C3 ACO [facility] C3 ACO [facility] C3 ACO [facility] C3 ACO Care Teams Construction Producer Relationship Specialty Start Date End Date Unicoi, Petra Del Cid MD [address] [place] [address] PCP - General 07/26/17 Additional Source Comments The information contained in this document represents components of the legal health record. It is not the complete legal health record.[facility]
--- OUTSIDE RECORDS SUMMARY | 2025-09-02 15:56 | XMS_ITS | Encounter Summary ---
Author Organization [employer] Address [address] 7t [place] [address] Care Team Providers Care Oil Field Operator Name Role Phone Petra Rico MD Primary Care Provider +[phone]- [phone] Brianne Ivory PharmD Unavailable Tamera Cummings OD Unavailable [phone] Dana Angel Unavailable Josi Bojorquez Unavailable Rose [facility]on Unavailable Encounter Details Date Type Department Care Team (Late st Contact Info) Description 09/17/2024 Orders Only [facility] 230 [place], [place] [phone] Petra Rico MD 230 [place], [place] [phone] Social History Tobacco Use Types Packs/Day Years [...] Description 11/09/2025 9:15 AM EST Office Visit [facility] 230 [place] [address] Petra Rico MD [address] [place] [address] documented as of this encounter Goals Goal [...] documented as of this encounter Care Teams Oil Field Operator Relationship Specialty Start Date End Date Trisha, Petra, MD [address] [place] [address] PCP - General Family Medicine 08/12/15 Brianne Ivory PharmD 230 [place] [address] Pharmacist Internal Medicine 08/13/23 Tamera Cummings OD [address] [place] [address] Optometry 09/30/24 Dana Angel [address] [place] [address] Sleep Medicine 10/13/24 Josi Bojorquez [address] [place] [address] Gastroenterology 11/04/24 [facility] [address] [place] [address] Gynecology 06/02/25 documented as of this encounter
--- OUTSIDE RECORDS SUMMARY | 2025-09-02 15:56 | XMS_ITS | Encounter Summary ---
Author Organization [facility] Address [address] [place] [address] Care Team Providers Care Comber Tender Name Role Phone [place], Petra VALENCIA Primary Care Provider [phone]- [phone] Brianne Ivory PharmD Unavailable [phone] Tamera Cummings OD Unavailable [phone] Dana Angel Unavailable [phone] Josi Bojorquez Unavailable Rose Damon Unavailable Encounter Details Date Type Department Care Team (Late st Contact Info) Description 08/28/2025 Orders Only [facility] External Provider, [facility] Transaminitis (Primary Dx) Social History Tobacco Use [...] Description 11/09/2025 9:15 AM EST Office Visit [facility] [address] [place] [id number] Petra Rico MD [address] [place] [address] documented as of this encounter Goals Goal [...] 8:50 AM EST Narrative 08/28/2025 4:[address] [address] Ultrasound Report Signed Patient: Ahsan Kuhn MR#: [id number] : 2000 Acct:[id number] Age/Sex: 25 / M ADM Date: 08/28/25 Loc: HO.US Attending Dr: Josi Bojorquez VISITOR SERVICES SPECIALIST- Ordering Physician: Josi Bojorquez Date of Service: 08/28/25 Procedure(s): US abdomen rockwell w elastography Accession Number(s): [id number] cc: Petra Rico MD; Josi Bojorquez VISITOR SERVICES SPECIALIST-GE Reason for Exam: K76.0 - Fatty (change [...] by: Eleno Nguyen MD 08/28/2025 04:01 PM [facility] Dictated By: Eleno Nguyen MD Signed By: <Electronically signed by Eleno Nguyen MD in OV> 08/28/25 1601 DD/ 0850 TD/TT: 08/28/25 0901 Neurology Director: SHANAE Procedure Note Donotuseinterpreter, Image - 08/28/[address] [address] Ultrasound Report Signed Patient: Ahsan Kuhn JMR#: [id number] : 2000Acct:[id number] Age/Sex: 25 / MADM Date: 08/28/25 Loc: HO.US Attending Dr: Josi RODRIGUEZ Ordering Physician: Josi Bojorquez Date of Service: 08/28/25 Procedure(s): US abdomen rockwell w elastography Accession Number(s): [id number] cc: Petra Rico MD; Josi Bojorquez Reason [...] by: Eleno Nguyen MD 08/28/2025 04:01 PM [facility] Dictated By: Eleno Nguyen MD Signed By: <Electronically signed by Eleno Nguyen MD in OV> 08/28/25 1601 DD/ 0850 TD/TT: 08/28/25 0901 Neurology Director: SHANAE us [facility] External Provider IMG US PROCEDURES Final Result documented in this encounter Visit Diagnoses Diagnosis Transaminitis- Primary Nonspecific elevation of levels of transaminase or lactic acid dehydrogenase (LDH) documented in this encounter Additional Health Concerns Assessment Noted Time PHQ-9 Depression Total Score: 8 04/30/20 25 9:10 AM EDT documented as of this encounter Care Teams Comber Tender Relationship Specialty Start Date End Date Petra Rico MD [address] [place] [address] PCP - General Family Medicine 08/12/15 Brianne Ivory, DagoD [address] [place] [address] Pharmacist Internal Medicine 08/13/23 Tamera Cummings OD [address] [place] [id number] Optometry 09/30/24 Dana Angel [address] [place] [phone] Sleep Medicine 10/13/24 Josi Bojorquez [address] [place] [phone] Gastroenterology 11/04/24 [facility] [address] [place] [id number] Gynecology 06/02/25 documented as of this encounter
--- OUTSIDE RECORDS SUMMARY | 2025-09-02 15:56 | XMS_ITS | Clinical Summary ---
Author Organization [employer] Address [address] [facility] [address] [place] [address] Care Team Providers Care Rn Internal Medicine Name Role Phone Petra Rcio MD Primary Care Provider [phone]- [phone] Brianne Ivory PharmD Unavailable Tamera Cummings OD [...] 4 mL 3 Active Sharps Container (Sharps Rn Cardiac Cath) miscIndicatio ns:Gender dysphoria 1 each if needed [...] Active cholecalcifer ol (Vitamin D-3) 1.25 MG (41332 UT) capsule TAKE 1 CAPSULE ORALLY EVERY [...] be different from the original. Enrolled in [facility] HTN clinic with Brianne Ivory PharmD [...] started on an estrogen vaginal cream by RESIDENTIAL PROGRAM DIRECTOR. Denies any dysuria, denies any discharge, denies [...] considered to be 1.7 or 2.4 mg retirement. -follow up 6 weeks -07/24/24 has not [...] considered to be 1.7 or 2.4 mg retirement. -follow up 6 weeks SONU (obstructive sleep apnea) 12/11/2023 Overview (04/08/2025): -Followed at [facility] with Candida Burns CNP . Seen [...] Family planning 06/06/2023 Overview (09/30/2024): -referred to [facility] 05/29/24 Assessment & Plan (05/29/2024 11:45 AM [...] considered to be 1.7 or 2.4 mg retirement. -follow up 6 weeks Assessment & Plan [...] due after 10/13/25 -eye care facilitated by [facility] in [place] -dental home is [facility] in [place]. -healthcare proxy paperwork filed 10/29/23 Assessment & Plan (04/25/2024 9:31 AM EDT): -next physical exam due after 10/24/2024 -eye care facilitated by [facility] in [place] -dental home is [facility] in [place]. -healthcare proxy paperwork given 10/24/2023 Assessment & Plan (10/24/2023 3:28 PM EST): -next physical exam due after 10/24/2024 -eye care facilitated by -[facility] home is -healthcare proxy paperwork given [...] 112 (H) 05/29/2024 -continue lifestyle modification -prescribed [place]-3 500 mg, discussed to continue 07/24/24 and [...] 122 (H) 04/25/2024 -continue lifestyle modification -prescribed [place]-3 500 mg, discussed to continue 07/24/24 and [...] 149 (H) 06/06/2023 -continue lifestyle modification -prescribed [place]-3 500 mg, discussed to continue 07/24/24 and [...] levels 350-700ng/dl. -interested in hysterectomy, referred to [facility] 04/29/25, seen 05/2025 We reviewed the surgical [...] levels 350-700ng/dl. -interested in hysterectomy, referred to [facility] 04/29/25 Assessment & Plan (04/30/2025 10:42 AM [...] with intercourse. -interested in hysterectomy, referred to [facility] 04/29/25 Orders: CBC; Future Testosterone, Total, males (Adult), IA; Future Hemoglobin A1c; Future testosterone cypionate (Depo-Testosterone) 200 MG/ML injection; INJECT 0.5ML INTRAMUSCULARLY EVERY 2 WEEKS, SINGLE USE VIAL Sharps Container (Sharps Rn Cardiac Cath) misc; 1 each if needed each day [...] -Advise to monitor and come back to [facility] if worsening or new lesion shows up. Elevated liver enzymes 05/19/202205/29 Encounters Date Type Department Care Team Description 08/31/2025 Orders Only GENERIC EXTERNAL DATA DEPARTMENT Provider, Generic External Data 08/28/2025 9:15 AM EST Office Visit [facility] [address] [place] [address] Emiliano, Tamera, OD Myopia of both eyes (Primary Dx) 08/28/2025 Orders Only [facility] External Provider, [facility] Transaminitis (Primary Dx) 08/28/2025 Telephone [facility] [address] [place] [phone] Petra Rico MD Feburary Recalls 08/24/2025 11:00 AM EST Office Visit [facility] [address] [address] Nathan Mercado MD Upper abdominal pain (Primary Dx); Acute bilateral back pain, unspecified back location; Elevated blood pressure reading in office without diagnosis of hypertension 08/24/2025 Telephone [facility] [address] [address] Petra Rico MD Care Coordination 08/24/2025 Travel 08/04/2025 Results Follow-Up [facility] [address] [address] Nathan Mercado MD CBC auto differential, Comprehensive Metabolic Panel, Lipase, Additional followed-up results: 4 07/29/2025 10:40 AM EDT Office Visit [facility] [address] [address] Nathan Mercado MD Abdominal pain, unspecified abdominal location (Primary Dx); Primary hypertension 07/29/2025 Travel 07/24/2025 1:00 PM EDT Office Visit [facility] [address] [place] [address] Emiliano, Tamera, OD Retinal hole of both eyes (Primary Dx); History of repair of retinal defect by laser photocoagulation; Snail-track retinal degeneration of both eyes; Elevated IOP, bilateral; Myopia of both eyes 07/24/2025 Travel 07/22/2025 Travel 06/11/2025 4:00 PM EDT Office Visit [facility] [address] [address] Fátima Paredes DO Acute UTI (Primary Dx); Acute constipation 06/11/2025 Travel 06/11/2025 Orders Only [facility] [address] [address] Petra Rico MD Dysuria (Primary Dx) 06/11/2025 Telephone [facility] [address] [place] [address] Petra Rico MD 06/09/2025 2:40 PM EDT Office Visit [facility] [address] [place] [address] Brian Garner MD Frequent urination 06/09/2025 Travel 06/03/2025 Telephone [facility] [address] [place] [address] Zulay Cornejo, KAREN from Last 3 Months Immunizations Immunization Administration Dates Next Due DTaP 10/27/2005, 0,03/03/1999,01/06,1998 HPV, Quadrivalent 09/27/2011,07/14/2010,06/28/20 09 Hep A, ped/adol, 2 dose 01/08/2015,03/12/2013 Hep B, Adolescent or Pediatric 03/03/1999,1997,1998 Hib ([facility]) 12/15/1999, 9,01/06/1999,11/11 IPV 10/27/2005, 0,01/06/1999,11/11 Influenza [...] 08/24/2025 11:21 AM EST Plan of Treatment Upcoming Encounters Date Type Department Care Team (Late st Contact Info) Description 11/09/2025 9:15 AM EST Office Visit [facility] [address] [place] [address] Petra Rico MD [address] [place], [place] [phone] Health Maintenance Due Date Last Done Comments Family Planning (PISQ) 2013 COVID-19 Vaccine ( season) 2025 12/10/2024, 08/18/2022, 10/17/2021, Additional history exists Influenza Vaccine (#1) 2025 , 08/17/2023, 08/04/2022, Additional history exists Alcohol/Substance Use Screening 04/30/2026 04/30/2025 Depression Screening 04/30/2026 04/30/2025, 04/30/20 25 SDOH Screening 04/30/2026 04/30/2025 Disability Screening 05/07/2026 05/07/2025 Tobacco Screening 08/24/2026 08/24/2025 Pap Smear 11/02/2026 11/02/2023 Lipid Panel 04/30/2030 04/30/2025, 0103/2025, 05/29/2024, Additional history exists DTaP/Tdap/Td Vaccines (8 [...] EST LIPASE Routine 08/31/2025 2:42 PM EST US [...] EDT Acute UTI POCT URINALYSIS DIPSTICK Routine 025 4:02 PM EDT Acute UTI CHLAMYDIA/TRICHOMONAS/NE ISSERIA GONORRHOEAE, PCR, URINE Routine 06/11/2025 3:50 PM EDT Acute UTI URINALYSIS, COMPLETE, WITH REFLEX TO CULTURE Routine 06/11/2025 3:50 PM EDT Acute UTI URINALYSIS, COMPLETE, WITH REFLEX TO CULTURE Routine 06/09/2025 3:12 PM EDT Frequent urination CULTURE, URINE, ROUTINE Routine 06/09/20 25 3:12 PM EDT Frequent urination POCT URINALYSIS DIPSTICK Routine 025 3:11 PM EDT Frequent urination LIPID PANEL, STANDARD Routine 04/30/2025 10:06 AM EDT Dyslipidemia PAP SMEAR Routine 11/02/2023 11:41 AM EST HIV ANTIBODY/ANTIGEN (VA DP) Routine 06/06/2023 12:05 PM EDT from Last 3 Months or Most Recently Relevant to Health Maintenance Results * Tissue Transglutaminase Antibody, IgA (08/31/2025 2:42 PM EST) Transglutaminase IgA <1.0 U/mL [facility] Comment:Value Interpretation ----- <15.0 Antibody not detected> or = 15.0 Antibody detectedTHIS TEST WAS PERFORMED AT:[facility] [employer] [place] [phone] ROSSI MD 08/31/2025 2:42 PM EST 08/31/2025 2:42 PM EST us Generic External Data Provider LAB BLOOD ORDERAB LES Final Result Performing Organization Address [facility] Co de Phone Number [facility] [address] [place] [phone] * Lipase (08/31/2025 2:42 PM EST) Only the most recent of2 resultswithin the time period is included. Lipase 14 8 - 78 U/L [facility] 08/31/2025 2:42 PM EST 08/31/2025 2:42 PM EST us Generic External Data Provider LAB BLOOD ORDERAB LES Final Result Performing Organization Address [facility] Co de Phone Number [facility] [address] [place] [phone] * US ABDOMEN ROCKWELL W ELASTOGRAPHY (08/28/2025 8:50 AM EST) Anatomical Region Laterality Modality Abdomen Ultrasound 08/28/2025 8:50 AM EST Narrative 08/28/2025 4:04 PM EST [address] [address] Ultrasound Report Signed Patient: Ahsan Kuhn MR#: [id number] : 2000 Acct:[id number] Age/Sex: 25 / M ADM Date: 08/28/25 Loc: HO.US Attending Dr: Josi Bojorquez DOUGH PUNCHER-BC Ordering Physician: Josi Bojorquez Date of Service: 08/28/25 Procedure(s): US abdomen rockwell w elastography Accession Number(s): [id number] cc: Petra Rico MD; Josi Bojorquez DOUGH PUNCHER-GE Reason for Exam: K76.0 - Fatty (change [...] 08/28/25 1601 DD/ 0850 TD/TT: 08/28/25 0901 Equip Maint Eng: SHANAE Procedure Note Donotuseinterpreter, Image - 11/21/[address] [address] Ultrasound Report Signed Patient: Ahsan Kuhn JMR#: [id number] : 2000Acct:[id number] Age/Sex: 25 / MADM Date: 08/28/25 Loc: HO.US Attending Dr: Josi GROSS- Ordering Physician: Josi Bojorquez Date of Service: 08/28/25 Procedure(s): US abdomen rockwell w elastography Accession Number(s): [id number] cc: Petra Rico MD; Josi BojorquezGE Reason for Exam: K76.0 - Fatty (change of) liver, not elsewhereclassified EXAMINATION: US ABDOMEN LIMITED WITH LIVER ELASTOGRAPHY CLINICAL INFORMATION: Fatty liver COMPARISON: Ultrasound 12/03/2024 TECHNIQUE: Real-time imaging of the abdominal viscera. Noninvasive ultrasound liver fibrosis assessment is performed using [employer] ElastPQ point quantification shear wave elastography (pSWE) [...] 08/28/25 1601 DD/ 0850 TD/TT: 08/28/25 0901 Equip Maint Eng: SHANAE us [facility] External Provider IMG US PROCEDURES Final Result * Helicobacter pylori??Antigen, EIA, Stool (08/05/2025 12:00 PM EDT) H pylori Ag Stool SEE NOTE [facility] Comment:HELICOBACTER PYLORI AG, EIA, STOOL Micro Number: [id number] Test Status: Final Specimen Source: Stool Specimen Quality: Adequate H.pylori Ag: Not Detected Antimicrobials, proton pump inhibitors, and bismuth preparations inhibit H. pylori and ingestion up to two weeks prior to testing may cause false negative results. If clinically indicated the test should be repeated on a new specimen obtained two weeks after discontinuing treatment. Reference Range: Not DetectedTHIS TEST WAS PERFORMED AT:[facility] [place] [phone] ROSSI MD Stool Rectal contents / Unknown 08/05/2025 12:00 PM EDT 08/05/2025 1:28 PM EDT Nathan Mercado MD LAB BODY FLUIDS AND STOOLS ORDER OLIVER Final Result [facility] [address] [place] [phone] * (ABNORMAL) CBC auto differential (07/29/2025 11:53 AM EDT) White Blood Count 7.2 4.8 - 10.8 X10*3/uL [facility] Red Blood Count 5.19 4.20 - 5.50 X10*6/uL [facility] Hemoglobin 16.0 12.0 - 16.0 g/dl [facility] Hematocrit 45.1 37.0 - 47.0 % [facility] Mean Corpuscular Volume 86.9 80.0 - 98.0 fL [facility] Mean Corpuscular Hemoglobin 30.8 27.0 - 33.0 pg [facility] Mean Corpuscular HGB Conc 35.5(H) 31.0 - 35.0 g/dl [facility] Red Cell Distribution Width 11.4 11.0 - 16.0 % [facility] Platelet Count 249 160 - 400 X10*3/uL [facility] Mean Platelet Volume 9.6 9.4 - 12.3 fL [facility] Neutrophils Percent Auto 74.0(H) 45 - 73 % [facility] Imm Gran Pct Auto 0.1 0.0 - 0.4 % [facility] Lymphocytes Percent Auto 19.3(L) 20 - 40 % [facility] Monocytes Percent Auto 5.6 2 - 11 % [facility] Eosinophils Percent Auto 0.6 0 - 4 % [facility] Basophils Percent Auto 0.4 0 - 2 % [facility] NRBC Pct Auto 0.0 0.0 - 0.2 /100WBC [facility] Neutrophils Absolute Auto 5.3 2.0 - 8.3 x10*3/uL [facility] Imm Gran Abs Auto 0.01 0.00 - 0.03 X10*3/uL [facility] Lymphocytes Absolute Auto 1.4 1.2 - 4.9 X10*3/uL [facility] Monocytes Absolute Auto 0.4 0.1 - 1.2 X10*3/uL [facility] Eosinophils Absolute Auto 0.0 0.0 - 0.4 X10*3/uL [facility] Basophils Absolute Auto 0.0 0.0 - 0.2 X10*3/uL [facility] NRBC Abs Auto 0.000 0.0 - 0.012 X10*3/uL [facility] Blood Venous blood specimen / Unknown 07/29/2025 11:53 AM EDT 07/29/2025 1:04 PM EDT us Nathan Mercado MD LAB BLOOD ORDERABLES Final Resul t [facility] [address] [place] [phone] * Hepatitis C Antibody with Reflex to HCV, RNA, Quantitative, Real-Time PCR (07/29/2025 11:52 AM EDT) Hepatitis C Antibody Nonreactive Nonreactive [facility] Comment:Antibodies to HCV no t detected; does not exclude early acuteHCV infection. Blood Venous blood specimen / Unknown 07/29/2025 11:52 AM EDT 07/29/2025 1:04 PM EDT us Nathan Mercado MD LAB BLOOD ORDERABLES Final Resul t Performing Organization Address [facility] Co de Phone Number [facility] [address] [place] [phone] * Hepatitis B surface antigen, EIA (07/29/2025 11:52 AM EDT) Hepatitis B Surface Ag Negative Negative [facility] Blood Venous blood specimen / Unknown 07/29/2025 11:52 AM EDT 07/29/2025 1:04 PM EDT us Nathan Mercado MD LAB BLOOD ORDERABLES Final Resul t Performing Organization Address [facility] de Phone Number [facility] [address] [place] [phone] * Hepatitis B Core Antibody, Total (07/29/2025 11:52 AM EDT) Hepatitis B Core Antibody Nonreactive Nonreactive [facility] Blood Venous blood specimen / Unknown 07/29/2025 11:52 AM EDT 07/29/2025 1:04 PM EDT us Nathan Mercado MD LAB BLOOD ORDERABLES Final Resul t Performing Organization Address [facility] de Phone Number [facility] [address] [place] [phone] * Hepatitis B Surface Antibody, Qualitative (07/29/2025 11:52 AM EDT) ~Hepatitis B Surface Antibody GRAYZONE Nonreactive [facility] Comment:GRAYZONE: 8.00 mIU/m L TO 11.99 mIU/mLTHE IMMUNE STATUS OF THE INDIVIDUAL SHOULD BE FURTHERASSESSED BY CONSIDERING OTHER FACTORS, SUCH CLINICALSTATUS, FOLLOW-UP TESTING, ASSOCIATED RISK FACTORS, AND THEUSE OF ADDITIONAL DIAGNOSTIC INFORMATION. Blood Venous blood specimen / Unknown 07/29/2025 11:52 AM EDT 07/29/2025 1:04 PM EDT us Nathan Mercado MD LAB BLOOD ORDERABLES Final Resul t [facility] [address] [place] [phone] * (ABNORMAL) Comprehensive Metabolic Panel (07/29/2025 11:52 AM EDT) Sodium 141 135 - 145 mmol/L [facility] Potassium 3.8 3.3 - 5.1 mmol/L [facility] Chloride 106 96 - 108 mmol/L [facility] Carbon Dioxide 28 22 - 29 mmol/L [facility] Anion Gap 11(L) 12 - 20 [facility] Urea Nitrogen (BUN) 10 9 - 16 mg/dL [facility] Creatinine, Serum 0.84 0.5 - 1.4 mg/dL [facility] Estimated Glomerular Filt Rate >60 [facility] Comment:Chronic Kidney Disea se: Estimated GFR < 60 mL/min/1.29z8Pcgyvs Kidney Disease: Estimated GFR < 15 mL/min/1.73m2 Glucose 86 60 - 115 mg/dL [facility] Calcium 9.9 8.4 - 10.2 mg/dL [facility] Bilirubin, Total 0.9 0.0 - 1.0 mg/dL [facility] Aspartate Amino Transferase 19 5 - 31 U/L [facility] Alanine Aminotransferase 18 0 - 31 U/L [facility] Total Protein 7.9 6.5 - 8.0 g/dL [facility] Albumin Level 5.3(H) 3.5 - 5.0 g/dL [facility] Alkaline Phosphatase 73 39 - 117 U/L [facility] Blood Venous blood specimen / Unknown 07/29/2025 11:52 AM EDT 07/29/2025 1:04 PM EDT Nathan Mercado MD LAB BLOOD ORDERABLES Final Resul t [facility] [address] [place] [phone] * POCT Urine (06/11/2025 4:02 PM [...] CT PCR, Urine NOT DETECTED Not Detect. [facility] Comment:A not detected test result [...] NG PCR, Urine NOT DETECTED Not Detect. [facility] Comment:A not detected test result [...] DO LAB URINE ORDERABLES Final R esult [facility] [address] [place] [phone] * Urinalysis, Complete, with Reflex to Culture (06/11/2025 3:50 PM EDT) Only the most recent of2 resultswithin the time period is included. Color Urine Yellow [facility] Appearance Urine Clear [facility] PH 7.0 5.0 - 9.0 [facility] Glucose Urine UA Negative Negative mg/dL [facility] Urine Blood Negative Negative [facility] Specific [place] - Urine <=1.005 1.005 - 1.025 [facility] Urine Protein Negative Neg-Trace mg/dL [facility] Urine Ketones Trace Negative mg/dL [facility] Nitrite Urine Negative Negative [facility] Leukocyte Esterase Urine Negative Negative [facility] RBC Urine 0-2 0 - 2 /HPF [facility] Urine WBC 0-5 0 - 5 /HPF [facility] Urine Squamous Epithelial Cell 0-2 0 - 2 /HPF [facility] Urine Bacteria None Seen None Seen [facility] Hyaline Casts, Urine 0-2 0 - 2 /LPF [facility] Urine 06/11/2025 3:50 PM EDT 06/11/2025 5:44 PM EDT [facility] - 06/11/2025 6:35 PM EDT Urine, Clean Catch us Fátima Paredes DO LAB URINE ORDERABLES Final R esult Performing Organization Address City/[facility]/ZIP Co de Phone Number [facility] [address] [place] [phone] * Culture, Urine, Routine (06/09/2025 3:12 PM EDT) Urine Urine specimen obtained by clean catch procedure / Unknown 06/09/2025 3:12 PM EDT 06/09/2025 5:28 PM EDT Comment:[facility] - 06/11/2025 11:23 AM EDT Urine Culture Report Result Urine Culture 10,000 to 50,000 cfu/ml Urine Culture Mixed bacterial abida characteristic of Urine Culture urogenital contamination. Specimen Source: Urine clean catch us Brian Tidwell MD LAB MICROBIOLOGY - GE NERAL ORDERABLES Final Result Performing Organization Address City/[facility]/ZIP Co de Phone Number [facility] [address] [place] [phone] * (ABNORMAL) Lipid Panel, Standard (04/30/2025 10:06 AM EDT) Triglycerides 88 <150 mg/dL [facility] Comment:Desirable Triglyceri de: less than 150 mg/dLBorderline High Triglyceride 150-199 mg/dLHigh Triglyceride: 200-499 mg/dLVery High Triglyceride: greater than or equal to 5OO mg/dL Cholesterol 145 <200 mg/dL [facility] Comment:Desirable Cholestero l: less than 200 mg/dLBorderline High Cholesterol: 200-239 mg/dLHigh Cholesterol: greater than 239 mg/dL LDL Cholesterol Calculated 96 <100 mg/dL [facility] Comment:Desirable LDL: less than 100 mg/dLNear Optimal/Above Optimal LDL: 110- 129 mg/dLBorderline High LDL: 130-159 mg/dLHigh LDL: 160-189 mg/dLVery High LDL: greater than or equal to 190 mg/dL HDL Cholesterol 32(L) >40 mg/dL [facility] Comment:Desirable HDL: great er than 40 mg/dL Note: This HDL assay may give artificially low results in patients with liver disease. Blood Venous blood specimen / Unknown 04/30/2025 10:06 AM EDT 04/30/2025 11:18 AM EDT us Petra Rico MD LAB BLOOD ORDERABLES Final Result [facility] [address] [place] [phone] * Pap Smear (11/02/2023 11:41 AM EST) 11/02/2023 11:4 1 AM EST 11/06/2023 8:00 AM EST Narrative [facility] - 11/16/2023 3:18 PM EST ----- ------- Name: Ahsan Kuhn/Sex: 23/M : 2000 Unit#: [id number] Attend Dr: Petra Rico MD Re11/02/23 Status: DEP REF Location: [facility] Disch: ----- ------- SPEC : [id number] RECD: 11/06/23 STATUS: LAWRENCE TAM NUM: [id number] AKANKSHA: 11/02/23-[address]: Petra Rico MD ENTERED: 11/06/23 SP TYPE: Pap Smr OTHR DR: ORDERED: Pap Smear Interpretation Unsatisfactory. Scant cellularity. HPV mRNA E6/E7: NOT DETECTED This assay detects E6/E7 viral messenger RNA (mRNA) from 14 high-risk HPV types (16, 18, 31, 33, 35, 39, 45, 51, 52, 56, 58, 59, 66, 68) HPV testing performed by [facility], [place], [place]. See reference laboratory portion of the EMR for entire report. Clinical Information LMP: Pt on testosterone Previous PAP test: None Other history: Difficult to see os Material Received ThinPrep-Cervical ----- ------- Signed (signature on file) CLAY Chavez ([facility]) 11/16/23 1518 ----- ------- END OF REPORT Petra Rico MD LAB CYTOLOGY ORDERABLES Fi nal Result Performing Organization Address [facility]/ZIP Co de Phone Number [facility] [address] [place] [phone] [phone] * HIV Ab/Ag ([facility]) (06/06/2023 12:05 PM EDT) [facility] HIV AB/AG Nonreactive Nonreactive [facility] Comment:HIV-1 p24 Ag and/or HIV-1/HIV-2 Ab not detected.A test result that is nonreactive does not exclude thepossibility of exposure to or infection with HIV-1 and/orHIV-2. Nonreactive results in this assay for individualswith prior exposure to HIV-1 and/or HIV-2 may be due toantigen and antibody levels that are below the limit ofdetection of this assay.The [employer] HIV Ag/Ab Combo assay result andsupplemental assay results should be interpreted inconjunction with the patient's clinical presentation,history and other laboratory results. If the results areinconsistent with clinical evidence, additional testing issuggested to confirm the result. 06/06/2023 12:0 5 PM EDT 06/06/2023 1:35 PM EDT Petra Rico MD LAB BLOOD ORDERABLES Final Result Performing Organization Address [facility] Co de Phone Number [facility] [address] [place] [phone] from Last 3 Months or Most Recently Relevant to Health Maintenance Insurance [facility] C3 Advance Directives Documents on File Type Date Recorded Patient Shaft Sinker Expl anation Advance Directives and Livin g Will 10/29/2023 Health Care Proxy Care Teams Rn Internal Medicine Relationship Specialty Start Date End Date Lowndes, MD Petra [address] [place] [address] PCP - General Family Medicine 08/12/15 Brianne Ivory, DagoD [address] [place] [address] Pharmacist Internal Medicine 08/13/23 Tamera Cummings OD [address] [place] [phone] Optometry 09/30/24 Dana Angel [address] [place] [address] [place] [phone] Sleep Medicine 10/13/24 Josi Bojorquez [address] [address] Gastroenterology 11/04/24 [facility] [address] [place] [phone] Gynecology 06/02/25
[2025-09-10 02:34] LABS: Calprotectin, Fecal 25 mcg/g
== END 2025-09-02 12:56 | disposition home or self-care (01) ==
LOC: HO.LNP 12:55
PROVIDERS: Visit Provider Nurse Practitioner Family
DX: R63.4 Abnormal weight loss (principal); R19.8 Other specified symptoms and signs involving the digestive system and abdomen
CPT/HCPCS: 83993

== ENCOUNTER → 2025-09-11 07:54 | Outpatient (REF) | payer MEDICAID, SELFPAY ==
--- NOTE | ~2025-09-11 | NM_ITS ---
EXAMINATION: NM BILIARY TRACT CLINICAL INFORMATION: Cholelithiasis, right upper quadrant pain, nausea COMPARISON: Ultrasound on 08/28/2025 Radioparhmaceutical: 5.0mCi technetium 99m labeled mebrofenin Other medications: 1.0mcg CCK infused IV over 30 minutes , one hour post injection of mebrofenin (a.k.a. Choletec) TECHNIQUE: Hepatobiliary scintigraphy was performed after the intravenous administration of technetium 99m labeled Choletec. Imaging was performed every 2 minutes for 60 minutes after which, CCK was infused IV over 30 minutes with imaging continuing for an additional 30minutes. Ejection fraction curve was generated with a region of interest placed over the gallbladder. FINDINGS: After Choletech injection, there is prompt uptake of radiotracer by the liver. Intrahepatic biliary filling was visible within 10 minutes and gallbladder filling was visible within 12minutes. Small bowel filling was noted within 18minutes. After CCK infusion, ejection fraction measured 32%. NM/NM hepatobiliary w pharm IMPRESSION: Possible biliary dyskinesia, chronic cholecystitis is not ruled out: Gallbladder Ejection fraction was 32% which is mildly low. Electronically signed by: Pasquale Madrigal MD 09/11/2025 10:46 AM [facility]
== END ==
LOC: HO.NUCMED 07:54
PROVIDERS: PCP Family Medicine; Visit Provider Nurse Practitioner Family
DX: K80.20 Calculus of gallbladder without cholecystitis without obstruction (principal); R10.11 Right upper quadrant pain; R11.0 Nausea
CPT/HCPCS: 78227; A9537; J2805

== ENCOUNTER → 2025-09-11 07:56 | Outpatient (BNV) | payer MEDICAID, SELFPAY | PROVIDERS: PCP Family Medicine; Visit Provider Radiology Diagnostic Radiology | DX: R10.11 Right upper quadrant pain (principal) | CPT/HCPCS: 78227 ==